=== PATIENT | male | born 1955 | race Caucasian/White ===

== ENCOUNTER 2019-05-23 05:33 | Outpatient (RCR) | payer OTHER, SELFPAY | END 2019-06-05 00:01 | LOC: ONCMED 05:33 | PROVIDERS: Family Provider Emergency Medicine Emergency Medical Services; Visit Provider Internal Medicine Hematology & Oncology | DX: Z51.12 Encounter for antineoplastic immunotherapy (principal); C34.11 Malignant neoplasm of upper lobe, right bronchus or lung; C79.51 Secondary malignant neoplasm of bone; R43.9 Unspecified disturbances of smell and taste; R21 Rash and other nonspecific skin eruption; Z79.899 Other long term (current) drug therapy; Z92.3 Personal history of irradiation ==

== ENCOUNTER 2019-06-06 13:46 | Outpatient (RCR) | payer OTHER, SELFPAY | END 2019-07-06 23:59 | disposition home or self-care (01) | LOC: SPT 13:46 | PROVIDERS: Family Provider Emergency Medicine Emergency Medical Services; Visit Provider Emergency Medicine Emergency Medical Services | DX: C34.90 Malignant neoplasm of unspecified part of unspecified bronchus or lung (principal) ==

== ENCOUNTER 2019-07-04 05:44 | Outpatient (RCR) | payer OTHER, SELFPAY ==
[2019-06-12 12:34] LABS: Basophils % 0.4 %; Eosinophils # 0.2 10^3/uL (0.0-0.8); Eosinophils % 3.6 %; Hematocrit 40.7 % (42.0-52.0); Hemoglobin 12.7 g/dL (11.7-16.6); Lymphocytes # 2.5 10^3/uL (0.8-4.8); Lymphocytes % 48.2 %; Mean Corpuscular HGB Conc 31.2 g/dL (30.0-36.0); Mean Corpuscular Hemoglobin 30.6 pg (28.0-34.0); Mean Corpuscular Volume 98.1 fL (80-94); Mean Platelet Volume 9.1 fL (7.4-10.4); Monocytes # 0.4 10^3/uL (0.2-0.9); Monocytes % 7.3 %; Neutrophils # 2.1 10^3/uL (1.8-7.7); Neutrophils % 40.3 %; Nucleated Red Blood Cells % 0 %; Platelet Count 217 10^3/cmm (130-400); Red Blood Count 4.15 10^6/uL (4.1-5.3); Red Cell Distribution Width 13.5 % (12.1-15.1); White Blood Count 5.2 10^3/uL (4.0-10.0)
[2019-06-12 12:58] LABS: Alanine Aminotransferase 15 U/L (0-41); Alkaline Phosphatase 75 IU/L (40-130); Anion Gap 14.6 (5-19); Aspartate Amino Transferase 15 U/L (0-40); Blood Urea Nitrogen 20 mg/dL (8-23); Calcium 9.6 mg/Dl (8.8-10.2); Carbon Dioxide 27 mmol/L (22-29); Chloride 103 mmol/L (98-107); Globulin 2.5 g/dL (1.3-4.6); Glomerular Filtration Rate 85.8 mL/min (90-130); Glucose 109 mg/dL (74-106); Potassium 3.6 mmol/L (3.5-5.1); Sodium 141 mmol/L (136-145); Total Bilirubin 0.3 mg/dL (0.15-1.2); Total Protein 6.5 g/dL (6.6-8.7)
--- NOTE | 2019-06-13 14:34 | ONC FU_ITS ---
[facility] Patient Note Patient: Alli Mcclellan Unit #: [id number]: 1955 Dictated By: Lorena SmithDate of Visit: Jun 13, 2019 Onc MED Follow-Up/Prog Note Chief Complaint: Lung cancer with brain metastases History of Present Illness: Mr. Mcclellan is a 63-year-old gentleman who was recently diagnosed with metastatic lung cancer to brain. Mr Mcclellan reports that in August 2017, he developed side effects in that he could not speak and had trouble typing with his left hand. He had an episode of ataxia and he felt significantly dizzy, so much so that he felt like he was going to pass out. He presented to the hospital where MRI scan of brain was done on 09/01/2017. The MRI showed left cerebral mass measuring 3.6 cm and mild asymmetric prominence and enhancement at right pituitary gland. Differential included macroadenoma, craniopharyngioma, or metastatic disease. A CT chest was done and reported spiculated area of the right upper lobe measuring 2.7 cm. He underwent posterior fossa craniotomy and resection of the cerebellar mass on 09/05/2017. The final pathology reported metastatic adenocarcinoma consistent with lung primary. Molecular assay was negative for EGFR, BRAF V600E IHC, ALK, RET, HER-2, BRAF, and ROS 1. PET/CT imaging was obtained on 10/29/2017. It did report 2 x 2.3 cm right apical pulmonary nodule with an SUV of 17.7. There were no additional pulmonary nodules or masses identified. Activity in the bilateral hilum and mediastinal lymph nodes was unremarkable. There was no other evidence for local or distant metastatic disease. Follow-up CT of the head from 11/10/2017 reported postoperative changes from prior occipital craniotomy and resection of the previous metastatic lesion from the superior aspect of the left cerebellar hemisphere. There was persistent subcutaneous occipital scalp fluid that may communicate with the CSF space through meningeal defect posterior to the cervical do medullary junction. There were mild central and peripheral atrophy. No acute findings of the head and no significant change from 10/17/2017. It was noted that he had left maxillary sinusitis. Mr. Mcclellan was referred to Dr Lyle in radiation oncology for treatment of the lung mass and consideration of radiation to the brain. Mr Mcclellan had SBRT to the right lung. He had a total dose of 3600 cGy (48 GY). His start date was 11/16/2017. His completion date was 11/23/2017. Mr. Mcclellan then underwent SRS to the brain. His total dose was 2400 cGy. He started on 01/11/2018 and ended on 01/16/2018. He was given Decadron 4 mg twice a day while on treatment with instructions to taper slowly after radiation was completed. Mr. Mcclellan was evaluated and was offered chemotherapy with cisplatin Alimta every 3 weeks for 4 cycles. He has been very hesitant to proceed with chemotherapy due to concerns about side effects. Interim history: Mr Mcclellan went to [place] for further oncology care And during evaluation his CT PET scan done on 05/17 showed left cerebellar consistent with known prior dissection; Right lung upper lobe consistent with persistent tumor with right bronchial lymph node involvement; Left maxillary sinus of concern for metastatic disease and A new osseous lesion in the right anterior iliac crest consistent with metastatic disease. Once again chemotherapy was recommended and he consentetd. He was given 1 cycle of carboplatin/Alimta/pembrolizumab on 06/28/2018 but he had significant side effects including nausea, vomiting- fatigue requiring hydration, subsequently chemotherapy was discontinued because of intolerance. He was switched to single agent Keytruda on 09/06/2018, tolerated immunotherapy well-except associated or diarrhea which was treated with prednisone 60 mg daily and responded well. He has had no further episodes of the significant diarrhea. He had follow-up CT PET scanOn 11/25/2018 which showed the right apical lung lesion currently measured 3.9 x 2.4 cm with SUV of 3.4 (this is a significant improvement since prior study and likely represent chronic inflammation); Status post right ventriculoperitoneal shunt placement done on 02/15/2019. CT scan of head was done on 04/03/2019 showed stable frontal ventricular shunt tube position with decreased ventriculomegaly since 02/15/2019. 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 On 04/13/2019 Mr Mcclellan presented to the local emergency room with with chief complaints of floaters in his vision off and on and this time in the right eye only. He was sent to [facility] in [place] emergency room where he was evaluated by ophthalmology and no retinal detachment was observed. Follow-up in 2 weeks was recommended but he did not go for follow-up as condition resolved on its own. He also had CT scan of head done on 04/13/2019 which showed no intracranial hemorrhage or mass effect; Unchanged ventricular configuration; Unchanged right frontal ventricular shunt catheter tip terminating in the left frontal horn; Unchanged left cerebellar hemisphere encephalomalacia and postsurgical changes; CT scan of the head done on 05/14/2019 showed right frontal shunt catheter with tip in the left frontal horn. No hydrocephalus; Postoperative changes occipital craniectomy. He remains on immunotherapy with pembrolizumab. Mr. Mcclellan is here today for follow-up. He is now completed 12 cycles of the pembrolizumab. He is tolerating it well. He denies any new pain, shortness of breath. He said no recurrent diarrhea or abdominal pain. He denies any new shortness of breath orthopnea. He states his energy is improving. He states he was actually able to go out and walk his dog which she has not done in over 2 years. He tolerated this well. He has had a chronic rash on his forehead and on the left restorationism that is really no better or no worse. He thinks it may be gradually getting a little worse after each Keytruda. He states is very tolerable and really is not itching is just cumbersome at times because it is flaky. His appetite is good. He denies any new pain. He said no fever chills or any signs of infection. He denies any pneumonitis symptoms such as shortness of breath, painful breathing, cough, hemoptysis. He denies any lower extremity edema. He continues to utilize his cane for mobility assistance. He reports no falls. His ECOG is 1. Past Medical History: Chronic back pain Hypertension Past Surgical History: Appendectomy Craniotomy Allergies: Cats, Dust mites, Grass Pollen, Mold and Trees and HydroCHLOROthiazide. Medications: Acetaminophen 2 (325 mg) Capsule Oral PRN B Complex 1 Tablet Oral daily buPROPion HCl 1 Tablet (of 75 mg) Oral daily Cabergoline (0.5 mg) Tablet Oral Take as Directed Calcium 1 Tablet (of 600 mg) Oral daily Colace 1 Capsule (of 250 mg) Oral b.i.d. PRN Dexamethasone 0.5 mg (of 0.5 mg) Tablet Oral daily DiazePAM 1 Tablet (of 5 mg) Oral q 6 hours PRN Dronabinol 1 Capsule (of 5 mg) Oral b.i.d. Essiac Tea Herbs Leaves Oral PRN Folic Acid 1 Tablet (of 400 mcg) Oral daily Hydrocodone-Acetaminophen 1 Tablet (of 10-325 mg) Oral 6x/d PRN Lactulose 2 tablespoonful(s) (of 10 g/15mL) Solution Oral b.i.d. PRN Lasix 1 Tablet (of 40 mg) Oral daily PRN LORazepam 2 Tablet (of 0.5 mg) Oral t.i.d. PRN Magnesium 1 Tablet (of 250 mg) Oral daily Multivitamin and Minerals 1 Tablet daily Pantoprazole Sodium 1 Tablet (of 40 mg) Tablet, enteric coated Oral every am Promethazine HCl 1 Suppository (of 25 mg) Rectal q 6 hours PRN Senna-S 1 (8.6-50 mg) Tablet Oral b.i.d. Stiolto Respimat 1 puff(s) (of 2.5-2.5 mcg/act) Aerosol, solution Inhalation daily traZODone HCl 1 Tablet (of 50 mg) Oral at bedtime PRN Vitamin A Capsule Oral daily Family History: Mr. Mcclellan's mother at age 52: congestive heart failure. Mr. Mcclellan's father at age 82: kidney failure. Mr. Mcclellan has 1 sister who is : type ii diabetes. Sister - cancer antiplastic thyroid Grandmother and great grandmother with hx of thyroid and colon cancer. Social History: Mr. Mcclellan is . Mr. Mcclellan no longer smokes but had smoked 1.0 pack/day for 46 years. He has no history of drinking. Stopped smoking 08/2017 Review Of Symptoms: Constitutional Denies fevers, chills, night sweats, excessive fatigue or weight loss. Allergic/Immunologic He has had increased sneezing, eyes watering, clear nasal drainage like seasonal allergies seems to be getting some worse with Keytruda. Eyes Denies significant visual changes. No diplopia. No amaurosis. ENMT Denies changes in hearing, sore throat, mouth sores, difficulty or changes in swallowing ability, and/or discolored sinus drainage. Hematologic/Lymphatic Denies easy bruising or bleeding. The patient denies any tender or palpable lymph nodes. Respiratory Denies dyspnea on exertion, chest pain, cough or hemoptysis. Denies orthopnea. Cardiovascular Denies anginal chest pain, palpitations or orthopnea. Gastrointestinal Denies nausea, vomiting, diarrhea, GI bleeding, or constipation. Denies change in bowel habits and/or stool color, no heartburn or early satiety. Genitourinary (M) Denies hematuria, dysuria, increased frequency, urgency, hesitancy or incontinence. Musculoskeletal Denies joint pain, swelling or redness. No decreased range of motion. Integumentary Denies chronic rashes, inflammation, ulcerations or skin changes. Neurologic Denies headache, blurred vision, and no areas of focal weakness or numbness. Normal gait. No sensory problems. Psychiatric Denies insomnia, depression, aries or mood swings. Vital Signs: Performed on Jun 13, 2019 13:04 Height - 73.00 in Weight - 278.8 lbs (HIGH) BSA - 2.48 sq.m BMI - 36.78 (HIGH) Temperature - 97.6 F (LOW) Pulse - 76 /min Respiration - 18 /min BP - 147/77 mm(hg) (HIGH) O2 Sat - 96 % Pain - 3,1 - No physically strenuous activity, but ambulatory and able to carry out light or sedentary work (e.g. office work, light house work). (ECOG) Physical Examination: Constitutional Alert, oriented, no acute distress. Skin pink, warm and dry. Head Normocephalic; atraumatic. Eyes Conjunctivae and sclerae are clear and without icterus. Pupils are reactive and equal. Neck Supple without masses or thyromegaly. No jugular venous distension. Hematologic/Lymphatic No petechiae. No tender or palpable lymph nodes in the cervical or supraclavicular areas. Respiratory Lungs are clear to auscultation without rhonchi or wheezing. Cardiovascular Regular rate and rhythm of heart without murmurs,clicks, gallops or rubs. Abdomen Non-tender, non-distended, no masses or ascites. No guarding or rebound tenderness. No pulsatile masses. Back/Spine Non-tender to palpation. Extremities No visible deformities, no cyanosis, clubbing or edema. Integumentary No rashes or lesions. Neurologic No abnormalities noted. He does utilize a cane for ambulation. His gait is slow. Psychiatric Alert and oriented times three. Coherent speech. Verbalizes understanding of our discussions today. Laboratory:Test performed on Jun 12, 2019 10:20 Glucose 109 mg/dL BUN 20 mg/dL Creatinine 0.9 mg/dL Cr Clearance (Est) 154.1800 mL/min Sodium 141 mmol/L Potassium 3.6 mmol/L Chloride 103 mmol/L CO2 27 mmol/L Calcium 9.6 mg/dL Protein, Total 6.5 g/dL Albumin 4.0 g/dL Globulin 2.5 g/dL Bilirubin, Total 0.3 mg/dL Alkaline Phosphatase 75 IU/L AST (SGOT) 15 IU/L ALT (SGPT) 15 IU/L WBC 5.2 10^9/L RBC 4.15 10^12/L HGB 12.7 g/dL HCT 40.7 % MCV 98.1 fl MCH 30.6 pg MCHC 31.2 g/dL RDW 13.5 % Platelet Count 217 10^9/L MPV 9.1 fL Neutrophils (Gran) 2.1 10^9/L Lymphocytes 2.5 10^9/L Monocytes 0.4 10^9/L Eosinophils 0.2 10^9/L Basophils 0.0 10^9/L Manual Lymphocytes 48.2 % Manual Monocytes 7.3 % Manual Eosinophils 3.6 % Manual Basophils 0.4 % NRBCs 0.0 /100 WBC Impression: 1. 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 2. status post metastasectomy done on 09/05/2017, postoperative MRI disclosed complete resection. Molecular studies on brain metastases biopsy showed negative for EGFR ALK, RET, HER-2/india, ROS 1,BRAF, 3. Right upper lobe lung mass 2.7 cm. 4. Indigestion/ heartburn nausea vomiting probably due to candidal esophagitis or questionable increase intracranial pressure , also with oral thrush EGD showed H. pylori status post antibiotics FOLLOWUP IMAGIN. CT scan of head done on 10/17/2017 showed stable postoperative changes from prior left occipital craniotomy and resection of previous metastatic mass from left cerebellum hemisphere. (Repeat CT of the head from 11/2017 in [facility] [place] [facility] reported findings consistent with the 10/17/2017 imaging with no acute findings). 6. PET/CT from 10/29/2017 showed 2 x 2.3 cm right apical pulmonary nodule with SUV of 17.7. No additional abnormality noted other than status post cranial metastasectomy site. CURRENT TREAMENT SUMMARY: 7. SBRT to right lung mass completed 11/23/2017 for a total dose of 3,600 cGY (48 GGY). 8. SRS to brain completed 01/16/2018 for a total dose of 2,400 cGY. 9. Carboplatin/Alimta/pembrolizumab 06/28/2018. He had 1 dose of the carboplatin Alimta had significant side effects and was transitioned to just single agent pembrolizumab in September 2018. He remains on pembrolizumab currently. Dr Parra discussed with Mr Mcclellan the role of systemic chemotherapy with cisplatin/Alimta versus observation alone. He has recommended chemotherapy consisting of Cisplatin 75 mg/m2 day 1 and Alimta 500 mg/m??? on day 1 repeat every 21 days ???4 cycles along with dexamethasone, folic acid and B12 as prophylactic treatment for Alimta. Mr Mcclellan transferred his care to [facility] where getting evaluation CT PET scan was done on 05/17/2018 which showed persistent right upper lobe lung mass with right bronchial lymph node involvement; Finding in the left maxillary sinus of concern for metastatic disease; A new osseous lesion seen in the right anterior iliac crest consistent with metastatic disease. Mr Mcclellan was started on carboplatin/Alimta/pembrolizumab-he was given 1 dose of chemotherapy on 06/28/2018. He experienced significant side effects so chemotherapy was discontinued and then switched to single agent Keytruda in September 2018. Patient tolerated well except some diarrhea, responded to prednisone 60 mg by mouth daily, now resolved and his follow-up CT PET scan done on 11/25/2018 showed excellent response to single agent Keytruda. The PET/CT did show a right apical lung lesion measures 3.9 x 2.4 cm with SUV of 3.4 which is significant improvement since prior study in May 2018 and likely represent inflammatory posttreatment changes. Mr Mcclellan has continued with single agent Keytruda and has now completed 12 cycles. He is tolerating it well and has improvement in his performance status. Plan: 1. Proceed with cycle 13 Keytruda. 2. May try adding Zyrtec for allergy symptoms. Will need to watch BP as he is not taking any antihypertensives currently. 3. Continue cortisone to mild rash on forehead and left restorationism area. I did ask him to see if he notices an increase in the rash after treatment today. 4. Labs from June 12, 2019 were reviewed in detail and discussed with Mr. Mcclellan and a copy was given to him. WBC 5.2, hemoglobin 12.7, platelets 217,000, ANC is 2100. Potassium 3.6 creatinine 0.9 random glucose was 109 LFTs are normal. TSH from 05/22/2019 was normal at 2.17. 5. Mr. Mcclellan has been instructed to watch his blood pressure closely as it seems to be creeping up a little . Was 143/77 today. He is off all his hypertensive as his blood pressure did get low requiring medication adjustments. 6. We will plan to see him back in 3 weeks with repeat CBC, CMP and TSH for immunotherapy monitoring. He will be due for cycle 14 Keytruda at that time. He is inquiring as to how long he will need to be on the Keytruda particularly if there is a time limit that he can remain on it. He states he has tolerated it well and feels so much better. 7. Mr. Mcclellan was instructed to contact us in the interim should questions or problems arise. Signed By: Lorena Smith-, [facility] Harsha Parra MD <<Signature on File>>
[2019-07-03 10:15] LABS: Basophils % 0.3 %; Eosinophils # 0.2 10^3/uL (0.0-0.8); Eosinophils % 2.8 %; Hematocrit 40.7 % (42.0-52.0); Hemoglobin 12.9 g/dL (11.7-16.6); Lymphocytes # 2.9 10^3/uL (0.8-4.8); Lymphocytes % 51.1 %; Mean Corpuscular HGB Conc 31.7 g/dL (30.0-36.0); Mean Corpuscular Hemoglobin 31.9 pg (28.0-34.0); Mean Corpuscular Volume 100.7 fL (80-94); Mean Platelet Volume 9.3 fL (7.4-10.4); Monocytes # 0.5 10^3/uL (0.2-0.9); Monocytes % 7.9 %; Neutrophils # 2.2 10^3/uL (1.8-7.7); Neutrophils % 37.7 %; Nucleated Red Blood Cells % 0 %; Platelet Count 203 10^3/cmm (130-400); Red Blood Count 4.04 10^6/uL (4.1-5.3); Red Cell Distribution Width 13.2 % (12.1-15.1); White Blood Count 5.7 10^3/uL (4.0-10.0)
[2019-07-03 10:54] LABS: Alanine Aminotransferase 10 U/L (0-41); Alkaline Phosphatase 85 IU/L (40-130); Anion Gap 13.9 (5-19); Aspartate Amino Transferase 13 U/L (0-40); Blood Urea Nitrogen 12 mg/dL (8-23); Carbon Dioxide 30 mmol/L (22-29); Chloride 103 mmol/L (98-107); Globulin 2.9 g/dL (1.3-4.6); Glucose 101 mg/dL (74-106); Potassium 3.9 mmol/L (3.5-5.1); Sodium 143 mmol/L (136-145); Thyroid Stimulating Hormone 1.62 uIU/mL (0.27-4.20); Total Bilirubin 0.2 mg/dL (0.15-1.2); Total Protein 6.9 g/dL (6.6-8.7)
--- NOTE | 2019-07-04 15:26 | ONC FU_ITS ---
Dr. Parra follow up note Patient: Alli Mcclellan Unit #: [id number]: 1955 Dicatated By: Harsha Parra M.D.Date of Visit:Jul 04, 2019 Onc Med Follow-up/Prog Note History of Present Illness: Mr. Mcclellan is a 63-year-old gentleman who was recently diagnosed with metastatic lung cancer to brain. Mr Mcclellan reports that in August 2017, he developed side effects in that he could not speak and had trouble typing with his left hand. He had an episode of ataxia and he felt significantly dizzy, so much so that he felt like he was going to pass out. He presented to the hospital where MRI scan of brain was done on 09/01/2017. The MRI showed left cerebral mass measuring 3.6 cm and mild asymmetric prominence and enhancement at right pituitary gland. Differential included macroadenoma, craniopharyngioma, or metastatic disease. A CT chest was done and reported spiculated area of the right upper lobe measuring 2.7 cm. He underwent posterior fossa craniotomy and resection of the cerebellar mass on 09/05/2017. The final pathology reported metastatic adenocarcinoma consistent with lung primary. Molecular assay was negative for EGFR, BRAF V600E IHC, ALK, RET, HER-2, BRAF, and ROS 1. PET/CT imaging was obtained on 10/29/2017. It did report 2 x 2.3 cm right apical pulmonary nodule with an SUV of 17.7. There were no additional pulmonary nodules or masses identified. Activity in the bilateral hilum and mediastinal lymph nodes was unremarkable. There was no other evidence for local or distant metastatic disease. Follow-up CT of the head from 11/10/2017 reported postoperative changes from prior occipital craniotomy and resection of the previous metastatic lesion from the superior aspect of the left cerebellar hemisphere. There was persistent subcutaneous occipital scalp fluid that may communicate with the CSF space through meningeal defect posterior to the cervical do medullary junction. There were mild central and peripheral atrophy. No acute findings of the head and no significant change from 10/17/2017. It was noted that he had left maxillary sinusitis. Mr. Mcclellan was referred to Dr Lyle in radiation oncology for treatment of the lung mass and consideration of radiation to the brain. Mr Mcclellan had SBRT to the right lung. He had a total dose of 3600 cGy (48 GY). His start date was 11/16/2017. His completion date was 11/23/2017. Mr. Mcclellan then underwent SRS to the brain. His total dose was 2400 cGy. He started on 01/11/2018 and ended on 01/16/2018. He was given Decadron 4 mg twice a day while on treatment with instructions to taper slowly after radiation was completed. Mr. Mcclellan was evaluated and was offered chemotherapy with cisplatin Alimta every 3 weeks for 4 cycles. He has been very hesitant to proceed with chemotherapy due to concerns about side effects. Interim history: Mr Mcclellan went to [place] for further oncology care And during evaluation his CT PET scan done on 05/17 showed left cerebellar consistent with known prior dissection; Right lung upper lobe consistent with persistent tumor with right bronchial lymph node involvement; Left maxillary sinus of concern for metastatic disease and A new osseous lesion in the right anterior iliac crest consistent with metastatic disease. Once again chemotherapy was recommended and he consentetd. He was given 1 cycle of carboplatin/Alimta/pembrolizumab on 06/28/2018 but he had significant side effects including nausea, vomiting- fatigue requiring hydration, subsequently chemotherapy was discontinued because of intolerance. He was switched to single agent Keytruda on 09/06/2018, tolerated immunotherapy well-except associated or diarrhea which was treated with prednisone 60 mg daily and responded well. He has had no further episodes of the significant diarrhea. He had follow-up CT PET scanOn 11/25/2018 which showed the right apical lung lesion currently measured 3.9 x 2.4 cm with SUV of 3.4 (this is a significant improvement since prior study and likely represent chronic inflammation); Status post right ventriculoperitoneal shunt placement done on 02/15/2019. CT scan of head was done on 04/03/2019 showed stable frontal ventricular shunt tube position with decreased ventriculomegaly since 02/15/2019. 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 On 04/13/2019 Mr Mcclellan presented to the local emergency room with with chief complaints of floaters in his vision off and on and this time in the right eye only. He was sent to [facility] in [place] emergency room where he was evaluated by ophthalmology and no retinal detachment was observed. Follow-up in 2 weeks was recommended but he did not go for follow-up as condition resolved on its own. He also had CT scan of head done on 04/13/2019 which showed no intracranial hemorrhage or mass effect; Unchanged ventricular configuration; Unchanged right frontal ventricular shunt catheter tip terminating in the left frontal horn; Unchanged left cerebellar hemisphere encephalomalacia and postsurgical changes; CT scan of the head done on 05/14/2019 showed right frontal shunt catheter with tip in the left frontal horn. No hydrocephalus; Postoperative changes occipital craniectomy. He remains on immunotherapy with pembrolizumab. Came for follow-up, denies any specific complaints except some discomfort in bilateral shoulder more on the left but no fever or chills no nausea or vomiting no jaundice no shortness of breath no diarrhea constipation. Forehead rash is improving. No headaches or blurred vision or double vision. Tolerating immunotherapy well otherwise Medications: Acetaminophen 2 (325 mg) Capsule Oral PRN, B Complex 1 Tablet Oral daily, buPROPion HCl 1 Tablet (of 75 mg) Oral daily, Cabergoline (0.5 mg) Tablet Oral Take as Directed, Calcium 1 Tablet (of 600 mg) Oral daily, Colace 1 Capsule (of 250 mg) Oral b.i.d. PRN, Dexamethasone 1 mg (of 0.25 mg) Tablet Oral daily, DiazePAM 1 Tablet (of 5 mg) Oral q 6 hours PRN, Dronabinol 1 Capsule (of 5 mg) Oral b.i.d., Essiac Tea Herbs Leaves Oral PRN, Folic Acid 1 Tablet (of 400 mcg) Oral daily, Hydrocodone-Acetaminophen 1 Tablet (of 10-325 mg) Oral 6x/d PRN, Lactulose 2 tablespoonful(s) (of 10 g/15mL) Solution Oral b.i.d. PRN, Lasix 1 Tablet (of 40 mg) Oral daily PRN, LORazepam 2 Tablet (of 0.5 mg) Oral t.i.d. PRN, Magnesium 1 Tablet (of 250 mg) Oral daily, Multivitamin and Minerals 1 Tablet daily, Pantoprazole Sodium 1 Tablet (of 40 mg) Tablet, enteric coated Oral every am, Promethazine HCl 1 Suppository (of 25 mg) Rectal q 6 hours PRN, Senna-S 1 (8.6-50 mg) Tablet Oral b.i.d., Stiolto Respimat 1 puff(s) (of 2.5-2.5 mcg/act) Aerosol, solution Inhalation daily, traZODone HCl 1 Tablet (of 50 mg) Oral at bedtime PRN, Vitamin A Capsule Oral daily Allergies: Cats, Dust mites, Grass Pollen, Mold and Trees and HydroCHLOROthiazide. Review of Systems: Constitutional - Appetite is poor/fair and weight is stable. No fever, chills, hot flashes, or night sweats. Energy level is fair, ENMT - No sinus congestion/drainage. No mouth sores. No sore throat or difficulty swallowing, Hematologic/Lymphatic - No abnormal bruising or bleeding, Respiratory - Shortness of breath with exertion. No cough. No pleuritic pain or hemoptysis, Cardiovascular - No angina pain. No palpitations, Gastrointestinal - Positive for occasional nausea, no vomiting. No heartburn or acid reflux. No diarrhea, some constipation. No blood in the stool or black stools, Genitourinary (M) - No dysuria or hematuria. No urinary frequency. No urgency or incontinence, Musculoskeletal - No joint or bone pain, Neurologic - Frequent headache and dizziness. Pt reports some numbness in his hands/fingers, Psychiatric - Patient has anxiety, depression, and insomnia. Vital Signs: Performed on Jul 04, 2019 10:40 Height - 73.00 in Weight - 280.8 lbs (HIGH) BSA - 2.49 sq.m BMI - 37.05 (HIGH) Temperature - 97.5 F (LOW) Pulse - 69 /min Respiration - 26 /min BP - 157/77 mm(hg) (HIGH) O2 Sat - 98 % Pain - 3 Performance Status: 1 - No physically strenuous activity, but ambulatory and able to carry out light or sedentary work (e.g. office work, light house work). (ECOG) Physical Examination: ENMT - No oral exudates, ulcers, masses, thrush or mucositis. Oropharynx clear. Tongue normal, Respiratory - Lungs are clear to auscultation without rhonchi or wheezing, Cardiovascular - Regular rate and rhythm of heart, Abdomen - Non-tender, non-distended, Good bowel sounds. No guarding or rebound tenderness. No pulsatile masses, Extremities - no edema. Lab/Imaging: Test performed on Jun 12, 2019 10:20 Glucose 109 mg/dL BUN 20 mg/dL Creatinine 0.9 mg/dL Cr Clearance (Est) 154.1800 mL/min Sodium 141 mmol/L Potassium 3.6 mmol/L Chloride 103 mmol/L CO2 27 mmol/L Calcium 9.6 mg/dL Protein, Total 6.5 g/dL Albumin 4.0 g/dL Globulin 2.5 g/dL Bilirubin, Total 0.3 mg/dL Alkaline Phosphatase 75 IU/L AST (SGOT) 15 IU/L ALT (SGPT) 15 IU/L WBC 5.2 10^9/L RBC 4.15 10^12/L HGB 12.7 g/dL HCT 40.7 % MCV 98.1 fl MCH 30.6 pg MCHC 31.2 g/dL RDW 13.5 % Platelet Count 217 10^9/L MPV 9.1 fL Neutrophils (Gran) 2.1 10^9/L Lymphocytes 2.5 10^9/L Monocytes 0.4 10^9/L Eosinophils 0.2 10^9/L Basophils 0.0 10^9/L Manual Lymphocytes 48.2 % Manual Monocytes 7.3 % Manual Eosinophils 3.6 % Manual Basophils 0.4 % NRBCs 0.0 /100 WBC Test performed on May 22, 2019 11:15 TSH 2.17 uIU/mL Anion Gap 14.7 eGFR 98.3 mL/min Neutrophil % 41.9 % Lymphocyte % 47.0 % Monocyte % 8.2 % Eosinophil % 2.4 % Basophils % 0.3 % Impression: 1. 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 2. status post metastasectomy done on 09/05/2017, postoperative MRI disclosed complete resection. Molecular studies on brain metastases biopsy showed negative for EGFR ALK, RET, HER-2/ind[place], ROS 1,BRAF, 3. Right upper lobe lung mass 2.7 cm. 4. Indigestion/ heartburn nausea vomiting probably due to candidal esophagitis or questionable increase intracranial pressure , also with oral thrush EGD showed H. pylori status post antibiotics FOLLOWUP IMAGIN. CT scan of head done on 10/17/2017 showed stable postoperative changes from prior left occipital craniotomy and resection of previous metastatic mass from left cerebellum hemisphere. (Repeat CT of the head from 11/2017 [place] [facility] [place] findings consistent with the 10/17/2017 imaging with no acute findings). 6. PET/CT from 10/29/2017 showed 2 x 2.3 cm right apical pulmonary nodule with SUV of 17.7. No additional abnormality noted other than status post cranial metastasectomy site. CURRENT TREAMENT SUMMARY: 7. SBRT to right lung mass completed 11/23/2017 for a total dose of 3,600 cGY (48 GGY). 8. SRS to brain completed 01/16/2018 for a total dose of 2,400 cGY. 9. Carboplatin/Alimta/pembrolizumab 06/28/2018. He had 1 dose of the carboplatin Alimta had significant side effects and was transitioned to just single agent pembrolizumab in September 2018. He remains on pembrolizumab currently. Dr Parra discussed with Mr Mcclellan the role of systemic chemotherapy with cisplatin/Alimta versus observation alone. He has recommended chemotherapy consisting of Cisplatin 75 mg/m2 day 1 and Alimta 500 mg/m??? on day 1 repeat every 21 days ???4 cycles along with dexamethasone, folic acid and B12 as prophylactic treatment for Alimta. Mr Mcclellan transferred his care to [facility] where getting evaluation CT PET scan was done on 05/17/2018 which showed persistent right upper lobe lung mass with right bronchial lymph node involvement; Finding in the left maxillary sinus of concern for metastatic disease; A new osseous lesion seen in the right anterior iliac crest consistent with metastatic disease. Mr Mcclellan was started on carboplatin/Alimta/pembrolizumab-he was given 1 dose of chemotherapy on 06/28/2018. He experienced significant side effects so chemotherapy was discontinued and then switched to single agent Keytruda in September 2018. Patient tolerated well except some diarrhea, responded to prednisone 60 mg by mouth daily, now resolved and his follow-up CT PET scan done on 11/25/2018 showed excellent response to single agent Keytruda. The PET/CT did show a right apical lung lesion measures 3.9 x 2.4 cm with SUV of 3.4 which is significant improvement since prior study in May 2018 and likely represent inflammatory posttreatment changes. Mr Mcclellan has continued with single agent Keytruda and has now completed 12 cycles. He is tolerating it well and has improvement in his performance status. Plan: Discussed with patient regarding his labs white blood count 5.7 hemoglobin 12.9 crit 40.7 platelets 203,000 CMP within normal limits Clinically, patient is doing well tolerating immunotherapy with Keytruda well but with expected side effects. We'll proceed with next dose today and then he'll return to clinic in 3 weeks with CBC CMP. Patient was advised to call us in case there is any worsening of skin rash or any new symptoms. Signed By: Harsha Parra M.D. <<Signature on File>>
== END 2019-07-06 23:59 | disposition home or self-care (01) ==
LOC: ONCMED 05:44
PROVIDERS: Nurse Practitioner; Family Provider Emergency Medicine Emergency Medical Services; Visit Provider Internal Medicine Hematology & Oncology
DX: Z51.12 Encounter for antineoplastic immunotherapy (principal); C34.11 Malignant neoplasm of upper lobe, right bronchus or lung; C79.31 Secondary malignant neoplasm of brain; Z92.3 Personal history of irradiation; C79.51 Secondary malignant neoplasm of bone; G93.89 Other specified disorders of brain; G97.82 Other postprocedural complications and disorders of nervous system; G96.19 Other disorders of meninges, not elsewhere classified; I10 Essential (primary) hypertension; G89.29 Other chronic pain; M54.9 Dorsalgia, unspecified; Z79.891 Long term (current) use of opiate analgesic; Z98.2 Presence of cerebrospinal fluid drainage device; Z92.21 Personal history of antineoplastic chemotherapy
CPT/HCPCS: 80053; 84443; 85025; 96413; 99214; A4222; J7050; J9271

== ENCOUNTER 2019-08-02 05:52 | Outpatient (RCR) | payer OTHER, SELFPAY ==
[2019-07-25 10:03] LABS: Basophils % 0.3 %; Eosinophils # 0.2 10^3/uL (0.0-0.8); Eosinophils % 3.2 %; Hemoglobin 13.6 g/dL (11.7-16.6); Lymphocytes # 2.9 10^3/uL (0.8-4.8); Lymphocytes % 48.8 %; Mean Corpuscular HGB Conc 31.6 g/dL (30.0-36.0); Mean Corpuscular Hemoglobin 31.5 pg (28.0-34.0); Mean Corpuscular Volume 99.5 fL (80-94); Mean Platelet Volume 9.3 fL (7.4-10.4); Monocytes # 0.6 10^3/uL (0.2-0.9); Monocytes % 9.3 %; Neutrophils # 2.3 10^3/uL (1.8-7.7); Neutrophils % 38.2 %; Nucleated Red Blood Cells % 0 %; Platelet Count 219 10^3/cmm (130-400); Red Blood Count 4.32 10^6/uL (4.1-5.3); Red Cell Distribution Width 13.2 % (12.1-15.1)
[2019-07-25 10:21] LABS: Alanine Aminotransferase 15 U/L (0-41); Albumin Level 4.1 g/dL (3.5-5.2); Alkaline Phosphatase 92 IU/L (40-130); Chloride 103 mmol/L (98-107); Potassium 4.1 mmol/L (3.5-5.1); Sodium 142 mmol/L (136-145)
[2019-07-25 11:15] LABS: Anion Gap 16.2 (5-19); Aspartate Amino Transferase 17 U/L (0-40); Blood Urea Nitrogen 11 mg/dL (8-23); Calcium 9.8 mg/dL (8.5-10.5); Carbon Dioxide 28 mmol/L (22-29); Globulin 3.7 g/dL (1.3-4.6); Glomerular Filtration Rate 85.5 mL/min (90-130); Glucose 89 mg/dL (65-115); Thyroid Stimulating Hormone 1.57 uIU/mL (0.27-4.20); Total Bilirubin 0.4 mg/dL (0.15-1.2); Total Protein 7.4 g/dL (6.6-8.7)
--- NOTE | 2019-07-26 14:33 | ONC FU_ITS ---
Dr. Parra follow up note Patient: Alli Mcclellan < Unit #: [id number]: 1955 Dicatated By: Harsha Parra M.D.Date of Visit:Jul 26, 2019 Onc Med Follow-up/Prog Note History of Present Illness: Mr. Mcclellan is a 64-year-old gentleman who was recently diagnosed with metastatic lung cancer to brain. Mr Mcclellan reports that in August 2017, he developed side effects in that he could not speak and had trouble typing with his left hand. He had an episode of ataxia and he felt significantly dizzy, so much so that he felt like he was going to pass out. He presented to the hospital where MRI scan of brain was done on 09/01/2017. The MRI showed left cerebral mass measuring 3.6 cm and mild asymmetric prominence and enhancement at right pituitary gland. Differential included macroadenoma, craniopharyngioma, or metastatic disease. A CT chest was done and reported spiculated area of the right upper lobe measuring 2.7 cm. He underwent posterior fossa craniotomy and resection of the cerebellar mass on 09/05/2017. The final pathology reported metastatic adenocarcinoma consistent with lung primary. Molecular assay was negative for EGFR, BRAF V600E IHC, ALK, RET, HER-2, BRAF, and ROS 1. PET/CT imaging was obtained on 10/29/2017. It did report 2 x 2.3 cm right apical pulmonary nodule with an SUV of 17.7. There were no additional pulmonary nodules or masses identified. Activity in the bilateral hilum and mediastinal lymph nodes was unremarkable. There was no other evidence for local or distant metastatic disease. Follow-up CT of the head from 11/10/2017 reported postoperative changes from prior occipital craniotomy and resection of the previous metastatic lesion from the superior aspect of the left cerebellar hemisphere. There was persistent subcutaneous occipital scalp fluid that may communicate with the CSF space through meningeal defect posterior to the cervical do medullary junction. There were mild central and peripheral atrophy. No acute findings of the head and no significant change from 10/17/2017. It was noted that he had left maxillary sinusitis. Mr. Mcclellan was referred to Dr Lyle in radiation oncology for treatment of the lung mass and consideration of radiation to the brain. Mr Mcclellan had SBRT to the right lung. He had a total dose of 3600 cGy (48 GY). His start date was 11/16/2017. His completion date was 11/23/2017. Mr. Mcclellan then underwent SRS to the brain. His total dose was 2400 cGy. He started on 01/11/2018 and ended on 01/16/2018. He was given Decadron 4 mg twice a day while on treatment with instructions to taper slowly after radiation was completed. Mr. Mcclellan was evaluated and was offered chemotherapy with cisplatin Alimta every 3 weeks for 4 cycles. He has been very hesitant to proceed with chemotherapy due to concerns about side effects. Interim history: Mr Mcclellan went to [place] for further oncology care And during evaluation his CT PET scan done on 05/17 showed left cerebellar consistent with known prior dissection; Right lung upper lobe consistent with persistent tumor with right bronchial lymph node involvement; Left maxillary sinus of concern for metastatic disease and A new osseous lesion in the right anterior iliac crest consistent with metastatic disease. Once again chemotherapy was recommended and he consentetd. He was given 1 cycle of carboplatin/Alimta/pembrolizumab on 06/28/2018 but he had significant side effects including nausea, vomiting- fatigue requiring hydration, subsequently chemotherapy was discontinued because of intolerance. He was switched to single agent Keytruda on 09/06/2018, tolerated immunotherapy well-except associated or diarrhea which was treated with prednisone 60 mg daily and responded well. He has had no further episodes of the significant diarrhea. He had follow-up CT PET scanOn 11/25/2018 which showed the right apical lung lesion currently measured 3.9 x 2.4 cm with SUV of 3.4 (this is a significant improvement since prior study and likely represent chronic inflammation); Status post right ventriculoperitoneal shunt placement done on 02/15/2019. CT scan of head was done on 04/03/2019 showed stable frontal ventricular shunt tube position with decreased ventriculomegaly since 02/15/2019. 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 On 04/13/2019 Mr Mcclellan presented to the local emergency room with with chief complaints of floaters in his vision off and on and this time in the right eye only. He was sent to [facility] in [place] emergency room where he was evaluated by ophthalmology and no retinal detachment was observed. Follow-up in 2 weeks was recommended but he did not go for follow-up as condition resolved on its own. He also had CT scan of head done on 04/13/2019 which showed no intracranial hemorrhage or mass effect; Unchanged ventricular configuration; Unchanged right frontal ventricular shunt catheter tip terminating in the left frontal horn; Unchanged left cerebellar hemisphere encephalomalacia and postsurgical changes; CT scan of the head done on 05/14/2019 showed right frontal shunt catheter with tip in the left frontal horn. No hydrocephalus; Postoperative changes occipital craniectomy. He remains on immunotherapy with pembrolizumab. Came for follow-up, denies any specific complaints, facial rash has improved. No nausea or vomiting no diarrhea constipation, no fever or chills. Occasionally ecchymosis on hands and forearm due to trauma. No shortness of breath no diarrhea. Occasionally abdominal cramps. No melena or hematochezia. Tolerating Keytruda well otherwise Medications: Acetaminophen 2 (325 mg) Capsule Oral PRN, B Complex 1 Tablet Oral daily, buPROPion HCl 1 Tablet (of 75 mg) Oral daily, Cabergoline (0.5 mg) Tablet Oral Take as Directed, Calcium 1 Tablet (of 600 mg) Oral daily, Colace 1 Capsule (of 250 mg) Oral b.i.d. PRN, Dexamethasone 1 mg (of 0.25 mg) Tablet Oral daily on Every Other Day, DiazePAM 1 Tablet (of 5 mg) Oral q 6 hours PRN, Dronabinol 1 Capsule (of 5 mg) Oral b.i.d., Essiac Tea Herbs Leaves Oral PRN, Folic Acid 1 Tablet (of 400 mcg) Oral daily, Hydrocodone-Acetaminophen 1 Tablet (of 10-325 mg) Oral 6x/d PRN, Lactulose 2 tablespoonful(s) (of 10 g/15mL) Solution Oral b.i.d. PRN, Lasix 1 Tablet (of 40 mg) Oral daily PRN, LORazepam 2 Tablet (of 0.5 mg) Oral t.i.d. PRN, Magnesium 1 Tablet (of 250 mg) Oral daily, Multivitamin and Minerals 1 Tablet daily, Ondansetron HCl 1 Tablet (of 4 mg) Oral t.i.d., Pantoprazole Sodium 1 Tablet (of 40 mg) Tablet, enteric coated Oral every am, Promethazine HCl 1 Suppository (of 25 mg) Rectal q 6 hours PRN, Senna-S 1 (8.6-50 mg) Tablet Oral b.i.d., Stiolto Respimat 1 puff(s) (of 2.5-2.5 mcg/act) Aerosol, solution Inhalation daily, traZODone HCl 1 Tablet (of 50 mg) Oral at bedtime PRN, Vitamin A Capsule Oral daily Allergies: Cats, Dust mites, Grass Pollen, Mold and Trees and HydroCHLOROthiazide. Review of Systems: Constitutional - Appetite is poor/fair and weight is stable. No fever, chills, hot flashes, or night sweats. Energy level is fair, ENMT - No sinus congestion/drainage. No mouth sores. No sore throat or difficulty swallowing, Hematologic/Lymphatic - No abnormal bruising or bleeding, Respiratory - Shortness of breath with exertion. No cough. No pleuritic pain or hemoptysis, Cardiovascular - No angina pain. No palpitations, Gastrointestinal - Positive for occasional nausea, no vomiting. No heartburn or acid reflux. No diarrhea, some constipation. No blood in the stool or black stools, Genitourinary (M) - No dysuria or hematuria. No urinary frequency. No urgency or incontinence, Musculoskeletal - No joint or bone pain, Neurologic - Frequent headache and dizziness, Psychiatric - Patient has anxiety, depression, and insomnia. Vital Signs: Performed on Jul 26, 2019 13:49 Height - 73.00 in Weight - 277.2 lbs (LOW) BSA - 2.47 sq.m BMI - 36.57 (HIGH) Temperature - 97.8 F (LOW) Pulse - 67 /min Respiration - 26 /min BP - 138/80 mm(hg) O2 Sat - 96 % Pain - 3 Performance Status: 1 - No physically strenuous activity, but ambulatory and able to carry out light or sedentary work (e.g. office work, light house work). (ECOG) Physical Examination: ENMT - No oral exudates, ulcers, masses, thrush or mucositis. Oropharynx clear. Tongue normal, Respiratory - Lungs are clear to auscultation without rhonchi or wheezing, Cardiovascular - Regular rate and rhythm of heart, Abdomen - Non-tender, non-distended,Good bowel sounds. No guarding or rebound tenderness. No pulsatile masses, Extremities - no edema but old healing ecchymosis involving forearms. Lab/Imaging: Test performed on Jun 12, 2019 10:20 Glucose 109 mg/dL BUN 20 mg/dL Creatinine 0.9 mg/dL Cr Clearance (Est) 154.1800 mL/min Sodium 141 mmol/L Potassium 3.6 mmol/L Chloride 103 mmol/L CO2 27 mmol/L Calcium 9.6 mg/dL Protein, Total 6.5 g/dL Albumin 4.0 g/dL Globulin 2.5 g/dL Bilirubin, Total 0.3 mg/dL Alkaline Phosphatase 75 IU/L AST (SGOT) 15 IU/L ALT (SGPT) 15 IU/L WBC 5.2 10^9/L RBC 4.15 10^12/L HGB 12.7 g/dL HCT 40.7 % MCV 98.1 fl MCH 30.6 pg MCHC 31.2 g/dL RDW 13.5 % Platelet Count 217 10^9/L MPV 9.1 fL Neutrophils (Gran) 2.1 10^9/L Lymphocytes 2.5 10^9/L Monocytes 0.4 10^9/L Eosinophils 0.2 10^9/L Basophils 0.0 10^9/L Manual Lymphocytes 48.2 % Manual Monocytes 7.3 % Manual Eosinophils 3.6 % Manual Basophils 0.4 % NRBCs 0.0 /100 WBC Test performed on May 22, 2019 11:15 TSH 2.17 uIU/mL Anion Gap 14.7 eGFR 98.3 mL/min Neutrophil % 41.9 % Lymphocyte % 47.0 % Monocyte % 8.2 % Eosinophil % 2.4 % Basophils % 0.3 % Impression: 1. 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 2. status post metastasectomy done on 09/05/2017, postoperative MRI disclosed complete resection. Molecular studies on brain metastases biopsy showed negative for EGFR ALK, RET, HER-2/india, ROS 1,BRAF, 3. Right upper lobe lung mass 2.7 cm. 4. Indigestion/ heartburn nausea vomiting probably due to candidal esophagitis or questionable increase intracranial pressure , also with oral thrush EGD showed H. pylori status post antibiotics FOLLOWUP IMAGIN. CT scan of head done on 10/17/2017 showed stable postoperative changes from prior left occipital craniotomy and resection of previous metastatic mass from left cerebellum hemisphere. (Repeat CT of the head from 11/2017 in [place] [facility] reported findings consistent with the 10/17/2017 imaging with no acute findings). 6. PET/CT from 10/29/2017 showed 2 x 2.3 cm right apical pulmonary nodule with SUV of 17.7. No additional abnormality noted other than status post cranial metastasectomy site. CURRENT TREAMENT SUMMARY: 7. SBRT to right lung mass completed 11/23/2017 for a total dose of 3,600 cGY (48 GGY). 8. SRS to brain completed 01/16/2018 for a total dose of 2,400 cGY. 9. Carboplatin/Alimta/pembrolizumab 06/28/2018. He had 1 dose of the carboplatin Alimta had significant side effects and was transitioned to just single agent pembrolizumab in September 2018. He remains on pembrolizumab currently. Dr Parra discussed with Mr Mcclellan the role of systemic chemotherapy with cisplatin/Alimta versus observation alone. He has recommended chemotherapy consisting of Cisplatin 75 mg/m2 day 1 and Alimta 500 mg/m??? on day 1 repeat every 21 days ???4 cycles along with dexamethasone, folic acid and B12 as prophylactic treatment for Alimta. Mr Mcclellan transferred his care to [facility] where getting evaluation CT PET scan was done on 05/17/2018 which showed persistent right upper lobe lung mass with right bronchial lymph node involvement; Finding in the left maxillary sinus of concern for metastatic disease; A new osseous lesion seen in the right anterior iliac crest consistent with metastatic disease. Mr Mcclellan was started on carboplatin/Alimta/pembrolizumab-he was given 1 dose of chemotherapy on 06/28/2018. He experienced significant side effects so chemotherapy was discontinued and then switched to single agent Keytruda in September 2018. Patient tolerated well except some diarrhea, responded to prednisone 60 mg by mouth daily, now resolved and his follow-up CT PET scan done on 11/25/2018 showed excellent response to single agent Keytruda. The PET/CT did show a right apical lung lesion measures 3.9 x 2.4 cm with SUV of 3.4 which is significant improvement since prior study in May 2018 and likely represent inflammatory posttreatment changes. Mr Mcclellan has continued with single agent Keytruda and has now completed 12 cycles. He is tolerating it well and has improvement in his performance status. Plan: Discussed with patient regarding his labs white blood count 6 hemoglobin 13.6 crit 43 platelets 219,000 CMP within normal limits Clinically, patient is doing well with no signs symptoms chest showed disease progression, tolerating maintenance therapy with Keytruda well. We'll proceed with next 3 weekly dose today and schedule him for follow-up CT PET scan to assess disease status, then return to clinic in 3 weeks with CBC CMP and follow-up CT PET scan As far as ecchymosis involving forearm is concern probably due to chronic sun exposure damage to the skin, we'll monitor Signed By: Harsha Parra M.D. <<Signature on File>>
--- NOTE | 2019-08-04 16:57 | ONCRAD EPV_ITS ---
Radiation Oncology Established Patient Visit Patient: Ace MR#: [id number] : 1955> Age: 64> Sex: Male> Dictated by: Dr. Aureliano Lyle Date of Service: 08/02/2019 Referring Physician(s) : Harsha Parra Diagnosis: C34.11 - Malignant neoplasm of upper lobe, right bronchus or lung, Diagnosed 10/19/2017 (Active) Stage IV, T1b, N0, M1 C79.31 - Secondary malignant neoplasm of brain, Diagnosed 10/12/2017 (Active) Radiotherapy to Date: Course: SRS Brain Treatment Site: SRS Brain Ref. ID: SRS PTV Energy: 6X Dose/Fx (cGy): 800 #Fx: 3 / 3 Dose Correction (cGy): 0 Total Dose (cGy): 2,400 Start Date: 01/11/2018 End Date: 01/16/2018 Elapsed Days: 5 Chief Complaint / History of Present Illness: This is a 62-year-old gentleman with a diagnosis of T1b, N0, M1 adenocarcinoma involving the right upper lobe of lung with solitary metastases to the cerebellum status post craniotomy with metastatectomy. He received SBRT to the right upper lobe lung mass to 48Gy in 4 fractions completed on 11/23/2017 and fractionated SRS to the surgical cavity to 24Gy in 3 fractions on 01/16/2018. The patient complains of persistent dizziness, gait disturbance, occasional headaches and nausea, and memory loss but denies vomiting or focal neurological deficits. MRI of brain on 12/22/2017 and 08/23/2018 showed no postsurgical changes with no new abnormality and no definite evidence of local recurrence or radiation necrosis. The patient also report some dental issues such as gum bleeding and small piece of tooth broke off and asked me if it is related to radiation. I reviewed his SRS treatment planning and isodose lines. The radiation dose spillage to the posterior oral cavity is very low and should not cause the dental problems that he complained of. I have explained this to him in details. Current Medications: Acetaminophen, b Complex, buPROPion HCl, cabergoline, calcium, colace, dronabinol, essiac Tea Herbs, folic Acid, hydrocodone-Acetaminophen, keytruda, lactulose, lasix, lORazepam, lORazepam, magnesium, multivitamin and Minerals, ondansetron HCl, pantoprazole Sodium, promethazine HCl, senna-S, stiolto Respimat, traZODone HCl, valium, vitamin A. Allergies: HydroCHLOROthiazide and Cats, Dust mites, Grass Pollen, Mold and Trees. Current Complaints / Review of Systems: Constitutional - Complains of a poor appetite. Complains of moderate fatigue. Denies fever and night sweats. Eyes - Denies blurred vision. ENMT - Complains of oral bleeding in the gums and altered taste. Denies dysphagia, ear pain, mouth dryness, stomatitis and tinnitus. Neck - Complains of neck pain which is chronic and decreased range of motion. Integumentary - Complains of rash on the face from recent [place]. Cardiovascular - Denies arrhythmias and chest pain. Respiratory - Complains of a mild cough. Complains of dyspnea associated with rest or normal activity and it comes and goes. Denies wheezing. Gastrointestinal - Complains of abdominal pain that is intermittent. Complains of occasional diarrhea. Complains of heartburn / dyspepsia. Denies constipation and melena / GI bleeding. Genitourinary (M) - Denies dysuria, frequency, nocturia and urgency. Musculoskeletal - Complains of arthritis. Complains of joint pain in the elbows. Complains of generalized muscle weakness but the left side of the body is worse. Denies bone pain. Neurologic - Complains of disorientation to place and person. Complains of frequent dizziness. Complains of abnormal gait. Complains of headaches and gets one 2 to 3 times per week. Complains of memory loss. Endocrine - Denies diabetes and thyroid disease. Hematologic/Lymphatic - Denies tender or enlarged lymph nodes. Vital Signs: Performed on 08/02/2019 3:08 PM BMI - 36.44 kg/m2 (high), Height - 73.00 in, Weight - 276.2 lbs, Temperature - 99.0 f, Pulse - 72, Respiration - 20, O2 Sat - 94 % (low), Pain - 3 and BP - 143/ 83 mm(hg)(high/). Physical Exam: General: Alert and oriented x 3. No acute distress. HEENT: Normocephalic, atraumatic. Extraocular Movements Intact: Pupils Equal, Round, Reactive to Light and Accommodation: Sclerae anicteric. Oral cavity is clear without lesions, masses or ulcers. NECK: Supple without supraclavicular or jugular lymphadenopathy. LUNGS: Clear to auscultation bilaterally without rales, rhonchi or wheeze. HEART: Regular rate and rhythm, normal S1 and S2 without murmur, gallop or rub. MUSCULOSKELETAL: No tenderness or percussion pain over the axial skeleton, scapulae or pelvis. ABDOMEN: Soft, nontender, nondistended without masses or organomegaly. Bowel sounds are present. EXTREMITIES: No peripheral edema is identified. Limited motor and sensory examination are grossly intact and symmetric bilaterally. NEUROLOGIC: Cranial nerves II ???XII are grossly intact. Normal sensation, strength 5/5 in all extremities, no ataxia. Performance Status: 2 - Ambulatory/capable of all self-care, unable to perform any work activities. Up and about more than 50% of waking hours. (ECOG) Lab: Test performed on 07/25/2019 6:30 AM MCV - 99.5 fl (high), Cr Clearance (Est) - 151.35 ml/min (high) and eGFR - 85.5 ml/min (low). Imaging: See HPI Impression/plan: The patient has some persistent neurological symptoms such as dizziness, nausea and headaches but there is no definite clinical evidence of recurrence in the brain or late radiation toxicities such as radiation necrosis. I recommended the patient to continue to follow up with his neurosurgeon for management of neurological symptoms and cancer surveillance. He will continue systemic therapy under the care of Dr. Parra. He can follow up with me on an as-needed basis. Signed by: 08/04/2019 4:56:08 PM <<Signature on File>> CPT Code: CPT Code: Signed By: Dr. Aureliano Lyle, 08/04/2019 4:56:09 PM <<Signature on File>>
== END 2019-08-04 23:59 | disposition home or self-care (01) ==
LOC: ONCMED 05:52
PROVIDERS: Internal Medicine Hematology & Oncology; Family Provider Emergency Medicine Emergency Medical Services; Visit Provider Radiology Radiation Oncology
DX: Z51.12 Encounter for antineoplastic immunotherapy (principal); C34.11 Malignant neoplasm of upper lobe, right bronchus or lung; C79.31 Secondary malignant neoplasm of brain; C79.51 Secondary malignant neoplasm of bone; G93.89 Other specified disorders of brain; Z79.899 Other long term (current) drug therapy; Z98.890 Other specified postprocedural states; Z92.3 Personal history of irradiation; Z92.21 Personal history of antineoplastic chemotherapy
CPT/HCPCS: 36415; 80053; 84443; 85025; 96413; 99213; 99214; J7050; J9271

== ENCOUNTER 2019-09-04 17:45 | Outpatient (RCR) | payer OTHER, SELFPAY ==
[2019-08-15 17:06] LABS: Basophils % 0.3 %; Eosinophils # 0.2 10^3/uL (0.0-0.8); Eosinophils % 3.4 %; Hematocrit 41.8 % (42.0-52.0); Hemoglobin 13.2 g/dL (11.7-16.6); Lymphocytes # 2.1 10^3/uL (0.8-4.8); Lymphocytes % 36.3 %; Mean Corpuscular HGB Conc 31.6 g/dL (30.0-36.0); Mean Corpuscular Hemoglobin 30.2 pg (28.0-34.0); Mean Corpuscular Volume 95.7 fL (80-94); Mean Platelet Volume 9.5 fL (7.4-10.4); Monocytes # 0.5 10^3/uL (0.2-0.9); Neutrophils # 3.1 10^3/uL (1.8-7.7); Neutrophils % 51.8 %; Nucleated Red Blood Cells % 0 %; Platelet Count 204 10^3/cmm (130-400); Red Blood Count 4.37 10^6/uL (4.1-5.3); Red Cell Distribution Width 13.2 % (12.1-15.1); White Blood Count 5.9 10^3/uL (4.0-10.0)
[2019-08-15 17:26] LABS: Alanine Aminotransferase 12 U/L (0-41); Albumin Level 3.7 g/dL (3.5-5.2); Alkaline Phosphatase 81 IU/L (40-130); Aspartate Amino Transferase 15 U/L (0-40); Blood Urea Nitrogen 15 mg/dL (8-23); Calcium 9.6 mg/dL (8.5-10.5); Carbon Dioxide 28 mmol/L (22-29); Chloride 105 mmol/L (98-107); Globulin 3.3 g/dL (1.3-4.6); Glomerular Filtration Rate 85.5 mL/min (90-130); Glucose 108 mg/dL (65-115); Osmolality Calculated 293 mOsm/kg (285-295); Sodium 143 mmol/L (136-145); Thyroid Stimulating Hormone 0.81 uIU/mL (0.27-4.20); Total Bilirubin 0.4 mg/dL (0.15-1.2)
--- NOTE | 2019-08-16 16:33 | ONC FU_ITS ---
Dr. Parra follow up note Patient: Alli Mcclellan Unit #: [id number]: 1955 Dicatated By: Harsha Parra M.D.Date of Visit:Aug 16, 2019 Onc Med Follow-up/Prog Note History of Present Illness: Mr. Mcclellan is a 64-year-old gentleman who was recently diagnosed with metastatic lung cancer to brain. Mr Mcclellan reports that in August 2017, he developed side effects in that he could not speak and had trouble typing with his left hand. He had an episode of ataxia and he felt significantly dizzy, so much so that he felt like he was going to pass out. He presented to the hospital where MRI scan of brain was done on 09/01/2017. The MRI showed left cerebral mass measuring 3.6 cm and mild asymmetric prominence and enhancement at right pituitary gland. Differential included macroadenoma, craniopharyngioma, or metastatic disease. A CT chest was done and reported spiculated area of the right upper lobe measuring 2.7 cm. He underwent posterior fossa craniotomy and resection of the cerebellar mass on 09/05/2017. The final pathology reported metastatic adenocarcinoma consistent with lung primary. Molecular assay was negative for EGFR, BRAF V600E IHC, ALK, RET, HER-2, BRAF, and ROS 1. PET/CT imaging was obtained on 10/29/2017. It did report 2 x 2.3 cm right apical pulmonary nodule with an SUV of 17.7. There were no additional pulmonary nodules or masses identified. Activity in the bilateral hilum and mediastinal lymph nodes was unremarkable. There was no other evidence for local or distant metastatic disease. Follow-up CT of the head from 11/10/2017 reported postoperative changes from prior occipital craniotomy and resection of the previous metastatic lesion from the superior aspect of the left cerebellar hemisphere. There was persistent subcutaneous occipital scalp fluid that may communicate with the CSF space through meningeal defect posterior to the cervical do medullary junction. There were mild central and peripheral atrophy. No acute findings of the head and no significant change from 10/17/2017. It was noted that he had left maxillary sinusitis. Mr. Mcclellan was referred to Dr Lyle in radiation oncology for treatment of the lung mass and consideration of radiation to the brain. Mr Mcclellan had SBRT to the right lung. He had a total dose of 3600 cGy (48 GY). His start date was 11/16/2017. His completion date was 11/23/2017. Mr. Mcclellan then underwent SRS to the brain. His total dose was 2400 cGy. He started on 01/11/2018 and ended on 01/16/2018. He was given Decadron 4 mg twice a day while on treatment with instructions to taper slowly after radiation was completed. Mr. Mcclellan was evaluated and was offered chemotherapy with cisplatin Alimta every 3 weeks for 4 cycles. He has been very hesitant to proceed with chemotherapy due to concerns about side effects. Interim history: Mr Mcclellan went to [place] for further oncology care And during evaluation his CT PET scan done on 05/17 showed left cerebellar consistent with known prior dissection; Right lung upper lobe consistent with persistent tumor with right bronchial lymph node involvement; Left maxillary sinus of concern for metastatic disease and A new osseous lesion in the right anterior iliac crest consistent with metastatic disease. Once again chemotherapy was recommended and he consentetd. He was given 1 cycle of carboplatin/Alimta/pembrolizumab on 06/28/2018 but he had significant side effects including nausea, vomiting- fatigue requiring hydration, subsequently chemotherapy was discontinued because of intolerance. He was switched to single agent Keytruda on 09/06/2018, tolerated immunotherapy well-except associated or diarrhea which was treated with prednisone 60 mg daily and responded well. He has had no further episodes of the significant diarrhea. He had follow-up CT PET scanOn 11/25/2018 which showed the right apical lung lesion currently measured 3.9 x 2.4 cm with SUV of 3.4 (this is a significant improvement since prior study and likely represent chronic inflammation); Status post right ventriculoperitoneal shunt placement done on 02/15/2019. CT scan of head was done on 04/03/2019 showed stable frontal ventricular shunt tube position with decreased ventriculomegaly since 02/15/2019. 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 On 04/13/2019 Mr Mcclellan presented to the local emergency room with with chief complaints of floaters in his vision off and on and this time in the right eye only. He was sent to [facility] in [place] emergency room where he was evaluated by ophthalmology and no retinal detachment was observed. Follow-up in 2 weeks was recommended but he did not go for follow-up as condition resolved on its own. He also had CT scan of head done on 04/13/2019 which showed no intracranial hemorrhage or mass effect; Unchanged ventricular configuration; Unchanged right frontal ventricular shunt catheter tip terminating in the left frontal horn; Unchanged left cerebellar hemisphere encephalomalacia and postsurgical changes; CT scan of the head done on 05/14/2019 showed right frontal shunt catheter with tip in the left frontal horn. No hydrocephalus; Postoperative changes occipital craniectomy. He remains on immunotherapy with pembrolizumab. Tolerating Keytruda well otherwise Follow-up CT PET scan done on 08/11/2019 showed there is ongoing decrease in FDG activity in the right upper lobe nodule now SUV is 2.6 down from 3.4 previously .no new lesion seen Came for follow-up, denies any specific complaints except mild facial rash which is kind of comes and go type, patient was on steroid before prescribed by palliative clinic now discontinued and as per patient low-dose hydrocortisone is under consideration. Other than that patient denies any shortness of breath denies any diarrhea , denies any fever denies any headaches or blurred vision or double vision but mild lower extremity edema usually respond to furosemide. Medications: Acetaminophen 2 (325 mg) Capsule Oral PRN, B Complex 1 Tablet Oral daily, buPROPion HCl 1 Tablet (of 75 mg) Oral daily, Cabergoline (0.5 mg) Tablet Oral Take as Directed, Calcium 1 Tablet (of 600 mg) Oral daily, Colace 1 Capsule (of 250 mg) Oral b.i.d. PRN, Dronabinol 1 Capsule (of 5 mg) Oral b.i.d., Essiac Tea Herbs Leaves Oral PRN, Folic Acid 1 Tablet (of 400 mcg) Oral daily, Hydrocodone-Acetaminophen 1 Tablet (of 10-325 mg) Tablet Oral 6x/d PRN, Lactulose 2 tablespoonful(s) (of 10 g/15mL) Solution Oral b.i.d. PRN, Lasix 1 Tablet (of 40 mg) Oral daily PRN, LORazepam 2 Tablet (of 0.5 mg) Oral t.i.d. PRN, Magnesium 1 Tablet (of 250 mg) Oral daily, Multivitamin and Minerals 1 Tablet daily, Ondansetron HCl 1 Tablet (of 4 mg) Oral t.i.d., Pantoprazole Sodium 1 Tablet (of 40 mg) Tablet, enteric coated Oral every am, Promethazine HCl 1 Suppository (of 25 mg) Rectal q 6 hours PRN, Senna-S 1 (8.6-50 mg) Tablet Oral b.i.d., Stiolto Respimat 1 puff(s) (of 2.5-2.5 mcg/act) Aerosol, solution Inhalation daily, traZODone HCl 1 Tablet (of 50 mg) Tablet Oral at bedtime PRN, Vitamin A Capsule Oral daily Allergies: Cats, Dust mites, Grass Pollen, Mold and Trees and HydroCHLOROthiazide. Review of Systems: Constitutional - Appetite is poor/fair and weight is stable. No fever, chills, hot flashes, or night sweats. Energy level is fair, ENMT - No sinus congestion/drainage. No mouth sores. No sore throat or difficulty swallowing, Hematologic/Lymphatic - No abnormal bruising or bleeding, Respiratory - Shortness of breath with exertion. No cough. No pleuritic pain or hemoptysis, Cardiovascular - No angina pain. No palpitations, Gastrointestinal - Positive for occasional nausea, no vomiting. No heartburn or acid reflux. No diarrhea, some constipation. No blood in the stool or black stools, Genitourinary (M) - No dysuria or hematuria. No urinary frequency. No urgency or incontinence, Musculoskeletal - No joint or bone pain, Integumentary - Pt reports edema in bilateral lower extremities, Neurologic - Frequent headache and dizziness, Psychiatric - Patient has anxiety, depression, and insomnia. Vital Signs: Performed on Aug 16, 2019 09:56 Height - 73.00 in Weight - 279.2 lbs (HIGH) BSA - 2.48 sq.m BMI - 36.84 (HIGH) Temperature - 98.5 F Pulse - 71 /min Respiration - 20 /min BP - 119/72 mm(hg) O2 Sat - 96 % Pain - 3 Performance Status: 1 - No physically strenuous activity, but ambulatory and able to carry out light or sedentary work (e.g. office work, light house work). (ECOG) Physical Examination: ENMT - No oral exudates, ulcers, masses, thrush or mucositis. Oropharynx clear. Tongue normal, Respiratory - Lungs are clear to auscultation without rhonchi or wheezing, Cardiovascular - Regular rate and rhythm of heart, Abdomen - Non-tender, non-distended, Good bowel sounds. No guarding or rebound tenderness. No pulsatile masses, Extremities - 1+ edema bilaterally. Lab/Imaging: Test performed on Jul 25, 2019 06:30 Sodium 142 mmol/L TSH 1.57 uIU/mL Potassium 4.1 mmol/L Chloride 103 mmol/L CO2 28 mmol/L Anion Gap 16.2 BUN 11 mg/dL Creatinine 0.9 mg/dL Cr Clearance (Est) 151.35 mL/min eGFR 85.5 mL/min Glucose 89 mg/dL Calcium 9.8 mg/dL Protein, Total 7.4 g/dL Albumin 4.1 g/dL Globulin 3.7 g/dL Bilirubin, Total 0.4 mg/dL ALT (SGPT) 15 U/L AST (SGOT) 17 U/L Alkaline Phosphatase 92 IU/L WBC 6.0 10 3/uL RBC 4.32 10 6/uL HGB 13.6 g/dL HCT 43.0 % MCV 99.5 fL MCH 31.5 pg MCHC 31.6 g/dL RDW 13.2 % Platelet Count 219 10 3/cmm MPV 9.3 fL Neutrophils 2.3 10 3/uL Lymphocytes 2.9 10 3/uL Monocytes 0.6 10 3/uL Eosinophils 0.2 10 3/uL Basophils 0.0 10 3/uL Neutrophil % 38.2 % Lymphocyte % 48.8 % Monocyte % 9.3 % Eosinophil % 3.2 % Basophils % 0.3 % Test performed on Jun 12, 2019 10:20 Manual Lymphocytes 48.2 % Manual Monocytes 7.3 % Manual Eosinophils 3.6 % Manual Basophils 0.4 % NRBCs 0.0 /100 WBC Impression: 1. 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 2. status post metastasectomy done on 09/05/2017, postoperative MRI disclosed complete resection. Molecular studies on brain metastases biopsy showed negative for EGFR ALK, RET, HER-2/india, ROS 1,BRAF, 3. Right upper lobe lung mass 2.7 cm. 4. Indigestion/ heartburn nausea vomiting probably due to candidal esophagitis or questionable increase intracranial pressure , also with oral thrush EGD showed H. pylori status post antibiotics FOLLOWUP IMAGIN. CT scan of head done on 10/17/2017 showed stable postoperative changes from prior left occipital craniotomy and resection of previous metastatic mass from left cerebellum hemisphere. (Repeat CT of the head from 11/2017 in [facility] [facility] reported findings consistent with the 10/17/2017 imaging with no acute findings). 6. PET/CT from 10/29/2017 showed 2 x 2.3 cm right apical pulmonary nodule with SUV of 17.7. No additional abnormality noted other than status post cranial metastasectomy site. CURRENT TREAMENT SUMMARY: 7. SBRT to right lung mass completed 11/23/2017 for a total dose of 3,600 cGY (48 GGY). 8. SRS to brain completed 01/16/2018 for a total dose of 2,400 cGY. 9. Carboplatin/Alimta/pembrolizumab 06/28/2018. He had 1 dose of the carboplatin Alimta had significant side effects and was transitioned to just single agent pembrolizumab in September 2018. He remains on pembrolizumab currently. Dr Parra discussed with Mr Mcclellan the role of systemic chemotherapy with cisplatin/Alimta versus observation alone. He has recommended chemotherapy consisting of Cisplatin 75 mg/m2 day 1 and Alimta 500 mg/m??? on day 1 repeat every 21 days ???4 cycles along with dexamethasone, folic acid and B12 as prophylactic treatment for Alimta. Mr Mcclellan transferred his care to [facility] where getting evaluation CT PET scan was done on 05/17/2018 which showed persistent right upper lobe lung mass with right bronchial lymph node involvement; Finding in the left maxillary sinus of concern for metastatic disease; A new osseous lesion seen in the right anterior iliac crest consistent with metastatic disease. Mr Mcclellan was started on carboplatin/Alimta/pembrolizumab-he was given 1 dose of chemotherapy on 06/28/2018. He experienced significant side effects so chemotherapy was discontinued and then switched to single agent Keytruda in September 2018. Patient tolerated well except some diarrhea, responded to prednisone 60 mg by mouth daily, now resolved and his follow-up CT PET scan done on 11/25/2018 showed excellent response to single agent Keytruda. The PET/CT did show a right apical lung lesion measures 3.9 x 2.4 cm with SUV of 3.4 which is significant improvement since prior study in May 2018 and likely represent inflammatory posttreatment changes. Mr Mcclellan has continued with single agent Keytruda and has now completed 12 cycles. He is tolerating it well and has improvement in his performance status. Plan: Discussed with patient regarding his labs white blood count 5.9 hemoglobin 13.2 crit 41.8 platelets 204,000 CMP within normal limits and CT PET scan shows excellent response continue improvement in right upper lung nodule and no new lesion seen Clinically, patient is doing well, tolerating maintenance immunotherapy with Keytruda well. His follow-up CT PET scan shows excellent response, will continue with his maintenance dose and he will proceed with next dose of Keytruda today and then return to clinic in 3 weeks with CBC CMP As far as mild fascial/upper neck rash is concern probably due to immunotherapy in the past he responded well to low potency hydrocortisone cream and then patient was also taken steroids prescribed by palliative clinic, as per patient recently steroid has been tapered off and now hydrocortisone is under consideration. Patient was advised to watch sun exposure or use sun screen and also use low potency hydrocortisone cream if no improvement then will reevaluate him. As far as lower extremity edema is concern patient was advised to avoid salt in his diet and take Lasix 20 mg ???1 now and then as needed. Signed By: Harsha Parra M.D. <<Signature on File>>
[2019-09-04 18:40] LABS: Basophils % 0.4 %; Eosinophils # 0.1 10^3/uL (0.0-0.8); Eosinophils % 1.3 %; Hemoglobin 14.3 g/dL (11.7-16.6); Lymphocytes % 27.2 %; Mean Corpuscular HGB Conc 31.8 g/dL (30.0-36.0); Mean Corpuscular Volume 97.6 fL (80-94); Mean Platelet Volume 9.3 fL (7.4-10.4); Monocytes # 0.5 10^3/uL (0.2-0.9); Monocytes % 6.9 %; Neutrophils # 4.8 10^3/uL (1.8-7.7); Neutrophils % 64.1 %; Nucleated Red Blood Cells % 0 %; Platelet Count 204 10^3/cmm (130-400); Red Blood Count 4.61 10^6/uL (4.1-5.3); Red Cell Distribution Width 13.2 % (12.1-15.1); White Blood Count 7.4 10^3/uL (4.0-10.0)
[2019-09-04 18:41] LABS: Alanine Aminotransferase 9 U/L (0-41); Albumin Level 4.3 g/dL (3.5-5.2); Alkaline Phosphatase 87 IU/L (40-130); Anion Gap 16.8 (5-19); Aspartate Amino Transferase 13 U/L (0-40); Blood Urea Nitrogen 10 mg/dL (8-23); Calcium 10.1 mg/dL (8.5-10.5); Carbon Dioxide 29 mmol/L (22-29); Chloride 101 mmol/L (98-107); Globulin 2.8 g/dL (1.3-4.6); Glomerular Filtration Rate 75.7 mL/min (90-130); Glucose 104 mg/dL (65-115); Osmolality Calculated 292 mOsm/kg (285-295); Potassium 3.8 mmol/L (3.5-5.1); Sodium 143 mmol/L (136-145); Thyroid Stimulating Hormone 0.88 uIU/mL (0.27-4.20); Total Bilirubin 0.5 mg/dL (0.15-1.2); Total Protein 7.1 g/dL (6.6-8.7)
== END 2019-09-04 23:59 | disposition home or self-care (01) ==
LOC: ONCMED 17:45
PROVIDERS: Radiology Radiation Oncology; Family Provider Emergency Medicine Emergency Medical Services; Visit Provider Internal Medicine Hematology & Oncology
DX: Z51.12 Encounter for antineoplastic immunotherapy (principal); C34.11 Malignant neoplasm of upper lobe, right bronchus or lung; C79.31 Secondary malignant neoplasm of brain; C79.51 Secondary malignant neoplasm of bone; G93.89 Other specified disorders of brain; R60.0 Localized edema; Z79.891 Long term (current) use of opiate analgesic; Z79.899 Other long term (current) drug therapy; Z92.21 Personal history of antineoplastic chemotherapy; Z98.2 Presence of cerebrospinal fluid drainage device; Z92.3 Personal history of irradiation; Z98.890 Other specified postprocedural states
CPT/HCPCS: 36415; 80053; 84443; 85025; 96413; 99214; J7050; J9271

== ENCOUNTER 2019-09-25 06:45 | Outpatient (RCR) | payer OTHER, SELFPAY ==
--- NOTE | 2019-09-05 14:26 | ONC FU_ITS ---
Dr. Parra follow up note Patient: Alli Mcclellan Unit #: [id number]: 1955 Dicatated By: Harsha Parra M.D.Date of Visit:Sep 05, 2019 Onc Med Follow-up/Prog Note History of Present Illness: Mr. Mcclellan is a 64-year-old gentleman who was recently diagnosed with metastatic lung cancer to brain. Mr Mcclellan reports that in August 2017, he developed side effects in that he could not speak and had trouble typing with his left hand. He had an episode of ataxia and he felt significantly dizzy, so much so that he felt like he was going to pass out. He presented to the hospital where MRI scan of brain was done on 09/01/2017. The MRI showed left cerebral mass measuring 3.6 cm and mild asymmetric prominence and enhancement at right pituitary gland. Differential included macroadenoma, craniopharyngioma, or metastatic disease. A CT chest was done and reported spiculated area of the right upper lobe measuring 2.7 cm. He underwent posterior fossa craniotomy and resection of the cerebellar mass on 09/05/2017. The final pathology reported metastatic adenocarcinoma consistent with lung primary. Molecular assay was negative for EGFR, BRAF V600E IHC, ALK, RET, HER-2, BRAF, and ROS 1. PET/CT imaging was obtained on 10/29/2017. It did report 2 x 2.3 cm right apical pulmonary nodule with an SUV of 17.7. There were no additional pulmonary nodules or masses identified. Activity in the bilateral hilum and mediastinal lymph nodes was unremarkable. There was no other evidence for local or distant metastatic disease. Follow-up CT of the head from 11/10/2017 reported postoperative changes from prior occipital craniotomy and resection of the previous metastatic lesion from the superior aspect of the left cerebellar hemisphere. There was persistent subcutaneous occipital scalp fluid that may communicate with the CSF space through meningeal defect posterior to the cervical do medullary junction. There were mild central and peripheral atrophy. No acute findings of the head and no significant change from 10/17/2017. It was noted that he had left maxillary sinusitis. Mr. Mcclellan was referred to Dr Lyle in radiation oncology for treatment of the lung mass and consideration of radiation to the brain. Mr Mcclellan had SBRT to the right lung. He had a total dose of 3600 cGy (48 GY). His start date was 11/16/2017. His completion date was 11/23/2017. Mr. Mcclellan then underwent SRS to the brain. His total dose was 2400 cGy. He started on 01/11/2018 and ended on 01/16/2018. He was given Decadron 4 mg twice a day while on treatment with instructions to taper slowly after radiation was completed. Mr. Mcclellan was evaluated and was offered chemotherapy with cisplatin Alimta every 3 weeks for 4 cycles. He has been very hesitant to proceed with chemotherapy due to concerns about side effects. Interim history: Mr Mcclellan went to [place] for further oncology care And during evaluation his CT PET scan done on 05/17 showed left cerebellar consistent with known prior dissection; Right lung upper lobe consistent with persistent tumor with right bronchial lymph node involvement; Left maxillary sinus of concern for metastatic disease and A new osseous lesion in the right anterior iliac crest consistent with metastatic disease. Once again chemotherapy was recommended and he consentetd. He was given 1 cycle of carboplatin/Alimta/pembrolizumab on 06/28/2018 but he had significant side effects including nausea, vomiting- fatigue requiring hydration, subsequently chemotherapy was discontinued because of intolerance. He was switched to single agent Keytruda on 09/06/2018, tolerated immunotherapy well-except associated or diarrhea which was treated with prednisone 60 mg daily and responded well. He has had no further episodes of the significant diarrhea. He had follow-up CT PET scanOn 11/25/2018 which showed the right apical lung lesion currently measured 3.9 x 2.4 cm with SUV of 3.4 (this is a significant improvement since prior study and likely represent chronic inflammation); Status post right ventriculoperitoneal shunt placement done on 02/15/2019. CT scan of head was done on 04/03/2019 showed stable frontal ventricular shunt tube position with decreased ventriculomegaly since 02/15/2019. 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 On 04/13/2019 Mr Mcclellan presented to the local emergency room with with chief complaints of floaters in his vision off and on and this time in the right eye only. He was sent to [facility] in [place] emergency room where he was evaluated by ophthalmology and no retinal detachment was observed. Follow-up in 2 weeks was recommended but he did not go for follow-up as condition resolved on its own. He also had CT scan of head done on 04/13/2019 which showed no intracranial hemorrhage or mass effect; Unchanged ventricular configuration; Unchanged right frontal ventricular shunt catheter tip terminating in the left frontal horn; Unchanged left cerebellar hemisphere encephalomalacia and postsurgical changes; CT scan of the head done on 05/14/2019 showed right frontal shunt catheter with tip in the left frontal horn. No hydrocephalus; Postoperative changes occipital craniectomy. He remains on immunotherapy with pembrolizumab. Tolerating Keytruda well otherwise Follow-up CT PET scan done on 08/11/2019 showed there is ongoing decrease in FDG activity in the right upper lobe nodule now SUV is 2.6 down from 3.4 previously .no new lesion seen Came for follow-up, denies any specific complaints except sore throat probably due to allergies, no fever or chills, no yellowish phlegm. No shortness of breath. No wheezing. No skin rash. No diarrhea. Tolerating maintenance immunotherapy with Keytruda well Medications: Acetaminophen 2 (325 mg) Capsule Oral PRN, B Complex 1 Tablet Oral daily, buPROPion HCl 1 Tablet (of 75 mg) Oral daily, Cabergoline (0.5 mg) Tablet Oral Take as Directed, Calcium 1 Tablet (of 600 mg) Oral daily, Colace 1 Capsule (of 250 mg) Oral b.i.d. PRN, Dronabinol 1 Capsule (of 5 mg) Oral b.i.d., Essiac Tea Herbs Leaves Oral PRN, Folic Acid 1 Tablet (of 400 mcg) Oral daily, Hydrocodone-Acetaminophen 1 Tablet (of 10-325 mg) Tablet Oral 6x/d PRN, Hydrocortisone 1 Tablet (of 20 mg) Oral daily, Lactulose 2 tablespoonful(s) (of 10 g/15mL) Solution Oral b.i.d. PRN, Lasix 1 Tablet (of 40 mg) Oral daily PRN, LORazepam 2 Tablet (of 0.5 mg) Oral t.i.d. PRN, Magnesium 1 Tablet (of 250 mg) Oral daily, Multivitamin and Minerals 1 Tablet daily, Ondansetron HCl 1 Tablet (of 4 mg) Oral t.i.d., Pantoprazole Sodium 1 Tablet (of 40 mg) Tablet, enteric coated Oral every am, Promethazine HCl 1 Suppository (of 25 mg) Rectal q 6 hours PRN, Senna-S 1 (8.6-50 mg) Tablet Oral b.i.d., Stiolto Respimat 1 puff(s) (of 2.5-2.5 mcg/act) Aerosol, solution Inhalation daily, traZODone HCl 1 Tablet (of 50 mg) Tablet Oral at bedtime PRN, Vitamin A Capsule Oral daily Allergies: Cats, Dust mites, Grass Pollen, Mold and Trees and HydroCHLOROthiazide. Review of Systems: Constitutional - Appetite is poor/fair and weight is stable. No fever, chills, hot flashes, or night sweats. Energy level is fair, ENMT - No sinus congestion/drainage. No mouth sores. No sore throat or difficulty swallowing, Hematologic/Lymphatic - No abnormal bruising or bleeding, Respiratory - Shortness of breath with exertion. No cough. No pleuritic pain or hemoptysis, Cardiovascular - No angina pain. No palpitations, Gastrointestinal - Positive for occasional nausea, no vomiting. No heartburn or acid reflux. No diarrhea, some constipation. No blood in the stool or black stools, Genitourinary (M) - No dysuria or hematuria. No urinary frequency. No urgency or incontinence, Musculoskeletal - No joint or bone pain, Integumentary - Pt reports edema in bilateral lower extremities, Neurologic - Frequent headache and dizziness, Psychiatric - Patient has anxiety, depression, and insomnia. Vital Signs: Performed on Sep 05, 2019 13:12 Height - 73.00 in Weight - 276.2 lbs (LOW) BSA - 2.47 sq.m BMI - 36.44 (HIGH) Temperature - 98.8 F Pulse - 75 /min Respiration - 24 /min BP - 145/76 mm(hg) (HIGH) O2 Sat - 97 % Pain - 8 Performance Status: 1 - No physically strenuous activity, but ambulatory and able to carry out light or sedentary work (e.g. office work, light house work). (ECOG) Physical Examination: ENMT - No oral exudates, ulcers, masses, thrush or mucositis. Oropharynx clear. Tongue normal, Respiratory - Lungs are clear to auscultation without rhonchi or wheezing, Extremities - 1+ edema bilaterally. Lab/Imaging: Test performed on Sep 04, 2019 17:45 Sodium 143 mmol/L TSH 0.88 uIU/mL Potassium 3.8 mmol/L Chloride 101 mmol/L CO2 29 mmol/L Anion Gap 16.8 BUN 10 mg/dL Creatinine 1.0 mg/dL Cr Clearance (Est) 137.2000 mL/min eGFR 75.7 mL/min Glucose 104 mg/dL Calcium 10.1 mg/dL Protein, Total 7.1 g/dL Albumin 4.3 g/dL Globulin 2.8 g/dL Bilirubin, Total 0.5 mg/dL ALT (SGPT) 9 U/L AST (SGOT) 13 U/L Alkaline Phosphatase 87 IU/L WBC 7.4 10 3/uL RBC 4.61 10 6/uL HGB 14.3 g/dL HCT 45.0 % MCV 97.6 fL MCH 31.0 pg MCHC 31.8 g/dL RDW 13.2 % Platelet Count 204 10 3/cmm MPV 9.3 fL Neutrophils 4.8 10 3/uL Lymphocytes 2.0 10 3/uL Monocytes 0.5 10 3/uL Eosinophils 0.1 10 3/uL Basophils 0.0 10 3/uL Neutrophil % 64.1 % Lymphocyte % 27.2 % Monocyte % 6.9 % Eosinophil % 1.3 % Basophils % 0.4 % Test performed on Jun 12, 2019 10:20 Manual Lymphocytes 48.2 % Manual Monocytes 7.3 % Manual Eosinophils 3.6 % Manual Basophils 0.4 % NRBCs 0.0 /100 WBC Impression: 1. 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 2. status post metastasectomy done on 09/05/2017, postoperative MRI disclosed complete resection. Molecular studies on brain metastases biopsy showed negative for EGFR ALK, RET, HER-2/india, ROS 1,BRAF, 3. Right upper lobe lung mass 2.7 cm. 4. Indigestion/ heartburn nausea vomiting probably due to candidal esophagitis or questionable increase intracranial pressure , also with oral thrush EGD showed H. pylori status post antibiotics FOLLOWUP IMAGIN. CT scan of head done on 10/17/2017 showed stable postoperative changes from prior left occipital craniotomy and resection of previous metastatic mass from left cerebellum hemisphere. (Repeat CT of the head from 11/2017 in [facility] reported findings consistent with the 10/17/2017 imaging with no acute findings). 6. PET/CT from 10/29/2017 showed 2 x 2.3 cm right apical pulmonary nodule with SUV of 17.7. No additional abnormality noted other than status post cranial metastasectomy site. CURRENT TREAMENT SUMMARY: 7. SBRT to right lung mass completed 11/23/2017 for a total dose of 3,600 cGY (48 GGY). 8. SRS to brain completed 01/16/2018 for a total dose of 2,400 cGY. 9. Carboplatin/Alimta/pembrolizumab 06/28/2018. He had 1 dose of the carboplatin Alimta had significant side effects and was transitioned to just single agent pembrolizumab in September 2018. He remains on pembrolizumab currently. Dr Parra discussed with Mr Mcclellan the role of systemic chemotherapy with cisplatin/Alimta versus observation alone. He has recommended chemotherapy consisting of Cisplatin 75 mg/m2 day 1 and Alimta 500 mg/m??? on day 1 repeat every 21 days ???4 cycles along with dexamethasone, folic acid and B12 as prophylactic treatment for Alimta. Mr Mcclellan transferred his care to [facility] where getting evaluation CT PET scan was done on 05/17/2018 which showed persistent right upper lobe lung mass with right bronchial lymph node involvement; Finding in the left maxillary sinus of concern for metastatic disease; A new osseous lesion seen in the right anterior iliac crest consistent with metastatic disease. Mr Mcclellan was started on carboplatin/Alimta/pembrolizumab-he was given 1 dose of chemotherapy on 06/28/2018. He experienced significant side effects so chemotherapy was discontinued and then switched to single agent Keytruda in September 2018. Patient tolerated well except some diarrhea, responded to prednisone 60 mg by mouth daily, now resolved and his follow-up CT PET scan done on 11/25/2018 showed excellent response to single agent Keytruda. The PET/CT did show a right apical lung lesion measures 3.9 x 2.4 cm with SUV of 3.4 which is significant improvement since prior study in May 2018 and likely represent inflammatory posttreatment changes. Mr Mcclellan has continued with single agent Keytruda and has now completed 12 cycles. He is tolerating it well and has improvement in his performance status. Plan: Discussed with patient regarding his labs white blood count 7.4 hemoglobin 14.3 crit 45 platelets 204,000 CMP within normal limits Clinically, patient doing well with no signs symptoms suggestive of disease progression, tolerating maintenance therapy with Keytruda well. We'll proceed with next 3 weekly dose today and then he will return to clinic in 3 weeks with CBC CMP. As far as mild cough is concern, could be from postnasal discharge due to allergies but patient was advised in case he has fever or shortness of breath a to call us or go to emergency for evaluation otherwise back in 3 weeks with CBC CMP. Signed By: Harsha Parra M.D. <<Signature on File>>
[2019-09-24 15:39] LABS: Basophils % 0.2 %; Eosinophils # 0.1 10^3/uL (0.0-0.8); Eosinophils % 1.5 %; Hematocrit 42.7 % (42.0-52.0); Hemoglobin 13.6 g/dL (11.7-16.6); Lymphocytes # 2.3 10^3/uL (0.8-4.8); Lymphocytes % 25.5 %; Mean Corpuscular HGB Conc 31.9 g/dL (30.0-36.0); Mean Corpuscular Hemoglobin 31.3 pg (28.0-34.0); Mean Corpuscular Volume 98.2 fL (80-94); Mean Platelet Volume 9.2 fL (7.4-10.4); Monocytes # 0.6 10^3/uL (0.2-0.9); Neutrophils % 65.7 %; Nucleated Red Blood Cells % 0 %; Platelet Count 223 10^3/cmm (130-400); Red Blood Count 4.35 10^6/uL (4.1-5.3); Red Cell Distribution Width 13.3 % (12.1-15.1); White Blood Count 9.2 10^3/uL (4.0-10.0)
[2019-09-24 16:51] LABS: Alanine Aminotransferase 15 U/L (0-41); Alkaline Phosphatase 81 IU/L (40-130); Anion Gap 16.7 (5-19); Aspartate Amino Transferase 16 U/L (0-40); Blood Urea Nitrogen 10 mg/dL (8-23); Calcium 9.7 mg/dL (8.5-10.5); Carbon Dioxide 28 mmol/L (22-29); Chloride 102 mmol/L (98-107); Globulin 3.4 g/dL (1.3-4.6); Glucose 110 mg/dL (65-115); Osmolality Calculated 293 mOsm/kg (285-295); Potassium 3.7 mmol/L (3.5-5.1); Sodium 143 mmol/L (136-145); Thyroid Stimulating Hormone 1.09 uIU/mL (0.27-4.20); Total Bilirubin 0.4 mg/dL (0.15-1.2); Total Protein 7.4 g/dL (6.6-8.7)
--- NOTE | 2019-09-25 12:11 | ONC FU_ITS ---
Dr. Parra follow up note Patient: Alli Mcclellan Unit #: [id number]: 1955 Dicatated By: Harsha Parra M.D.Date of Visit:Sep 25, 2019 Onc Med Follow-up/Prog Note History of Present Illness: Mr. Mcclellan is a 64-year-old gentleman who was recently diagnosed with metastatic lung cancer to brain. Mr Mcclellan reports that in August 2017, he developed side effects in that he could not speak and had trouble typing with his left hand. He had an episode of ataxia and he felt significantly dizzy, so much so that he felt like he was going to pass out. He presented to the hospital where MRI scan of brain was done on 09/01/2017. The MRI showed left cerebral mass measuring 3.6 cm and mild asymmetric prominence and enhancement at right pituitary gland. Differential included macroadenoma, craniopharyngioma, or metastatic disease. A CT chest was done and reported spiculated area of the right upper lobe measuring 2.7 cm. He underwent posterior fossa craniotomy and resection of the cerebellar mass on 09/05/2017. The final pathology reported metastatic adenocarcinoma consistent with lung primary. Molecular assay was negative for EGFR, BRAF V600E IHC, ALK, RET, HER-2, BRAF, and ROS 1. PET/CT imaging was obtained on 10/29/2017. It did report 2 x 2.3 cm right apical pulmonary nodule with an SUV of 17.7. There were no additional pulmonary nodules or masses identified. Activity in the bilateral hilum and mediastinal lymph nodes was unremarkable. There was no other evidence for local or distant metastatic disease. Follow-up CT of the head from 11/10/2017 reported postoperative changes from prior occipital craniotomy and resection of the previous metastatic lesion from the superior aspect of the left cerebellar hemisphere. There was persistent subcutaneous occipital scalp fluid that may communicate with the CSF space through meningeal defect posterior to the cervical do medullary junction. There were mild central and peripheral atrophy. No acute findings of the head and no significant change from 10/17/2017. It was noted that he had left maxillary sinusitis. Mr. Mcclellan was referred to Dr Lyle in radiation oncology for treatment of the lung mass and consideration of radiation to the brain. Mr Mcclellan had SBRT to the right lung. He had a total dose of 3600 cGy (48 GY). His start date was 11/16/2017. His completion date was 11/23/2017. Mr. Mcclellan then underwent SRS to the brain. His total dose was 2400 cGy. He started on 01/11/2018 and ended on 01/16/2018. He was given Decadron 4 mg twice a day while on treatment with instructions to taper slowly after radiation was completed. Mr. Mcclellan was evaluated and was offered chemotherapy with cisplatin Alimta every 3 weeks for 4 cycles. He has been very hesitant to proceed with chemotherapy due to concerns about side effects. Interim history: Mr Mcclellan went to [place] for further oncology care And during evaluation his CT PET scan done on 05/17 showed left cerebellar consistent with known prior dissection; Right lung upper lobe consistent with persistent tumor with right bronchial lymph node involvement; Left maxillary sinus of concern for metastatic disease and A new osseous lesion in the right anterior iliac crest consistent with metastatic disease. Once again chemotherapy was recommended and he consentetd. He was given 1 cycle of carboplatin/Alimta/pembrolizumab on 06/28/2018 but he had significant side effects including nausea, vomiting- fatigue requiring hydration, subsequently chemotherapy was discontinued because of intolerance. He was switched to single agent Keytruda on 09/06/2018, tolerated immunotherapy well-except associated or diarrhea which was treated with prednisone 60 mg daily and responded well. He has had no further episodes of the significant diarrhea. He had follow-up CT PET scanOn 11/25/2018 which showed the right apical lung lesion currently measured 3.9 x 2.4 cm with SUV of 3.4 (this is a significant improvement since prior study and likely represent chronic inflammation); Status post right ventriculoperitoneal shunt placement done on 02/15/2019. CT scan of head was done on 04/03/2019 showed stable frontal ventricular shunt tube position with decreased ventriculomegaly since 02/15/2019. 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 On 04/13/2019 Mr Mcclellan presented to the local emergency room with with chief complaints of floaters in his vision off and on and this time in the right eye only. He was sent to [facility] in [place] emergency room where he was evaluated by ophthalmology and no retinal detachment was observed. Follow-up in 2 weeks was recommended but he did not go for follow-up as condition resolved on its own. He also had CT scan of head done on 04/13/2019 which showed no intracranial hemorrhage or mass effect; Unchanged ventricular configuration; Unchanged right frontal ventricular shunt catheter tip terminating in the left frontal horn; Unchanged left cerebellar hemisphere encephalomalacia and postsurgical changes; CT scan of the head done on 05/14/2019 showed right frontal shunt catheter with tip in the left frontal horn. No hydrocephalus; Postoperative changes occipital craniectomy. He remains on immunotherapy with pembrolizumab. Tolerating Keytruda well otherwise Follow-up CT PET scan done on 08/11/2019 showed there is ongoing decrease in FDG activity in the right upper lobe nodule now SUV is 2.6 down from 3.4 previously .no new lesion seen Came for follow-up, complaining of progressive weakness/pain in left hand fingers especially in the middle/ring and little finger, now having trouble playing his guitar. Patient said he has history of cervical spinal stenosis in the past. Denies any trauma to left hand denies any trauma to the left shoulder or neck. Denies any problem in right hand. Also complaining of mild nausea/vomiting. But no headaches or blurred vision or double vision, no seizure-like activity., No mouth sores or thrush, no diarrhea constipation. Patient is being managed by palliative care clinic in [place]. As per patient his nausea is more since his dexamethasone switch to hydrocortisone in effort to taper off his steroids. Also has some dental issues, awaiting appointment with the dentist.Patient has seen Dr. Sam in the past and now has a follow-up appointment in November 2019. His last CT scan of head was done in May 2019. Medications: Acetaminophen 2 (325 mg) Capsule Oral PRN, Albuterol Sulfate Aerosol Powder, Breath Activated Inhalation, B Complex 1 Tablet Oral daily, buPROPion HCl 1 Tablet (of 75 mg) Oral daily, Cabergoline (0.5 mg) Tablet Oral Take as Directed, Calcium 1 Tablet (of 600 mg) Oral daily, Colace 1 Capsule (of 250 mg) Oral b.i.d. PRN, Dronabinol 1 Capsule (of 5 mg) Oral b.i.d., Essiac Tea Herbs Leaves Oral PRN, Folic Acid 1 Tablet (of 400 mcg) Oral daily, Hydrocodone-Acetaminophen 1 Tablet (of 10-325 mg) Tablet Oral 6x/d PRN, Hydrocortisone 1 Tablet (of 20 mg) Oral daily, Lactulose 2 tablespoonful(s) (of 10 g/15mL) Solution Oral b.i.d. PRN, Lasix 1 Tablet (of 40 mg) Oral daily PRN, Magnesium 1 Tablet (of 250 mg) Oral daily, Multivitamin and Minerals 1 Tablet daily, Ondansetron HCl 1 Tablet (of 4 mg) Oral t.i.d. PRN, Pantoprazole Sodium 1 Tablet (of 40 mg) Tablet, enteric coated Oral every am, Promethazine HCl 1 Suppository (of 25 mg) Rectal q 6 hours PRN, Senna-S 1 (8.6-50 mg) Tablet Oral b.i.d., Stiolto Respimat 1 puff(s) (of 2.5-2.5 mcg/act) Aerosol, solution Inhalation daily, traZODone HCl 1 Tablet (of 50 mg) Tablet Oral at bedtime PRN, Vitamin A Capsule Oral daily Allergies: Cats, Dust mites, Grass Pollen, Mold and Trees and HydroCHLOROthiazide. Review of Systems: Constitutional - Appetite is poor/fair and weight is stable. No fever, chills, hot flashes, or night sweats. Energy level is fair, ENMT - No sinus congestion/drainage. No mouth sores. No sore throat or difficulty swallowing, Hematologic/Lymphatic - No abnormal bruising or bleeding, Respiratory - Shortness of breath with exertion. No cough. No pleuritic pain or hemoptysis, Cardiovascular - No angina pain. No palpitations, Gastrointestinal - Positive for occasional nausea, no vomiting. No heartburn or acid reflux. No diarrhea, some constipation. No blood in the stool or black stools, Genitourinary (M) - No dysuria or hematuria. No urinary frequency. No urgency or incontinence, Musculoskeletal - No joint or bone pain. Pt reports tooth loss, Integumentary - Pt reports edema in bilateral lower extremities, Neurologic - Frequent headache and dizziness, Psychiatric - Patient has anxiety, depression, and insomnia. Vital Signs: Performed on Sep 25, 2019 11:16 Height - 73.00 in Weight - 278.4 lbs (HIGH) BSA - 2.48 sq.m BMI - 36.73 (HIGH) Temperature - 98.2 F (LOW) Pulse - 84 /min Respiration - 19 /min BP - 162/73 mm(hg) (HIGH) O2 Sat - 96 % Pain - 0 Performance Status: 2 - Ambulatory/capable of all self-care, unable to perform any work activities. Up and about more than 50% of waking hours. (ECOG) Physical Examination: ENMT - no thrush or mouth sores, Respiratory - Lungs are clear, Cardiovascular - Regular rate and rhythm of heart, Abdomen - denies any abdominal pain or distention, Extremities - denies any edema. 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 Lab/Imaging: Test performed on Sep 04, 2019 17:45 Sodium 143 mmol/L TSH 0.88 uIU/mL Potassium 3.8 mmol/L Chloride 101 mmol/L CO2 29 mmol/L Anion Gap 16.8 BUN 10 mg/dL Creatinine 1.0 mg/dL Cr Clearance (Est) 137.2000 mL/min eGFR 75.7 mL/min Glucose 104 mg/dL Calcium 10.1 mg/dL Protein, Total 7.1 g/dL Albumin 4.3 g/dL Globulin 2.8 g/dL Bilirubin, Total 0.5 mg/dL ALT (SGPT) 9 U/L AST (SGOT) 13 U/L Alkaline Phosphatase 87 IU/L WBC 7.4 10 3/uL RBC 4.61 10 6/uL HGB 14.3 g/dL HCT 45.0 % MCV 97.6 fL MCH 31.0 pg MCHC 31.8 g/dL RDW 13.2 % Platelet Count 204 10 3/cmm MPV 9.3 fL Neutrophils 4.8 10 3/uL Lymphocytes 2.0 10 3/uL Monocytes 0.5 10 3/uL Eosinophils 0.1 10 3/uL Basophils 0.0 10 3/uL Neutrophil % 64.1 % Lymphocyte % 27.2 % Monocyte % 6.9 % Eosinophil % 1.3 % Basophils % 0.4 % Test performed on Jun 12, 2019 10:20 Manual Lymphocytes 48.2 % Manual Monocytes 7.3 % Manual Eosinophils 3.6 % Manual Basophils 0.4 % NRBCs 0.0 /100 WBC Impression: 1. 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 2. status post metastasectomy done on 09/05/2017, postoperative MRI disclosed complete resection. Molecular studies on brain metastases biopsy showed negative for EGFR ALK, RET, HER-2/india, ROS 1,BRAF, 3. Right upper lobe lung mass 2.7 cm. 4. Indigestion/ heartburn nausea vomiting probably due to candidal esophagitis or questionable increase intracranial pressure , also with oral thrush EGD showed H. pylori status post antibiotics FOLLOWUP IMAGIN. CT scan of head done on 10/17/2017 showed stable postoperative changes from prior left occipital craniotomy and resection of previous metastatic mass from left cerebellum hemisphere. (Repeat CT of the head from 11/2017 in [facility] ER reported findings consistent with the 10/17/2017 imaging with no acute findings). 6. PET/CT from 10/29/2017 showed 2 x 2.3 cm right apical pulmonary nodule with SUV of 17.7. No additional abnormality noted other than status post cranial metastasectomy site. CURRENT TREAMENT SUMMARY: 7. SBRT to right lung mass completed 11/23/2017 for a total dose of 3,600 cGY (48 GGY). 8. SRS to brain completed 01/16/2018 for a total dose of 2,400 cGY. 9. Carboplatin/Alimta/pembrolizumab 06/28/2018. He had 1 dose of the carboplatin Alimta had significant side effects and was transitioned to just single agent pembrolizumab in September 2018. He remains on pembrolizumab currently. Dr Parra discussed with Mr Mcclellan the role of systemic chemotherapy with cisplatin/Alimta versus observation alone. He has recommended chemotherapy consisting of Cisplatin 75 mg/m2 day 1 and Alimta 500 mg/m??? on day 1 repeat every 21 days ???4 cycles along with dexamethasone, folic acid and B12 as prophylactic treatment for Alimta. Mr Mcclellan transferred his care to [facility] where getting evaluation CT PET scan was done on 05/17/2018 which showed persistent right upper lobe lung mass with right bronchial lymph node involvement; Finding in the left maxillary sinus of concern for metastatic disease; A new osseous lesion seen in the right anterior iliac crest consistent with metastatic disease. Mr Mcclellan was started on carboplatin/Alimta/pembrolizumab-he was given 1 dose of chemotherapy on 06/28/2018. He experienced significant side effects so chemotherapy was discontinued and then switched to single agent Keytruda in September 2018. Patient tolerated well except some diarrhea, responded to prednisone 60 mg by mouth daily, now resolved and his follow-up CT PET scan done on 11/25/2018 showed excellent response to single agent Keytruda. The PET/CT did show a right apical lung lesion measures 3.9 x 2.4 cm with SUV of 3.4 which is significant improvement since prior study in May 2018 and likely represent inflammatory posttreatment changes. Mr Mcclellan has continued with single agent Keytruda and has now completed 12 cycles. He is tolerating it well and has improvement in his performance status. Plan: Discussed with patient regarding his labs white blood count 9.2 hemoglobin 13.6 crit 42.7 platelets 223,000 CMP within normal limits Clinically, patient is doing reasonably well, tolerating maintenance therapy with Keytruda well but with expected side effects. We'll proceed with next 3 weekly dose of Keytruda today and then he'll return to clinic in 3 weeks with CBC CMP. As far as nausea/vomiting is concern, etiology could be multifactorial including increased intracranial edema as his symptoms recur since switched to hydrocortisone from dexamethasone by palliative clinic. Patient was offered MRI scan of the head but patient declined at this moment, said he will discuss with Dr. Sam, as Dr. Sam is also planning to order some scans. Other possibility could be gastritis/esophagitis or reflux but patient denies any indigestion or heartburn . Could be due to motion sickness, as patient said certain movements can trigger nausea. Or other possibility could be psychogenic. Patient was advised in addition to Zofran or Phenergan on as-needed basis, he can try lorazepam 0.5 mg by mouth every 6 hours as needed for nausea, it might help him. If there is a no improvement then we will discuss about ordering MRI scan of the brain if Dr. Sam is not considering. Or may consider referred to GI for EGD to rule out gastric/esophageal pathology causing nausea/vomiting. Next As far as left hand/finger weakness is concern, probably due to nerve impingement, could be due to carpal tunnel or cervical radiculopathy., We will request Dr. Sam to see him early for evaluation as he may benefit from nerve conduction study. Return to clinic in 3 weeks with CBC CMP and for Keytruda Signed By: Harsha Parra M.D. <<Signature on File>>
[2019-09-25] MEDS: sodium chloride 0.9% 100 ML 75 ML (12:20)
== END 2019-10-04 23:59 | disposition home or self-care (01) ==
LOC: ONCMED 06:45
PROVIDERS: Family Provider Emergency Medicine Emergency Medical Services; Visit Provider Internal Medicine Hematology & Oncology
DX: Z51.12 Encounter for antineoplastic immunotherapy (principal); C34.11 Malignant neoplasm of upper lobe, right bronchus or lung; C79.31 Secondary malignant neoplasm of brain; C77.1 Secondary and unspecified malignant neoplasm of intrathoracic lymph nodes; C79.51 Secondary malignant neoplasm of bone; R11.2 Nausea with vomiting, unspecified; R53.1 Weakness; M79.642 Pain in left hand; Z92.3 Personal history of irradiation; Z79.899 Other long term (current) drug therapy
CPT/HCPCS: 36415; 80053; 84443; 85025; 96413; 99214; J7050; J9271

== ENCOUNTER → 2019-10-10 11:10 | Outpatient (BNVA) | payer OTHER, SELFPAY | PROVIDERS: Family Provider Emergency Medicine Emergency Medical Services; Visit Provider Specialist | DX: M79.602 Pain in left arm (principal); C78.00 Secondary malignant neoplasm of unspecified lung; G24.9 Dystonia, unspecified; Z98.2 Presence of cerebrospinal fluid drainage device; Z98.890 Other specified postprocedural states | CPT/HCPCS: 95908; 99203 ==

== ENCOUNTER 2019-10-12 07:47 | Outpatient (CLI) | payer OTHER, SELFPAY ==
--- NOTE | 2019-10-12 08:00 | CT_ITS ---
WS: [id number] CT HEAD TECHNIQUE: Noncontrast CT of the head obtained from the skullbase to the vertex. CLINICAL INFORMATION: Dizziness COMPARISON: May 14, 2019 DLP: 992.[address] scans at [facility] use at least one of these dose optimization techniques: automat ed exposure control; mA and/or kV adjustment per patient size (includes targeted exams where dose is matched to clinical indication); or iterative reconstruction. FINDINGS: No evidence of intracranial hemorrhage or mass effect. Right frontal shunt catheter with tip in the l eft frontal horn. No hydrocephalus. Ventricular size is unchanged. Prior postoperative changes occipi ashely craniectomy. Chondromalacia left cerebellum with pseudomeningocele is unchanged since May. Mild small vessel changes. Mild parenchymal volume loss more prominent in the frontal lobes. Cerebell ar tonsillar ectopia. Fourth ventricle is patent. Left sphenoid sinusitis with inspissated secretions . Mastoid air cells well aerated. CT/CT head wo con* [id number] IMPRESSION: 1. Right frontal shunt catheter with tip in the left frontal horn. No hydroceph alus. Ventricular size is unchanged from previous. 2. Prior postoperative changes occipital craniectomy. Stable encephalomalacia l eft cerebellum with unchanged pseudomeningocele 3. Stable cerebellar tonsillar ectopia with normal fourth ventricle. 4. Left sphenoid sinusitis
== END 2019-10-12 07:48 | disposition home or self-care (01) ==
LOC: RADWPI 07:50
PROVIDERS: Family Provider Emergency Medicine Emergency Medical Services; PCP Emergency Medicine Emergency Medical Services; Visit Provider Licensed Practical Nurse
DX: R42 Dizziness and giddiness (principal); Z98.2 Presence of cerebrospinal fluid drainage device; G93.89 Other specified disorders of brain; J32.3 Chronic sphenoidal sinusitis
CPT/HCPCS: 70450

== ENCOUNTER 2019-10-18 07:17 | Outpatient (RCR) | payer OTHER, SELFPAY ==
[2019-10-18 11:18] LABS: Basophils % 0.3 %; Eosinophils # 0.3 10^3/uL (0.0-0.8); Eosinophils % 4.5 %; Hematocrit 43.7 % (42.0-52.0); Hemoglobin 13.7 g/dL (11.7-16.6); Lymphocytes # 2.6 10^3/uL (0.8-4.8); Lymphocytes % 42.8 %; Mean Corpuscular HGB Conc 31.4 g/dL (30.0-36.0); Mean Corpuscular Hemoglobin 30.6 pg (28.0-34.0); Mean Corpuscular Volume 97.5 fL (80-94); Mean Platelet Volume 9.2 fL (7.4-10.4); Monocytes # 0.5 10^3/uL (0.2-0.9); Monocytes % 7.9 %; Neutrophils # 2.6 10^3/uL (1.8-7.7); Neutrophils % 44.2 %; Nucleated Red Blood Cells % 0 %; Platelet Count 204 10^3/cmm (130-400); Red Blood Count 4.48 10^6/uL (4.1-5.3); Red Cell Distribution Width 13.3 % (12.1-15.1)
[2019-10-18 11:43] LABS: Alanine Aminotransferase 17 U/L (0-41); Alkaline Phosphatase 79 IU/L (40-130); Anion Gap 15.8 (5-19); Aspartate Amino Transferase 15 U/L (0-40); Blood Urea Nitrogen 14 mg/dL (8-23); Calcium 9.9 mg/dL (8.5-10.5); Carbon Dioxide 28 mmol/L (22-29); Chloride 102 mmol/L (98-107); Globulin 3.3 g/dL (1.3-4.6); Glucose 119 mg/dL (65-115); Osmolality Calculated 291 mOsm/kg (285-295); Potassium 3.8 mmol/L (3.5-5.1); Sodium 142 mmol/L (136-145); Thyroid Stimulating Hormone 2.12 uIU/mL (0.27-4.20); Total Bilirubin 0.3 mg/dL (0.15-1.2); Total Protein 7.3 g/dL (6.6-8.7)
--- NOTE | 2019-10-18 17:29 | ONC FU_ITS ---
Dr. Parra follow up note Patient: Alli Mcclellan Unit #: [id number]: 1955 Dicatated By: Harsha Parra M.D.Date of Visit:October 18, 2019 Onc Med Follow-up/Prog Note History of Present Illness: Mr. Mcclellan is a 64-year-old gentleman who was recently diagnosed with metastatic lung cancer to brain. Mr Mcclellan reports that in August 2017, he developed side effects in that he could not speak and had trouble typing with his left hand. He had an episode of ataxia and he felt significantly dizzy, so much so that he felt like he was going to pass out. He presented to the hospital where MRI scan of brain was done on 09/01/2017. The MRI showed left cerebral mass measuring 3.6 cm and mild asymmetric prominence and enhancement at right pituitary gland. Differential included macroadenoma, craniopharyngioma, or metastatic disease. A CT chest was done and reported spiculated area of the right upper lobe measuring 2.7 cm. He underwent posterior fossa craniotomy and resection of the cerebellar mass on 09/05/2017. The final pathology reported metastatic adenocarcinoma consistent with lung primary. Molecular assay was negative for EGFR, BRAF V600E IHC, ALK, RET, HER-2, BRAF, and ROS 1. PET/CT imaging was obtained on 10/29/2017. It did report 2 x 2.3 cm right apical pulmonary nodule with an SUV of 17.7. There were no additional pulmonary nodules or masses identified. Activity in the bilateral hilum and mediastinal lymph nodes was unremarkable. There was no other evidence for local or distant metastatic disease. Follow-up CT of the head from 11/10/2017 reported postoperative changes from prior occipital craniotomy and resection of the previous metastatic lesion from the superior aspect of the left cerebellar hemisphere. There was persistent subcutaneous occipital scalp fluid that may communicate with the CSF space through meningeal defect posterior to the cervical do medullary junction. There were mild central and peripheral atrophy. No acute findings of the head and no significant change from 10/17/2017. It was noted that he had left maxillary sinusitis. Mr. Mcclellan was referred to Dr Lyle in radiation oncology for treatment of the lung mass and consideration of radiation to the brain. Mr Mcclellan had SBRT to the right lung. He had a total dose of 3600 cGy (48 GY). His start date was 11/16/2017. His completion date was 11/23/2017. Mr. Mcclellan then underwent SRS to the brain. His total dose was 2400 cGy. He started on 01/11/2018 and ended on 01/16/2018. He was given Decadron 4 mg twice a day while on treatment with instructions to taper slowly after radiation was completed. Mr. Mcclellan was evaluated and was offered chemotherapy with cisplatin Alimta every 3 weeks for 4 cycles. He has been very hesitant to proceed with chemotherapy due to concerns about side effects. Interim history: Mr Mcclellan went to [place] for further oncology care And during evaluation his CT PET scan done on 05/17 showed left cerebellar consistent with known prior dissection; Right lung upper lobe consistent with persistent tumor with right bronchial lymph node involvement; Left maxillary sinus of concern for metastatic disease and A new osseous lesion in the right anterior iliac crest consistent with metastatic disease. Once again chemotherapy was recommended and he consentetd. He was given 1 cycle of carboplatin/Alimta/pembrolizumab on 06/28/2018 but he had significant side effects including nausea, vomiting- fatigue requiring hydration, subsequently chemotherapy was discontinued because of intolerance. He was switched to single agent Keytruda on 09/06/2018, tolerated immunotherapy well-except associated or diarrhea which was treated with prednisone 60 mg daily and responded well. He has had no further episodes of the significant diarrhea. He had follow-up CT PET scanOn 11/25/2018 which showed the right apical lung lesion currently measured 3.9 x 2.4 cm with SUV of 3.4 (this is a significant improvement since prior study and likely represent chronic inflammation); Status post right ventriculoperitoneal shunt placement done on 02/15/2019. CT scan of head was done on 04/03/2019 showed stable frontal ventricular shunt tube position with decreased ventriculomegaly since 02/15/2019. 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 On 04/13/2019 Mr Mcclellan presented to the local emergency room with with chief complaints of floaters in his vision off and on and this time in the right eye only. He was sent to [facility] in [place] emergency room where he was evaluated by ophthalmology and no retinal detachment was observed. Follow-up in 2 weeks was recommended but he did not go for follow-up as condition resolved on its own. He also had CT scan of head done on 04/13/2019 which showed no intracranial hemorrhage or mass effect; Unchanged ventricular configuration; Unchanged right frontal ventricular shunt catheter tip terminating in the left frontal horn; Unchanged left cerebellar hemisphere encephalomalacia and postsurgical changes; CT scan of the head done on 05/14/2019 showed right frontal shunt catheter with tip in the left frontal horn. No hydrocephalus; Postoperative changes occipital craniectomy. He remains on immunotherapy with pembrolizumab. Tolerating Keytruda well otherwise Follow-up CT PET scan done on 08/11/2019 showed there is ongoing decrease in FDG activity in the right upper lobe nodule now SUV is 2.6 down from 3.4 previously .no new lesion seen CT scan of the head done on 10/12/2019 shows right frontal shunt cath with the tip in the left frontal horn. No hydrocephalus. Prior postoperative changes occipital status post occipital craniotomy. 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 Recently underwent left arm nerve conduction study, as per patient he was told his left hand weakness and numbness is due to ulnar neuropathy, now being treated with physical therapy. Came for follow-up, complaining of generalized weakness and fatigue, not getting enough sleep at night. Patient use CPAP machine . But no fever or chills no nausea or vomiting, no seizure-like activity no focal weakness. No nausea or vomiting. No skin rash, no wheezing or shortness of breath, no melena or hematochezia, Tolerating immunotherapy with Keytruda well Medications: Acetaminophen 2 (325 mg) Capsule Oral PRN, Albuterol Sulfate Aerosol Powder, Breath Activated Inhalation, B Complex 1 Tablet Oral daily, buPROPion HCl 1 Tablet (of 75 mg) Oral daily, Cabergoline (0.5 mg) Tablet Oral Take as Directed, Calcium 1 Tablet (of 600 mg) Oral daily, Colace 1 Capsule (of 250 mg) Oral b.i.d. PRN, Dronabinol 1 Capsule (of 5 mg) Oral b.i.d., Essiac Tea Herbs Leaves Oral PRN, Folic Acid 1 Tablet (of 400 mcg) Oral daily, Hydrocodone-Acetaminophen 1 Tablet (of 10-325 mg) Tablet Oral 6x/d PRN, Hydrocortisone 1 Tablet (of 15 mg) Oral daily, Lactulose 2 tablespoonful(s) (of 10 g/15mL) Solution Oral b.i.d. PRN, Lasix 1 Tablet (of 40 mg) Oral daily PRN, Magnesium 1 Tablet (of 250 mg) Oral daily, Multivitamin and Minerals 1 Tablet daily, Ondansetron HCl 1 Tablet (of 4 mg) Oral t.i.d. PRN, Pantoprazole Sodium 1 Tablet (of 40 mg) Tablet, enteric coated Oral every am, Promethazine HCl 1 Suppository (of 25 mg) Rectal q 6 hours PRN, Senna-S 1 (8.6-50 mg) Tablet Oral b.i.d., Stiolto Respimat 1 puff(s) (of 2.5-2.5 mcg/act) Aerosol, solution Inhalation daily, Vitamin A Capsule Oral daily Allergies: Cats, Dust mites, Grass Pollen, Mold and Trees and HydroCHLOROthiazide. Review of Systems: Constitutional - Appetite is poor/fair and weight is stable. No fever, chills, hot flashes, or night sweats. Energy level is fair, ENMT - No sinus congestion/drainage. No mouth sores. No sore throat or difficulty swallowing, Hematologic/Lymphatic - No abnormal bruising or bleeding, Respiratory - Shortness of breath with exertion. No cough. No pleuritic pain or hemoptysis, Cardiovascular - No angina pain. No palpitations, Gastrointestinal - Positive for occasional nausea, no vomiting. No heartburn or acid reflux. No diarrhea, some constipation. No blood in the stool or black stools, Genitourinary (M) - No dysuria or hematuria. No urinary frequency. No urgency or incontinence, Musculoskeletal - No joint or bone pain. Pt reports tooth loss, Integumentary - Pt reports edema in bilateral lower extremities, Neurologic - Frequent headache and dizziness, Psychiatric - Patient has anxiety, depression, and insomnia. Vital Signs: Performed on October 18, 2019 12:57 Height - 73.00 in Weight - 283 lbs (HIGH) BSA - 2.49 sq.m BMI - 37.34 (HIGH) Temperature - 98.0 F (LOW) Pulse - 66 /min Respiration - 17 /min BP - 144/82 mm(hg) (HIGH) O2 Sat - 97 % Pain - 5 Performance Status: 1 - No physically strenuous activity, but ambulatory and able to carry out light or sedentary work (e.g. office work, light house work). (ECOG) Physical Examination: ENMT - no mouth sores no thrush, Respiratory - Lungs are clear, Cardiovascular - Regular rate and rhythm of heart, Abdomen - bowel sounds present, soft, Extremities - trace edema bilaterally. Lab/Imaging: Test performed on October 18, 2019 11:05 Sodium 142 mmol/L TSH 2.12 uIU/mL Potassium 3.8 mmol/L Chloride 102 mmol/L CO2 28 mmol/L Anion Gap 15.8 BUN 14 mg/dL Creatinine 0.8 mg/dL Cr Clearance (Est) 173.8300 mL/min eGFR 98.0 mL/min Glucose 119 mg/dL Calcium 9.9 mg/dL Protein, Total 7.3 g/dL Albumin 4.0 g/dL Globulin 3.3 g/dL Bilirubin, Total 0.3 mg/dL ALT (SGPT) 17 U/L AST (SGOT) 15 U/L Alkaline Phosphatase 79 IU/L WBC 6.0 10 3/uL RBC 4.48 10 6/uL HGB 13.7 g/dL HCT 43.7 % MCV 97.5 fL MCH 30.6 pg MCHC 31.4 g/dL RDW 13.3 % Platelet Count 204 10 3/cmm MPV 9.2 fL Neutrophils 2.6 10 3/uL Lymphocytes 2.6 10 3/uL Monocytes 0.5 10 3/uL Eosinophils 0.3 10 3/uL Basophils 0.0 10 3/uL Neutrophil % 44.2 % Lymphocyte % 42.8 % Monocyte % 7.9 % Eosinophil % 4.5 % Basophils % 0.3 % Test performed on Jun 12, 2019 10:20 Manual Lymphocytes 48.2 % Manual Monocytes 7.3 % Manual Eosinophils 3.6 % Manual Basophils 0.4 % NRBCs 0.0 /100 WBC Impression: 1. 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 2. status post metastasectomy done on 09/05/2017, postoperative MRI disclosed complete resection. Molecular studies on brain metastases biopsy showed negative for EGFR ALK, RET, HER-2/ind[place], ROS 1,BRAF, 3. Right upper lobe lung mass 2.7 cm. 4. Indigestion/ heartburn nausea vomiting probably due to candidal esophagitis or questionable increase intracranial pressure , also with oral thrush EGD showed H. pylori status post antibiotics FOLLOWUP IMAGIN. CT scan of head done on 10/17/2017 showed stable postoperative changes from prior left occipital craniotomy and resection of previous metastatic mass from left cerebellum hemisphere. (Repeat CT of the head from 11/[address] [facility] reported findings consistent with the 10/17/2017 imaging with no acute findings). 6. PET/CT from 10/29/2017 showed 2 x 2.3 cm right apical pulmonary nodule with SUV of 17.7. No additional abnormality noted other than status post cranial metastasectomy site. CURRENT TREAMENT SUMMARY: 7. SBRT to right lung mass completed 11/23/2017 for a total dose of 3,600 cGY (48 GGY). 8. SRS to brain completed 01/16/2018 for a total dose of 2,400 cGY. 9. Carboplatin/Alimta/pembrolizumab 06/28/2018. He had 1 dose of the carboplatin Alimta had significant side effects and was transitioned to just single agent pembrolizumab in September 2018. He remains on pembrolizumab currently. Dr Parra discussed with Mr Mcclellan the role of systemic chemotherapy with cisplatin/Alimta versus observation alone. He has recommended chemotherapy consisting of Cisplatin 75 mg/m2 day 1 and Alimta 500 mg/m??? on day 1 repeat every 21 days ???4 cycles along with dexamethasone, folic acid and B12 as prophylactic treatment for Alimta. Mr Mcclellan transferred his care to [facility] where getting evaluation CT PET scan was done on 05/17/2018 which showed persistent right upper lobe lung mass with right bronchial lymph node involvement; Finding in the left maxillary sinus of concern for metastatic disease; A new osseous lesion seen in the right anterior iliac crest consistent with metastatic disease. Mr Mcclellan was started on carboplatin/Alimta/pembrolizumab-he was given 1 dose of chemotherapy on 06/28/2018. He experienced significant side effects so chemotherapy was discontinued and then switched to single agent Keytruda in September 2018. Patient tolerated well except some diarrhea, responded to prednisone 60 mg by mouth daily, now resolved and his follow-up CT PET scan done on 11/25/2018 showed excellent response to single agent Keytruda. The PET/CT did show a right apical lung lesion measures 3.9 x 2.4 cm with SUV of 3.4 which is significant improvement since prior study in May 2018 and likely represent inflammatory posttreatment changes. Mr Mcclellan has continued with single agent Keytruda and has now completed 12 cycles. He is tolerating it well and has improvement in his performance status. Plan: Discussed with patient regarding his labs white blood count 6 hemoglobin 13.7 crit 43.7 platelets 204,000 CMP within normal limits TSH 2.[address] scan of the head showed no new changes Clinically, patient is doing well with no signs symptoms testing of disease progression. Tolerating maintenance therapy with Keytruda well. We'll proceed with next 3 weekly dose of Keytruda today and then he'll return to clinic in 3 weeks with CBC CMP Left hand weakness and numbness, recently underwent nerve conduction study which has confirmed ulnar neuropathy, now being treated with physical therapy. As per patient surgical option is also under consideration. As far as generalized weakness and fatigue is concern, could be multifactorial including suboptimal use of CPAP machine, patient was advised to get CPAP machine setting rechecked again as last time they were checked many years ago, since then he has gained significant weight. Signed By: Harsha Parra M.D. <<Signature on File>>
== END 2019-11-04 23:59 | disposition home or self-care (01) ==
LOC: ONCMED 07:17
PROVIDERS: PCP Emergency Medicine Emergency Medical Services; Visit Provider Internal Medicine Hematology & Oncology
DX: Z51.12 Encounter for antineoplastic immunotherapy (principal); C34.11 Malignant neoplasm of upper lobe, right bronchus or lung; C79.51 Secondary malignant neoplasm of bone; C79.31 Secondary malignant neoplasm of brain; K21.9 Gastro-esophageal reflux disease without esophagitis; G47.33 Obstructive sleep apnea (adult) (pediatric); E03.9 Hypothyroidism, unspecified; Z92.21 Personal history of antineoplastic chemotherapy
CPT/HCPCS: 80053; 84443; 85025; 96413; 99214; J7050; J9271

== ENCOUNTER 2019-10-24 06:00 | Outpatient (RCR) | payer OTHER, SELFPAY | END 2019-11-04 23:59 | disposition home or self-care (01) | LOC: SPO 06:00 | PROVIDERS: PCP Emergency Medicine Emergency Medical Services; Referring Provider Emergency Medicine Emergency Medical Services; Visit Provider Emergency Medicine Emergency Medical Services | DX: C34.11 Malignant neoplasm of upper lobe, right bronchus or lung (principal); R53.1 Weakness; R26.81 Unsteadiness on feet | CPT/HCPCS: 97110; 97112; 97140; 97162; 97167 ==

== ENCOUNTER 2019-11-05 06:00 | Outpatient (RCR) | payer OTHER, SELFPAY | END 2019-12-04 23:59 | disposition home or self-care (01) | LOC: SPO 06:00 | PROVIDERS: PCP Emergency Medicine Emergency Medical Services; Visit Provider Emergency Medicine Emergency Medical Services | DX: C34.11 Malignant neoplasm of upper lobe, right bronchus or lung (principal); R53.1 Weakness; R26.89 Other abnormalities of gait and mobility | CPT/HCPCS: 97110; 97112; 97530 ==

== ENCOUNTER 2019-11-28 06:49 | Outpatient (RCR) | payer OTHER, SELFPAY ==
[2019-11-06 15:25] LABS: Basophils % 0.4 %; Eosinophils # 0.2 10^3/uL (0.0-0.8); Eosinophils % 2.8 %; Hematocrit 41.8 % (42.0-52.0); Hemoglobin 13.4 g/dL (11.7-16.6); Lymphocytes # 2.1 10^3/uL (0.8-4.8); Lymphocytes % 28.2 %; Mean Corpuscular HGB Conc 32.1 g/dL (30.0-36.0); Mean Corpuscular Hemoglobin 31.9 pg (28.0-34.0); Mean Corpuscular Volume 99.5 fL (80-94); Monocytes # 0.4 10^3/uL (0.2-0.9); Monocytes % 6.1 %; Neutrophils # 4.5 10^3/uL (1.8-7.7); Neutrophils % 62.2 %; Nucleated Red Blood Cells % 0 %; Platelet Count 198 10^3/cmm (130-400); Red Cell Distribution Width 13.3 % (12.1-15.1); White Blood Count 7.3 10^3/uL (4.0-10.0)
[2019-11-06 15:51] LABS: Alanine Aminotransferase 13 U/L (0-41); Alkaline Phosphatase 75 IU/L (40-130); Anion Gap 13.2 (5-19); Aspartate Amino Transferase 14 U/L (0-40); Blood Urea Nitrogen 14 mg/dL (8-23); Calcium 10.1 mg/dL (8.5-10.5); Carbon Dioxide 27 mmol/L (22-29); Chloride 105 mmol/L (98-107); Globulin 3.1 g/dL (1.3-4.6); Glucose 104 mg/dL (65-115); Osmolality Calculated 289 mOsm/kg (285-295); Potassium 4.2 mmol/L (3.5-5.1); Sodium 141 mmol/L (136-145); Thyroid Stimulating Hormone 0.78 uIU/mL (0.27-4.20); Total Bilirubin 0.3 mg/dL (0.15-1.2); Total Protein 7.1 g/dL (6.6-8.7)
--- NOTE | 2019-11-11 14:44 | ONC FU_ITS ---
[facility] Patient Note Patient: Alli Mcclellan Unit #: [id number]: 1955 Dictated By: Lorena SmithDate of Visit: Nov 07, 2019 Onc MED Follow-Up/Prog Note Chief Complaint: Lung cancer with brain metastases History of Present Illness: Mr. Mcclellan is a 64-year-old gentleman who was recently diagnosed with metastatic lung cancer to brain. Mr Mcclellan reports that in August 2017, he developed side effects in that he could not speak and had trouble typing with his left hand. He had an episode of ataxia and he felt significantly dizzy, so much so that he felt like he was going to pass out. He presented to the hospital where MRI scan of brain was done on 09/01/2017. The MRI showed left cerebral mass measuring 3.6 cm and mild asymmetric prominence and enhancement at right pituitary gland. Differential included macroadenoma, craniopharyngioma, or metastatic disease. A CT chest was done and reported spiculated area of the right upper lobe measuring 2.7 cm. He underwent posterior fossa craniotomy and resection of the cerebellar mass on 09/05/2017. The final pathology reported metastatic adenocarcinoma consistent with lung primary. Molecular assay was negative for EGFR, BRAF V600E IHC, ALK, RET, HER-2, BRAF, and ROS 1. PET/CT imaging was obtained on 10/29/2017. It did report 2 x 2.3 cm right apical pulmonary nodule with an SUV of 17.7. There were no additional pulmonary nodules or masses identified. Activity in the bilateral hilum and mediastinal lymph nodes was unremarkable. There was no other evidence for local or distant metastatic disease. Follow-up CT of the head from 11/10/2017 reported postoperative changes from prior occipital craniotomy and resection of the previous metastatic lesion from the superior aspect of the left cerebellar hemisphere. There was persistent subcutaneous occipital scalp fluid that may communicate with the CSF space through meningeal defect posterior to the cervical do medullary junction. There were mild central and peripheral atrophy. No acute findings of the head and no significant change from 10/17/2017. It was noted that he had left maxillary sinusitis. Mr. Mcclellan was referred to Dr Lyle in radiation oncology for treatment of the lung mass and consideration of radiation to the brain. Mr Mcclellan had SBRT to the right lung. He had a total dose of 3600 cGy (48 GY). His start date was 11/16/2017. His completion date was 11/23/2017. Mr. Mcclellan then underwent SRS to the brain. His total dose was 2400 cGy. He started on 01/11/2018 and ended on 01/16/2018. He was given Decadron 4 mg twice a day while on treatment with instructions to taper slowly after radiation was completed. Mr. Mcclellan was evaluated and was offered chemotherapy with cisplatin Alimta every 3 weeks for 4 cycles. He has been very hesitant to proceed with chemotherapy due to concerns about side effects. Interim history: Mr Mcclellan went to [place] for further oncology care And during evaluation his CT PET scan done on 05/17 showed left cerebellar consistent with known prior dissection; Right lung upper lobe consistent with persistent tumor with right bronchial lymph node involvement; Left maxillary sinus of concern for metastatic disease and A new osseous lesion in the right anterior iliac crest consistent with metastatic disease. Once again chemotherapy was recommended and he consentetd. He was given 1 cycle of carboplatin/Alimta/pembrolizumab on 06/28/2018 but he had significant side effects including nausea, vomiting- fatigue requiring hydration, subsequently chemotherapy was discontinued because of intolerance. He was switched to single agent Keytruda on 09/06/2018, tolerated immunotherapy well-except associated or diarrhea which was treated with prednisone 60 mg daily and responded well. He has had no further episodes of the significant diarrhea. He had follow-up CT PET scanOn 11/25/2018 which showed the right apical lung lesion currently measured 3.9 x 2.4 cm with SUV of 3.4 (this is a significant improvement since prior study and likely represent chronic inflammation); Status post right ventriculoperitoneal shunt placement done on 02/15/2019. CT scan of head was done on 04/03/2019 showed stable frontal ventricular shunt tube position with decreased ventriculomegaly since 02/15/2019. 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 On 04/13/2019 Mr Mcclellan presented to the local emergency room with with chief complaints of floaters in his vision off and on and this time in the right eye only. He was sent to [facility] in [place] emergency room where he was evaluated by ophthalmology and no retinal detachment was observed. Follow-up in 2 weeks was recommended but he did not go for follow-up as condition resolved on its own. He also had CT scan of head done on 04/13/2019 which showed no intracranial hemorrhage or mass effect; Unchanged ventricular configuration; Unchanged right frontal ventricular shunt catheter tip terminating in the left frontal horn; Unchanged left cerebellar hemisphere encephalomalacia and postsurgical changes; CT scan of the head done on 05/14/2019 showed right frontal shunt catheter with tip in the left frontal horn. No hydrocephalus; Postoperative changes occipital craniectomy. He remains on immunotherapy with pembrolizumab. Tolerating Keytruda well otherwise Follow-up CT PET scan done on 08/11/2019 showed there is ongoing decrease in FDG activity in the right upper lobe nodule now SUV is 2.6 down from 3.4 previously .no new lesion seen CT scan of the head done on 10/12/2019 shows right frontal shunt cath with the tip in the left frontal horn. No hydrocephalus. Prior postoperative changes occipital status post occipital craniotomy. 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 Recently underwent left arm nerve conduction study, as per patient he was told his left hand weakness and numbness is due to ulnar neuropathy, now being treated with physical therapy. Mr. Mcclellan is here today for follow-up. He states overall he is doing okay. He states that if it was not for feeling blah and having his hand limitations I would not have anything wrong with me . He is still going to physical therapy occupational therapy at least 3 days a week. He has seen improvement. He states that his appetite is down although he is eating because he knows he has to. He has had some increased lower extremity edema off and on. He has had a 10 pound weight gain since his last visit. He is currently on diuretic therapy but states he has not been urinating like he has in the past. He denies any urinary frequency or hesitancy. He denies any new pain. He has had no diarrhea or constipation. He denies mouth sores, sore throat or difficulty swallowing. He denies any diarrhea or abdominal cramping. His ECOG is 1. Past Medical History: Chronic back pain Hypertension Past Surgical History: Appendectomy Craniotomy Allergies: Cats, Dust mites, Grass Pollen, Mold and Trees and HydroCHLOROthiazide. Medications: Acetaminophen 2 (325 mg) Capsule Oral PRN Albuterol Sulfate Aerosol Powder, Breath Activated Inhalation B Complex 1 Tablet Oral daily buPROPion HCl 1 Tablet (of 75 mg) Oral q on Every Other Day Cabergoline (0.5 mg) Tablet Oral Take as Directed Calcium 1 Tablet (of 600 mg) Oral daily Colace 1 Capsule (of 250 mg) Oral b.i.d. PRN Dronabinol 1 Capsule (of 5 mg) Oral b.i.d. [facility] Tea Herbs Leaves Oral PRN Folic Acid 1 Tablet (of 400 mcg) Oral daily Hydrocodone-Acetaminophen 1 Tablet (of 10-325 mg) Tablet Oral 6x/d PRN Hydrocortisone 1 Tablet (of 15 mg) Oral daily Lactulose 2 tablespoonful(s) (of 10 g/15mL) Solution Oral b.i.d. PRN Lasix 1 Tablet (of 40 mg) Oral daily PRN Magnesium 1 Tablet (of 250 mg) Oral daily Multivitamin and Minerals 1 Tablet daily Ondansetron HCl 1 Tablet (of 4 mg) Oral t.i.d. PRN Pantoprazole Sodium 1 Tablet (of 40 mg) Tablet, enteric coated Oral every am Promethazine HCl 1 Suppository (of 25 mg) Rectal q 6 hours PRN Senna-S 1 (8.6-50 mg) Tablet Oral b.i.d. Stiolto Respimat 1 puff(s) (of 2.5-2.5 mcg/act) Aerosol, solution Inhalation daily Vitamin A Capsule Oral daily Family History: Mr. Mcclellan's mother at age 52: congestive heart failure. Mr. Mcclellan's father at age 82: kidney failure. Mr. Mcclellan has 1 sister who is : type ii diabetes. Sister - cancer antiplastic thyroid Grandmother and great grandmother with hx of thyroid and colon cancer. Social History: Mr. Mcclellan is . Mr. Mcclellan no longer smokes but had smoked 1.0 pack/day for 46 years. He has no history of drinking. Stopped smoking 08/2017 Review Of Symptoms: Constitutional Denies fevers, chills, night sweats, excessive fatigue or weight loss. Has had a couple of days of feeling blah and not much appetite. Better now Allergic/Immunologic He has had increased sneezing, eyes watering, clear nasal drainage like seasonal allergies . Wondering about taking antihistamine OTC. Eyes Denies significant visual changes. No diplopia. No amaurosis. ENMT Denies changes in hearing, sore throat, mouth sores, difficulty or changes in swallowing ability, and/or discolored sinus drainage. Endocrine No diabetes, thyroid disease or hormone replacement. Denies hot flashes or night sweats. Hematologic/Lymphatic Denies easy bruising or bleeding. The patient denies any tender or palpable lymph nodes. Respiratory Denies dyspnea on exertion, chest pain, cough or hemoptysis. Denies orthopnea. Cardiovascular Denies anginal chest pain, palpitations or orthopnea. Gastrointestinal Denies nausea, vomiting, diarrhea, GI bleeding, or constipation. Denies change in bowel habits and/or stool color, no heartburn or early satiety. Genitourinary (M) Denies hematuria, dysuria, increased frequency, urgency, hesitancy or incontinence. Musculoskeletal Denies joint pain, swelling or redness. No decreased range of motion. Integumentary Denies chronic rashes, inflammation, ulcerations or skin changes. Neurologic Denies headache, blurred vision, and no areas of focal weakness or numbness. Normal gait. No sensory problems. Psychiatric Denies insomnia, depression, aries or mood swings. Vital Signs: Performed on Nov 07, 2019 09:53 Height - 73.00 in Weight - 289.2 lbs (HIGH) BSA - 2.52 sq.m BMI - 38.16 (HIGH) Temperature - 98.4 F Pulse - 62 /min Respiration - 17 /min BP - 141/84 mm(hg) (HIGH) O2 Sat - 96 % Pain - 3,2 - Ambulatory/capable of all self-care, unable to perform any work activities. Up and about more than 50% of waking hours. (ECOG) Physical Examination: Constitutional Alert, oriented, no acute distress. Skin pink, warm and dry. Head Normocephalic; atraumatic. Eyes Conjunctivae and sclerae are clear and without icterus. Pupils are reactive and equal. He does wear glasses. Neck Supple without masses or thyromegaly. No jugular venous distension. Hematologic/Lymphatic No petechiae. No tender or palpable lymph nodes in the cervical or supraclavicular areas. Respiratory Lungs are clear to auscultation without rhonchi or wheezing. Cardiovascular Regular rate and rhythm of heart without murmurs,clicks, gallops or rubs. Abdomen Non-tender, non-distended, no masses or ascites. No guarding or rebound tenderness. No pulsatile masses. Back/Spine Non-tender to palpation. Extremities No visible deformities, no cyanosis, clubbing or edema. Integumentary No rashes or lesions. Neurologic No abnormalities noted. He does utilize a cane for ambulation. His gait is slow-but normal for him. Psychiatric Alert and oriented times three. Coherent speech. Verbalizes understanding of our discussions today. Laboratory:Test performed on Nov 06, 2019 15:02 Sodium 141 mmol/L TSH 0.78 uIU/mL Potassium 4.2 mmol/L Chloride 105 mmol/L CO2 27 mmol/L Anion Gap 13.2 BUN 14 mg/dL Creatinine 0.8 mg/dL Cr Clearance (Est) 173.8300 mL/min eGFR 98.0 mL/min Glucose 104 mg/dL Calcium 10.1 mg/dL Protein, Total 7.1 g/dL Albumin 4.0 g/dL Globulin 3.1 g/dL Bilirubin, Total 0.3 mg/dL ALT (SGPT) 13 U/L AST (SGOT) 14 U/L Alkaline Phosphatase 75 IU/L WBC 7.3 10 3/uL RBC 4.20 10 6/uL HGB 13.4 g/dL HCT 41.8 % MCV 99.5 fL MCH 31.9 pg MCHC 32.1 g/dL RDW 13.3 % Platelet Count 198 10 3/cmm MPV 9.0 fL Neutrophils 4.5 10 3/uL Lymphocytes 2.1 10 3/uL Monocytes 0.4 10 3/uL Eosinophils 0.2 10 3/uL Basophils 0.0 10 3/uL Neutrophil % 62.2 % Lymphocyte % 28.2 % Monocyte % 6.1 % Eosinophil % 2.8 % Basophils % 0.4 % Impression: 1. 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 2. status post metastasectomy done on 09/05/2017, postoperative MRI disclosed complete resection. Molecular studies on brain metastases biopsy showed negative for EGFR ALK, RET, HER-2/india, ROS 1,BRAF, 3. Right upper lobe lung mass 2.7 cm. 4. Indigestion/ heartburn nausea vomiting probably due to candidal esophagitis or questionable increase intracranial pressure , also with oral thrush EGD showed H. pylori status post antibiotics FOLLOWUP IMAGIN. CT scan of head done on 10/17/2017 showed stable postoperative changes from prior left occipital craniotomy and resection of previous metastatic mass from left cerebellum hemisphere. (Repeat CT of the head from 11/2017 in [facility] reported findings consistent with the 10/17/2017 imaging with no acute findings). 6. PET/CT from 10/29/2017 showed 2 x 2.3 cm right apical pulmonary nodule with SUV of 17.7. No additional abnormality noted other than status post cranial metastasectomy site. CURRENT TREAMENT SUMMARY: 7. SBRT to right lung mass completed 11/23/2017 for a total dose of 3,600 cGY (48 GGY). 8. SRS to brain completed 01/16/2018 for a total dose of 2,400 cGY. 9. Carboplatin/Alimta/pembrolizumab 06/28/2018. He had 1 dose of the carboplatin Alimta had significant side effects and was transitioned to just single agent pembrolizumab in September 2018. He remains on pembrolizumab currently. Dr Parra discussed with Mr Mcclellan the role of systemic chemotherapy with cisplatin/Alimta versus observation alone. He has recommended chemotherapy consisting of Cisplatin 75 mg/m2 day 1 and Alimta 500 mg/m??? on day 1 repeat every 21 days ???4 cycles along with dexamethasone, folic acid and B12 as prophylactic treatment for Alimta. Mr Mcclellan transferred his care to [facility] where getting evaluation CT PET scan was done on 05/17/2018 which showed persistent right upper lobe lung mass with right bronchial lymph node involvement; Finding in the left maxillary sinus of concern for metastatic disease; A new osseous lesion seen in the right anterior iliac crest consistent with metastatic disease. Mr Mcclellan was started on carboplatin/Alimta/pembrolizumab-he was given 1 dose of chemotherapy on 06/28/2018. He experienced significant side effects so chemotherapy was discontinued and then switched to single agent Keytruda in September 2018. Patient tolerated well except some diarrhea, responded to prednisone 60 mg by mouth daily, now resolved and his follow-up CT PET scan done on 11/25/2018 showed excellent response to single agent Keytruda. The PET/CT did show a right apical lung lesion measures 3.9 x 2.4 cm with SUV of 3.4 which is significant improvement since prior study in May 2018 and likely represent inflammatory posttreatment changes. Mr Mcclellan has continued with single agent Keytruda and has now completed 19 cycles. He is tolerating it well and has improvement in his performance status. Plan: 1. Proceed with cycle 20 Keytruda. 2. May try adding OTC Claritin or Zyrtec for allergy symptoms. Will need to watch BP as he is not taking any antihypertensives currently. 3. Continue with PT/OT as he does seem to be getting benefit from it. 4. Labs from 11/06/2019 were reviewed in detail and discussed with Mr. Mcclellan and a copy was given to him. WBC 7.3, hemoglobin 13.4, platelets 198,000, ANC is 4500. Potassium 4.2 creatinine 0.8 random glucose was 104 LFTs are normal. TSH 0.78. 5. Mr. Mcclellan has been instructed to watch his blood pressure closely as it seems to be creeping up a little . Was 141/84 today. He is off all his hypertensive as his blood pressure did get low requiring medication adjustments. 6. I did tell him he could try to increase his Lasix to 80 mg daily-40 mg BID to see if this will help get rid of the lower extremity edema and additional weight gain. He was advised not to do any more than 3 days in a row and if he needs to do it more frequently he is to call and we will need to check his labs to make sure his potassium is holding with that. He states he understands. 7. We will plan to see him back in 3 weeks with repeat CBC, CMP and TSH for immunotherapy monitoring. He will be due for cycle 21 Keytruda at that time. 8. Mr. Mcclellan was instructed to contact us in the interim should questions or problems arise. Signed By: Lorena Smith-, BEAUMONT HOSPITALPadmini Parra MD <<Signature on File>>
[2019-11-27 14:12] LABS: Basophils % 0.3 %; Eosinophils # 0.4 10^3/uL (0.0-0.8); Eosinophils % 6.9 %; Hematocrit 42.3 % (42.0-52.0); Hemoglobin 13.6 g/dL (11.7-16.6); Lymphocytes # 2.6 10^3/uL (0.8-4.8); Lymphocytes % 42.8 %; Mean Corpuscular HGB Conc 32.2 g/dL (30.0-36.0); Mean Corpuscular Hemoglobin 31.7 pg (28.0-34.0); Mean Corpuscular Volume 98.6 fL (80-94); Mean Platelet Volume 9.2 fL (7.4-10.4); Monocytes # 0.5 10^3/uL (0.2-0.9); Monocytes % 7.9 %; Neutrophils # 2.6 10^3/uL (1.8-7.7); Neutrophils % 41.9 %; Nucleated Red Blood Cells % 0 %; Platelet Count 199 10^3/cmm (130-400); Red Blood Count 4.29 10^6/uL (4.1-5.3); White Blood Count 6.1 10^3/uL (4.0-10.0)
[2019-11-27 14:38] LABS: Alanine Aminotransferase 15 U/L (0-41); Albumin Level 4.1 g/dL (3.5-5.2); Alkaline Phosphatase 75 IU/L (40-130); Anion Gap 14.7 (5-19); Aspartate Amino Transferase 16 U/L (0-40); Blood Urea Nitrogen 11 mg/dL (8-23); Calcium 9.6 mg/dL (8.5-10.5); Carbon Dioxide 28 mmol/L (22-29); Chloride 104 mmol/L (98-107); Globulin 2.4 g/dL (1.3-4.6); Glomerular Filtration Rate 75.7 mL/min (90-130); Glucose 121 mg/dL (65-115); Osmolality Calculated 293 mOsm/kg (285-295); Potassium 3.7 mmol/L (3.5-5.1); Sodium 143 mmol/L (136-145); Thyroid Stimulating Hormone 0.95 uIU/mL (0.27-4.20); Total Bilirubin 0.4 mg/dL (0.15-1.2); Total Protein 6.5 g/dL (6.6-8.7)
--- NOTE | 2019-11-28 13:59 | ONC FU_ITS ---
Dr. Parra follow up note Patient: Alli Mcclellan Unit #: [id number]: 1955 Dicatated By: Harsha Parra M.D.Date of Visit:Nov 28, 2019 Onc Med Follow-up/Prog Note History of Present Illness: Mr. Mcclellan is a 64-year-old gentleman who was recently diagnosed with metastatic lung cancer to brain. Mr Mcclellan reports that in August 2017, he developed side effects in that he could not speak and had trouble typing with his left hand. He had an episode of ataxia and he felt significantly dizzy, so much so that he felt like he was going to pass out. He presented to the hospital where MRI scan of brain was done on 09/01/2017. The MRI showed left cerebral mass measuring 3.6 cm and mild asymmetric prominence and enhancement at right pituitary gland. Differential included macroadenoma, craniopharyngioma, or metastatic disease. A CT chest was done and reported spiculated area of the right upper lobe measuring 2.7 cm. He underwent posterior fossa craniotomy and resection of the cerebellar mass on 09/05/2017. The final pathology reported metastatic adenocarcinoma consistent with lung primary. Molecular assay was negative for EGFR, BRAF V600E IHC, ALK, RET, HER-2, BRAF, and ROS 1. PET/CT imaging was obtained on 10/29/2017. It did report 2 x 2.3 cm right apical pulmonary nodule with an SUV of 17.7. There were no additional pulmonary nodules or masses identified. Activity in the bilateral hilum and mediastinal lymph nodes was unremarkable. There was no other evidence for local or distant metastatic disease. Follow-up CT of the head from 11/10/2017 reported postoperative changes from prior occipital craniotomy and resection of the previous metastatic lesion from the superior aspect of the left cerebellar hemisphere. There was persistent subcutaneous occipital scalp fluid that may communicate with the CSF space through meningeal defect posterior to the cervical do medullary junction. There were mild central and peripheral atrophy. No acute findings of the head and no significant change from 10/17/2017. It was noted that he had left maxillary sinusitis. Mr. Mcclellan was referred to Dr Lyle in radiation oncology for treatment of the lung mass and consideration of radiation to the brain. Mr Mcclellan had SBRT to the right lung. He had a total dose of 3600 cGy (48 GY). His start date was 11/16/2017. His completion date was 11/23/2017. Mr. Mcclellan then underwent SRS to the brain. His total dose was 2400 cGy. He started on 01/11/2018 and ended on 01/16/2018. He was given Decadron 4 mg twice a day while on treatment with instructions to taper slowly after radiation was completed. Mr. Mcclellan was evaluated and was offered chemotherapy with cisplatin Alimta every 3 weeks for 4 cycles. He has been very hesitant to proceed with chemotherapy due to concerns about side effects. Interim history: Mr Mcclellan went to [place] for further oncology care And during evaluation his CT PET scan done on 05/17 showed left cerebellar consistent with known prior dissection; Right lung upper lobe consistent with persistent tumor with right bronchial lymph node involvement; Left maxillary sinus of concern for metastatic disease and A new osseous lesion in the right anterior iliac crest consistent with metastatic disease. Once again chemotherapy was recommended and he consentetd. He was given 1 cycle of carboplatin/Alimta/pembrolizumab on 06/28/2018 but he had significant side effects including nausea, vomiting- fatigue requiring hydration, subsequently chemotherapy was discontinued because of intolerance. He was switched to single agent Keytruda on 09/06/2018, tolerated immunotherapy well-except associated or diarrhea which was treated with prednisone 60 mg daily and responded well. He has had no further episodes of the significant diarrhea. He had follow-up CT PET scanOn 11/25/2018 which showed the right apical lung lesion currently measured 3.9 x 2.4 cm with SUV of 3.4 (this is a significant improvement since prior study and likely represent chronic inflammation); Status post right ventriculoperitoneal shunt placement done on 02/15/2019. CT scan of head was done on 04/03/2019 showed stable frontal ventricular shunt tube position with decreased ventriculomegaly since 02/15/2019. 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 On 04/13/2019 Mr Mcclellan presented to the local emergency room with with chief complaints of floaters in his vision off and on and this time in the right eye only. He was sent to [facility] in [place] emergency room where he was evaluated by ophthalmology and no retinal detachment was observed. Follow-up in 2 weeks was recommended but he did not go for follow-up as condition resolved on its own. He also had CT scan of head done on 04/13/2019 which showed no intracranial hemorrhage or mass effect; Unchanged ventricular configuration; Unchanged right frontal ventricular shunt catheter tip terminating in the left frontal horn; Unchanged left cerebellar hemisphere encephalomalacia and postsurgical changes; CT scan of the head done on 05/14/2019 showed right frontal shunt catheter with tip in the left frontal horn. No hydrocephalus; Postoperative changes occipital craniectomy. He remains on immunotherapy with pembrolizumab. Tolerating Keytruda well otherwise Follow-up CT PET scan done on 08/11/2019 showed there is ongoing decrease in FDG activity in the right upper lobe nodule now SUV is 2.6 down from 3.4 previously .no new lesion seen CT scan of the head done on 10/12/2019 shows right frontal shunt cath with the tip in the left frontal horn. No hydrocephalus. Prior postoperative changes occipital status post occipital craniotomy. 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 Recently underwent left arm nerve conduction study, as per patient he was told his left hand weakness and numbness is due to ulnar neuropathy, now being treated with physical therapy. Came for follow-up, denies any specific complaints, is left arm and hand strength is improving with physical therapy, as per patient recently underwent another nerve conduction study, it was inconclusive. Otherwise no fever or chills, no nausea or vomiting, skin rash is improving, as per patient he had mild skin rash on forearms and hand and it improved with [id number] hydrocortisone cream. Patient said he has recently changed his soap also, could be allergic to that. Denies any diarrhea denies any wheezing or shortness of breath, denies any headaches blurred vision or double vision denies any hemoptysis or hematemesis. Tolerating Keytruda well otherwise Medications: Acetaminophen 2 (325 mg) Capsule Oral PRN, Albuterol Sulfate Aerosol Powder, Breath Activated Inhalation, B Complex 1 Tablet Oral daily, buPROPion HCl 1 Tablet (of 75 mg) Oral q on Every Other Day, Cabergoline (0.5 mg) Tablet Oral Take as Directed, Calcium 1 Tablet (of 600 mg) Oral daily, Colace 1 Capsule (of 250 mg) Oral b.i.d. PRN, Dronabinol 1 Capsule (of 5 mg) Oral b.i.d., Essiac Tea Herbs Leaves Oral PRN, Folic Acid 1 Tablet (of 400 mcg) Oral daily, Hydrocodone-Acetaminophen 1 Tablet (of 10-325 mg) Tablet Oral 6x/d PRN, Hydrocortisone 1 Tablet (of 15 mg) Oral daily, Lactulose 2 tablespoonful(s) (of 10 g/15mL) Solution Oral b.i.d. PRN, Lasix 1 Tablet (of 40 mg) Oral daily PRN, Magnesium 1 Tablet (of 250 mg) Oral daily, Multivitamin and Minerals 1 Tablet daily, Ondansetron HCl 1 Tablet (of 4 mg) Oral t.i.d. PRN, Pantoprazole Sodium 1 Tablet (of 40 mg) Tablet, enteric coated Oral every am, Promethazine HCl 1 Suppository (of 25 mg) Rectal q 6 hours PRN, Senna-S 1 (8.6-50 mg) Tablet Oral b.i.d., Stiolto Respimat 1 puff(s) (of 2.5-2.5 mcg/act) Aerosol, solution Inhalation daily, Vitamin A Capsule Oral daily Allergies: Cats, Dust mites, Grass Pollen, Mold and Trees and HydroCHLOROthiazide. Review of Systems: Constitutional - Appetite is poor/fair and weight is stable. No fever, chills, hot flashes, or night sweats. Energy level is fair, ENMT - No sinus congestion/drainage. No mouth sores. No sore throat or difficulty swallowing, Hematologic/Lymphatic - No abnormal bruising or bleeding, Respiratory - Shortness of breath with exertion. No cough. No pleuritic pain or hemoptysis, Cardiovascular - No angina pain. No palpitations, Gastrointestinal - Positive for occasional nausea, no vomiting. No heartburn or acid reflux. No diarrhea, some constipation. No blood in the stool or black stools, Genitourinary (M) - No dysuria or hematuria. No urinary frequency. No urgency or incontinence, Musculoskeletal - No joint or bone pain, Integumentary - Pt has slight rash on his face and hands, Neurologic - Frequent headache and dizziness, Psychiatric - Patient has anxiety, depression, and insomnia. Vital Signs: Performed on Nov 28, 2019 12:29 Height - 73.00 in Weight - 289.2 lbs BSA - 2.52 sq.m BMI - 38.16 (HIGH) Temperature - 98.6 F Pulse - 72 /min Respiration - 24 /min BP - 141/89 mm(hg) (HIGH) O2 Sat - 97 % Pain - 2 Performance Status: 1 - No physically strenuous activity, but ambulatory and able to carry out light or sedentary work (e.g. office work, light house work). (ECOG) Physical Examination: ENMT - No mouth sores, no thrush no jaundice, Respiratory - Lungs are clear, Cardiovascular - Regular rate and rhythm of heart, Abdomen - Soft, bowel sounds present, Extremities - No visible edema or rash. Lab/Imaging: Test performed on Nov 06, 2019 15:02 Sodium 141 mmol/L TSH 0.78 uIU/mL Potassium 4.2 mmol/L Chloride 105 mmol/L CO2 27 mmol/L Anion Gap 13.2 BUN 14 mg/dL Creatinine 0.8 mg/dL Cr Clearance (Est) 173.8300 mL/min eGFR 98.0 mL/min Glucose 104 mg/dL Calcium 10.1 mg/dL Protein, Total 7.1 g/dL Albumin 4.0 g/dL Globulin 3.1 g/dL Bilirubin, Total 0.3 mg/dL ALT (SGPT) 13 U/L AST (SGOT) 14 U/L Alkaline Phosphatase 75 IU/L WBC 7.3 10 3/uL RBC 4.20 10 6/uL HGB 13.4 g/dL HCT 41.8 % MCV 99.5 fL MCH 31.9 pg MCHC 32.1 g/dL RDW 13.3 % Platelet Count 198 10 3/cmm MPV 9.0 fL Neutrophils 4.5 10 3/uL Lymphocytes 2.1 10 3/uL Monocytes 0.4 10 3/uL Eosinophils 0.2 10 3/uL Basophils 0.0 10 3/uL Neutrophil % 62.2 % Lymphocyte % 28.2 % Monocyte % 6.1 % Eosinophil % 2.8 % Basophils % 0.4 % Test performed on Jun 12, 2019 10:20 Manual Lymphocytes 48.2 % Manual Monocytes 7.3 % Manual Eosinophils 3.6 % Manual Basophils 0.4 % NRBCs 0.0 /100 WBC Impression: 1. 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 2. status post metastasectomy done on 09/05/2017, postoperative MRI disclosed complete resection. Molecular studies on brain metastases biopsy showed negative for EGFR ALK, RET, HER-2/india, ROS 1,BRAF, 3. Right upper lobe lung mass 2.7 cm. 4. Indigestion/ heartburn nausea vomiting probably due to candidal esophagitis or questionable increase intracranial pressure , also with oral thrush EGD showed H. pylori status post antibiotics FOLLOWUP IMAGIN. CT scan of head done on 10/17/2017 showed stable postoperative changes from prior left occipital craniotomy and resection of previous metastatic mass from left cerebellum hemisphere. (Repeat CT of the head from 11/2017 in [facility] reported findings consistent with the 10/17/2017 imaging with no acute findings). 6. PET/CT from 10/29/2017 showed 2 x 2.3 cm right apical pulmonary nodule with SUV of 17.7. No additional abnormality noted other than status post cranial metastasectomy site. CURRENT TREAMENT SUMMARY: 7. SBRT to right lung mass completed 11/23/2017 for a total dose of 3,600 cGY (48 GGY). 8. SRS to brain completed 01/16/2018 for a total dose of 2,400 cGY. 9. Carboplatin/Alimta/pembrolizumab 06/28/2018. He had 1 dose of the carboplatin Alimta had significant side effects and was transitioned to just single agent pembrolizumab in September 2018. He remains on pembrolizumab currently. Dr Parra discussed with Mr Mcclellan the role of systemic chemotherapy with cisplatin/Alimta versus observation alone. He has recommended chemotherapy consisting of Cisplatin 75 mg/m2 day 1 and Alimta 500 mg/m??? on day 1 repeat every 21 days ???4 cycles along with dexamethasone, folic acid and B12 as prophylactic treatment for Alimta. Mr Mcclellan transferred his care to [facility] where getting evaluation CT PET scan was done on 05/17/2018 which showed persistent right upper lobe lung mass with right bronchial lymph node involvement; Finding in the left maxillary sinus of concern for metastatic disease; A new osseous lesion seen in the right anterior iliac crest consistent with metastatic disease. Mr Mcclellan was started on carboplatin/Alimta/pembrolizumab-he was given 1 dose of chemotherapy on 06/28/2018. He experienced significant side effects so chemotherapy was discontinued and then switched to single agent Keytruda in September 2018. Patient tolerated well except some diarrhea, responded to prednisone 60 mg by mouth daily, now resolved and his follow-up CT PET scan done on 11/25/2018 showed excellent response to single agent Keytruda. The PET/CT did show a right apical lung lesion measures 3.9 x 2.4 cm with SUV of 3.4 which is significant improvement since prior study in May 2018 and likely represent inflammatory posttreatment changes. Mr Mcclellan has continued with single agent Keytruda and has now completed 19 cycles. He is tolerating it well and has improvement in his performance status. Plan: Discussed with patient regarding his labs white blood count 6.1 hemoglobin 13.6 crit 42.3 platelets 199,000 CMP within normal limits Clinically, patient is doing well, no signs symptom suggestive of disease progression, tolerating 3 weekly Keytruda well. We will proceed with next dose today and then he will return to clinic in 3 weeks with CBC CMP Patient was advised to continue with his physical therapy for left hand and arm weakness Signed By: Harsha Parra M.D. <<Signature on File>>
== END 2019-12-04 23:59 | disposition home or self-care (01) ==
LOC: ONCMED 06:49
PROVIDERS: Nurse Practitioner; PCP Emergency Medicine Emergency Medical Services; Visit Provider Internal Medicine Hematology & Oncology
DX: Z51.12 Encounter for antineoplastic immunotherapy (principal); C34.11 Malignant neoplasm of upper lobe, right bronchus or lung; C79.31 Secondary malignant neoplasm of brain; C79.51 Secondary malignant neoplasm of bone; G89.29 Other chronic pain; M54.5 Low back pain; I10 Essential (primary) hypertension; Z79.899 Other long term (current) drug therapy
CPT/HCPCS: 80053; 84443; 85025; 96413; 99214; J7050; J9271

== ENCOUNTER 2019-12-05 06:00 | Outpatient (RCR) | payer OTHER, SELFPAY | END 2020-01-04 23:59 | disposition home or self-care (01) | LOC: SPO 06:00 | PROVIDERS: PCP Emergency Medicine Emergency Medical Services; Visit Provider Emergency Medicine Emergency Medical Services | DX: C34.11 Malignant neoplasm of upper lobe, right bronchus or lung (principal); R53.1 Weakness; R26.81 Unsteadiness on feet | CPT/HCPCS: 97110 ==

== ENCOUNTER 2020-01-03 09:00 | Outpatient (RCR) | payer OTHER, SELFPAY ==
[2019-12-18 15:55] LABS: Basophils % 0.2 %; Eosinophils # 0.3 10^3/uL (0.0-0.8); Eosinophils % 3.1 %; Hematocrit 43.6 % (42.0-52.0); Hemoglobin 13.9 g/dL (11.7-16.6); Lymphocytes # 2.6 10^3/uL (0.8-4.8); Lymphocytes % 28.8 %; Mean Corpuscular HGB Conc 31.9 g/dL (30.0-36.0); Mean Corpuscular Hemoglobin 31.2 pg (28.0-34.0); Mean Platelet Volume 9.1 fL (7.4-10.4); Monocytes # 0.5 10^3/uL (0.2-0.9); Neutrophils # 5.58 10^3/uL (1.8-7.7); Neutrophils % 61.7 %; Nucleated Red Blood Cells % 0 %; Platelet Count 216 10^3/cmm (130-400); Red Blood Count 4.45 10^6/uL (4.1-5.3); Red Cell Distribution Width 13.1 % (12.1-15.1)
[2019-12-18 16:12] LABS: Alanine Aminotransferase 16 U/L (0-41); Alkaline Phosphatase 72 IU/L (40-130); Anion Gap 11.7 (5-19); Aspartate Amino Transferase 15 U/L (0-40); Blood Urea Nitrogen 9 mg/dL (8-23); Calcium 9.4 mg/dL (8.5-10.5); Carbon Dioxide 26 mmol/L (22-29); Chloride 105 mmol/L (98-107); Globulin 3.3 g/dL (1.3-4.6); Glomerular Filtration Rate 85.5 mL/min (90-130); Glucose 117 mg/dL (65-115); Osmolality Calculated 285 mOsm/kg (285-295); Potassium 3.7 mmol/L (3.5-5.1); Sodium 139 mmol/L (136-145); Thyroid Stimulating Hormone 1.44 uIU/mL (0.27-4.20); Total Bilirubin 0.5 mg/dL (0.15-1.2); Total Protein 7.3 g/dL (6.6-8.7)
--- NOTE | 2019-12-23 11:27 | ONC FU_ITS ---
[facility] Patient Note Patient: Alli Mcclellan Unit #: [id number]: 1955 Dictated By: Lorena SmithDate of Visit: Dec 19, 2019 Onc MED Follow-Up/Prog Note Chief Complaint: Lung cancer with brain metastases History of Present Illness: Mr. Mcclellan is a 64-year-old gentleman who was recently diagnosed with metastatic lung cancer to brain. Mr Mcclellan reports that in August 2017, he developed side effects in that he could not speak and had trouble typing with his left hand. He had an episode of ataxia and he felt significantly dizzy, so much so that he felt like he was going to pass out. He presented to the hospital where MRI scan of brain was done on 09/01/2017. The MRI showed left cerebral mass measuring 3.6 cm and mild asymmetric prominence and enhancement at right pituitary gland. Differential included macroadenoma, craniopharyngioma, or metastatic disease. A CT chest was done and reported spiculated area of the right upper lobe measuring 2.7 cm. He underwent posterior fossa craniotomy and resection of the cerebellar mass on 09/05/2017. The final pathology reported metastatic adenocarcinoma consistent with lung primary. Molecular assay was negative for EGFR, BRAF V600E IHC, ALK, RET, HER-2, BRAF, and ROS 1. PET/CT imaging was obtained on 10/29/2017. It did report 2 x 2.3 cm right apical pulmonary nodule with an SUV of 17.7. There were no additional pulmonary nodules or masses identified. Activity in the bilateral hilum and mediastinal lymph nodes was unremarkable. There was no other evidence for local or distant metastatic disease. Follow-up CT of the head from 11/10/2017 reported postoperative changes from prior occipital craniotomy and resection of the previous metastatic lesion from the superior aspect of the left cerebellar hemisphere. There was persistent subcutaneous occipital scalp fluid that may communicate with the CSF space through meningeal defect posterior to the cervical do medullary junction. There were mild central and peripheral atrophy. No acute findings of the head and no significant change from 10/17/2017. It was noted that he had left maxillary sinusitis. Mr. Mcclellan was referred to Dr Lyle in radiation oncology for treatment of the lung mass and consideration of radiation to the brain. Mr Mcclellan had SBRT to the right lung. He had a total dose of 3600 cGy (48 GY). His start date was 11/16/2017. His completion date was 11/23/2017. Mr. Mcclellan then underwent SRS to the brain. His total dose was 2400 cGy. He started on 01/11/2018 and ended on 01/16/2018. He was given Decadron 4 mg twice a day while on treatment with instructions to taper slowly after radiation was completed. Mr. Mcclellan was evaluated and was offered chemotherapy with cisplatin Alimta every 3 weeks for 4 cycles. He has been very hesitant to proceed with chemotherapy due to concerns about side effects. Interim history: Mr Mcclellan went to [place] for further oncology care. His CT PET scan done on 05/17 showed left cerebellar consistent with known prior dissection; Right lung upper lobe consistent with persistent tumor with right bronchial lymph node involvement; Left maxillary sinus of concern for metastatic disease and A new osseous lesion in the right anterior iliac crest consistent with metastatic disease. Once again chemotherapy was recommended and he consentetd. He was given 1 cycle of carboplatin/Alimta/pembrolizumab on 06/28/2018 but he had significant side effects including nausea, vomiting- fatigue requiring hydration, subsequently chemotherapy was discontinued because of intolerance. He was switched to single agent Keytruda on 09/06/2018, tolerated immunotherapy well-except associated or diarrhea which was treated with prednisone 60 mg daily and responded well. He has had no further episodes of the significant diarrhea. He had follow-up CT PET scanOn 11/25/2018 which showed the right apical lung lesion currently measured 3.9 x 2.4 cm with SUV of 3.4 (this is a significant improvement since prior study and likely represent chronic inflammation); Status post right ventriculoperitoneal shunt placement done on 02/15/2019. CT scan of head was done on 04/03/2019 showed stable frontal ventricular shunt tube position with decreased ventriculomegaly since 02/15/2019. 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 On 04/13/2019 Mr Mcclellan presented to the local emergency room with with chief complaints of floaters in his vision off and on and this time in the right eye only. He was sent to [facility] in [place] emergency room where he was evaluated by ophthalmology and no retinal detachment was observed. Follow-up in 2 weeks was recommended but he did not go for follow-up as condition resolved on its own. He also had CT scan of head done on 04/13/2019 which showed no intracranial hemorrhage or mass effect; Unchanged ventricular configuration; Unchanged right frontal ventricular shunt catheter tip terminating in the left frontal horn; Unchanged left cerebellar hemisphere encephalomalacia and postsurgical changes; CT scan of the head done on 05/14/2019 showed right frontal shunt catheter with tip in the left frontal horn. No hydrocephalus; Postoperative changes occipital craniectomy. He remains on immunotherapy with pembrolizumab. Tolerating Keytruda well otherwise Follow-up CT PET scan done on 08/11/2019 showed there is ongoing decrease in FDG activity in the right upper lobe nodule now SUV is 2.6 down from 3.4 previously .no new lesion seen CT scan of the head done on 10/12/2019 shows right frontal shunt cath with the tip in the left frontal horn. No hydrocephalus. Prior postoperative changes occipital status post occipital craniotomy. 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 Recently underwent left arm nerve conduction study, as per patient he was told his left hand weakness and numbness is due to ulnar neuropathy, now being treated with physical therapy. Mr. Mcclellan is receiving treatment with Keytruda. His last treatment was on November 28, 2019. He is continuing to tolerate it well. He states overall he feels he is doing good. He states that there are days when he has bad days and he sleeps a lot. He states his normal sleeping pattern about every 3-4 the knees up for 3 to 4 hours. He has been having vertigo and states that he is scheduled to see ENT next week. He states he is having problems with his hand. He states that he did have nerve conduction which reportedly was normal but the technologist that was doing the study indicated that he might need an MRI of his brain. Mr. Mcclellan would like to pursue this if at all possible. He does see Dr. Sam on December [address] Sam is leaving in January so is not sure he can get the MRI scheduled at that point. He states that he does have an MRI of the brain he will need his shunt regulated. He states in regard to Dr. Sam leaving, he has used Dr Dinh in [place], [place]. Past Medical History: Chronic back pain Hypertension Past Surgical History: Appendectomy Craniotomy Allergies: Cats, Dust mites, Grass Pollen, Mold and Trees and HydroCHLOROthiazide. Medications: Acetaminophen 2 (325 mg) Capsule Oral PRN Albuterol Sulfate Aerosol Powder, Breath Activated Inhalation B Complex 1 Tablet Oral daily buPROPion HCl 1 Tablet (of 75 mg) Oral q on Every Other Day Cabergoline (0.5 mg) Tablet Oral Take as Directed Calcium 1 Tablet (of 600 mg) Oral daily Colace 1 Capsule (of 250 mg) Oral b.i.d. PRN Dronabinol 1 Capsule (of 5 mg) Oral b.i.d. Essiac Tea Herbs Leaves Oral PRN Folic Acid 1 Tablet (of 400 mcg) Oral daily Hydrocodone-Acetaminophen 1 Tablet (of 10-325 mg) Tablet Oral 6x/d PRN Hydrocortisone 1 Tablet (of 15 mg) Oral daily Lactulose 2 tablespoonful(s) (of 10 g/15mL) Solution Oral b.i.d. PRN Lasix 1 Tablet (of 40 mg) Oral daily PRN Magnesium 1 Tablet (of 250 mg) Oral daily Multivitamin and Minerals 1 Tablet daily Ondansetron HCl 1 Tablet (of 4 mg) Oral t.i.d. PRN Pantoprazole Sodium 1 Tablet (of 40 mg) Tablet, enteric coated Oral every am Promethazine HCl 1 Suppository (of 25 mg) Rectal q 6 hours PRN Senna-S 1 (8.6-50 mg) Tablet Oral b.i.d. Stiolto Respimat 1 puff(s) (of 2.5-2.5 mcg/act) Aerosol, solution Inhalation daily Vitamin A Capsule Oral daily Family History: Mr. Mcclellan's mother at age 52: congestive heart failure. Mr. Mcclellan's father at age 82: kidney failure. Mr. Mcclellan has 1 sister who is : type ii diabetes. Sister - cancer antiplastic thyroid Grandmother and great grandmother with hx of thyroid and colon cancer. Social History: Mr. Mcclellan is . Mr. Mcclellan no longer smokes but had smoked 1.0 pack/day for 46 years. He has no history of drinking. Stopped smoking 08/2017 Review Of Symptoms: Constitutional Denies fevers, chills, night sweats, excessive fatigue or weight loss. Has had a couple of days of feeling blah and not much appetite. Better now Allergic/Immunologic No reactions. Eyes Denies significant visual changes. No diplopia. No amaurosis. ENMT Denies changes in hearing, sore throat, mouth sores, difficulty or changes in swallowing ability, and/or discolored sinus drainage. Endocrine No diabetes, thyroid disease or hormone replacement. Denies hot flashes or night sweats. Hematologic/Lymphatic Denies easy bruising or bleeding. The patient denies any tender or palpable lymph nodes. Respiratory Denies dyspnea on exertion, chest pain, cough or hemoptysis. Denies orthopnea. Cardiovascular Denies anginal chest pain, palpitations or orthopnea. Gastrointestinal Denies nausea, vomiting, diarrhea, GI bleeding, or constipation. Denies change in bowel habits and/or stool color, no heartburn or early satiety. Genitourinary (M) Denies hematuria, dysuria, increased frequency, urgency, hesitancy or incontinence. Musculoskeletal Denies joint pain, swelling or redness. No decreased range of motion. Left hand and arm sharp/nerve pain-seeing Dr Henderson. Integumentary Denies chronic rashes, inflammation, ulcerations or skin changes. Neurologic Slow, shuffled, assisted gait. Left arm/hand numbness-following with Dr Henderson Psychiatric Denies insomnia, depression, aries or mood swings. Vital Signs: Performed on Dec 19, 2019 13:08 Height - 73.00 in Weight - 286.8 lbs (LOW) BSA - 2.51 sq.m BMI - 37.84 (HIGH) Temperature - 98.0 F (LOW) Pulse - 68 /min Respiration - 18 /min BP - 161/85 mm(hg) (HIGH) O2 Sat - 94 % (LOW) Pain - 4,2 - Ambulatory/capable of all self-care, unable to perform any work activities. Up and about more than 50% of waking hours. (ECOG) Physical Examination: Constitutional Alert, oriented, no acute distress. Skin pink, warm and dry. Head Normocephalic; atraumatic. Eyes Conjunctivae and sclerae are clear and without icterus. Pupils are reactive and equal. He does wear glasses. Neck Supple without masses or thyromegaly. No jugular venous distension. Hematologic/Lymphatic No petechiae. No tender or palpable lymph nodes in the cervical or supraclavicular areas. Respiratory Lungs are clear to auscultation without rhonchi or wheezing. Cardiovascular Regular rate and rhythm of heart without murmurs,clicks, gallops or rubs. Abdomen Non-tender, non-distended, no masses or ascites. No guarding or rebound tenderness. No pulsatile masses. Back/Spine Non-tender to palpation. Extremities No visible deformities, no cyanosis, clubbing or edema. Integumentary No rashes or lesions. Neurologic No abnormalities noted. He does utilize a cane for ambulation. His gait is slow-but normal for him. Psychiatric Alert and oriented times three. Coherent speech. Verbalizes understanding of our discussions today. Laboratory:Test performed on Nov 06, 2019 15:02 Sodium 141 mmol/L TSH 0.78 uIU/mL Potassium 4.2 mmol/L Chloride 105 mmol/L CO2 27 mmol/L Anion Gap 13.2 BUN 14 mg/dL Creatinine 0.8 mg/dL Cr Clearance (Est) 173.8300 mL/min eGFR 98.0 mL/min Glucose 104 mg/dL Calcium 10.1 mg/dL Protein, Total 7.1 g/dL Albumin 4.0 g/dL Globulin 3.1 g/dL Bilirubin, Total 0.3 mg/dL ALT (SGPT) 13 U/L AST (SGOT) 14 U/L Alkaline Phosphatase 75 IU/L WBC 7.3 10 3/uL RBC 4.20 10 6/uL HGB 13.4 g/dL HCT 41.8 % MCV 99.5 fL MCH 31.9 pg MCHC 32.1 g/dL RDW 13.3 % Platelet Count 198 10 3/cmm MPV 9.0 fL Neutrophils 4.5 10 3/uL Lymphocytes 2.1 10 3/uL Monocytes 0.4 10 3/uL Eosinophils 0.2 10 3/uL Basophils 0.0 10 3/uL Neutrophil % 62.2 % Lymphocyte % 28.2 % Monocyte % 6.1 % Eosinophil % 2.8 % Basophils % 0.4 % Impression: 1. 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 2. status post metastasectomy done on 09/05/2017, postoperative MRI disclosed complete resection. Molecular studies on brain metastases biopsy showed negative for EGFR ALK, RET, HER-2/india, ROS 1,BRAF, 3. Right upper lobe lung mass 2.7 cm. 4. Indigestion/ heartburn nausea vomiting probably due to candidal esophagitis or questionable increase intracranial pressure , also with oral thrush EGD showed H. pylori status post antibiotics FOLLOWUP IMAGIN. CT scan of head done on 10/17/2017 showed stable postoperative changes from prior left occipital craniotomy and resection of previous metastatic mass from left cerebellum hemisphere. (Repeat CT of the head from 11/2017 [place] [facility] reported findings consistent with the 10/17/2017 imaging with no acute findings). 6. PET/CT from 10/29/2017 showed 2 x 2.3 cm right apical pulmonary nodule with SUV of 17.7. No additional abnormality noted other than status post cranial metastasectomy site. 7. MRI of the brain with and without contrast on August 23, 2018 from [facility]. 8. CT of the head noncontrast on October 12, 2019: Right frontal shunt catheter with tip in the left frontal horn. No hydrocephalus. Ventricular size is unchanged from previous scans. Prior postoperative changes occipital craniectomy. 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 Stable cerebral tonsillar ectopia with normal fourth ventricle. 9. His last PET/CT imaging was August 11, 2019. Is reported that there was ongoing decrease in FDG activity in the right upper lobe lung nodule with an SUV of 2.6 down from 3.4 on previous exam. There were no new malignant lesions present there is no indication to suspect osseous metastatic disease. CURRENT TREATMENT SUMMARY: 7. SBRT to right lung mass completed 11/23/2017 for a total dose of 3,600 cGY (48 GGY). 8. SRS to brain completed 01/16/2018 for a total dose of 2,400 cGY. 9. Carboplatin/Alimta/pembrolizumab 06/28/2018. He had 1 dose of the carboplatin Alimta had significant side effects and was transitioned to just single agent pembrolizumab in September 2018. He remains on pembrolizumab currently. Dr Parra discussed with Mr Mcclellan the role of systemic chemotherapy with cisplatin/Alimta versus observation alone. He has recommended chemotherapy consisting of Cisplatin 75 mg/m2 day 1 and Alimta 500 mg/m??? on day 1 repeat every 21 days ???4 cycles along with dexamethasone, folic acid and B12 as prophylactic treatment for Alimta. Mr Mcclellan transferred his care to [facility] where getting evaluation CT PET scan was done on 05/17/2018 which showed persistent right upper lobe lung mass with right bronchial lymph node involvement; Finding in the left maxillary sinus of concern for metastatic disease; A new osseous lesion seen in the right anterior iliac crest consistent with metastatic disease. Mr Mcclellan was started on carboplatin/Alimta/pembrolizumab-he was given 1 dose of chemotherapy on 06/28/2018. He experienced significant side effects so chemotherapy was discontinued and then switched to single agent Keytruda in September 2018. Patient tolerated well except some diarrhea, responded to prednisone 60 mg by mouth daily, now resolved and his follow-up CT PET scan done on 11/25/2018 showed excellent response to single agent Keytruda. The PET/CT did show a right apical lung lesion measures 3.9 x 2.4 cm with SUV of 3.4 which is significant improvement since prior study in May 2018 and likely represent inflammatory posttreatment changes. Mr Mcclellan has continued with single agent Keytruda and has now completed 19 cycles. He is tolerating it well and has improvement in his performance status. Plan: 1. Proceed with cycle 22 Keytruda. 2. Labs from December 18, 2019 were reviewed in detail and discussed with Mr. Mcclellan and a copy was given to him. WBC is 9.0, hemoglobin 13.9 platelets 216,000 ANC is 5600. Potassium 3.7 creatinine 0.9 random glucose 117 LFTs are normal TSH is 1.44. 3. Mr. Mcclellan states that time for his follow-up CT of the head that he needs to have someone evaluate and possibly adjust my shunt . I am uncertain as to what he is referring therefore will contact Dr. Sam's office to see what instructions we need to set up his CT of the head-however, his last one was on October 12, 2019. Alli does have an appointment with them he states on the 31 of December. He would like to get the imaging down prior to that appointment if possible. 4. We will plan to see him back in 3 weeks with CBC CMP and TSH. If all is stable or improved with his follow-up imaging of the brain, we may consider switching him to the every 6-week dosing of the Keytruda. 5. Mr. Mcclellan instructed to contact us in the interim should questions or problems arise. Signed By: Lorena Smith-, AOCNP Harsha Parra MD <<Signature on File>>
--- NOTE | 2020-01-03 08:49 | CT_ITS ---
WS: [id number] CT HEAD WITH AND WITHOUT CONTRAST HISTORY: DIZZINESS, LOSS OF BALANCE TECHNIQUE: Noncontrast 2.5 mm axial images obtained from the vertex to the skull base. Additional eduardo ging performed at 2.5 mm axial images status post IV contrast. Bone and soft tissue windows are revie wed. All CT scans at [facility] use at least one of these dose optimization techniques: a utomated exposure control; mA and/or kV adjustment per patient size (includes targeted exams where do se is matched to clinical indication); or iterative reconstruction. CONTRAST: Omnipaque 300; 95 mL IV. DLP: 2116.36 mGycm COMPARISON: 10/12/2019 No acute intracranial hemorrhage, edema or midline shift. RIGHT frontal shunt catheter with tip termi nating in the LEFT frontal horn. No hydrocephalus. Significant volume loss in the LEFT cerebellum wit h mild ex vacuole dilatation of the adjacent fourth ventricle. No enhancing mass or vascular malformations identified. Dural venous sinuses are normally enhancing. Visualized tazlina of Lopez is unremarkable. Paranasal sinuses as visualized: Dense opacification LEFT maxillary sinus similar to the prior study. Mastoid air cells: Clear. Calvarium and scalp: There is a large craniectomy defect in the occipital region. Stable pseudomening ocele as previously described. No significant ectopia the cerebellar tonsils. CT/CT head wo/w con [id number] IMPRESSION: 1. Unchanged head CT since 10/12/2019. No enhancing masses or acute intracranial hemorrhage. 2. Postoperative changes of occipital craniectomy with encephalomalacia LEFT c erebellum and unchanged pseudomeningocele. 3. [employer] shunt catheter with tip terminating anterior horn of the LEFT lateral ve ntricle. No hydrocephalus. 4. LEFT maxillary sinusitis.
[2020-01-03] MEDS: iohexol 300 mg/mL 100 mL Btl IV (09:12)
== END 2020-01-04 23:59 | disposition home or self-care (01) ==
LOC: ONCMED 09:00
PROVIDERS: Internal Medicine Hematology & Oncology; PCP Emergency Medicine Emergency Medical Services; Visit Provider Nurse Practitioner
DX: Z51.12 Encounter for antineoplastic immunotherapy (principal); C34.11 Malignant neoplasm of upper lobe, right bronchus or lung; C79.31 Secondary malignant neoplasm of brain; C79.51 Secondary malignant neoplasm of bone; G56.22 Lesion of ulnar nerve, left upper limb; G89.29 Other chronic pain; I10 Essential (primary) hypertension; Z79.891 Long term (current) use of opiate analgesic; Z92.3 Personal history of irradiation; Z92.21 Personal history of antineoplastic chemotherapy; Z87.891 Personal history of nicotine dependence
CPT/HCPCS: 70470; 80053; 84443; 85025; 96413; 99214; J7050; J9271; Q9967

== ENCOUNTER 2020-01-05 06:00 | Outpatient (RCR) | payer OTHER, SELFPAY | END 2020-02-04 23:59 | disposition home or self-care (01) | LOC: SPO 06:00 | PROVIDERS: PCP Emergency Medicine Emergency Medical Services; Visit Provider Emergency Medicine Emergency Medical Services | DX: C34.11 Malignant neoplasm of upper lobe, right bronchus or lung (principal); R53.1 Weakness; R26.81 Unsteadiness on feet | CPT/HCPCS: 97110 ==

== ENCOUNTER 2020-01-30 05:41 | Outpatient (RCR) | payer OTHER, SELFPAY ==
[2020-01-08 15:57] LABS: Basophils % 0.5 %; Eosinophils # 0.3 10^3/uL (0.0-0.8); Eosinophils % 4.7 %; Hematocrit 43.5 % (42.0-52.0); Hemoglobin 14.1 g/dL (11.7-16.6); Lymphocytes # 2.5 10^3/uL (0.8-4.8); Lymphocytes % 40.1 %; Mean Corpuscular HGB Conc 32.4 g/dL (30.0-36.0); Mean Corpuscular Hemoglobin 31.3 pg (28.0-34.0); Mean Corpuscular Volume 96.5 fL (80-94); Mean Platelet Volume 9.2 fL (7.4-10.4); Monocytes # 0.5 10^3/uL (0.2-0.9); Monocytes % 8.4 %; Neutrophils # 2.94 10^3/uL (1.8-7.7); Neutrophils % 46.3 %; Nucleated Red Blood Cells % 0 %; Platelet Count 216 10^3/cmm (130-400); Red Blood Count 4.51 10^6/uL (4.1-5.3); Red Cell Distribution Width 12.7 % (12.1-15.1); White Blood Count 6.3 10^3/uL (4.0-10.0)
[2020-01-08 16:36] LABS: Alanine Aminotransferase 12 U/L (0-41); Albumin Level 3.9 g/dL (3.5-5.2); Alkaline Phosphatase 78 IU/L (40-130); Anion Gap 10.9 (5-19); Aspartate Amino Transferase 11 U/L (0-40); Blood Urea Nitrogen 13 mg/dL (8-23); Calcium 8.6 mg/dL (8.5-10.5); Carbon Dioxide 27 mmol/L (22-29); Chloride 106 mmol/L (98-107); Globulin 3.1 g/dL (1.3-4.6); Glucose 101 mg/dL (65-115); Osmolality Calculated 286 mOsm/kg (285-295); Potassium 3.9 mmol/L (3.5-5.1); Sodium 140 mmol/L (136-145); Thyroid Stimulating Hormone 1.17 uIU/mL (0.27-4.20); Total Bilirubin 0.2 mg/dL (0.15-1.2)
--- NOTE | 2020-01-09 15:32 | ONC FU_ITS ---
Dr. Parra follow up note Patient: Alli Mcclellan Unit #: [id number]: 1955 Dicatated By: Harsha Parra M.D.Date of Visit:Jan 09, 2020 Onc Med Follow-up/Prog Note History of Present Illness: Mr. Mcclellan is a 64-year-old gentleman who was recently diagnosed with metastatic lung cancer to brain. Mr Mcclellan reports that in August 2017, he developed side effects in that he could not speak and had trouble typing with his left hand. He had an episode of ataxia and he felt significantly dizzy, so much so that he felt like he was going to pass out. He presented to the hospital where MRI scan of brain was done on 09/01/2017. The MRI showed left cerebral mass measuring 3.6 cm and mild asymmetric prominence and enhancement at right pituitary gland. Differential included macroadenoma, craniopharyngioma, or metastatic disease. A CT chest was done and reported spiculated area of the right upper lobe measuring 2.7 cm. He underwent posterior fossa craniotomy and resection of the cerebellar mass on 09/05/2017. The final pathology reported metastatic adenocarcinoma consistent with lung primary. Molecular assay was negative for EGFR, BRAF V600E IHC, ALK, RET, HER-2, BRAF, and ROS 1. PET/CT imaging was obtained on 10/29/2017. It did report 2 x 2.3 cm right apical pulmonary nodule with an SUV of 17.7. There were no additional pulmonary nodules or masses identified. Activity in the bilateral hilum and mediastinal lymph nodes was unremarkable. There was no other evidence for local or distant metastatic disease. Follow-up CT of the head from 11/10/2017 reported postoperative changes from prior occipital craniotomy and resection of the previous metastatic lesion from the superior aspect of the left cerebellar hemisphere. There was persistent subcutaneous occipital scalp fluid that may communicate with the CSF space through meningeal defect posterior to the cervical do medullary junction. There were mild central and peripheral atrophy. No acute findings of the head and no significant change from 10/17/2017. It was noted that he had left maxillary sinusitis. Mr. Mcclellan was referred to Dr Lyle in radiation oncology for treatment of the lung mass and consideration of radiation to the brain. Mr Mcclellan had SBRT to the right lung. He had a total dose of 3600 cGy (48 GY). His start date was 11/16/2017. His completion date was 11/23/2017. Mr. Mcclellan then underwent SRS to the brain. His total dose was 2400 cGy. He started on 01/11/2018 and ended on 01/16/2018. He was given Decadron 4 mg twice a day while on treatment with instructions to taper slowly after radiation was completed. Mr. Mcclellan was evaluated and was offered chemotherapy with cisplatin Alimta every 3 weeks for 4 cycles. He has been very hesitant to proceed with chemotherapy due to concerns about side effects. Interim history: Mr Mcclellan went to [place] for further oncology care. His CT PET scan done on 05/17 showed left cerebellar consistent with known prior dissection; Right lung upper lobe consistent with persistent tumor with right bronchial lymph node involvement; Left maxillary sinus of concern for metastatic disease and A new osseous lesion in the right anterior iliac crest consistent with metastatic disease. Once again chemotherapy was recommended and he consentetd. He was given 1 cycle of carboplatin/Alimta/pembrolizumab on 06/28/2018 but he had significant side effects including nausea, vomiting- fatigue requiring hydration, subsequently chemotherapy was discontinued because of intolerance. He was switched to single agent Keytruda on 09/06/2018, tolerated immunotherapy well-except associated or diarrhea which was treated with prednisone 60 mg daily and responded well. He has had no further episodes of the significant diarrhea. He had follow-up CT PET scanOn 11/25/2018 which showed the right apical lung lesion currently measured 3.9 x 2.4 cm with SUV of 3.4 (this is a significant improvement since prior study and likely represent chronic inflammation); Status post right ventriculoperitoneal shunt placement done on 02/15/2019. CT scan of head was done on 04/03/2019 showed stable frontal ventricular shunt tube position with decreased ventriculomegaly since 02/15/2019. 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 On 04/13/2019 Mr Mcclellan presented to the local emergency room with with chief complaints of floaters in his vision off and on and this time in the right eye only. He was sent to [facility] in [place] emergency room where he was evaluated by ophthalmology and no retinal detachment was observed. Follow-up in 2 weeks was recommended but he did not go for follow-up as condition resolved on its own. He also had CT scan of head done on 04/13/2019 which showed no intracranial hemorrhage or mass effect; Unchanged ventricular configuration; Unchanged right frontal ventricular shunt catheter tip terminating in the left frontal horn; Unchanged left cerebellar hemisphere encephalomalacia and postsurgical changes; CT scan of the head done on 05/14/2019 showed right frontal shunt catheter with tip in the left frontal horn. No hydrocephalus; Postoperative changes occipital craniectomy. He remains on immunotherapy with pembrolizumab. Tolerating Keytruda well otherwise Follow-up CT PET scan done on 08/11/2019 showed there is ongoing decrease in FDG activity in the right upper lobe nodule now SUV is 2.6 down from 3.4 previously .no new lesion seen CT scan of the head done on 10/12/2019 shows right frontal shunt cath with the tip in the left frontal horn. No hydrocephalus. Prior postoperative changes occipital status post occipital craniotomy. 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 Recently underwent left arm nerve conduction study, as per patient he was told his left hand weakness and numbness is due to ulnar neuropathy, now being treated with physical therapy. He has been having vertigo Patient was seen by ENT as per patient nothing significant was observed. He states he is having problems with his hand. He states that he did have nerve conduction which reportedly was normal but the technologist that was doing the study indicated that he might need an MRI of his brain. Mr. Mcclellan would like to pursue this if at all possible. He does see Dr. Sam on December [address] Sam is leaving in January so is not sure he can get the MRI scheduled at that point. He states that he does have an MRI of the brain he will need his shunt regulated. He states in regard to Dr. Sam leaving, he has used Dr Dinh in [place], [place]. Follow-up CT scan of head was done on January 03, 2020 which is unchanged since October 12, 2019, no enhancing masses or acute intracranial hemorrhage. Postoperative changes of occipital craniectomy with encephalomalacia left cerebellum and unchanged pseudomeningocele. REQUIREMENTS MANAGER shunt catheter tip terminating anterior horn of left lateral ventricle. No hydrocephalus. Left maxillary sinusitis, Oral antibiotics were prescribed Came for follow-up, denies any specific complaint except weakness/paresthesia in the left hand and arm but no significant change. Still feel lightheaded off and on and headaches, patient is anxious as Dr. Sam is leaving and went to see Dr. Henderson, neurologist as per patient he waited there for hour and a half and then left her office without seeing her. Denies any fever chills denies any blurred vision or double vision denies any seizure-like activity denies any nausea vomiting denies any shortness of breath denies any skin rash denies any diarrhea or constipation denies any melena or hematochezia denies any jaundice. Tolerating Keytruda well otherwise. Medications: Acetaminophen 2 (325 mg) Capsule Oral PRN, Albuterol Sulfate Aerosol Powder, Breath Activated Inhalation, B Complex 1 Tablet Oral daily, buPROPion HCl 1 Tablet (of 75 mg) Oral q on Every Other Day, Cabergoline (0.5 mg) Tablet Oral Take as Directed, Calcium 1 Tablet (of 600 mg) Oral daily, Colace 1 Capsule (of 250 mg) Oral b.i.d. PRN, Dronabinol 1 Capsule (of 5 mg) Oral b.i.d., Essiac Tea Herbs Leaves Oral PRN, Folic Acid 1 Tablet (of 400 mcg) Oral daily, Hydrocodone-Acetaminophen 1 Tablet (of 10-325 mg) Tablet Oral 6x/d PRN, Hydrocortisone 1 Tablet (of 15 mg) Oral daily, Lactulose 2 tablespoonful(s) (of 10 g/15mL) Solution Oral b.i.d. PRN, Lasix 1 Tablet (of 40 mg) Oral daily PRN, Magnesium 1 Tablet (of 250 mg) Oral daily, Multivitamin and Minerals 1 Tablet daily, Ondansetron HCl 1 Tablet (of 4 mg) Oral t.i.d. PRN, Pantoprazole Sodium 1 Tablet (of 40 mg) Tablet, enteric coated Oral every am, Promethazine HCl 1 Suppository (of 25 mg) Rectal q 6 hours PRN, Senna-S 1 (8.6-50 mg) Tablet Oral b.i.d., Stiolto Respimat 1 puff(s) (of 2.5-2.5 mcg/act) Aerosol, solution Inhalation daily, Vitamin A Capsule Oral daily Allergies: Cats, Dust mites, Grass Pollen, Mold and Trees and HydroCHLOROthiazide. Review of Systems: Constitutional - Appetite is poor/fair and weight is stable. No fever, chills, hot flashes, or night sweats. Energy level is fair, ENMT - No sinus congestion/drainage. No mouth sores. No sore throat or difficulty swallowing, Hematologic/Lymphatic - No abnormal bruising or bleeding, Respiratory - Shortness of breath with exertion. No cough. No pleuritic pain or hemoptysis, Cardiovascular - No angina pain. No palpitations, Gastrointestinal - Positive for occasional nausea, no vomiting. No heartburn or acid reflux. No diarrhea, some constipation. No blood in the stool or black stools, Genitourinary (M) - No dysuria or hematuria. No urinary frequency. No urgency or incontinence, Musculoskeletal - No joint or bone pain, Neurologic - Frequent headache and dizziness, Psychiatric - Patient has anxiety, depression, and insomnia. Vital Signs: Performed on Jan 09, 2020 13:10 Height - 73.00 in Weight - 293.0 lbs (HIGH) BSA - 2.53 sq.m BMI - 38.66 (HIGH) Temperature - 98.1 F (LOW) Pulse - 66 /min Respiration - 24 /min BP - 160/88 mm(hg) (HIGH) O2 Sat - 96 % Pain - 4 Performance Status: 2 - Ambulatory/capable of all self-care, unable to perform any work activities. Up and about more than 50% of waking hours. (ECOG) Physical Examination: ENMT - No mouth sores, no thrush, no jaundice, Respiratory - Lungs are clear, Cardiovascular - Regular rate and rhythm of heart, Abdomen - Soft, bowel sounds present, Extremities - Trace edema bilaterally. Lab/Imaging: Test performed on Dec 18, 2019 15:38 Sodium 139 mmol/L TSH 1.44 uIU/mL Potassium 3.7 mmol/L Chloride 105 mmol/L CO2 26 mmol/L Anion Gap 11.7 BUN 9 mg/dL Creatinine 0.9 mg/dL Cr Clearance (Est) 156.59 mL/min eGFR 85.5 mL/min Glucose 117 mg/dL Calcium 9.4 mg/dL Protein, Total 7.3 g/dL Albumin 4.0 g/dL Globulin 3.3 g/dL Bilirubin, Total 0.5 mg/dL ALT (SGPT) 16 U/L AST (SGOT) 15 U/L Alkaline Phosphatase 72 IU/L WBC 9.0 10 3/uL RBC 4.45 10 6/uL HGB 13.9 g/dL HCT 43.6 % MCV 98.0 fL MCH 31.2 pg MCHC 31.9 g/dL RDW 13.1 % Platelet Count 216 10 3/cmm MPV 9.1 fL Neutrophils 5.58 10 3/uL Lymphocytes 2.6 10 3/uL Monocytes 0.5 10 3/uL Eosinophils 0.3 10 3/uL Basophils 0.0 10 3/uL Neutrophil % 61.7 % Lymphocyte % 28.8 % Monocyte % 6.0 % Eosinophil % 3.1 % Basophils % 0.2 % NRBC % 0 % Impression: 1. 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 2. status post metastasectomy done on 09/05/2017, postoperative MRI disclosed complete resection. Molecular studies on brain metastases biopsy showed negative for EGFR ALK, RET, HER-2/india, ROS 1,BRAF, 3. Right upper lobe lung mass 2.7 cm. 4. Indigestion/ heartburn nausea vomiting probably due to candidal esophagitis or questionable increase intracranial pressure , also with oral thrush EGD showed H. pylori status post antibiotics FOLLOWUP IMAGIN. CT scan of head done on 10/17/2017 showed stable postoperative changes from prior left occipital craniotomy and resection of previous metastatic mass from left cerebellum hemisphere. (Repeat CT of the head from 11/2017 in [facility] reported findings consistent with the 10/17/2017 imaging with no acute findings). 6. PET/CT from 10/29/2017 showed 2 x 2.3 cm right apical pulmonary nodule with SUV of 17.7. No additional abnormality noted other than status post cranial metastasectomy site. 7. MRI of the brain with and without contrast on August 23, 2018 from [facility] in [place]. 8. CT of the head noncontrast on October 12, 2019: Right frontal shunt catheter with tip in the left frontal horn. No hydrocephalus. Ventricular size is unchanged from previous scans. Prior postoperative changes occipital craniectomy. 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 Stable cerebral tonsillar ectopia with normal fourth ventricle. 9. His last PET/CT imaging was August 11, 2019. Is reported that there was ongoing decrease in FDG activity in the right upper lobe lung nodule with an SUV of 2.6 down from 3.4 on previous exam. There were no new malignant lesions present there is no indication to suspect osseous metastatic disease. CURRENT TREATMENT SUMMARY: 7. SBRT to right lung mass completed 11/23/2017 for a total dose of 3,600 cGY (48 GGY). 8. SRS to brain completed 01/16/2018 for a total dose of 2,400 cGY. 9. Carboplatin/Alimta/pembrolizumab 06/28/2018. He had 1 dose of the carboplatin Alimta had significant side effects and was transitioned to just single agent pembrolizumab in September 2018. He remains on pembrolizumab currently. discussed with Mr Mcclellan the role of systemic chemotherapy with cisplatin/Alimta versus observation alone. He has recommended chemotherapy consisting of Cisplatin 75 mg/m2 day 1 and Alimta 500 mg/m??? on day 1 repeat every 21 days ???4 cycles along with dexamethasone, folic acid and B12 as prophylactic treatment for Alimta. Mr Mcclellan transferred his care to [facility] where getting evaluation CT PET scan was done on 05/17/2018 which showed persistent right upper lobe lung mass with right bronchial lymph node involvement; Finding in the left maxillary sinus of concern for metastatic disease; A new osseous lesion seen in the right anterior iliac crest consistent with metastatic disease. Mr Mcclellan was started on carboplatin/Alimta/pembrolizumab-he was given 1 dose of chemotherapy on 06/28/2018. He experienced significant side effects so chemotherapy was discontinued and then switched to single agent Keytruda in September 2018. Patient tolerated well except some diarrhea, responded to prednisone 60 mg by mouth daily, now resolved and his follow-up CT PET scan done on 11/25/2018 showed excellent response to single agent Keytruda. The PET/CT did show a right apical lung lesion measures 3.9 x 2.4 cm with SUV of 3.4 which is significant improvement since prior study in May 2018 and likely represent inflammatory posttreatment changes. Mr Mcclellan has continued with single agent Keytruda. He is tolerating it well and has improvement in his performance status. Plan: Discussed with patient regarding his labs white blood count 6.3 hemoglobin 14.1 crit 43.5 platelets 216,000 CMP within normal limits and CT scan of head done on January 03, 2020 findings Clinically, patient doing well with no signs symptom suggestive of disease progression, tolerating maintenance therapy with Keytruda well, otherwise. We will proceed with next 3 weekly dose today and then return to clinic in 3 weeks with CBC CMP As far as left arm weakness/paresthesia, headaches/dizziness is concerned could be due to REQUIREMENTS MANAGER shunt malfunctioning or postoperative intracranial changes or cervical spine pathology. Patient was supposed to get MRI scan of the head and C-spine but Dr. Sam is moving to [place] and patient was referred to Dr. Henderson, neurology for evaluation, as per patient he went to see her and waited there for hour and a half and then left our office without seeing her. Patient is considering going back to [place] neurosurgery/neurology services, as he was very pleased with service he received there, we will refer him to his neurology team there for evaluation. In the meantime we will continue supportive care and patient will return to clinic in 3 weeks with CBC CMP Signed By: Harsha Parra M.D. <<Signature on File>>
[2020-01-29 16:15] LABS: Basophils % 0.5 %; Eosinophils # 0.3 10^3/uL (0.0-0.8); Eosinophils % 3.7 %; Hematocrit 44.3 % (42.0-52.0); Hemoglobin 14.3 g/dL (11.7-16.6); Lymphocytes # 3.3 10^3/uL (0.8-4.8); Lymphocytes % 43.4 %; Mean Corpuscular HGB Conc 32.3 g/dL (30.0-36.0); Mean Corpuscular Volume 96.1 fL (80-94); Mean Platelet Volume 9.1 fL (7.4-10.4); Monocytes # 0.7 10^3/uL (0.2-0.9); Monocytes % 8.8 %; Neutrophils # 3.26 10^3/uL (1.8-7.7); Neutrophils % 43.3 %; Nucleated Red Blood Cells % 0 %; Platelet Count 195 10^3/cmm (130-400); Red Blood Count 4.61 10^6/uL (4.1-5.3); Red Cell Distribution Width 12.5 % (12.1-15.1); White Blood Count 7.5 10^3/uL (4.0-10.0)
[2020-01-29 16:49] LABS: Alanine Aminotransferase 15 U/L (0-41); Albumin Level 3.9 g/dL (3.5-5.2); Alkaline Phosphatase 76 IU/L (40-130); Anion Gap 11.8 (5-19); Aspartate Amino Transferase 14 U/L (0-40); Blood Urea Nitrogen 12 mg/dL (8-23); Calcium 8.9 mg/dL (8.5-10.5); Carbon Dioxide 29 mmol/L (22-29); Chloride 104 mmol/L (98-107); Globulin 2.8 g/dL (1.3-4.6); Glomerular Filtration Rate 75.7 mL/min (90-130); Glucose 82 mg/dL (65-115); Osmolality Calculated 287 mOsm/kg (285-295); Potassium 3.8 mmol/L (3.5-5.1); Sodium 141 mmol/L (136-145); Thyroid Stimulating Hormone 1.05 uIU/mL (0.27-4.20); Total Bilirubin 0.3 mg/dL (0.15-1.2); Total Protein 6.7 g/dL (6.6-8.7)
--- NOTE | 2020-01-30 18:08 | ONC FU_ITS ---
Dr. Parra follow up note Patient: Alli Mcclellan Unit #: [id number]: 1955 Dicatated By: Harsha Parra M.D.Date of Visit:Jan 30, 2020 Onc Med Follow-up/Prog Note History of Present Illness: Mr. Mcclellan is a 64-year-old gentleman who was recently diagnosed with metastatic lung cancer to brain. Mr Mcclellan reports that in August 2017, he developed side effects in that he could not speak and had trouble typing with his left hand. He had an episode of ataxia and he felt significantly dizzy, so much so that he felt like he was going to pass out. He presented to the hospital where MRI scan of brain was done on 09/01/2017. The MRI showed left cerebral mass measuring 3.6 cm and mild asymmetric prominence and enhancement at right pituitary gland. Differential included macroadenoma, craniopharyngioma, or metastatic disease. A CT chest was done and reported spiculated area of the right upper lobe measuring 2.7 cm. He underwent posterior fossa craniotomy and resection of the cerebellar mass on 09/05/2017. The final pathology reported metastatic adenocarcinoma consistent with lung primary. Molecular assay was negative for EGFR, BRAF V600E IHC, ALK, RET, HER-2, BRAF, and ROS 1. PET/CT imaging was obtained on 10/29/2017. It did report 2 x 2.3 cm right apical pulmonary nodule with an SUV of 17.7. There were no additional pulmonary nodules or masses identified. Activity in the bilateral hilum and mediastinal lymph nodes was unremarkable. There was no other evidence for local or distant metastatic disease. Follow-up CT of the head from 11/10/2017 reported postoperative changes from prior occipital craniotomy and resection of the previous metastatic lesion from the superior aspect of the left cerebellar hemisphere. There was persistent subcutaneous occipital scalp fluid that may communicate with the CSF space through meningeal defect posterior to the cervical do medullary junction. There were mild central and peripheral atrophy. No acute findings of the head and no significant change from 10/17/2017. It was noted that he had left maxillary sinusitis. Mr. Mcclellan was referred to Dr Lyle in radiation oncology for treatment of the lung mass and consideration of radiation to the brain. Mr Mcclellan had SBRT to the right lung. He had a total dose of 3600 cGy (48 GY). His start date was 11/16/2017. His completion date was 11/23/2017. Mr. Mcclellan then underwent SRS to the brain. His total dose was 2400 cGy. He started on 01/11/2018 and ended on 01/16/2018. He was given Decadron 4 mg twice a day while on treatment with instructions to taper slowly after radiation was completed. Mr. Mcclellan was evaluated and was offered chemotherapy with cisplatin Alimta every 3 weeks for 4 cycles. He has been very hesitant to proceed with chemotherapy due to concerns about side effects. Interim history: Mr Mcclellan went to [place] for further oncology care. His CT PET scan done on 05/17 showed left cerebellar consistent with known prior dissection; Right lung upper lobe consistent with persistent tumor with right bronchial lymph node involvement; Left maxillary sinus of concern for metastatic disease and A new osseous lesion in the right anterior iliac crest consistent with metastatic disease. Once again chemotherapy was recommended and he consentetd. He was given 1 cycle of carboplatin/Alimta/pembrolizumab on 06/28/2018 but he had significant side effects including nausea, vomiting- fatigue requiring hydration, subsequently chemotherapy was discontinued because of intolerance. He was switched to single agent Keytruda on 09/06/2018, tolerated immunotherapy well-except associated or diarrhea which was treated with prednisone 60 mg daily and responded well. He has had no further episodes of the significant diarrhea. He had follow-up CT PET scanOn 11/25/2018 which showed the right apical lung lesion currently measured 3.9 x 2.4 cm with SUV of 3.4 (this is a significant improvement since prior study and likely represent chronic inflammation); Status post right ventriculoperitoneal shunt placement done on 02/15/2019. CT scan of head was done on 04/03/2019 showed stable frontal ventricular shunt tube position with decreased ventriculomegaly since 02/15/2019. 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 On 04/13/2019 Mr Mcclellan presented to the local emergency room with with chief complaints of floaters in his vision off and on and this time in the right eye only. He was sent to [facility] in [place] emergency room where he was evaluated by ophthalmology and no retinal detachment was observed. Follow-up in 2 weeks was recommended but he did not go for follow-up as condition resolved on its own. He also had CT scan of head done on 04/13/2019 which showed no intracranial hemorrhage or mass effect; Unchanged ventricular configuration; Unchanged right frontal ventricular shunt catheter tip terminating in the left frontal horn; Unchanged left cerebellar hemisphere encephalomalacia and postsurgical changes; CT scan of the head done on 05/14/2019 showed right frontal shunt catheter with tip in the left frontal horn. No hydrocephalus; Postoperative changes occipital craniectomy. He remains on immunotherapy with pembrolizumab. Tolerating Keytruda well otherwise Follow-up CT PET scan done on 08/11/2019 showed there is ongoing decrease in FDG activity in the right upper lobe nodule now SUV is 2.6 down from 3.4 previously .no new lesion seen CT scan of the head done on 10/12/2019 shows right frontal shunt cath with the tip in the left frontal horn. No hydrocephalus. Prior postoperative changes occipital status post occipital craniotomy. 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 Recently underwent left arm nerve conduction study, as per patient he was told his left hand weakness and numbness is due to ulnar neuropathy, now being treated with physical therapy. He has been having vertigo Patient was seen by ENT as per patient nothing significant was observed. He states he is having problems with his hand. He states that he did have nerve conduction which reportedly was normal but the technologist that was doing the study indicated that he might need an MRI of his brain. Mr. Mcclellan would like to pursue this if at all possible. He does see Dr. Sam on December [address] Sam is leaving in January so is not sure he can get the MRI scheduled at that point. He states that he does have an MRI of the brain he will need his shunt regulated. He states in regard to Dr. Flaco clinton, he has used Dr Dinh in [place], [place]. Follow-up CT scan of head was done on January 03, 2020 which is unchanged since October 12, 2019, no enhancing masses or acute intracranial hemorrhage. Postoperative changes of occipital craniectomy with encephalomalacia left cerebellum and unchanged pseudomeningocele. [employer] shunt catheter tip terminating anterior horn of left lateral ventricle. No hydrocephalus. Left maxillary sinusitis, Oral antibiotics were prescribed Came for follow-up, complaining of headaches, dizziness and left arm pain/discomfort, nausea vomiting, no fever chills, no diarrhea or constipation, no hemoptysis or hematemesis no double vision but off and on blurred vision.No new focal weakness Medications: Acetaminophen 2 (325 mg) Capsule Oral PRN, Albuterol Sulfate Aerosol Powder, Breath Activated Inhalation, Ampicillin 1 Capsule (of 500 mg) Oral t.i.d., B Complex 1 Tablet Oral daily, buPROPion HCl 1 Tablet (of 75 mg) Oral q on Every Other Day, Cabergoline (0.5 mg) Tablet Oral Take as Directed, Calcium 1 Tablet (of 600 mg) Oral daily, Colace 1 Capsule (of 250 mg) Oral b.i.d. PRN, Dronabinol 1 Capsule (of 5 mg) Oral b.i.d., Essiac Tea Herbs Leaves Oral PRN, Folic Acid 1 Tablet (of 400 mcg) Oral daily, Hydrocodone-Acetaminophen 1 Tablet (of 10-325 mg) Tablet Oral 6x/d PRN, Hydrocortisone 1 Tablet (of 15 mg) Oral daily, Lactulose 2 tablespoonful(s) (of 10 g/15mL) Solution Oral b.i.d. PRN, Lasix 1 Tablet (of 40 mg) Oral daily PRN, Magnesium 1 Tablet (of 250 mg) Oral daily, Multivitamin and Minerals 1 Tablet daily, Ondansetron HCl 1 Tablet (of 4 mg) Oral t.i.d. PRN, Pantoprazole Sodium 1 Tablet (of 40 mg) Tablet, enteric coated Oral every am, Promethazine HCl 1 Suppository (of 25 mg) Rectal q 6 hours PRN, Senna-S 1 (8.6-50 mg) Tablet Oral b.i.d., Stiolto Respimat 1 puff(s) (of 2.5-2.5 mcg/act) Aerosol, solution Inhalation daily, Sudafed 1 Tablet (of 30 mg) Oral daily, Vitamin A Capsule Oral daily Allergies: Cats, Dust mites, Grass Pollen, Mold and Trees and HydroCHLOROthiazide. Review of Systems: Constitutional - Appetite is poor/fair and weight is stable. No fever, chills, hot flashes, or night sweats. Energy level is poor, ENMT - No sinus congestion/drainage. No mouth sores. No sore throat or difficulty swallowing, Hematologic/Lymphatic - No abnormal bruising or bleeding, Respiratory - Shortness of breath with exertion. No cough. No pleuritic pain or hemoptysis, Cardiovascular - No angina pain. No palpitations, Gastrointestinal - Positive for occasional nausea, no vomiting. No heartburn or acid reflux. No diarrhea, some constipation. No blood in the stool or black stools, Genitourinary (M) - No dysuria or hematuria. No urinary frequency. No urgency or incontinence, Musculoskeletal - No joint or bone pain, Integumentary - Pt has slight rash on his face and hands, Neurologic - Frequent headache and dizziness, Psychiatric - Patient has anxiety, depression, and insomnia. Vital Signs: Performed on Jan 30, 2020 12:39 Height - 73.00 in Weight - 285.4 lbs (LOW) BSA - 2.50 sq.m BMI - 37.65 (HIGH) Temperature - 97.8 F (LOW) Pulse - 77 /min Respiration - 24 /min BP - 171/99 mm(hg) (HIGH) O2 Sat - 96 % Pain - 5 Performance Status: 2 - Ambulatory/capable of all self-care, unable to perform any work activities. Up and about more than 50% of waking hours. (ECOG) Physical Examination: ENMT - No mouth sores, no thrush, no jaundice, Respiratory - Lungs are clear, Cardiovascular - Regular rate and rhythm of heart, Abdomen - Soft, bowel sounds present, Extremities - Mild edema, no new focal weakness. Lab/Imaging: Test performed on Dec 18, 2019 15:38 Sodium 139 mmol/L TSH 1.44 uIU/mL Potassium 3.7 mmol/L Chloride 105 mmol/L CO2 26 mmol/L Anion Gap 11.7 BUN 9 mg/dL Creatinine 0.9 mg/dL Cr Clearance (Est) 156.59 mL/min eGFR 85.5 mL/min Glucose 117 mg/dL Calcium 9.4 mg/dL Protein, Total 7.3 g/dL Albumin 4.0 g/dL Globulin 3.3 g/dL Bilirubin, Total 0.5 mg/dL ALT (SGPT) 16 U/L AST (SGOT) 15 U/L Alkaline Phosphatase 72 IU/L WBC 9.0 10 3/uL RBC 4.45 10 6/uL HGB 13.9 g/dL HCT 43.6 % MCV 98.0 fL MCH 31.2 pg MCHC 31.9 g/dL RDW 13.1 % Platelet Count 216 10 3/cmm MPV 9.1 fL Neutrophils 5.58 10 3/uL Lymphocytes 2.6 10 3/uL Monocytes 0.5 10 3/uL Eosinophils 0.3 10 3/uL Basophils 0.0 10 3/uL Neutrophil % 61.7 % Lymphocyte % 28.8 % Monocyte % 6.0 % Eosinophil % 3.1 % Basophils % 0.2 % NRBC % 0 % Impression: 1. 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 2. status post metastasectomy done on 09/05/2017, postoperative MRI disclosed complete resection. Molecular studies on brain metastases biopsy showed negative for EGFR ALK, RET, HER-2/india, ROS 1,BRAF, 3. Right upper lobe lung mass 2.7 cm. 4. Indigestion/ heartburn nausea vomiting probably due to candidal esophagitis or questionable increase intracranial pressure , also with oral thrush EGD showed H. pylori status post antibiotics FOLLOWUP IMAGIN. CT scan of head done on 10/17/2017 showed stable postoperative changes from prior left occipital craniotomy and resection of previous metastatic mass from left cerebellum hemisphere. (Repeat CT of the head from 11/2017 in [facility] reported findings consistent with the 10/17/2017 imaging with no acute findings). 6. PET/CT from 10/29/2017 showed 2 x 2.3 cm right apical pulmonary nodule with SUV of 17.7. No additional abnormality noted other than status post cranial metastasectomy site. 7. MRI of the brain with and without contrast on August 23, 2018 from [facility] in [place]. 8. CT of the head noncontrast on October 12, 2019: Right frontal shunt catheter with tip in the left frontal horn. No hydrocephalus. Ventricular size is unchanged from previous scans. Prior postoperative changes occipital craniectomy. 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 Stable cerebral tonsillar ectopia with normal fourth ventricle. 9. His last PET/CT imaging was August 11, 2019. Is reported that there was ongoing decrease in FDG activity in the right upper lobe lung nodule with an SUV of 2.6 down from 3.4 on previous exam. There were no new malignant lesions present there is no indication to suspect osseous metastatic disease. CURRENT TREATMENT SUMMARY: 7. SBRT to right lung mass completed 11/23/2017 for a total dose of 3,600 cGY (48 GGY). 8. SRS to brain completed 01/16/2018 for a total dose of 2,400 cGY. 9. Carboplatin/Alimta/pembrolizumab 06/28/2018. He had 1 dose of the carboplatin Alimta had significant side effects and was transitioned to just single agent pembrolizumab in September 2018. He remains on pembrolizumab currently. discussed with Mr Mcclellan the role of systemic chemotherapy with cisplatin/Alimta versus observation alone. He has recommended chemotherapy consisting of Cisplatin 75 mg/m2 day 1 and Alimta 500 mg/m??? on day 1 repeat every 21 days ???4 cycles along with dexamethasone, folic acid and B12 as prophylactic treatment for Alimta. Mr Mcclellan transferred his care to [facility] where getting evaluation CT PET scan was done on 05/17/2018 which showed persistent right upper lobe lung mass with right bronchial lymph node involvement; Finding in the left maxillary sinus of concern for metastatic disease; A new osseous lesion seen in the right anterior iliac crest consistent with metastatic disease. Mr Mcclellan was started on carboplatin/Alimta/pembrolizumab-he was given 1 dose of chemotherapy on 06/28/2018. He experienced significant side effects so chemotherapy was discontinued and then switched to single agent Keytruda in September 2018. Patient tolerated well except some diarrhea, responded to prednisone 60 mg by mouth daily, now resolved and his follow-up CT PET scan done on 11/25/2018 showed excellent response to single agent Keytruda. The PET/CT did show a right apical lung lesion measures 3.9 x 2.4 cm with SUV of 3.4 which is significant improvement since prior study in May 2018 and likely represent inflammatory posttreatment changes. Mr Mcclellan has continued with single agent Keytruda. He is tolerating it well and has improvement in his performance status. Plan: Discussed with patient regarding his labs white blood count 7.5 hemoglobin 14.3 hematocrit 44.3 platelets 195,000 CMP within normal limits TSH 1.05 Clinically, patient is in mild to moderate distress due to nausea and vomiting, headaches and dizziness and recently underwent CT scan of head which shows no evidence of disease progression but concern was malfunctioning of shunt, patient was referred to his neurosurgeon in [place], he is awaiting for appointment. But due to worsening of symptom, we will send him to ER for evaluation. We will hold his maintenance immunotherapy today Signed By: Harsha Parra M.D. <<Signature on File>>
== END 2020-02-04 23:59 | disposition home or self-care (01) ==
LOC: ONCMED 05:41
PROVIDERS: Nurse Practitioner; PCP Emergency Medicine Emergency Medical Services; Visit Provider Internal Medicine Hematology & Oncology
DX: Z51.12 Encounter for antineoplastic immunotherapy (principal); C34.11 Malignant neoplasm of upper lobe, right bronchus or lung; C79.31 Secondary malignant neoplasm of brain; C79.51 Secondary malignant neoplasm of bone; G89.29 Other chronic pain; M54.5 Low back pain; I10 Essential (primary) hypertension
CPT/HCPCS: 36415; 80053; 84443; 85025; 96413; 99214; J7050; J9271

== ENCOUNTER 2020-01-30 16:20 | Emergency (ER) | payer OTHER, SELFPAY ==
[2020-01-30 16:54] VITALS: BP 149/83; PULSE 79; RESP 14; TEMP 37; O2SAT 96; BMI 38.6
--- NOTE | 2020-01-30 17:11 | CTR_ITS ---
PROCEDURE INFORMATION: Exam: CT Head Without Contrast Exam date and time: 01/30/2020 5:15 PM Age: 64 years old Clinical indication: Pain; Dizziness; Headache; Prior surgery; Surgery type: Brain tumor removed from cerebellum, shunt; Additional info: Dizzy TECHNIQUE: Imaging protocol: Computed tomography of the head without contrast. Sagittal and coronal reformatted images were created and reviewed. Radiation optimization: All CT scans at this facility use at least one of these dose optimization techniques: automated exposure control; mA and/or kV adjustment per patient size (includes targeted exams where dose is matched to clinical indication); or iterative reconstruction. COMPARISON: CT head wo/w con [id number] 01/03/2020 8:59 AM RADIATION DOSE METRICS: Total DLP (mGy-cm): 1028.58 FINDINGS: Brain: No acute intracranial hemorrhage. No acute intracranial hemorrhage. No acute infarct. No intra-axial or extra-axial masses. Wilburn-white matter differentiation is preserved. No cerebral edema. No extra-axial fluid collections. No midline shift. Stable large area of encephalomalacia in the left cerebellar hemisphere, suggesting postsurgical change. Ventricles: There is a right transfrontal ventriculoperitoneal shunt with the tip in the anterior horn of the left lateral ventricle. Findings are stable. Bones/joints: Stable changes consistent with an occipital craniotomy. Moderate left nasal septal deviation. Multilevel degenerative changes of varying severity in the visualized spine. Sinuses: Mild mucoperiosteal thickening in the the left frontal, left ethmoid, and bilateral maxillary sinuses. Mastoid air cells: Mastoid air cells are clear bilaterally. Orbits: Globes and lenses, extraocular muscles, and optic nerves are intact bilaterally. No acute intraorbital abnormality. Vasculature: Atherosclerotic changes in the visualized arteries. Soft tissues: Stable fluid fluid collection at the occipital craniotomy site measuring 3.0 x 5.5 cm, findings suggest a postoperative seroma (series 2, image 8). CT/CT head wo con* [id number] IMPRESSION: 1. No acute abnormality of the brain. 2. Stable large area of encephalomalacia in the left cerebellar hemisphere, suggesting postsurgical change. 3. There is a right transfrontal ventriculoperitoneal shunt with the tip in the anterior horn of the left lateral ventricle. Findings are stable. 4. Mild mucoperiosteal thickening in the the left frontal, left ethmoid, and bilateral maxillary sinuses. 5. Stable fluid fluid collection at the occipital craniotomy site suggesting a postoperative seroma. 6. Incidental/nonacute findings are listed in the report. Radiation Dose CTDIVOL = (mGy): DLP = 1028.58 (mGy-cm)
[2020-01-30 18:24] VITALS: BP 138/80; PULSE 69; RESP 18; O2SAT 93
--- NOTE | 2020-01-30 18:27 | ED_ITS ---
HPI - Neuro Symptoms/Deficit General: Chief Complaint: Neuro Symptoms/Deficit Stated Complaint: poss shunt malfunction Time Seen by Provider: 01/30/20 17:47 History of Present Illness: HPI Narrative: This patient is a 64-year-old gentleman with a history of lung cancer. He has had metastasis to the brain and had a craniotomy in 2018. He also has a shunt placed. He was sent over from Dr. Parra's office today because of dizziness which has been present for some time but worse in the past few days, vomiting just started yesterday afternoon and difficulty controlling his left hand which is also been chronic but slightly worse. Apparently Dr. Parra spoke with Dr. Nash at [facility] in [place] who is a neurosurgeon. The patient and Dr. Parra tell me that Dr. Nash would like the patient transferred up there tonight. Onset (ago): day(s) (1.5 of vomiting and worsening symptoms) Location: left arm History of same: Yes Severity: moderate Associated symptoms: Reports nausea and vomiting; Deny chest pain, headache(s) or malaise Review of Systems General: Reports: 10 or more systems reviewed and unremarkable except in HPI and below Const: Denies: fever(s), chills, fatigue or malaise Eyes: Denies: change in vision ENMT: Denies: odynophagia Card: Denies: chest pain or swelling of feet/ankles Resp: Denies: dyspnea, productive cough or non-productive cough GI: Reports: nausea and vomiting; Denies: abdominal pain : Denies: flank pain Musc: Denies: neck pain or back pain Skin/Breast: Denies: rash Neuro: Reports: weakness in extremities; Denies: headache(s) or numbness in extremities Danny/Lymph: Denies: easy bruising or easy bleeding PFSH ED PFSH: Medical History Hydrocephalus Intervertebral disc disorder of cervical region with myelopathy Left arm pain Metastatic lung carcinoma Primary lung adenocarcinoma Ulnar neuropathy at elbow of left upper extremity Surgical History History of craniotomy 09/05/2017 Posterior fossa craniotomy and resection of the cerebellar mass Status post ventriculoperitoneal shunt Family History Family/Other CAD (coronary artery disease) Social History Smoking and tobacco status: never smoked Alcohol intake: never Household members: none Marital status: Current occupational status: disabled History of recent travel: No Physical Exam Const: COMMON NORMALS: no acute distress, patient oriented x3, no limitations and alert GENERAL APPEARANCE: cooperative and comfortable HENMT: HEAD & SCALP: normal to inspection FACE & SINUS: normal facial exam Eye: GENERAL EYE: appearance normal, both eyes and all related structures Neck/C-Spine: COMMON NORMALS: supple, no meningeal signs and no JVD Chest: COMMONS NORMALS: normal inspection of the chest Resp: COMMON NORMALS: normal respiratory effort, No use of accessory muscles and clear to auscultation bilaterally AUSCULTATION: clear to auscultation bilaterally Cardio: COMMON NORMALS: no JVD, regular rate, regular rhythm and No murmurs present (Cardio) RATE: regular rate RHYTHM: regular rhythm GI: COMMON NORMALS: Normal to inspection, nondistended, normoactive bowel sounds present, Soft to palpation and non-tender INSPECTION: Yes normal to inspection AUSCULTATION: Yes normoactive bowel sounds PALPATION: Yes Soft to palpation Back/Pelvis: COMMON NORMALS: thoracic and lumbar spine normal to inspection Extremity: COMMON NORMALS: normal to inspection Neuro: COMMON NORMALS: patient oriented x3, moves all extremities, no focal motor deficits (minimal weakness of the left hand) and no sensory deficits noted SENSORIUM/ORIENTATION: Yes alert MENINGEAL SIGNS: Yes no meningeal signs Psych: COMMON NORMALS: mental status grossly normal, cooperative and normal affect Skin: COMMON NORMALS: no rashes or lesions noted and turgor normal GENERAL SKIN EXAM: no rashes or lesions noted and turgor normal Course ED course: The patient was accepted to [facility] by Dr. Guerrier. He is stable and nonfocal at the time of transfer. I also sent his CT from today as well as his most recent prior and some records from the oncology office with him. Vital Signs: Vital signs: Vital Signs Temperature 98.6 F 01/30/20 16:54 Pulse Rate 69 01/30/20 18:24 Respiratory Rate 18 01/30/20 18:24 Blood Pressure 138/80 01/30/20 18:24 Pulse Oximetry 93 01/30/20 18:24 Discharge Plan Discharge Patient Disposition: Transfer to ED Clinical Impression: Status post ventriculoperitoneal shunt Metastatic lung carcinoma Qualifiers: Laterality: unspecified laterality Qualified Code(s): C78.00 - Secondary malignant neoplasm of unspecified lung Condition: Stable Prescriptions: No Action ascorbic acid (vitamin C) 500 mg capsule, extended release 500 mg PO DAILY RF: 0 acetaminophen 325 mg capsule 650 mg PO QID PRN (Reason: Pain) RF: 0 albuterol sulfate 90 mcg/actuation aerosol powdr breath activated 2 inh INHALATION Q6H PRN (Reason: Shortness Of Breath) RF: 0 vitamin B complex [B Complex-Vitamin B12] Tablet 1 tab PO DAILY RF: 0 bupropion HCl 75 mg tablet 75 mg PO DAILY RF: 0 dronabinol 5 mg capsule 5 mg PO BID RF: 0 folic acid 400 mcg tablet 0.4 mg PO DAILY RF: 0 hydrocodone-acetaminophen 10-325 mg tablet 1 tab PO Q4H PRN (Reason: Pain) RF: 0 lactulose 10 gram/15 mL solution 20 gm PO BID RF: 0 furosemide [Lasix] 40 mg tablet 40 mg PO DAILY PRN (Reason: Edema) RF: 0 magnesium 250 mg tablet 250 mg PO DAILY RF: 0 multivitamin with minerals Capsule 1 cap PO DAILY RF: 0 ondansetron HCl 4 mg tablet 4 mg PO Q8H PRN (Reason: nausea and vomiting) RF: 0 pantoprazole 40 mg tablet,delayed release (DR/EC) 40 mg PO DAILY RF: 0 promethazine 25 mg suppository 25 mg TN Q6H PRN (Reason: N/V) RF: 0 Stiolto Respimat 2.5-2.5 mcg/actuation mist 2 puff INHALATION DAILY RF: 0 Keytruda 25 mg/mL solution 25 mg IVP .weekly RF: 0 lorazepam 0.5 mg tablet 0.5 mg PO Q6H PRN (Reason: UNKNKOWN) RF: 0 cabergoline 0.5 mg tablet 0.5 mg PO .WEEKLY RF: 0 hydrocortisone 20 mg tablet 10 mg PO DAILY RF: 0 carbidopa-levodopa [Sinemet] 25-100 mg tablet 0.5 tab PO TID 30 Days Qty: 45 RF: 3 gabapentin 100 mg Capsule See Rx Instructions .ROUTE .COMPLEX RF: 0 Benadryl See Rx Instructions .ROUTE .COMPLEX RF: 0 Sudafed See Rx Instructions .ROUTE .COMPLEX RF: 0 ampicillin See Rx Instructions .ROUTE .COMPLEX RF: 0 Referrals: Blayne Clark DO [Primary Care Provider] - Coding Level of Care Code ED Proof Machine Operator for Chg Fwd Exam Comprehensive
--- NOTE | 2020-01-30 19:51 | PC.NURSE ---
report called to Terra Mcclain RN
[2020-01-30] MEDS: ondansetron 2 mg/ML SDV 2 mL 4 MG IVP (20:19)
--- NOTE | 2020-01-30 20:19 | PC.NURSE ---
pt requesting zofran for transport. notified
[2020-01-30 20:58] VITALS: BP 136/84; PULSE 82; RESP 18; O2SAT 97
== END 2020-01-30 21:01 ==
PROVIDERS: Emergency Provider Emergency Medicine; PCP Emergency Medicine Emergency Medical Services
DX: C78.00 Secondary malignant neoplasm of unspecified lung (principal); Z98.2 Presence of cerebrospinal fluid drainage device; Z85.841 Personal history of malignant neoplasm of brain
CPT/HCPCS: 12345; 70450; 96374; 99282; 99285; J2405

== ENCOUNTER 2020-02-05 06:00 | Outpatient (RCR) | payer OTHER, SELFPAY | END 2020-03-05 23:59 | disposition home or self-care (01) | LOC: SPO 06:00 | PROVIDERS: PCP Emergency Medicine Emergency Medical Services; Visit Provider Emergency Medicine Emergency Medical Services | DX: R53.1 Weakness (principal); R26.81 Unsteadiness on feet; Z91.81 History of falling; C34.11 Malignant neoplasm of upper lobe, right bronchus or lung | CPT/HCPCS: 97110 ==

== ENCOUNTER 2020-02-27 06:19 | Outpatient (RCR) | payer OTHER, SELFPAY ==
[2020-02-05 15:04] LABS: Basophils % 0.3 %; Eosinophils # 0.3 10^3/uL (0.0-0.8); Eosinophils % 4.9 %; Hematocrit 43.7 % (42.0-52.0); Hemoglobin 14.2 g/dL (11.7-16.6); Lymphocytes # 2.7 10^3/uL (0.8-4.8); Lymphocytes % 40.7 %; Mean Corpuscular HGB Conc 32.5 g/dL (30.0-36.0); Mean Corpuscular Hemoglobin 31.6 pg (28.0-34.0); Mean Corpuscular Volume 97.1 fL (80-94); Mean Platelet Volume 9.3 fL (7.4-10.4); Monocytes # 0.4 10^3/uL (0.2-0.9); Monocytes % 6.5 %; Neutrophils # 3.12 10^3/uL (1.8-7.7); Neutrophils % 47.4 %; Nucleated Red Blood Cells % 0 %; Platelet Count 216 10^3/cmm (130-400); Red Cell Distribution Width 12.7 % (12.1-15.1); White Blood Count 6.6 10^3/uL (4.0-10.0)
[2020-02-05 15:14] LABS: Alanine Aminotransferase 12 U/L (0-41); Albumin Level 3.9 g/dL (3.5-5.2); Alkaline Phosphatase 81 IU/L (40-130); Anion Gap 10.6 (5-19); Aspartate Amino Transferase 11 U/L (0-40); Blood Urea Nitrogen 12 mg/dL (8-23); Calcium 9.4 mg/dL (8.5-10.5); Carbon Dioxide 29 mmol/L (22-29); Chloride 105 mmol/L (98-107); Globulin 3.1 g/dL (1.3-4.6); Glomerular Filtration Rate 85.5 mL/min (90-130); Glucose 112 mg/dL (65-115); Osmolality Calculated 289 mOsm/kg (285-295); Potassium 3.6 mmol/L (3.5-5.1); Sodium 141 mmol/L (136-145); Thyroid Stimulating Hormone 0.98 uIU/mL (0.27-4.20); Total Bilirubin 0.3 mg/dL (0.15-1.2)
--- NOTE | 2020-02-08 09:43 | ONC FU_ITS ---
Dr. Parra follow up note Patient: Alli Mcclellan Unit #: [id number]: 1955 Dicatated By: Harsha Parra M.D.Date of Visit:Feb 06, 2020 Onc Med Follow-up/Prog Note History of Present Illness: Mr. Mcclellan is a 64-year-old gentleman who was recently diagnosed with metastatic lung cancer to brain. Mr Mcclellan reports that in August 2017, he developed side effects in that he could not speak and had trouble typing with his left hand. He had an episode of ataxia and he felt significantly dizzy, so much so that he felt like he was going to pass out. He presented to the hospital where MRI scan of brain was done on 09/01/2017. The MRI showed left cerebral mass measuring 3.6 cm and mild asymmetric prominence and enhancement at right pituitary gland. Differential included macroadenoma, craniopharyngioma, or metastatic disease. A CT chest was done and reported spiculated area of the right upper lobe measuring 2.7 cm. He underwent posterior fossa craniotomy and resection of the cerebellar mass on 09/05/2017. The final pathology reported metastatic adenocarcinoma consistent with lung primary. Molecular assay was negative for EGFR, BRAF V600E IHC, ALK, RET, HER-2, BRAF, and ROS 1. PET/CT imaging was obtained on 10/29/2017. It did report 2 x 2.3 cm right apical pulmonary nodule with an SUV of 17.7. There were no additional pulmonary nodules or masses identified. Activity in the bilateral hilum and mediastinal lymph nodes was unremarkable. There was no other evidence for local or distant metastatic disease. Follow-up CT of the head from 11/10/2017 reported postoperative changes from prior occipital craniotomy and resection of the previous metastatic lesion from the superior aspect of the left cerebellar hemisphere. There was persistent subcutaneous occipital scalp fluid that may communicate with the CSF space through meningeal defect posterior to the cervical do medullary junction. There were mild central and peripheral atrophy. No acute findings of the head and no significant change from 10/17/2017. It was noted that he had left maxillary sinusitis. Mr. Mcclellan was referred to Dr Lyle in radiation oncology for treatment of the lung mass and consideration of radiation to the brain. Mr Mcclellan had SBRT to the right lung. He had a total dose of 3600 cGy (48 GY). His start date was 11/16/2017. His completion date was 11/23/2017. Mr. Mcclellan then underwent SRS to the brain. His total dose was 2400 cGy. He started on 01/11/2018 and ended on 01/16/2018. He was given Decadron 4 mg twice a day while on treatment with instructions to taper slowly after radiation was completed. Mr. Mcclellan was evaluated and was offered chemotherapy with cisplatin Alimta every 3 weeks for 4 cycles. He has been very hesitant to proceed with chemotherapy due to concerns about side effects. Interim history: Mr Mcclellan went to [place] for further oncology care. His CT PET scan done on 05/17 showed left cerebellar consistent with known prior dissection; Right lung upper lobe consistent with persistent tumor with right bronchial lymph node involvement; Left maxillary sinus of concern for metastatic disease and A new osseous lesion in the right anterior iliac crest consistent with metastatic disease. Once again chemotherapy was recommended and he consentetd. He was given 1 cycle of carboplatin/Alimta/pembrolizumab on 06/28/2018 but he had significant side effects including nausea, vomiting- fatigue requiring hydration, subsequently chemotherapy was discontinued because of intolerance. He was switched to single agent Keytruda on 09/06/2018, tolerated immunotherapy well-except associated or diarrhea which was treated with prednisone 60 mg daily and responded well. He has had no further episodes of the significant diarrhea. He had follow-up CT PET scanOn 11/25/2018 which showed the right apical lung lesion currently measured 3.9 x 2.4 cm with SUV of 3.4 (this is a significant improvement since prior study and likely represent chronic inflammation); Status post right ventriculoperitoneal shunt placement done on 02/15/2019. CT scan of head was done on 04/03/2019 showed stable frontal ventricular shunt tube position with decreased ventriculomegaly since 02/15/2019. 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 On 04/13/2019 Mr Mcclellan presented to the local emergency room with with chief complaints of floaters in his vision off and on and this time in the right eye only. He was sent to [facility] in [place] emergency room where he was evaluated by ophthalmology and no retinal detachment was observed. Follow-up in 2 weeks was recommended but he did not go for follow-up as condition resolved on its own. He also had CT scan of head done on 04/13/2019 which showed no intracranial hemorrhage or mass effect; Unchanged ventricular configuration; Unchanged right frontal ventricular shunt catheter tip terminating in the left frontal horn; Unchanged left cerebellar hemisphere encephalomalacia and postsurgical changes; CT scan of the head done on 05/14/2019 showed right frontal shunt catheter with tip in the left frontal horn. No hydrocephalus; Postoperative changes occipital craniectomy. He remains on immunotherapy with pembrolizumab. Tolerating Keytruda well otherwise Follow-up CT PET scan done on 08/11/2019 showed there is ongoing decrease in FDG activity in the right upper lobe nodule now SUV is 2.6 down from 3.4 previously .no new lesion seen CT scan of the head done on 10/12/2019 shows right frontal shunt cath with the tip in the left frontal horn. No hydrocephalus. Prior postoperative changes occipital status post occipital craniotomy. 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 Recently underwent left arm nerve conduction study, as per patient he was told his left hand weakness and numbness is due to ulnar neuropathy, now being treated with physical therapy. He has been having vertigo Patient was seen by ENT as per patient nothing significant was observed. He states he is having problems with his hand. He states that he did have nerve conduction which reportedly was normal but the technologist that was doing the study indicated that he might need an MRI of his brain. Mr. Mcclellan would like to pursue this if at all possible. He does see Dr. Sam on December [address] Sam is leaving in January so is not sure he can get the MRI scheduled at that point. He states that he does have an MRI of the brain he will need his shunt regulated. He states in regard to Dr. Flaco clinton, he has used Dr Dinh in [place], [place]. Follow-up CT scan of head was done on January 03, 2020 which is unchanged since October 12, 2019, no enhancing masses or acute intracranial hemorrhage. Postoperative changes of occipital craniectomy with encephalomalacia left cerebellum and unchanged pseudomeningocele. [employer] shunt catheter tip terminating anterior horn of left lateral ventricle. No hydrocephalus. Left maxillary sinusitis, Oral antibiotics were prescribed Came for follow-up, denies any specific complaint except persistent discomfort but mild puffiness in the left hand, which is improving, patient was transferred to [place] recently for nausea vomiting and there was a concern regarding malfunctioning of intracranial shunt, as per patient he was evaluated by neurosurgery in [place] and had MRI scan of head done there which showed shunt was functioning fine and no new lesions seen patient said he may have some kind of reaction to the contrast as he was feeling pain all over his body and responded well to morphine. Otherwise no fever chills, no nausea or vomiting, no diarrhea or constipation, no skin rash or itching, no hemoptysis or hematemesis, no jaundice. Tolerating maintenance immunotherapy well Medications: Acetaminophen 2 (325 mg) Capsule Oral PRN, Albuterol Sulfate Aerosol Powder, Breath Activated Inhalation, Ampicillin 1 Capsule (of 500 mg) Oral t.i.d., B Complex 1 Tablet Oral daily, buPROPion HCl 1 Tablet (of 75 mg) Oral q on Every Other Day, Cabergoline (0.5 mg) Tablet Oral Take as Directed, Calcium 1 Tablet (of 600 mg) Oral daily, Colace 1 Capsule (of 250 mg) Oral b.i.d. PRN, Dronabinol 1 Capsule (of 5 mg) Oral b.i.d., Essiac Tea Herbs Leaves Oral PRN, Folic Acid 1 Tablet (of 400 mcg) Oral daily, Hydrocodone-Acetaminophen 1 Tablet (of 10-325 mg) Tablet Oral 6x/d PRN, Hydrocortisone 1 Tablet (of 15 mg) Oral daily, Lactulose 2 tablespoonful(s) (of 10 g/15mL) Solution Oral b.i.d. PRN, Lasix 1 Tablet (of 40 mg) Oral daily PRN, Magnesium 1 Tablet (of 250 mg) Oral daily, Multivitamin and Minerals 1 Tablet daily, Ondansetron HCl 1 Tablet (of 4 mg) Oral t.i.d. PRN, Pantoprazole Sodium 1 Tablet (of 40 mg) Tablet, enteric coated Oral every am, Promethazine HCl 1 Suppository (of 25 mg) Rectal q 6 hours PRN, Senna-S 1 (8.6-50 mg) Tablet Oral b.i.d., Stiolto Respimat 1 puff(s) (of 2.5-2.5 mcg/act) Aerosol, solution Inhalation daily, Sudafed 1 Tablet (of 30 mg) Oral daily, Vitamin A Capsule Oral daily Allergies: Cats, Dust mites, Grass Pollen, Mold and Trees and HydroCHLOROthiazide. Review of Systems: Review of Systems is not available for this patient. Vital Signs: Performed on Feb 06, 2020 12:43 Height - 73.00 in Weight - 291.4 lbs (HIGH) BSA - 2.53 sq.m BMI - 38.45 (HIGH) Temperature - 98.3 F (LOW) Pulse - 67 /min Respiration - 26 /min BP - 146/81 mm(hg) (HIGH) O2 Sat - 96 % Pain - 3 Performance Status: 1 - No physically strenuous activity, but ambulatory and able to carry out light or sedentary work (e.g. office work, light house work). (ECOG) Physical Examination: ENMT - No mouth sores, no thrush, no jaundice, Respiratory - Lungs are clear, Cardiovascular - Regular rate and rhythm of heart, Abdomen - Soft, bowel sounds present, Extremities - No visible edema. Lab/Imaging: Test performed on Dec 18, 2019 15:38 Sodium 139 mmol/L TSH 1.44 uIU/mL Potassium 3.7 mmol/L Chloride 105 mmol/L CO2 26 mmol/L Anion Gap 11.7 BUN 9 mg/dL Creatinine 0.9 mg/dL Cr Clearance (Est) 156.59 mL/min eGFR 85.5 mL/min Glucose 117 mg/dL Calcium 9.4 mg/dL Protein, Total 7.3 g/dL Albumin 4.0 g/dL Globulin 3.3 g/dL Bilirubin, Total 0.5 mg/dL ALT (SGPT) 16 U/L AST (SGOT) 15 U/L Alkaline Phosphatase 72 IU/L WBC 9.0 10 3/uL RBC 4.45 10 6/uL HGB 13.9 g/dL HCT 43.6 % MCV 98.0 fL MCH 31.2 pg MCHC 31.9 g/dL RDW 13.1 % Platelet Count 216 10 3/cmm MPV 9.1 fL Neutrophils 5.58 10 3/uL Lymphocytes 2.6 10 3/uL Monocytes 0.5 10 3/uL Eosinophils 0.3 10 3/uL Basophils 0.0 10 3/uL Neutrophil % 61.7 % Lymphocyte % 28.8 % Monocyte % 6.0 % Eosinophil % 3.1 % Basophils % 0.2 % NRBC % 0 % Impression: 1. 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 2. status post metastasectomy done on 09/05/2017, postoperative MRI disclosed complete resection. Molecular studies on brain metastases biopsy showed negative for EGFR ALK, RET, HER-2/india, ROS 1,BRAF, 3. Right upper lobe lung mass 2.7 cm. 4. Indigestion/ heartburn nausea vomiting probably due to candidal esophagitis or questionable increase intracranial pressure , also with oral thrush EGD showed H. pylori status post antibiotics FOLLOWUP IMAGIN. CT scan of head done on 10/17/2017 showed stable postoperative changes from prior left occipital craniotomy and resection of previous metastatic mass from left cerebellum hemisphere. (Repeat CT of the head from 11/[address] [facility] reported findings consistent with the 10/17/2017 imaging with no acute findings). 6. PET/CT from 10/29/2017 showed 2 x 2.3 cm right apical pulmonary nodule with SUV of 17.7. No additional abnormality noted other than status post cranial metastasectomy site. 7. MRI of the brain with and without contrast on August 23, [address] [facility] in [place]. 8. CT of the head noncontrast on October 12, 2019: Right frontal shunt catheter with tip in the left frontal horn. No hydrocephalus. Ventricular size is unchanged from previous scans. Prior postoperative changes occipital craniectomy. 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 Stable cerebral tonsillar ectopia with normal fourth ventricle. 9. His last PET/CT imaging was August 11, 2019. Is reported that there was ongoing decrease in FDG activity in the right upper lobe lung nodule with an SUV of 2.6 down from 3.4 on previous exam. There were no new malignant lesions present there is no indication to suspect osseous metastatic disease. CURRENT TREATMENT SUMMARY: 7. SBRT to right lung mass completed 11/23/2017 for a total dose of 3,600 cGY (48 GGY). 8. SRS to brain completed 01/16/2018 for a total dose of 2,400 cGY. 9. Carboplatin/Alimta/pembrolizumab 06/28/2018. He had 1 dose of the carboplatin Alimta had significant side effects and was transitioned to just single agent pembrolizumab in September 2018. He remains on pembrolizumab currently. discussed with Mr Mcclellan the role of systemic chemotherapy with cisplatin/Alimta versus observation alone. He has recommended chemotherapy consisting of Cisplatin 75 mg/m2 day 1 and Alimta 500 mg/m??? on day 1 repeat every 21 days ???4 cycles along with dexamethasone, folic acid and B12 as prophylactic treatment for Alimta. Mr Mcclellan transferred his care to [facility] where getting evaluation CT PET scan was done on 05/17/2018 which showed persistent right upper lobe lung mass with right bronchial lymph node involvement; Finding in the left maxillary sinus of concern for metastatic disease; A new osseous lesion seen in the right anterior iliac crest consistent with metastatic disease. Mr Mcclellan was started on carboplatin/Alimta/pembrolizumab-he was given 1 dose of chemotherapy on 06/28/2018. He experienced significant side effects so chemotherapy was discontinued and then switched to single agent Keytruda in September 2018. Patient tolerated well except some diarrhea, responded to prednisone 60 mg by mouth daily, now resolved and his follow-up CT PET scan done on 11/25/2018 showed excellent response to single agent Keytruda. The PET/CT did show a right apical lung lesion measures 3.9 x 2.4 cm with SUV of 3.4 which is significant improvement since prior study in May 2018 and likely represent inflammatory posttreatment changes. Mr Mcclellan has continued with single agent Keytruda. He is tolerating it well and has improvement in his performance status. Plan: Discussed with patient regarding his labs white blood count 6.6 hemoglobin 14.2 crit 43.7 platelets 216,000 CMP within normal limits Clinically, patient is doing well with no new signs symptoms, recently underwent neurosurgical evaluation in [place] for persistent mild/moderate nausea vomiting and there was a concern but shunt malfunctioning, patient underwent MRI scan of the brain in [place] as inpatient and he was told MRI scan shows the shunt was functioning fine and no new lesion in the brain. As per patient nausea vomiting has resolved too. At this point we will resume his immunotherapy with Keytruda today and then he will return to clinic in 3 weeks with [facility]. Signed By: Harsha Parra M.D. <<Signature on File>>
[2020-02-26 15:30] LABS: Basophils % 0.3 %; Eosinophils # 0.4 10^3/uL (0.0-0.8); Eosinophils % 4.6 %; Hematocrit 44.1 % (42.0-52.0); Hemoglobin 14.4 g/dL (11.7-16.6); Lymphocytes % 37.2 %; Mean Corpuscular HGB Conc 32.7 g/dL (30.0-36.0); Mean Corpuscular Hemoglobin 31.6 pg (28.0-34.0); Mean Corpuscular Volume 96.7 fL (80-94); Monocytes # 0.7 10^3/uL (0.2-0.9); Monocytes % 8.3 %; Neutrophils # 3.96 10^3/uL (1.8-7.7); Neutrophils % 49.5 %; Nucleated Red Blood Cells % 0 %; Platelet Count 207 10^3/cmm (130-400); Red Blood Count 4.56 10^6/uL (4.1-5.3); Red Cell Distribution Width 12.8 % (12.1-15.1)
[2020-02-26 16:11] LABS: Alanine Aminotransferase 17 U/L (0-41); Albumin Level 4.1 g/dL (3.5-5.2); Alkaline Phosphatase 76 IU/L (40-130); Anion Gap 12.9 (5-19); Aspartate Amino Transferase 15 U/L (0-40); Blood Urea Nitrogen 11 mg/dL (8-23); Calcium 8.9 mg/dL (8.5-10.5); Carbon Dioxide 28 mmol/L (22-29); Chloride 106 mmol/L (98-107); Glomerular Filtration Rate 85.5 mL/min (90-130); Glucose 100 mg/dL (65-115); Osmolality Calculated 295 mOsm/kg (285-295); Potassium 3.9 mmol/L (3.5-5.1); Sodium 143 mmol/L (136-145); Total Bilirubin 0.2 mg/dL (0.15-1.2); Total Protein 7.1 g/dL (6.6-8.7)
== END 2020-03-05 23:59 | disposition home or self-care (01) ==
LOC: ONCMED 06:19
PROVIDERS: Nurse Practitioner; PCP Emergency Medicine Emergency Medical Services; Visit Provider Internal Medicine Hematology & Oncology
DX: Z51.12 Encounter for antineoplastic immunotherapy (principal); C34.11 Malignant neoplasm of upper lobe, right bronchus or lung; C79.31 Secondary malignant neoplasm of brain; C79.51 Secondary malignant neoplasm of bone; R27.0 Ataxia, unspecified; K21.9 Gastro-esophageal reflux disease without esophagitis
CPT/HCPCS: 36415; 80053; 84443; 85025; 96413; 99214; J7050; J9271

== ENCOUNTER 2020-03-03 06:00 | Outpatient (RCR) | payer OTHER, SELFPAY | END 2020-03-05 23:59 | disposition home or self-care (01) | LOC: SPT 06:00 | PROVIDERS: PCP Emergency Medicine Emergency Medical Services; Referring Provider Specialist; Visit Provider Specialist | DX: R42 Dizziness and giddiness (principal) | CPT/HCPCS: 97162 ==

== ENCOUNTER 2020-03-06 06:00 | Outpatient (RCR) | payer OTHER, SELFPAY | END 2020-04-05 23:59 | disposition home or self-care (01) | LOC: SPO 06:00 | PROVIDERS: PCP Emergency Medicine Emergency Medical Services; Visit Provider Emergency Medicine Emergency Medical Services | DX: R42 Dizziness and giddiness (principal) | CPT/HCPCS: 97110; 97112; 97150; 97164 ==

== ENCOUNTER 2020-03-06 06:00 | Outpatient (RCR) | payer OTHER, SELFPAY | END 2020-04-05 23:59 | disposition home or self-care (01) | LOC: SPT 06:00 | PROVIDERS: PCP Emergency Medicine Emergency Medical Services; Referring Provider Specialist; Visit Provider Specialist | DX: R42 Dizziness and giddiness (principal) | CPT/HCPCS: 97112; 97150 ==

== ENCOUNTER 2020-03-19 05:29 | Outpatient (RCR) | payer OTHER, SELFPAY ==
[2020-03-18 13:43] LABS: Basophils % 0.4 %; Eosinophils # 0.4 10^3/uL (0.0-0.8); Eosinophils % 5.6 %; Hematocrit 44.1 % (42.0-52.0); Hemoglobin 13.9 g/dL (11.7-16.6); Lymphocytes # 2.3 10^3/uL (0.8-4.8); Lymphocytes % 33.6 %; Mean Corpuscular HGB Conc 31.5 g/dL (30.0-36.0); Mean Corpuscular Volume 98.2 fL (80-94); Monocytes # 0.6 10^3/uL (0.2-0.9); Monocytes % 8.9 %; Neutrophils # 3.45 10^3/uL (1.8-7.7); Neutrophils % 51.4 %; Nucleated Red Blood Cells % 0 %; Platelet Count 231 10^3/cmm (130-400); Red Blood Count 4.49 10^6/uL (4.1-5.3); White Blood Count 6.7 10^3/uL (4.0-10.0)
[2020-03-18 14:13] LABS: Alanine Aminotransferase 25 U/L (0-41); Albumin Level 3.9 g/dL (3.5-5.2); Alkaline Phosphatase 83 IU/L (40-130); Anion Gap 11.8 (5-19); Aspartate Amino Transferase 18 U/L (0-40); Blood Urea Nitrogen 12 mg/dL (8-23); Calcium 8.7 mg/dL (8.5-10.5); Carbon Dioxide 27 mmol/L (22-29); Chloride 105 mmol/L (98-107); Globulin 2.7 g/dL (1.3-4.6); Glomerular Filtration Rate 85.5 mL/min (90-130); Glucose 113 mg/dL (65-115); Osmolality Calculated 291 mOsm/kg (285-295); Potassium 3.8 mmol/L (3.5-5.1); Sodium 140 mmol/L (136-145); Total Bilirubin 0.3 mg/dL (0.15-1.2); Total Protein 6.6 g/dL (6.6-8.7)
--- NOTE | 2020-03-19 13:51 | ONC FU_ITS ---
Dr. Parra follow up note Patient: Alli Mcclellan Unit #: [id number]: 1955 Dicatated By: Harsha Parra M.D.Date of Visit:Mar 19, 2020 Onc Med Follow-up/Prog Note History of Present Illness: Mr. Mcclellan is a 64-year-old gentleman who was recently diagnosed with metastatic lung cancer to brain. Mr Mcclellan reports that in August 2017, he developed side effects in that he could not speak and had trouble typing with his left hand. He had an episode of ataxia and he felt significantly dizzy, so much so that he felt like he was going to pass out. He presented to the hospital where MRI scan of brain was done on 09/01/2017. The MRI showed left cerebral mass measuring 3.6 cm and mild asymmetric prominence and enhancement at right pituitary gland. Differential included macroadenoma, craniopharyngioma, or metastatic disease. A CT chest was done and reported spiculated area of the right upper lobe measuring 2.7 cm. He underwent posterior fossa craniotomy and resection of the cerebellar mass on 09/05/2017. The final pathology reported metastatic adenocarcinoma consistent with lung primary. Molecular assay was negative for EGFR, BRAF V600E IHC, ALK, RET, HER-2, BRAF, and ROS 1. PET/CT imaging was obtained on 10/29/2017. It did report 2 x 2.3 cm right apical pulmonary nodule with an SUV of 17.7. There were no additional pulmonary nodules or masses identified. Activity in the bilateral hilum and mediastinal lymph nodes was unremarkable. There was no other evidence for local or distant metastatic disease. Follow-up CT of the head from 11/10/2017 reported postoperative changes from prior occipital craniotomy and resection of the previous metastatic lesion from the superior aspect of the left cerebellar hemisphere. There was persistent subcutaneous occipital scalp fluid that may communicate with the CSF space through meningeal defect posterior to the cervical do medullary junction. There were mild central and peripheral atrophy. No acute findings of the head and no significant change from 10/17/2017. It was noted that he had left maxillary sinusitis. Mr. Mcclellan was referred to Dr Lyle in radiation oncology for treatment of the lung mass and consideration of radiation to the brain. Mr Mcclellan had SBRT to the right lung. He had a total dose of 3600 cGy (48 GY). His start date was 11/16/2017. His completion date was 11/23/2017. Mr. Mcclellan then underwent SRS to the brain. His total dose was 2400 cGy. He started on 01/11/2018 and ended on 01/16/2018. He was given Decadron 4 mg twice a day while on treatment with instructions to taper slowly after radiation was completed. Mr. Mcclellan was evaluated and was offered chemotherapy with cisplatin Alimta every 3 weeks for 4 cycles. He has been very hesitant to proceed with chemotherapy due to concerns about side effects. Interim history: Mr Mcclellan went to [place] for further oncology care. His CT PET scan done on 05/17 showed left cerebellar consistent with known prior dissection; Right lung upper lobe consistent with persistent tumor with right bronchial lymph node involvement; Left maxillary sinus of concern for metastatic disease and A new osseous lesion in the right anterior iliac crest consistent with metastatic disease. Once again chemotherapy was recommended and he consentetd. He was given 1 cycle of carboplatin/Alimta/pembrolizumab on 06/28/2018 but he had significant side effects including nausea, vomiting- fatigue requiring hydration, subsequently chemotherapy was discontinued because of intolerance. He was switched to single agent Keytruda on 09/06/2018, tolerated immunotherapy well-except associated or diarrhea which was treated with prednisone 60 mg daily and responded well. He has had no further episodes of the significant diarrhea. He had follow-up CT PET scanOn 11/25/2018 which showed the right apical lung lesion currently measured 3.9 x 2.4 cm with SUV of 3.4 (this is a significant improvement since prior study and likely represent chronic inflammation); Status post right ventriculoperitoneal shunt placement done on 02/15/2019. CT scan of head was done on 04/03/2019 showed stable frontal ventricular shunt tube position with decreased ventriculomegaly since 02/15/2019. 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 On 04/13/2019 Mr Mcclellan presented to the local emergency room with with chief complaints of floaters in his vision off and on and this time in the right eye only. He was sent to [facility] in [place] emergency room where he was evaluated by ophthalmology and no retinal detachment was observed. Follow-up in 2 weeks was recommended but he did not go for follow-up as condition resolved on its own. He also had CT scan of head done on 04/13/2019 which showed no intracranial hemorrhage or mass effect; Unchanged ventricular configuration; Unchanged right frontal ventricular shunt catheter tip terminating in the left frontal horn; Unchanged left cerebellar hemisphere encephalomalacia and postsurgical changes; CT scan of the head done on 05/14/2019 showed right frontal shunt catheter with tip in the left frontal horn. No hydrocephalus; Postoperative changes occipital craniectomy. He remains on immunotherapy with pembrolizumab. Tolerating Keytruda well otherwise Follow-up CT PET scan done on 08/11/2019 showed there is ongoing decrease in FDG activity in the right upper lobe nodule now SUV is 2.6 down from 3.4 previously .no new lesion seen CT scan of the head done on 10/12/2019 shows right frontal shunt cath with the tip in the left frontal horn. No hydrocephalus. Prior postoperative changes occipital status post occipital craniotomy. 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 Recently underwent left arm nerve conduction study, as per patient he was told his left hand weakness and numbness is due to ulnar neuropathy, now being treated with physical therapy. He has been having vertigo Patient was seen by ENT as per patient nothing significant was observed. He states he is having problems with his hand. He states that he did have nerve conduction which reportedly was normal but the technologist that was doing the study indicated that he might need an MRI of his brain. Mr. Mcclellan would like to pursue this if at all possible. He does see Dr. Sam on December [address] Sam is leaving in January so is not sure he can get the MRI scheduled at that point. He states that he does have an MRI of the brain he will need his shunt regulated. He states in regard to Dr. Flaco clinton, he has used Dr Dinh in [place], [place]. Follow-up CT scan of head was done on January 03, 2020 which is unchanged since October 12, 2019, no enhancing masses or acute intracranial hemorrhage. Postoperative changes of occipital craniectomy with encephalomalacia left cerebellum and unchanged pseudomeningocele. [employer] shunt catheter tip terminating anterior horn of left lateral ventricle. No hydrocephalus. Left maxillary sinusitis, Oral antibiotics were prescribed persistent discomfort but mild puffiness in the left hand, which is improving, patient was transferred to [place] recently for nausea vomiting and there was a concern regarding malfunctioning of intracranial shunt, as per patient he was evaluated by neurosurgery in [place] and had MRI scan of head done there which showed shunt was functioning fine and no new lesions seen patient said he may have some kind of reaction to the contrast as he was feeling pain all over his body and responded well to morphine.Patient was referred to physical therapy Came for follow-up, denies any specific complaints except generalized weakness and fatigue, no fever chills, no nausea or vomiting, no diarrhea constipation, no shortness of breath, no skin rash, no diarrhea constipation, tolerating physical therapy well, think it is helping him as far as getting strength and improving balance. And tolerating immunotherapy with Keytruda well Medications: Acetaminophen 2 (325 mg) Capsule Oral PRN, Albuterol Sulfate Aerosol Powder, Breath Activated Inhalation, Ampicillin 1 Capsule (of 500 mg) Oral t.i.d., B Complex 1 Tablet Oral daily, buPROPion HCl 1 Tablet (of 75 mg) Oral q on Every Other Day, Cabergoline (0.5 mg) Tablet Oral Take as Directed, Calcium 1 Tablet (of 600 mg) Oral daily, Colace 1 Capsule (of 250 mg) Oral b.i.d. PRN, Dronabinol 1 Capsule (of 5 mg) Oral b.i.d., Essiac Tea Herbs Leaves Oral PRN, Folic Acid 1 Tablet (of 400 mcg) Oral daily, Hydrocodone-Acetaminophen 1 Tablet (of 10-325 mg) Tablet Oral 6x/d PRN, Hydrocortisone 1 Tablet (of 15 mg) Oral daily, Lactulose 2 tablespoonful(s) (of 10 g/15mL) Solution Oral b.i.d. PRN, Lasix 1 Tablet (of 40 mg) Oral daily PRN, Magnesium 1 Tablet (of 250 mg) Oral daily, Multivitamin and Minerals 1 Tablet daily, Ondansetron HCl 1 Tablet (of 4 mg) Oral t.i.d. PRN, Pantoprazole Sodium 1 Tablet (of 40 mg) Tablet, enteric coated Oral every am, Promethazine HCl 1 Suppository (of 25 mg) Rectal q 6 hours PRN, Senna-S 1 (8.6-50 mg) Tablet Oral b.i.d., Stiolto Respimat 1 puff(s) (of 2.5-2.5 mcg/act) Aerosol, solution Inhalation daily, Sudafed 1 Tablet (of 30 mg) Oral daily, Vitamin A Capsule Oral daily, Xyzal Allergy 24HR 1 Tablet (of 5 mg) Oral daily Allergies: Cats, Dust mites, Grass Pollen, Mold and Trees and HydroCHLOROthiazide. Review of Systems: Review of Systems is not available for this patient. Vital Signs: Performed on Mar 19, 2020 13:12 Height - 73.00 in Weight - 305.2 lbs (HIGH) BSA - 2.58 sq.m BMI - 40.27 (HIGH) Temperature - 98.6 F Pulse - 81 /min Respiration - 18 /min BP - 156/86 mm(hg) (HIGH) O2 Sat - 94 % (LOW) Pain - 3 Performance Status: 1 - No physically strenuous activity, but ambulatory and able to carry out light or sedentary work (e.g. office work, light house work). (ECOG) Physical Examination: ENMT - No mouth sores, no thrush, no jaundice, Respiratory - Lungs are clear to auscultation, Cardiovascular - Regular rate and rhythm of heart, Abdomen - Soft, bowel sounds present, Extremities - No visible edema. Lab/Imaging: Test performed on Dec 18, 2019 15:38 Sodium 139 mmol/L TSH 1.44 uIU/mL Potassium 3.7 mmol/L Chloride 105 mmol/L CO2 26 mmol/L Anion Gap 11.7 BUN 9 mg/dL Creatinine 0.9 mg/dL Cr Clearance (Est) 156.59 mL/min eGFR 85.5 mL/min Glucose 117 mg/dL Calcium 9.4 mg/dL Protein, Total 7.3 g/dL Albumin 4.0 g/dL Globulin 3.3 g/dL Bilirubin, Total 0.5 mg/dL ALT (SGPT) 16 U/L AST (SGOT) 15 U/L Alkaline Phosphatase 72 IU/L WBC 9.0 10 3/uL RBC 4.45 10 6/uL HGB 13.9 g/dL HCT 43.6 % MCV 98.0 fL MCH 31.2 pg MCHC 31.9 g/dL RDW 13.1 % Platelet Count 216 10 3/cmm MPV 9.1 fL Neutrophils 5.58 10 3/uL Lymphocytes 2.6 10 3/uL Monocytes 0.5 10 3/uL Eosinophils 0.3 10 3/uL Basophils 0.0 10 3/uL Neutrophil % 61.7 % Lymphocyte % 28.8 % Monocyte % 6.0 % Eosinophil % 3.1 % Basophils % 0.2 % NRBC % 0 % Impression: 1. 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 2. status post metastasectomy done on 09/05/2017, postoperative MRI disclosed complete resection. Molecular studies on brain metastases biopsy showed negative for EGFR ALK, RET, HER-2/ind[place], ROS 1,BRAF, 3. Right upper lobe lung mass 2.7 cm. 4. Indigestion/ heartburn nausea vomiting probably due to candidal esophagitis or questionable increase intracranial pressure , also with oral thrush EGD showed H. pylori status post antibiotics FOLLOWUP IMAGIN. CT scan of head done on 10/17/2017 showed stable postoperative changes from prior left occipital craniotomy and resection of previous metastatic mass from left cerebellum hemisphere. (Repeat CT of the head from 11/2017 in [facility] reported findings consistent with the 10/17/2017 imaging with no acute findings). 6. PET/CT from 10/29/2017 showed 2 x 2.3 cm right apical pulmonary nodule with SUV of 17.7. No additional abnormality noted other than status post cranial metastasectomy site. 7. MRI of the brain with and without contrast on August 23, 2018 from [facility] in [place]. 8. CT of the head noncontrast on October 12, 2019: Right frontal shunt catheter with tip in the left frontal horn. No hydrocephalus. Ventricular size is unchanged from previous scans. Prior postoperative changes occipital craniectomy. 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 Stable cerebral tonsillar ectopia with normal fourth ventricle. 9. His last PET/CT imaging was August 11, 2019. Is reported that there was ongoing decrease in FDG activity in the right upper lobe lung nodule with an SUV of 2.6 down from 3.4 on previous exam. There were no new malignant lesions present there is no indication to suspect osseous metastatic disease. CURRENT TREATMENT SUMMARY: 7. SBRT to right lung mass completed 11/23/2017 for a total dose of 3,600 cGY (48 GGY). 8. SRS to brain completed 01/16/2018 for a total dose of 2,400 cGY. 9. Carboplatin/Alimta/pembrolizumab 06/28/2018. He had 1 dose of the carboplatin Alimta had significant side effects and was transitioned to just single agent pembrolizumab in September 2018. He remains on pembrolizumab currently. discussed with Mr Mcclellan the role of systemic chemotherapy with cisplatin/Alimta versus observation alone. He has recommended chemotherapy consisting of Cisplatin 75 mg/m2 day 1 and Alimta 500 mg/m??? on day 1 repeat every 21 days ???4 cycles along with dexamethasone, folic acid and B12 as prophylactic treatment for Alimta. Mr Mcclellan transferred his care to [facility] where getting evaluation CT PET scan was done on 05/17/2018 which showed persistent right upper lobe lung mass with right bronchial lymph node involvement; Finding in the left maxillary sinus of concern for metastatic disease; A new osseous lesion seen in the right anterior iliac crest consistent with metastatic disease. Mr Mcclellan was started on carboplatin/Alimta/pembrolizumab-he was given 1 dose of chemotherapy on 06/28/2018. He experienced significant side effects so chemotherapy was discontinued and then switched to single agent Keytruda in September 2018. Patient tolerated well except some diarrhea, responded to prednisone 60 mg by mouth daily, now resolved and his follow-up CT PET scan done on 11/25/2018 showed excellent response to single agent Keytruda. The PET/CT did show a right apical lung lesion measures 3.9 x 2.4 cm with SUV of 3.4 which is significant improvement since prior study in May 2018 and likely represent inflammatory posttreatment changes. Mr Mcclellan has continued with single agent Keytruda. He is tolerating it well and has improvement in his performance status. Plan: Discussed with patient regarding his labs white blood count 6.7 hemoglobin 13.9 hematocrit 44.1 platelets 231,000 CMP within normal limits Clinically, patient is doing well with no signs symptom suggestive of disease progression, tolerating maintenance dose of Keytruda well. We will proceed with next 3 weekly dose of Keytruda today return to clinic in 3 weeks with CBC CMP. As far as left hand/arm weakness is concerned, now getting physical therapy, improving Signed By: Harsha Parra M.D. <<Signature on File>>
== END 2020-04-05 23:59 | disposition home or self-care (01) ==
LOC: ONCMED 05:29
PROVIDERS: Nurse Practitioner; PCP Emergency Medicine Emergency Medical Services; Visit Provider Internal Medicine Hematology & Oncology
DX: Z51.12 Encounter for antineoplastic immunotherapy (principal); C34.11 Malignant neoplasm of upper lobe, right bronchus or lung; C79.31 Secondary malignant neoplasm of brain; C79.51 Secondary malignant neoplasm of bone; Z79.899 Other long term (current) drug therapy
CPT/HCPCS: 36415; 80053; 84443; 85025; 96413; 99214; J7050; J9271

== ENCOUNTER 2020-04-06 06:00 | Outpatient (RCR) | payer OTHER, SELFPAY | END 2020-05-05 23:59 | disposition home or self-care (01) | LOC: SPO 06:00 | PROVIDERS: PCP Emergency Medicine Emergency Medical Services; Visit Provider Emergency Medicine Emergency Medical Services | DX: R42 Dizziness and giddiness (principal) | CPT/HCPCS: 97110 ==

== ENCOUNTER 2020-04-06 06:00 | Outpatient (RCR) | payer OTHER, SELFPAY | END 2020-05-05 23:59 | disposition home or self-care (01) | LOC: SPT 06:00 | PROVIDERS: PCP Emergency Medicine Emergency Medical Services; Referring Provider Specialist; Visit Provider Specialist | DX: R42 Dizziness and giddiness (principal) | CPT/HCPCS: 97110; 97112 ==

== ENCOUNTER 2020-04-30 05:41 | Outpatient (RCR) | payer OTHER, SELFPAY ==
[2020-04-09 10:14] LABS: Basophils % 0.5 %; Eosinophils # 0.3 10^3/uL (0.0-0.8); Eosinophils % 5.1 %; Hemoglobin 14.6 g/dL (11.7-16.6); Lymphocytes # 2.6 10^3/uL (0.8-4.8); Lymphocytes % 46.6 %; Mean Corpuscular HGB Conc 31.7 g/dL (30.0-36.0); Mean Corpuscular Hemoglobin 31.4 pg (28.0-34.0); Mean Corpuscular Volume 98.9 fL (80-94); Mean Platelet Volume 9.1 fL (7.4-10.4); Monocytes # 0.4 10^3/uL (0.2-0.9); Monocytes % 7.5 %; Neutrophils # 2.19 10^3/uL (1.8-7.7); Neutrophils % 40.1 %; Nucleated Red Blood Cells % 0 %; Platelet Count 208 10^3/cmm (130-400); Red Blood Count 4.65 10^6/uL (4.1-5.3); Red Cell Distribution Width 13.2 % (12.1-15.1); White Blood Count 5.5 10^3/uL (4.0-10.0)
[2020-04-09 10:43] LABS: Alanine Aminotransferase 20 U/L (0-41); Albumin Level 3.9 g/dL (3.5-5.2); Alkaline Phosphatase 89 IU/L (40-130); Anion Gap 12.1 (5-19); Aspartate Amino Transferase 16 U/L (0-40); Blood Urea Nitrogen 18 mg/dL (8-23); Calcium 9.1 mg/dL (8.5-10.5); Carbon Dioxide 28 mmol/L (22-29); Chloride 106 mmol/L (98-107); Globulin 2.9 g/dL (1.3-4.6); Glomerular Filtration Rate 75.7 mL/min (90-130); Glucose 124 mg/dL (65-115); Osmolality Calculated 297 mOsm/kg (285-295); Potassium 4.1 mmol/L (3.5-5.1); Sodium 142 mmol/L (136-145); Thyroid Stimulating Hormone 0.69 uIU/mL (0.27-4.20); Total Bilirubin 0.3 mg/dL (0.15-1.2); Total Protein 6.8 g/dL (6.6-8.7)
--- NOTE | 2020-04-09 11:13 | ONC FU_ITS ---
Dr. Parra follow up note Patient: Alli Mcclellan Unit #: [id number]: 1955 Dicatated By: Harsha Parra M.D.Date of Visit:Apr 09, 2020 Onc Med Follow-up/Prog Note History of Present Illness: Mr. Mcclellan is a 64-year-old gentleman who was recently diagnosed with metastatic lung cancer to brain. Mr Mcclellan reports that in August 2017, he developed side effects in that he could not speak and had trouble typing with his left hand. He had an episode of ataxia and he felt significantly dizzy, so much so that he felt like he was going to pass out. He presented to the hospital where MRI scan of brain was done on 09/01/2017. The MRI showed left cerebral mass measuring 3.6 cm and mild asymmetric prominence and enhancement at right pituitary gland. Differential included macroadenoma, craniopharyngioma, or metastatic disease. A CT chest was done and reported spiculated area of the right upper lobe measuring 2.7 cm. He underwent posterior fossa craniotomy and resection of the cerebellar mass on 09/05/2017. The final pathology reported metastatic adenocarcinoma consistent with lung primary. Molecular assay was negative for EGFR, BRAF V600E IHC, ALK, RET, HER-2, BRAF, and ROS 1. PET/CT imaging was obtained on 10/29/2017. It did report 2 x 2.3 cm right apical pulmonary nodule with an SUV of 17.7. There were no additional pulmonary nodules or masses identified. Activity in the bilateral hilum and mediastinal lymph nodes was unremarkable. There was no other evidence for local or distant metastatic disease. Follow-up CT of the head from 11/10/2017 reported postoperative changes from prior occipital craniotomy and resection of the previous metastatic lesion from the superior aspect of the left cerebellar hemisphere. There was persistent subcutaneous occipital scalp fluid that may communicate with the CSF space through meningeal defect posterior to the cervical do medullary junction. There were mild central and peripheral atrophy. No acute findings of the head and no significant change from 10/17/2017. It was noted that he had left maxillary sinusitis. Mr. Mcclellan was referred to Dr Lyle in radiation oncology for treatment of the lung mass and consideration of radiation to the brain. Mr Mcclellan had SBRT to the right lung. He had a total dose of 3600 cGy (48 GY). His start date was 11/16/2017. His completion date was 11/23/2017. Mr. Mcclellan then underwent SRS to the brain. His total dose was 2400 cGy. He started on 01/11/2018 and ended on 01/16/2018. He was given Decadron 4 mg twice a day while on treatment with instructions to taper slowly after radiation was completed. Mr. Mcclellan was evaluated and was offered chemotherapy with cisplatin Alimta every 3 weeks for 4 cycles. He has been very hesitant to proceed with chemotherapy due to concerns about side effects. Interim history: Mr Mcclellan went to [place] for further oncology care. His CT PET scan done on 05/17 showed left cerebellar consistent with known prior dissection; Right lung upper lobe consistent with persistent tumor with right bronchial lymph node involvement; Left maxillary sinus of concern for metastatic disease and A new osseous lesion in the right anterior iliac crest consistent with metastatic disease. Once again chemotherapy was recommended and he consentetd. He was given 1 cycle of carboplatin/Alimta/pembrolizumab on 06/28/2018 but he had significant side effects including nausea, vomiting- fatigue requiring hydration, subsequently chemotherapy was discontinued because of intolerance. He was switched to single agent Keytruda on 09/06/2018, tolerated immunotherapy well-except associated or diarrhea which was treated with prednisone 60 mg daily and responded well. He has had no further episodes of the significant diarrhea. He had follow-up CT PET scanOn 11/25/2018 which showed the right apical lung lesion currently measured 3.9 x 2.4 cm with SUV of 3.4 (this is a significant improvement since prior study and likely represent chronic inflammation); Status post right ventriculoperitoneal shunt placement done on 02/15/2019. CT scan of head was done on 04/03/2019 showed stable frontal ventricular shunt tube position with decreased ventriculomegaly since 02/15/2019. 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 On 04/13/2019 Mr Mcclellan presented to the local emergency room with with chief complaints of floaters in his vision off and on and this time in the right eye only. He was sent to [facility] in [place] emergency room where he was evaluated by ophthalmology and no retinal detachment was observed. Follow-up in 2 weeks was recommended but he did not go for follow-up as condition resolved on its own. He also had CT scan of head done on 04/13/2019 which showed no intracranial hemorrhage or mass effect; Unchanged ventricular configuration; Unchanged right frontal ventricular shunt catheter tip terminating in the left frontal horn; Unchanged left cerebellar hemisphere encephalomalacia and postsurgical changes; CT scan of the head done on 05/14/2019 showed right frontal shunt catheter with tip in the left frontal horn. No hydrocephalus; Postoperative changes occipital craniectomy. He remains on immunotherapy with pembrolizumab. Tolerating Keytruda well otherwise Follow-up CT PET scan done on 08/11/2019 showed there is ongoing decrease in FDG activity in the right upper lobe nodule now SUV is 2.6 down from 3.4 previously .no new lesion seen CT scan of the head done on 10/12/2019 shows right frontal shunt cath with the tip in the left frontal horn. No hydrocephalus. Prior postoperative changes occipital status post occipital craniotomy. 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 Recently underwent left arm nerve conduction study, as per patient he was told his left hand weakness and numbness is due to ulnar neuropathy, now being treated with physical therapy. He has been having vertigo Patient was seen by ENT as per patient nothing significant was observed. He states he is having problems with his hand. He states that he did have nerve conduction which reportedly was normal but the technologist that was doing the study indicated that he might need an MRI of his brain. Mr. Mcclellan would like to pursue this if at all possible. He does see Dr. Sam on December [address] Sam is leaving in January so is not sure he can get the MRI scheduled at that point. He states that he does have an MRI of the brain he will need his shunt regulated. He states in regard to Dr. Flaco clinton, he has used Dr Dinh in [place], [place]. Follow-up CT scan of head was done on January 03, 2020 which is unchanged since October 12, 2019, no enhancing masses or acute intracranial hemorrhage. Postoperative changes of occipital craniectomy with encephalomalacia left cerebellum and unchanged pseudomeningocele. [employer] shunt catheter tip terminating anterior horn of left lateral ventricle. No hydrocephalus. Left maxillary sinusitis, Oral antibiotics were prescribed persistent discomfort but mild puffiness in the left hand, which is improving, patient was transferred to [place] recently for nausea vomiting and there was a concern regarding malfunctioning of intracranial shunt, as per patient he was evaluated by neurosurgery in [place] and had MRI scan of head done there which showed shunt was functioning fine and no new lesions seen patient said he may have some kind of reaction to the contrast as he was feeling pain all over his body and responded well to morphine.Patient was referred to physical therapy Came for follow-up, denies any specific complaints, except generalized weakness and fatigue and mild discomfort in his left thumb, patient is undergoing physical therapy for left hand weakness, no fever chills, no nausea or vomiting, no diarrhea or constipation, no seizure-like activity, no headaches, no hemoptysis or hematemesis, no diarrhea or melena or hematochezia, no shortness of breath, no jaundice. Tolerating Keytruda well otherwise Medications: Acetaminophen 2 (325 mg) Capsule Oral PRN, Albuterol Sulfate Aerosol Powder, Breath Activated Inhalation, Ampicillin 1 Capsule (of 500 mg) Oral t.i.d., B Complex 1 Tablet Oral daily, buPROPion HCl 1 Tablet (of 75 mg) Oral q on Every Other Day, Cabergoline (0.5 mg) Tablet Oral Take as Directed, Calcium 1 Tablet (of 600 mg) Oral daily, Colace 1 Capsule (of 250 mg) Oral b.i.d. PRN, Dronabinol 1 Capsule (of 5 mg) Oral b.i.d. PRN, Essiac Tea Herbs Leaves Oral PRN, Folic Acid 1 Tablet (of 400 mcg) Oral daily, Gabapentin 1 Capsule (of 100 mg) Oral daily, Hydrocodone-Acetaminophen 1 Tablet (of 10-325 mg) Tablet Oral 6x/d PRN, Hydrocortisone 1 Tablet (of 15 mg) Oral daily, Lactulose 2 tablespoonful(s) (of 10 g/15mL) Solution Oral b.i.d. PRN, Lasix 1 Tablet (of 40 mg) Oral daily PRN, Magnesium 1 Tablet (of 250 mg) Oral daily, Multivitamin and Minerals 1 Tablet daily, Ondansetron HCl 1 Tablet (of 4 mg) Oral t.i.d. PRN, Pantoprazole Sodium 1 Tablet (of 40 mg) Tablet, enteric coated Oral every am, Promethazine HCl 1 Suppository (of 25 mg) Rectal q 6 hours PRN, Senna-S 1 (8.6-50 mg) Tablet Oral b.i.d., Stiolto Respimat 1 puff(s) (of 2.5-2.5 mcg/act) Aerosol, solution Inhalation daily, Sudafed 1 Tablet (of 30 mg) Oral daily, Vitamin A Capsule Oral daily, Xyzal Allergy 24HR 1 Tablet (of 5 mg) Oral daily Allergies: Cats, Dust mites, Grass Pollen, Mold and Trees and HydroCHLOROthiazide. Review of Systems: Constitutional - Appetite is poor/fair and weight is stable. No fever, chills, hot flashes, or night sweats. Energy level is poor, ENMT - No sinus congestion/drainage. No mouth sores. No sore throat or difficulty swallowing, Hematologic/Lymphatic - No abnormal bruising or bleeding, Respiratory - Shortness of breath with exertion. No cough. No pleuritic pain or hemoptysis, Cardiovascular - No angina pain. No palpitations, Gastrointestinal - Positive for occasional nausea, no vomiting. No heartburn or acid reflux. No diarrhea, some constipation. No blood in the stool or black stools, Genitourinary (M) - No dysuria or hematuria. No urinary frequency. No urgency or incontinence, Musculoskeletal - No joint or bone pain, Neurologic - Frequent headache and dizziness. Pt reports an increase in difficulty in daily activities with his hands, Psychiatric - Patient has anxiety, depression, and insomnia. Vital Signs: Performed on Apr 09, 2020 10:51 Height - 73.00 in Weight - 305.4 lbs (HIGH) BSA - 2.58 sq.m BMI - 40.29 (HIGH) Temperature - 98.2 F (LOW) Pulse - 90 /min Respiration - 24 /min BP - 134/69 mm(hg) O2 Sat - 95 % (LOW) Pain - 4 Performance Status: 1 - No physically strenuous activity, but ambulatory and able to carry out light or sedentary work (e.g. office work, light house work). (ECOG) Physical Examination: ENMT - No mouth sores, no thrush, no jaundice, Respiratory - Lungs are clear to auscultation, Cardiovascular - Regular rate and rhythm of heart, Abdomen - Soft, bowel sounds present, Extremities - No visible edema or rash. Lab/Imaging: Test performed on Feb 05, 2020 14:30 Sodium 141 mmol/L TSH 0.98 uIU/mL Potassium 3.6 mmol/L Chloride 105 mmol/L CO2 29 mmol/L Anion Gap 10.6 BUN 12 mg/dL Creatinine 0.9 mg/dL Cr Clearance (Est) 166.64 mL/min eGFR 85.5 mL/min Glucose 112 mg/dL Calcium 9.4 mg/dL Osmolality - Calculated 289 mOsm/kg Protein, Total 7.0 g/dL Albumin 3.9 g/dL Globulin 3.1 g/dL Bilirubin, Total 0.3 mg/dL ALT (SGPT) 12 U/L AST (SGOT) 11 U/L Alkaline Phosphatase 81 IU/L WBC 6.6 10 3/uL RBC 4.50 10 6/uL HGB 14.2 g/dL HCT 43.7 % MCV 97.1 fL MCH 31.6 pg MCHC 32.5 g/dL RDW 12.7 % Platelet Count 216 10 3/cmm MPV 9.3 fL Neutrophils 3.12 10 3/uL Lymphocytes 2.7 10 3/uL Monocytes 0.4 10 3/uL Eosinophils 0.3 10 3/uL Basophils 0.0 10 3/uL Neutrophil % 47.4 % Lymphocyte % 40.7 % Monocyte % 6.5 % Eosinophil % 4.9 % Basophils % 0.3 % NRBC % 0 % Impression: 1. 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 2. status post metastasectomy done on 09/05/2017, postoperative MRI disclosed complete resection. Molecular studies on brain metastases biopsy showed negative for EGFR ALK, RET, HER-2/india, ROS 1,BRAF, 3. Right upper lobe lung mass 2.7 cm. 4. Indigestion/ heartburn nausea vomiting probably due to candidal esophagitis or questionable increase intracranial pressure , also with oral thrush EGD showed H. pylori status post antibiotics FOLLOWUP IMAGIN. CT scan of head done on 10/17/2017 showed stable postoperative changes from prior left occipital craniotomy and resection of previous metastatic mass from left cerebellum hemisphere. (Repeat CT of the head from 11/2017 in [facility] reported findings consistent with the 10/17/2017 imaging with no acute findings). 6. PET/CT from 10/29/2017 showed 2 x 2.3 cm right apical pulmonary nodule with SUV of 17.7. No additional abnormality noted other than status post cranial metastasectomy site. 7. MRI of the brain with and without contrast on August 23, 2018 from [facility] in [place]. 8. CT of the head noncontrast on October 12, 2019: Right frontal shunt catheter with tip in the left frontal horn. No hydrocephalus. Ventricular size is unchanged from previous scans. Prior postoperative changes occipital craniectomy. 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 Stable cerebral tonsillar ectopia with normal fourth ventricle. 9. His last PET/CT imaging was August 11, 2019. Is reported that there was ongoing decrease in FDG activity in the right upper lobe lung nodule with an SUV of 2.6 down from 3.4 on previous exam. There were no new malignant lesions present there is no indication to suspect osseous metastatic disease. CURRENT TREATMENT SUMMARY: 7. SBRT to right lung mass completed 11/23/2017 for a total dose of 3,600 cGY (48 GGY). 8. SRS to brain completed 01/16/2018 for a total dose of 2,400 cGY. 9. Carboplatin/Alimta/pembrolizumab 06/28/2018. He had 1 dose of the carboplatin Alimta had significant side effects and was transitioned to just single agent pembrolizumab in September 2018. He remains on pembrolizumab currently. discussed with Mr Mcclellan the role of systemic chemotherapy with cisplatin/Alimta versus observation alone. He has recommended chemotherapy consisting of Cisplatin 75 mg/m2 day 1 and Alimta 500 mg/m??? on day 1 repeat every 21 days ???4 cycles along with dexamethasone, folic acid and B12 as prophylactic treatment for Alimta. Mr Mcclellan transferred his care to [facility] where getting evaluation CT PET scan was done on 05/17/2018 which showed persistent right upper lobe lung mass with right bronchial lymph node involvement; Finding in the left maxillary sinus of concern for metastatic disease; A new osseous lesion seen in the right anterior iliac crest consistent with metastatic disease. Mr Mcclellan was started on carboplatin/Alimta/pembrolizumab-he was given 1 dose of chemotherapy on 06/28/2018. He experienced significant side effects so chemotherapy was discontinued and then switched to single agent Keytruda in September 2018. Patient tolerated well except some diarrhea, responded to prednisone 60 mg by mouth daily, now resolved and his follow-up CT PET scan done on 11/25/2018 showed excellent response to single agent Keytruda. The PET/CT did show a right apical lung lesion measures 3.9 x 2.4 cm with SUV of 3.4 which is significant improvement since prior study in May 2018 and likely represent inflammatory posttreatment changes. Mr Mcclellan has continued with single agent Keytruda. He is tolerating it well and has improvement in his performance status. Plan: Discussed with patient regarding his labs white blood count 5.5 hemoglobin 14.6 crit 46 platelets 208,000 CMP within normal limits, TSH 0.5 Clinically, patient is doing reasonably well, with no new signs symptoms, tolerating maintenance therapy with immunotherapy Keytruda well, will proceed with the next 3 weekly dose today and then he will return to clinic in 3 weeks with CBC CMP and will also consider follow-up CT PET scan to assess disease status. Signed By: Harsha Parra M.D. <<Signature on File>>
[2020-04-29 15:21] LABS: Basophils % 0.4 %; Eosinophils # 0.3 10^3/uL (0.0-0.8); Hematocrit 46.6 % (42.0-52.0); Hemoglobin 15.1 g/dL (11.7-16.6); Lymphocytes # 2.7 10^3/uL (0.8-4.8); Lymphocytes % 39.8 %; Mean Corpuscular HGB Conc 32.4 g/dL (30.0-36.0); Mean Corpuscular Hemoglobin 31.2 pg (28.0-34.0); Mean Corpuscular Volume 96.3 fL (80-94); Mean Platelet Volume 8.9 fL (7.4-10.4); Monocytes # 0.5 10^3/uL (0.2-0.9); Monocytes % 7.7 %; Neutrophils # 3.21 10^3/uL (1.8-7.7); Nucleated Red Blood Cells % 0 %; Platelet Count 220 10^3/cmm (130-400); Red Blood Count 4.84 10^6/uL (4.1-5.3); Red Cell Distribution Width 12.9 % (12.1-15.1); White Blood Count 6.7 10^3/uL (4.0-10.0)
[2020-04-29 15:55] LABS: Alanine Aminotransferase 38 U/L (0-41); Albumin Level 4.2 g/dL (3.5-5.2); Alkaline Phosphatase 89 IU/L (40-130); Aspartate Amino Transferase 30 U/L (0-40); Blood Urea Nitrogen 12 mg/dL (8-23); Calcium 9.5 mg/dL (8.5-10.5); Carbon Dioxide 29 mmol/L (22-29); Chloride 104 mmol/L (98-107); Glomerular Filtration Rate 85.5 mL/min (90-130); Glucose 107 mg/dL (65-115); Osmolality Calculated 292 mOsm/kg (285-295); Sodium 141 mmol/L (136-145); Thyroid Stimulating Hormone 1.09 uIU/mL (0.27-4.20); Total Bilirubin 0.4 mg/dL (0.15-1.2); Total Protein 7.2 g/dL (6.6-8.7)
--- NOTE | 2020-04-30 21:42 | ONC FU_ITS ---
[facility] Patient Note Patient: Alli Mcclellan Unit #: [id number]: 1955 Dictated By: Lorena SmithDate of Visit: Apr 30, 2020 Onc MED Follow-Up/Prog Note Chief Complaint: Lung cancer with brain metastases History of Present Illness: Mr. Mcclellan is a 64-year-old gentleman who was recently diagnosed with metastatic lung cancer to brain. Mr Mcclellan reports that in August 2017, he developed side effects in that he could not speak and had trouble typing with his left hand. He had an episode of ataxia and he felt significantly dizzy, so much so that he felt like he was going to pass out. He presented to the hospital where MRI scan of brain was done on 09/01/2017. The MRI showed left cerebral mass measuring 3.6 cm and mild asymmetric prominence and enhancement at right pituitary gland. Differential included macroadenoma, craniopharyngioma, or metastatic disease. A CT chest was done and reported spiculated area of the right upper lobe measuring 2.7 cm. He underwent posterior fossa craniotomy and resection of the cerebellar mass on 09/05/2017. The final pathology reported metastatic adenocarcinoma consistent with lung primary. Molecular assay was negative for EGFR, BRAF V600E IHC, ALK, RET, HER-2, BRAF, and ROS 1. PET/CT imaging was obtained on 10/29/2017. It did report 2 x 2.3 cm right apical pulmonary nodule with an SUV of 17.7. There were no additional pulmonary nodules or masses identified. Activity in the bilateral hilum and mediastinal lymph nodes was unremarkable. There was no other evidence for local or distant metastatic disease. Follow-up CT of the head from 11/10/2017 reported postoperative changes from prior occipital craniotomy and resection of the previous metastatic lesion from the superior aspect of the left cerebellar hemisphere. There was persistent subcutaneous occipital scalp fluid that may communicate with the CSF space through meningeal defect posterior to the cervical do medullary junction. There were mild central and peripheral atrophy. No acute findings of the head and no significant change from 10/17/2017. It was noted that he had left maxillary sinusitis. Mr. Mcclellan was referred to Dr Lyle in radiation oncology for treatment of the lung mass and consideration of radiation to the brain. Mr Mcclellan had SBRT to the right lung. He had a total dose of 3600 cGy (48 GY). His start date was 11/16/2017. His completion date was 11/23/2017. Mr. Mcclellan then underwent SRS to the brain. His total dose was 2400 cGy. He started on 01/11/2018 and ended on 01/16/2018. He was given Decadron 4 mg twice a day while on treatment with instructions to taper slowly after radiation was completed. Mr. Mcclellan was evaluated and was offered chemotherapy with cisplatin Alimta every 3 weeks for 4 cycles. He has been very hesitant to proceed with chemotherapy due to concerns about side effects. Interim history: Mr Mcclellan went to [place] for further oncology care. His CT PET scan done on 05/17 showed left cerebellar consistent with known prior dissection; Right lung upper lobe consistent with persistent tumor with right bronchial lymph node involvement; Left maxillary sinus of concern for metastatic disease and A new osseous lesion in the right anterior iliac crest consistent with metastatic disease. Once again chemotherapy was recommended and he consentetd. He was given 1 cycle of carboplatin/Alimta/pembrolizumab on 06/28/2018 but he had significant side effects including nausea, vomiting- fatigue requiring hydration, subsequently chemotherapy was discontinued because of intolerance. He was switched to single agent Keytruda on 09/06/2018, tolerated immunotherapy well-except associated or diarrhea which was treated with prednisone 60 mg daily and responded well. He has had no further episodes of the significant diarrhea. He had follow-up CT PET scanOn 11/25/2018 which showed the right apical lung lesion currently measured 3.9 x 2.4 cm with SUV of 3.4 (this is a significant improvement since prior study and likely represent chronic inflammation); Status post right ventriculoperitoneal shunt placement done on 02/15/2019. CT scan of head was done on 04/03/2019 showed stable frontal ventricular shunt tube position with decreased ventriculomegaly since 02/15/2019. 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 On 04/13/2019 Mr Mcclellan presented to the local emergency room with with chief complaints of floaters in his vision off and on and this time in the right eye only. He was sent to [facility] in [place] emergency room where he was evaluated by ophthalmology and no retinal detachment was observed. Follow-up in 2 weeks was recommended but he did not go for follow-up as condition resolved on its own. He also had CT scan of head done on 04/13/2019 which showed no intracranial hemorrhage or mass effect; Unchanged ventricular configuration; Unchanged right frontal ventricular shunt catheter tip terminating in the left frontal horn; Unchanged left cerebellar hemisphere encephalomalacia and postsurgical changes; CT scan of the head done on 05/14/2019 showed right frontal shunt catheter with tip in the left frontal horn. No hydrocephalus; Postoperative changes occipital craniectomy. He remains on immunotherapy with pembrolizumab. Tolerating Keytruda well otherwise Follow-up CT PET scan done on 08/11/2019 showed there is ongoing decrease in FDG activity in the right upper lobe nodule now SUV is 2.6 down from 3.4 previously .no new lesion seen CT scan of the head done on 10/12/2019 shows right frontal shunt cath with the tip in the left frontal horn. No hydrocephalus. Prior postoperative changes occipital status post occipital craniotomy. 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 Recently underwent left arm nerve conduction study, as per patient he was told his left hand weakness and numbness is due to ulnar neuropathy, now being treated with physical therapy. He has been having vertigo Patient was seen by ENT as per patient nothing significant was observed. He states he is having problems with his hand. He states that he did have nerve conduction which reportedly was normal but the technologist that was doing the study indicated that he might need an MRI of his brain. Mr. Mcclellan would like to pursue this if at all possible. He does see Dr. Sam on December [address] Sam is leaving in January so is not sure he can get the MRI scheduled at that point. He states that he does have an MRI of the brain he will need his shunt regulated. He states in regard to Dr. Flaco clinton, he has used Dr Dinh in [place], [place]. Follow-up CT scan of head was done on January 03, 2020 which is unchanged since October 12, 2019, no enhancing masses or acute intracranial hemorrhage. Postoperative changes of occipital craniectomy with encephalomalacia left cerebellum and unchanged pseudomeningocele. [employer] shunt catheter tip terminating anterior horn of left lateral ventricle. No hydrocephalus. Left maxillary sinusitis, Oral antibiotics were prescribed He has had persistent discomfort but mild puffiness in the left hand, which is improving, patient was transferred to [place] recently for nausea vomiting and there was a concern regarding malfunctioning of intracranial shunt, as per patient he was evaluated by neurosurgery in [place] and had MRI scan of head done there which showed shunt was functioning fine and no new lesions seen patient said he may have some kind of reaction to the contrast as he was feeling pain all over his body and responded well to morphine. Mr Mcclellan was referred to physical therapy. He continues the Keytruda. Mr. Mcclellan had restaging PET CT on 04/26/2020. The findings were no evidence for active recurrent or residual malignancy. The right upper lobe nodule remains unchanged in size at 2.5 x 4.6 cm, with an SUV of 2.4; this is consistent with sterilize malignancy and mild residual inflammatory uptake . There was no findings to indicate osseous metastatic disease. The impression was negative for active malignancy and inflammatory activity in the sterilized right upper lobe lung carcinoma. Mr. Mcclellan is here today for follow-up. He is due for cycle 28 Keytruda. He reports overall he thinks he is doing pretty well. He still having some dizziness but is going to physical therapy and thinks it is improving some. He does not complain of any fever or chills. Has had no known Covid symptoms or exposure. He has no pending Covid testing. He denies any cough or hemoptysis. He states his breathing overall is pretty good. He denies any headaches or vision changes. His appetite is good. He states his energy is good he still has some limitations with mobility and utilizes a walking cane. He denies any falls. He denies any diarrhea or constipation. He has had no episodes of confusion or mental status changes that he is aware of. His ECOG is 2. Past Medical History: Chronic back pain Hypertension Past Surgical History: Appendectomy Craniotomy Allergies: Cats, Dust mites, Grass Pollen, Mold and Trees and HydroCHLOROthiazide. Medications: Acetaminophen 2 (325 mg) Capsule Oral PRN Albuterol Sulfate Aerosol Powder, Breath Activated Inhalation Ampicillin 1 Capsule (of 500 mg) Oral t.i.d. B Complex 1 Tablet Oral daily buPROPion HCl 1 Tablet (of 75 mg) Oral q on Every Other Day Cabergoline (0.5 mg) Tablet Oral Take as Directed Calcium 1 Tablet (of 600 mg) Oral daily Colace 1 Capsule (of 250 mg) Oral b.i.d. PRN Dronabinol 1 Capsule (of 5 mg) Oral b.i.d. PRN Essiac Tea Herbs Leaves Oral PRN Folic Acid 1 Tablet (of 400 mcg) Oral daily Gabapentin 1 Capsule (of 100 mg) Oral daily Hydrocodone-Acetaminophen 1 Tablet (of 10-325 mg) Tablet Oral 6x/d PRN Hydrocortisone 1 Tablet (of 15 mg) Oral daily Lactulose 2 tablespoonful(s) (of 10 g/15mL) Solution Oral b.i.d. PRN Lasix 1 Tablet (of 40 mg) Oral daily PRN Magnesium 1 Tablet (of 250 mg) Oral daily Multivitamin and Minerals 1 Tablet daily Ondansetron HCl 1 Tablet (of 4 mg) Oral t.i.d. PRN Pantoprazole Sodium 1 Tablet (of 40 mg) Tablet, enteric coated Oral every am Promethazine HCl 1 Suppository (of 25 mg) Rectal q 6 hours PRN Senna-S 1 (8.6-50 mg) Tablet Oral b.i.d. Stiolto Respimat 1 puff(s) (of 2.5-2.5 mcg/act) Aerosol, solution Inhalation daily Sudafed 1 Tablet (of 30 mg) Oral daily Vitamin A Capsule Oral daily Xyzal Allergy 24HR 1 Tablet (of 5 mg) Oral daily Family History: Mr. Mcclellan's mother at age 52: congestive heart failure. Mr. Mcclellan's father at age 82: kidney failure. Mr. Mcclellan has 1 sister who is : type ii diabetes. Sister - cancer antiplastic thyroid Grandmother and great grandmother with hx of thyroid and colon cancer. Social History: Mr. Mcclellan is . Mr. Mcclellan no longer smokes but had smoked 1.0 pack/day for 47 years. He has no history of drinking. Stopped smoking 08/2017 Pt reports marijuana usage. Review Of Symptoms: Constitutional Denies fevers, chills, night sweats, excessive fatigue or weight loss. Allergic/Immunologic No reactions. Eyes Denies significant visual changes. No diplopia. No amaurosis. ENMT Denies changes in hearing, sore throat, mouth sores, difficulty or changes in swallowing ability, and/or discolored sinus drainage. Endocrine No diabetes, thyroid disease or hormone replacement. Denies hot flashes or night sweats. Hematologic/Lymphatic Denies easy bruising or bleeding. The patient denies any tender or palpable lymph nodes. Respiratory Denies dyspnea on exertion, chest pain, cough or hemoptysis. Denies orthopnea. Cardiovascular Denies anginal chest pain, palpitations or orthopnea. Gastrointestinal Denies nausea, vomiting, diarrhea, GI bleeding, or constipation. Denies change in bowel habits and/or stool color, no heartburn or early satiety. Genitourinary (M) Denies hematuria, dysuria, increased frequency, urgency, hesitancy or incontinence. Musculoskeletal Denies joint pain, swelling or redness. No decreased range of motion. Left hand and arm sharp/nerve pain-seeing Dr Henderson. Integumentary Denies chronic rashes, inflammation, ulcerations or skin changes. Neurologic Slow, shuffled, assisted gait. Left arm/hand numbness/dizziness-following with Dr Henderson Psychiatric Denies insomnia, depression, aries or mood swings. Vital Signs: Performed on Apr 30, 2020 10:24 Height - 73.00 in Weight - 304.6 lbs (LOW) BSA - 2.57 sq.m BMI - 40.19 (HIGH) Temperature - 97.4 F (LOW) Pulse - 75 /min Respiration - 24 /min BP - 160/92 mm(hg) (HIGH) O2 Sat - 97 % Pain - 2,2 - Ambulatory/capable of all self-care, unable to perform any work activities. Up and about more than 50% of waking hours. (ECOG) Physical Examination: Constitutional Alert, oriented, no acute distress. Skin pink, warm and dry. Head Normocephalic; atraumatic. Eyes Conjunctivae and sclerae are clear and without icterus. Pupils are reactive and equal. He does wear glasses. Neck Supple without masses or thyromegaly. No jugular venous distension. Hematologic/Lymphatic No petechiae. No tender or palpable lymph nodes in the cervical or supraclavicular areas. Respiratory Lungs are clear to auscultation without rhonchi or wheezing. Cardiovascular Regular rate and rhythm of heart without murmurs,clicks, gallops or rubs. Abdomen Non-tender, non-distended, no masses or ascites. No guarding or rebound tenderness. No pulsatile masses. Back/Spine Non-tender to palpation. Extremities No visible deformities, no cyanosis, clubbing or edema. Integumentary No rashes or lesions. Neurologic No abnormalities noted. He does utilize a cane for ambulation. His gait is slow-but normal for him. Psychiatric Alert and oriented times three. Coherent speech. Verbalizes understanding of our discussions today. Laboratory:Test performed on Apr 09, 2020 09:51 Sodium 142 mmol/L TSH 0.69 uIU/mL Potassium 4.1 mmol/L Chloride 106 mmol/L CO2 28 mmol/L Anion Gap 12.1 BUN 18 mg/dL Creatinine 1.0 mg/dL Cr Clearance (Est) 150.07 mL/min eGFR 75.7 mL/min Glucose 124 mg/dL Osmolality - Calculated 297 mOsm/kg Calcium 9.1 mg/dL Protein, Total 6.8 g/dL Albumin 3.9 g/dL Globulin 2.9 g/dL Bilirubin, Total 0.3 mg/dL ALT (SGPT) 20 U/L AST (SGOT) 16 U/L Alkaline Phosphatase 89 IU/L WBC 5.5 10 3/uL RBC 4.65 10 6/uL HGB 14.6 g/dL HCT 46.0 % MCV 98.9 fL MCH 31.4 pg MCHC 31.7 g/dL RDW 13.2 % Platelet Count 208 10 3/cmm MPV 9.1 fL Neutrophils 2.19 10 3/uL Lymphocytes 2.6 10 3/uL Monocytes 0.4 10 3/uL Eosinophils 0.3 10 3/uL Basophils 0.0 10 3/uL Neutrophil % 40.1 % Lymphocyte % 46.6 % Monocyte % 7.5 % Eosinophil % 5.1 % Basophils % 0.5 % NRBC % 0 % Impression: 1. 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 2. status post metastasectomy done on 09/05/2017, postoperative MRI disclosed complete resection. Molecular studies on brain metastases biopsy showed negative for EGFR ALK, RET, HER-2/india, ROS 1,BRAF, 3. Right upper lobe lung mass 2.7 cm. 4. Indigestion/ heartburn nausea vomiting probably due to candidal esophagitis or questionable increase intracranial pressure , also with oral thrush EGD showed H. pylori status post antibiotics FOLLOWUP IMAGIN. CT scan of head done on 10/17/2017 showed stable postoperative changes from prior left occipital craniotomy and resection of previous metastatic mass from left cerebellum hemisphere. ([place]peat CT of the head from 11/2017 [place] [facility] [place] findings consistent with the 10/17/2017 imaging with no acute findings). 6. PET/CT from 10/29/2017 showed 2 x 2.3 cm right apical pulmonary nodule with SUV of 17.7. No additional abnormality noted other than status post cranial metastasectomy site. 7. MRI of the brain with and without contrast on August 23, 2018 from [facility] in [place]. 8. CT of the head noncontrast on October 12, 2019: Right frontal shunt catheter with tip in the left frontal horn. No hydrocephalus. Ventricular size is unchanged from previous scans. Prior postoperative changes occipital craniectomy. 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 Stable cerebral tonsillar ectopia with normal fourth ventricle. 9. His last PET/CT imaging was August 11, 2019. Is reported that there was ongoing decrease in FDG activity in the right upper lobe lung nodule with an SUV of 2.6 down from 3.4 on previous exam. There were no new malignant lesions present there was no indication to suspect osseous metastatic disease. Dr Parra discussed with Mr Mcclellan the role of systemic chemotherapy with cisplatin/Alimta versus observation alone. He has recommended chemotherapy consisting of Cisplatin 75 mg/m2 day 1 and Alimta 500 mg/m??? on day 1 repeat every 21 days ???4 cycles along with dexamethasone, folic acid and B12 as prophylactic treatment for Alimta. Mr Mcclellan transferred his care to [facility] where getting evaluation CT PET scan was done on 05/17/2018 which showed persistent right upper lobe lung mass with right bronchial lymph node involvement; Finding in the left maxillary sinus of concern for metastatic disease; A new osseous lesion seen in the right anterior iliac crest consistent with metastatic disease. Mr Mcclellan was started on carboplatin/Alimta/pembrolizumab-he was given 1 dose of chemotherapy on 06/28/2018. He experienced significant side effects so chemotherapy was discontinued and then switched to single agent Keytruda in September 2018. Patient tolerated well except some diarrhea, responded to prednisone 60 mg by mouth daily, now resolved and his follow-up CT PET scan done on 11/25/2018 showed excellent response to single agent Keytruda. The PET/CT did show a right apical lung lesion measures 3.9 x 2.4 cm with SUV of 3.4 which is significant improvement since prior study in May 2018 and likely represent inflammatory posttreatment changes. Mr Mcclellan has continued with single agent Keytruda. He is tolerating it well and has improvement in his performance status. Mr. Mcclellan had restaging PET CT on 04/26/2020. The findings were no evidence for active recurrent or residual malignancy. The right upper lobe nodule remains unchanged in size at 2.5 x 4.6 cm, with an SUV of 2.4; this is consistent with sterilize malignancy and mild residual inflammatory uptake . There was no findings to indicate osseous metastatic disease. The impression was negative for active malignancy and inflammatory activity in the sterilized right upper lobe lung carcinoma. CURRENT TREATMENT SUMMARY: 1. SBRT to right lung mass completed 11/23/2017 for a total dose of 3,600 cGY (48 GGY). 2. SRS to brain completed 01/16/2018 for a total dose of 2,400 cGY. 3. Carboplatin/Alimta/pembrolizumab 06/28/2018. He had 1 dose of the carboplatin Alimta had significant side effects and was transitioned to just single agent pembrolizumab in September 2018. He remains on pembrolizumab currently. Plan: 1. Proceed with Keytruda 200 mg daily. 2. Labs from 04/29/2020 were reviewed with Mr. Mcclellan and a copy was given to him. WBC 6.7, hemoglobin 15.1, platelets 220,000 ANC was 3200. Potassium 4.0 creatinine 0.9 random glucose 107 LFTs are normal. His TSH is 1.09. 3. We did review his PET/CT findings from 04/26/2020 as reported above and a copy was given to him. 4. We will plan to see him back in 3 weeks at which time of asked that he see Dr. Parra for further plan of care???Mr. Mcclellan is inquiring as to how many treatments he will need before he can stop. I have asked that he have a CBC, CMP and TSH for immunotherapy monitoring at that time as well. 5. Mr. Mcclellan was encouraged to let us know in interim if he has any questions or problems. Signed By: Lorena Smith-, [facility] Dereck Palomo MD <<Signature on File>>
== END 2020-05-05 23:59 | disposition home or self-care (01) ==
LOC: ONCMED 05:41
PROVIDERS: Internal Medicine Hematology & Oncology; PCP Emergency Medicine Emergency Medical Services; Visit Provider Nurse Practitioner
DX: Z51.12 Encounter for antineoplastic immunotherapy (principal); C34.11 Malignant neoplasm of upper lobe, right bronchus or lung; C79.31 Secondary malignant neoplasm of brain; C79.51 Secondary malignant neoplasm of bone; K21.9 Gastro-esophageal reflux disease without esophagitis; Z79.899 Other long term (current) drug therapy
CPT/HCPCS: 36415; 80053; 84443; 85025; 96413; 99214; J7050; J9271

== ENCOUNTER 2020-05-06 06:00 | Outpatient (RCR) | payer OTHER, SELFPAY | END 2020-06-05 23:59 | disposition home or self-care (01) | LOC: SPT 06:00 | PROVIDERS: PCP Emergency Medicine Emergency Medical Services; Referring Provider Specialist; Visit Provider Specialist | DX: R42 Dizziness and giddiness (principal) | CPT/HCPCS: 97110; 97112; 97164 ==

== ENCOUNTER 2020-05-21 05:39 | Outpatient (RCR) | payer OTHER, SELFPAY ==
[2020-05-20 14:01] LABS: Basophils % 0.4 %; Eosinophils # 0.3 10^3/uL (0.0-0.8); Eosinophils % 4.1 %; Hematocrit 45.8 % (42.0-52.0); Hemoglobin 14.7 g/dL (11.7-16.6); Lymphocytes # 3.1 10^3/uL (0.8-4.8); Lymphocytes % 38.8 %; Mean Corpuscular HGB Conc 32.1 g/dL (30.0-36.0); Mean Corpuscular Volume 96.6 fL (80-94); Monocytes # 0.6 10^3/uL (0.2-0.9); Monocytes % 7.5 %; Neutrophils # 3.93 10^3/uL (1.8-7.7); Neutrophils % 49.1 %; Nucleated Red Blood Cells % 0 %; Platelet Count 222 10^3/cmm (130-400); Red Blood Count 4.74 10^6/uL (4.1-5.3); Red Cell Distribution Width 12.9 % (12.1-15.1)
[2020-05-20 14:28] LABS: Alanine Aminotransferase 29 U/L (0-41); Alkaline Phosphatase 80 IU/L (40-130); Anion Gap 10.9 (5-19); Aspartate Amino Transferase 21 U/L (0-40); Blood Urea Nitrogen 13 mg/dL (8-23); Calcium 9.2 mg/dL (8.5-10.5); Carbon Dioxide 31 mmol/L (22-29); Chloride 105 mmol/L (98-107); Globulin 2.9 g/dL (1.3-4.6); Glomerular Filtration Rate 85.5 mL/min (90-130); Glucose 107 mg/dL (65-115); Osmolality Calculated 297 mOsm/kg (285-295); Potassium 3.9 mmol/L (3.5-5.1); Prolactin 25.34 ng/mL (4.0-15.2); Sodium 143 mmol/L (136-145); Thyroid Stimulating Hormone 2.72 uIU/mL (0.27-4.20); Total Bilirubin 0.3 mg/dL (0.15-1.2); Total Protein 6.9 g/dL (6.6-8.7)
--- NOTE | 2020-05-21 12:46 | ONC FU_ITS ---
Dr. Parra follow up note Patient: Alli Mcclellan Unit #: [id number]: 1955 Dicatated By: Harsha Parra M.D.Date of Visit:May 21, 2020 Onc Med Follow-up/Prog Note History of Present Illness: Mr. Mcclellan is a 64-year-old gentleman who was recently diagnosed with metastatic lung cancer to brain. Mr Mcclellan reports that in August 2017, he developed side effects in that he could not speak and had trouble typing with his left hand. He had an episode of ataxia and he felt significantly dizzy, so much so that he felt like he was going to pass out. He presented to the hospital where MRI scan of brain was done on 09/01/2017. The MRI showed left cerebral mass measuring 3.6 cm and mild asymmetric prominence and enhancement at right pituitary gland. Differential included macroadenoma, craniopharyngioma, or metastatic disease. A CT chest was done and reported spiculated area of the right upper lobe measuring 2.7 cm. He underwent posterior fossa craniotomy and resection of the cerebellar mass on 09/05/2017. The final pathology reported metastatic adenocarcinoma consistent with lung primary. Molecular assay was negative for EGFR, BRAF [id number] IHC, ALK, RET, HER-2, BRAF, and ROS 1. PET/CT imaging was obtained on 10/29/2017. It did report 2 x 2.3 cm right apical pulmonary nodule with an SUV of 17.7. There were no additional pulmonary nodules or masses identified. Activity in the bilateral hilum and mediastinal lymph nodes was unremarkable. There was no other evidence for local or distant metastatic disease. Follow-up CT of the head from 11/10/2017 reported postoperative changes from prior occipital craniotomy and resection of the previous metastatic lesion from the superior aspect of the left cerebellar hemisphere. There was persistent subcutaneous occipital scalp fluid that may communicate with the CSF space through meningeal defect posterior to the cervical do medullary junction. There were mild central and peripheral atrophy. No acute findings of the head and no significant change from 10/17/2017. It was noted that he had left maxillary sinusitis. Mr. Mcclellan was referred to Dr Lyle in radiation oncology for treatment of the lung mass and consideration of radiation to the brain. Mr Mcclellan had SBRT to the right lung. He had a total dose of 3600 cGy (48 GY). His start date was 11/16/2017. His completion date was 11/23/2017. Mr. Mcclellan then underwent SRS to the brain. His total dose was 2400 cGy. He started on 01/11/2018 and ended on 01/16/2018. He was given Decadron 4 mg twice a day while on treatment with instructions to taper slowly after radiation was completed. Mr. Mcclellan was evaluated and was offered chemotherapy with cisplatin Alimta every 3 weeks for 4 cycles. He has been very hesitant to proceed with chemotherapy due to concerns about side effects. Interim history: Mr Mcclellan went to [place] for further oncology care. His CT PET scan done on 05/17 showed left cerebellar consistent with known prior dissection; Right lung upper lobe consistent with persistent tumor with right bronchial lymph node involvement; Left maxillary sinus of concern for metastatic disease and A new osseous lesion in the right anterior iliac crest consistent with metastatic disease. Once again chemotherapy was recommended and he consentetd. He was given 1 cycle of carboplatin/Alimta/pembrolizumab on 06/28/2018 but he had significant side effects including nausea, vomiting- fatigue requiring hydration, subsequently chemotherapy was discontinued because of intolerance. He was switched to single agent Keytruda on 09/06/2018, tolerated immunotherapy well-except associated or diarrhea which was treated with prednisone 60 mg daily and responded well. He has had no further episodes of the significant diarrhea. He had follow-up CT PET scanOn 11/25/2018 which showed the right apical lung lesion currently measured 3.9 x 2.4 cm with SUV of 3.4 (this is a significant improvement since prior study and likely represent chronic inflammation); Status post right ventriculoperitoneal shunt placement done on 02/15/2019. CT scan of head was done on 04/03/2019 showed stable frontal ventricular shunt tube position with decreased ventriculomegaly since 02/15/2019. 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 On 04/13/2019 Mr Mcclellan presented to the local emergency room with with chief complaints of floaters in his vision off and on and this time in the right eye only. He was sent to [facility] in [place] emergency room where he was evaluated by ophthalmology and no retinal detachment was observed. Follow-up in 2 weeks was recommended but he did not go for follow-up as condition resolved on its own. He also had CT scan of head done on 04/13/2019 which showed no intracranial hemorrhage or mass effect; Unchanged ventricular configuration; Unchanged right frontal ventricular shunt catheter tip terminating in the left frontal horn; Unchanged left cerebellar hemisphere encephalomalacia and postsurgical changes; CT scan of the head done on 05/14/2019 showed right frontal shunt catheter with tip in the left frontal horn. No hydrocephalus; Postoperative changes occipital craniectomy. He remains on immunotherapy with pembrolizumab. Tolerating Keytruda well otherwise Follow-up CT PET scan done on 08/11/2019 showed there is ongoing decrease in FDG activity in the right upper lobe nodule now SUV is 2.6 down from 3.4 previously .no new lesion seen CT scan of the head done on 10/12/2019 shows right frontal shunt cath with the tip in the left frontal horn. No hydrocephalus. Prior postoperative changes occipital status post occipital craniotomy. 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 Recently underwent left arm nerve conduction study, as per patient he was told his left hand weakness and numbness is due to ulnar neuropathy, now being treated with physical therapy. He has been having vertigo Patient was seen by ENT as per patient nothing significant was observed. He states he is having problems with his hand. He states that he did have nerve conduction which reportedly was normal but the technologist that was doing the study indicated that he might need an MRI of his brain. Mr. Mcclellan would like to pursue this if at all possible. He does see Dr. Sam on December [address] Sam is leaving in January so is not sure he can get the MRI scheduled at that point. He states that he does have an MRI of the brain he will need his shunt regulated. He states in regard to Dr. Flaco clinton, he has used Dr Dinh in [place], [place]. Follow-up CT scan of head was done on January 03, 2020 which is unchanged since October 12, 2019, no enhancing masses or acute intracranial hemorrhage. Postoperative changes of occipital craniectomy with encephalomalacia left cerebellum and unchanged pseudomeningocele. [employer] shunt catheter tip terminating anterior horn of left lateral ventricle. No hydrocephalus. Left maxillary sinusitis, Oral antibiotics were prescribed He has had persistent discomfort but mild puffiness in the left hand, which is improving, patient was transferred to [place] recently for nausea vomiting and there was a concern regarding malfunctioning of intracranial shunt, as per patient he was evaluated by neurosurgery in [place] and had MRI scan of head done there which showed shunt was functioning fine and no new lesions seen patient said he may have some kind of reaction to the contrast as he was feeling pain all over his body and responded well to morphine. Mr Mcclellan was referred to physical therapy. He continues the Keytruda. Mr. Mcclellan had restaging PET CT on 04/26/2020. The findings were no evidence for active recurrent or residual malignancy. The right upper lobe nodule remains unchanged in size at 2.5 x 4.6 cm, with an SUV of 2.4; this is consistent with sterilize malignancy and mild residual inflammatory uptake . There was no findings to indicate osseous metastatic disease. The impression was negative for active malignancy and inflammatory activity in the sterilized right upper lobe lung carcinoma. Came for follow-up, denies any specific complaints, no fever chills, no nausea or vomiting, no diarrhea constipation, no shortness of breath, no skin rash, no jaundice, no melena or hematochezia. Tolerating Keytruda well otherwise Medications: Acetaminophen 2 (325 mg) Capsule Oral PRN, Albuterol Sulfate Aerosol Powder, Breath Activated Inhalation, Ampicillin 1 Capsule (of 500 mg) Oral t.i.d., B Complex 1 Tablet Oral daily, buPROPion HCl 1 Tablet (of 75 mg) Oral q on Every Other Day, Cabergoline (0.5 mg) Tablet Oral Take as Directed, Calcium 1 Tablet (of 600 mg) Oral daily, Colace 1 Capsule (of 250 mg) Oral b.i.d. PRN, Dronabinol 1 Capsule (of 5 mg) Oral b.i.d. PRN, Essiac Tea Herbs Leaves Oral PRN, Folic Acid 1 Tablet (of 400 mcg) Oral daily, Gabapentin 1 Capsule (of 100 mg) Oral daily, Hydrocodone-Acetaminophen 1 Tablet (of 10-325 mg) Tablet Oral 6x/d PRN, Hydrocortisone 1 Tablet (of 15 mg) Oral daily, Lactulose 2 tablespoonful(s) (of 10 g/15mL) Solution Oral b.i.d. PRN, Lasix 1 Tablet (of 40 mg) Oral daily PRN, Magnesium 1 Tablet (of 250 mg) Oral daily, Multivitamin and Minerals 1 Tablet daily, Ondansetron HCl 1 Tablet (of 4 mg) Oral t.i.d. PRN, Pantoprazole Sodium 1 Tablet (of 40 mg) Tablet, enteric coated Oral every am, Promethazine HCl 1 Suppository (of 25 mg) Rectal q 6 hours PRN, Senna-S 1 (8.6-50 mg) Tablet Oral b.i.d., Stiolto Respimat 1 puff(s) (of 2.5-2.5 mcg/act) Aerosol, solution Inhalation daily, Sudafed 1 Tablet (of 30 mg) Oral daily, Vitamin A Capsule Oral daily, Xyzal Allergy 24HR 1 Tablet (of 5 mg) Oral daily Allergies: Cats, Dust mites, Grass Pollen, Mold and Trees and HydroCHLOROthiazide. Review of Systems: Constitutional - Appetite is poor/fair and weight is stable. No fever, chills, hot flashes, or night sweats. Energy level is poor, ENMT - No sinus congestion/drainage. No mouth sores. No sore throat or difficulty swallowing, Hematologic/Lymphatic - No abnormal bruising or bleeding, Respiratory - worseing Shortness of breath with exertion. No cough. No pleuritic pain or hemoptysis, Cardiovascular - No angina pain. No palpitations, Gastrointestinal - Positive for occasional nausea, no vomiting. No heartburn or acid reflux. Positive for diarrhea, some constipation. No blood in the stool or black stools, Genitourinary (M) - No dysuria or hematuria. No urinary frequency. No urgency or incontinence, Musculoskeletal - Positive for joint or bone pain, Integumentary - Pt has slight rash on his face and hands, Neurologic - Frequent headache and dizziness. Pt reports an increase in difficulty in daily activities with his hands, Psychiatric - Patient has anxiety, depression, and insomnia. Vital Signs: Performed on May 21, 2020 10:13 Height - 73.00 in Weight - 309.2 lbs (HIGH) BSA - 2.59 sq.m BMI - 40.79 (HIGH) Temperature - 98.3 F (LOW) Pulse - 89 /min Respiration - 24 /min BP - 156/96 mm(hg) (HIGH) O2 Sat - 96 % Pain - 2 Performance Status: 2 - Ambulatory/capable of all self-care, unable to perform any work activities. Up and about more than 50% of waking hours. (ECOG) Physical Examination: ENMT - No mouth sores, no thrush, no jaundice, Respiratory - Lungs are clear to auscultation, Cardiovascular - Regular rate and rhythm of heart, Abdomen - Soft, bowel sounds present, Extremities - No visible edema. Lab/Imaging: Test performed on Apr 29, 2020 15:08 Sodium 141 mmol/L TSH 1.09 uIU/mL Potassium 4.0 mmol/L Chloride 104 mmol/L CO2 29 mmol/L Anion Gap 12.0 BUN 12 mg/dL Creatinine 0.9 mg/dL Cr Clearance (Est) 166.31 mL/min eGFR 85.5 mL/min Glucose 107 mg/dL Osmolality - Calculated 292 mOsm/kg Calcium 9.5 mg/dL Protein, Total 7.2 g/dL Albumin 4.2 g/dL Globulin 3.0 g/dL Bilirubin, Total 0.4 mg/dL ALT (SGPT) 38 U/L AST (SGOT) 30 U/L Alkaline Phosphatase 89 IU/L WBC 6.7 10 3/uL RBC 4.84 10 6/uL HGB 15.1 g/dL HCT 46.6 % MCV 96.3 fL MCH 31.2 pg MCHC 32.4 g/dL RDW 12.9 % Platelet Count 220 10 3/cmm MPV 8.9 fL Neutrophils 3.21 10 3/uL Lymphocytes 2.7 10 3/uL Monocytes 0.5 10 3/uL Eosinophils 0.3 10 3/uL Basophils 0.0 10 3/uL Neutrophil % 48.0 % Lymphocyte % 39.8 % Monocyte % 7.7 % Eosinophil % 4.0 % Basophils % 0.4 % NRBC % 0 % Test performed on Apr 29, 2020 00:00 Manual Diff Cancelled via OM: Entered in error Impression: 1. 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 2. status post metastasectomy done on 09/05/2017, postoperative MRI disclosed complete resection. Molecular studies on brain metastases biopsy showed negative for EGFR ALK, RET, HER-2/ind[place], ROS 1,BRAF, 3. Right upper lobe lung mass 2.7 cm. 4. Indigestion/ heartburn nausea vomiting probably due to candidal esophagitis or questionable increase intracranial pressure , also with oral thrush EGD showed H. pylori status post antibiotics FOLLOWUP IMAGIN. CT scan of head done on 10/17/2017 showed stable postoperative changes from prior left occipital craniotomy and resection of previous metastatic mass from left cerebellum hemisphere. (Repeat CT of the head from 11/2017 in [facility] reported findings consistent with the 10/17/2017 imaging with no acute findings). 6. PET/CT from 10/29/2017 showed 2 x 2.3 cm right apical pulmonary nodule with SUV of 17.7. No additional abnormality noted other than status post cranial metastasectomy site. 7. MRI of the brain with and without contrast on August 23, 2018 from [facility] in [place]. 8. CT of the head noncontrast on October 12, 2019: Right frontal shunt catheter with tip in the left frontal horn. No hydrocephalus. Ventricular size is unchanged from previous scans. Prior postoperative changes occipital craniectomy. 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 Stable cerebral tonsillar ectopia with normal fourth ventricle. 9. His last PET/CT imaging was August 11, 2019. Is reported that there was ongoing decrease in FDG activity in the right upper lobe lung nodule with an SUV of 2.6 down from 3.4 on previous exam. There were no new malignant lesions present there is no indication to suspect osseous metastatic disease. CURRENT TREATMENT SUMMARY: 7. SBRT to right lung mass completed 11/23/2017 for a total dose of 3,600 cGY (48 GGY). 8. SRS to brain completed 01/16/2018 for a total dose of 2,400 cGY. 9. Carboplatin/Alimta/pembrolizumab 06/28/2018. He had 1 dose of the carboplatin Alimta had significant side effects and was transitioned to just single agent pembrolizumab in September 2018. He remains on pembrolizumab currently. discussed with Mr Mcclellan the role of systemic chemotherapy with cisplatin/Alimta versus observation alone. He has recommended chemotherapy consisting of Cisplatin 75 mg/m2 day 1 and Alimta 500 mg/m??? on day 1 repeat every 21 days ???4 cycles along with dexamethasone, folic acid and B12 as prophylactic treatment for Alimta. Mr Mcclellan transferred his care to [facility] where getting evaluation CT PET scan was done on 05/17/2018 which showed persistent right upper lobe lung mass with right bronchial lymph node involvement; Finding in the left maxillary sinus of concern for metastatic disease; A new osseous lesion seen in the right anterior iliac crest consistent with metastatic disease. Mr Mcclellan was started on carboplatin/Alimta/pembrolizumab-he was given 1 dose of chemotherapy on 06/28/2018. He experienced significant side effects so chemotherapy was discontinued and then switched to single agent Keytruda in September 2018. Patient tolerated well except some diarrhea, responded to prednisone 60 mg by mouth daily, now resolved and his follow-up CT PET scan done on 11/25/2018 showed excellent response to single agent Keytruda. The PET/CT did show a right apical lung lesion measures 3.9 x 2.4 cm with SUV of 3.4 which is significant improvement since prior study in May 2018 and likely represent inflammatory posttreatment changes. Mr Mcclellan has continued with single agent Keytruda. He is tolerating it well and has improvement in his performance status. Mr. Mcclellan had restaging PET CT on 04/26/2020. The findings were no evidence for active recurrent or residual malignancy. The right upper lobe nodule remains unchanged in size at 2.5 x 4.6 cm, with an SUV of 2.4; this is consistent with sterilize malignancy and mild residual inflammatory uptake . There was no findings to indicate osseous metastatic disease. The impression was negative for active malignancy and inflammatory activity in the sterilized right upper lobe lung carcinoma. Plan: Discussed with patient regarding his labs white blood count 8 hemoglobin 14.7 hematocrit 45.8 platelets 222,000 CMP within normal limits Clinically, patient doing well with no signs symptom suggestive of disease progression, tolerating Keytruda well and his follow-up CT PET scan done recently showed excellent response with no sign of active disease. Patient is tolerating Keytruda well except couple of days after infusion he feels somewhat weak and tired otherwise no significant side effect toxicity. Patient wants to hold his immunotherapy till [place] and then he will return to clinic after [place] to discuss whether he wants to continue immunotherapy or switch to observation alone as recently done CT PET scan shows persistently no evidence of active disease. Return to clinic in 2 weeks with for further discussion. Signed By: Harsha Parra M.D. <<Signature on File>>
== END 2020-06-05 23:59 | disposition home or self-care (01) ==
LOC: ONCMED 05:39
PROVIDERS: Nurse Practitioner; PCP Emergency Medicine Emergency Medical Services; Visit Provider Internal Medicine Hematology & Oncology
DX: C34.11 Malignant neoplasm of upper lobe, right bronchus or lung (principal); C79.51 Secondary malignant neoplasm of bone; C79.31 Secondary malignant neoplasm of brain; K21.9 Gastro-esophageal reflux disease without esophagitis; D51.9 Vitamin B12 deficiency anemia, unspecified; Z79.52 Long term (current) use of systemic steroids; Z79.899 Other long term (current) drug therapy
CPT/HCPCS: 36415; 80053; 84146; 84443; 85025; 99214

== ENCOUNTER 2020-06-02 06:00 | Outpatient (RCR) | payer OTHER, SELFPAY | END 2020-06-05 23:59 | disposition home or self-care (01) | LOC: SPO 06:00 | PROVIDERS: PCP Emergency Medicine Emergency Medical Services; Visit Provider Emergency Medicine Emergency Medical Services | DX: C34.11 Malignant neoplasm of upper lobe, right bronchus or lung (principal); R53.1 Weakness; R26.81 Unsteadiness on feet | CPT/HCPCS: 97110 ==

== ENCOUNTER 2020-06-06 06:00 | Outpatient (RCR) | payer OTHER, SELFPAY | END 2020-07-06 23:59 | disposition home or self-care (01) | LOC: SPO 06:00 | PROVIDERS: PCP Emergency Medicine Emergency Medical Services; Visit Provider Emergency Medicine Emergency Medical Services | DX: R42 Dizziness and giddiness (principal) | CPT/HCPCS: 97110; 97112; 97116 ==

== ENCOUNTER 2020-07-01 09:21 | Outpatient (RCR) | payer OTHER, SELFPAY ==
[2020-06-11 13:44] LABS: Basophils % 0.5 %; Eosinophils # 0.3 10^3/uL (0.0-0.8); Eosinophils % 4.6 %; Hematocrit 45.8 % (42.0-52.0); Hemoglobin 14.8 g/dL (11.7-16.6); Lymphocytes # 2.9 10^3/uL (0.8-4.8); Lymphocytes % 45.8 %; Mean Corpuscular HGB Conc 32.3 g/dL (30.0-36.0); Mean Corpuscular Hemoglobin 31.4 pg (28.0-34.0); Mean Corpuscular Volume 97.2 fL (80-94); Mean Platelet Volume 9.2 fL (7.4-10.4); Monocytes # 0.5 10^3/uL (0.2-0.9); Neutrophils # 2.56 10^3/uL (1.8-7.7); Neutrophils % 40.2 %; Nucleated Red Blood Cells % 0 %; Platelet Count 208 10^3/cmm (130-400); Red Blood Count 4.71 10^6/uL (4.1-5.3); Red Cell Distribution Width 12.9 % (12.1-15.1); White Blood Count 6.4 10^3/uL (4.0-10.0)
[2020-06-11 14:40] LABS: Alanine Aminotransferase 32 U/L (0-41); Albumin Level 3.8 g/dL (3.5-5.2); Alkaline Phosphatase 77 IU/L (40-130); Anion Gap 10.3 (5-19); Aspartate Amino Transferase 26 U/L (0-40); Blood Urea Nitrogen 14 mg/dL (8-23); Calcium 9.4 mg/dL (8.5-10.5); Carbon Dioxide 29 mmol/L (22-29); Chloride 106 mmol/L (98-107); Globulin 3.2 g/dL (1.3-4.6); Glomerular Filtration Rate 75.7 mL/min (90-130); Glucose 110 mg/dL (65-115); Osmolality Calculated 293 mOsm/kg (285-295); Potassium 4.3 mmol/L (3.5-5.1); Sodium 141 mmol/L (136-145); Thyroid Stimulating Hormone 0.95 uIU/mL (0.27-4.20); Total Bilirubin 0.3 mg/dL (0.15-1.2)
--- NOTE | 2020-06-16 13:15 | ONC FU_ITS ---
[facility] Patient Note Patient: Alli Mcclellan Unit #: [id number]: 1955 Dictated By: Lorena SmithDate of Visit: Jun 11, 2020 Onc MED Follow-Up/Prog Note Chief Complaint: Lung cancer with brain metastases History of Present Illness: Mr. Mcclellan is a 64-year-old gentleman who was recently diagnosed with metastatic lung cancer to brain. Mr Mcclellan reports that in August 2017, he developed side effects in that he could not speak and had trouble typing with his left hand. He had an episode of ataxia and he felt significantly dizzy, so much so that he felt like he was going to pass out. He presented to the hospital where MRI scan of brain was done on 09/01/2017. The MRI showed left cerebral mass measuring 3.6 cm and mild asymmetric prominence and enhancement at right pituitary gland. Differential included macroadenoma, craniopharyngioma, or metastatic disease. A CT chest was done and reported spiculated area of the right upper lobe measuring 2.7 cm. He underwent posterior fossa craniotomy and resection of the cerebellar mass on 09/05/2017. The final pathology reported metastatic adenocarcinoma consistent with lung primary. Molecular assay was negative for EGFR, BRAF V600E IHC, ALK, RET, HER-2, BRAF, and ROS 1. PET/CT imaging was obtained on 10/29/2017. It did report 2 x 2.3 cm right apical pulmonary nodule with an SUV of 17.7. There were no additional pulmonary nodules or masses identified. Activity in the bilateral hilum and mediastinal lymph nodes was unremarkable. There was no other evidence for local or distant metastatic disease. Follow-up CT of the head from 11/10/2017 reported postoperative changes from prior occipital craniotomy and resection of the previous metastatic lesion from the superior aspect of the left cerebellar hemisphere. There was persistent subcutaneous occipital scalp fluid that may communicate with the CSF space through meningeal defect posterior to the cervical do medullary junction. There were mild central and peripheral atrophy. No acute findings of the head and no significant change from 10/17/2017. It was noted that he had left maxillary sinusitis. Mr. Mcclellan was referred to Dr Lyle in radiation oncology for treatment of the lung mass and consideration of radiation to the brain. Mr Mcclellan had SBRT to the right lung. He had a total dose of 3600 cGy (48 GY). His start date was 11/16/2017. His completion date was 11/23/2017. Mr. Mcclellan then underwent SRS to the brain. His total dose was 2400 cGy. He started on 01/11/2018 and ended on 01/16/2018. He was given Decadron 4 mg twice a day while on treatment with instructions to taper slowly after radiation was completed. Mr. Mcclellan was evaluated and was offered chemotherapy with cisplatin Alimta every 3 weeks for 4 cycles. He has been very hesitant to proceed with chemotherapy due to concerns about side effects. Interim history: Mr Mcclellan went to [place] for further oncology care. His CT PET scan done on 05/17 showed left cerebellar consistent with known prior dissection; Right lung upper lobe consistent with persistent tumor with right bronchial lymph node involvement; Left maxillary sinus of concern for metastatic disease and A new osseous lesion in the right anterior iliac crest consistent with metastatic disease. Once again chemotherapy was recommended and he consentetd. He was given 1 cycle of carboplatin/Alimta/pembrolizumab on 06/28/2018 but he had significant side effects including nausea, vomiting- fatigue requiring hydration, subsequently chemotherapy was discontinued because of intolerance. He was switched to single agent Keytruda on 09/06/2018, tolerated immunotherapy well-except associated or diarrhea which was treated with prednisone 60 mg daily and responded well. He has had no further episodes of the significant diarrhea. He had follow-up CT PET scanOn 11/25/2018 which showed the right apical lung lesion currently measured 3.9 x 2.4 cm with SUV of 3.4 (this is a significant improvement since prior study and likely represent chronic inflammation); Status post right ventriculoperitoneal shunt placement done on 02/15/2019. CT scan of head was done on 04/03/2019 showed stable frontal ventricular shunt tube position with decreased ventriculomegaly since 02/15/2019. 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 On 04/13/2019 Mr Mcclellan presented to the local emergency room with with chief complaints of floaters in his vision off and on and this time in the right eye only. He was sent to [facility] in [place] emergency room where he was evaluated by ophthalmology and no retinal detachment was observed. Follow-up in 2 weeks was recommended but he did not go for follow-up as condition resolved on its own. He also had CT scan of head done on 04/13/2019 which showed no intracranial hemorrhage or mass effect; Unchanged ventricular configuration; Unchanged right frontal ventricular shunt catheter tip terminating in the left frontal horn; Unchanged left cerebellar hemisphere encephalomalacia and postsurgical changes; CT scan of the head done on 05/14/2019 showed right frontal shunt catheter with tip in the left frontal horn. No hydrocephalus; Postoperative changes occipital craniectomy. He remains on immunotherapy with pembrolizumab. Tolerating Keytruda well otherwise Follow-up CT PET scan done on 08/11/2019 showed there is ongoing decrease in FDG activity in the right upper lobe nodule now SUV is 2.6 down from 3.4 previously .no new lesion seen CT scan of the head done on 10/12/2019 shows right frontal shunt cath with the tip in the left frontal horn. No hydrocephalus. Prior postoperative changes occipital status post occipital craniotomy. 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 Recently underwent left arm nerve conduction study, as per patient he was told his left hand weakness and numbness is due to ulnar neuropathy, now being treated with physical therapy. He has been having vertigo Patient was seen by ENT as per patient nothing significant was observed. He states he is having problems with his hand. He states that he did have nerve conduction which reportedly was normal but the technologist that was doing the study indicated that he might need an MRI of his brain. Mr. Mcclellan would like to pursue this if at all possible. He does see Dr. Sam on December [address] Sam is leaving in January so is not sure he can get the MRI scheduled at that point. He states that he does have an MRI of the brain he will need his shunt regulated. He states in regard to Dr. Flaco clinton, he has used Dr Dinh in [place], [place]. Follow-up CT scan of head was done on January 03, 2020 which is unchanged since October 12, 2019, no enhancing masses or acute intracranial hemorrhage. Postoperative changes of occipital craniectomy with encephalomalacia left cerebellum and unchanged pseudomeningocele. [employer] shunt catheter tip terminating anterior horn of left lateral ventricle. No hydrocephalus. Left maxillary sinusitis, Oral antibiotics were prescribed He has had persistent discomfort but mild puffiness in the left hand, which is improving, patient was transferred to [place] recently for nausea vomiting and there was a concern regarding malfunctioning of intracranial shunt, as per patient he was evaluated by neurosurgery in [place] and had MRI scan of head done there which showed shunt was functioning fine and no new lesions seen patient said he may have some kind of reaction to the contrast as he was feeling pain all over his body and responded well to morphine. Mr Mcclellan was referred to physical therapy. He continues the Keytruda. Mr. Mcclellan had restaging PET CT on 04/26/2020. The findings were no evidence for active recurrent or residual malignancy. The right upper lobe nodule remains unchanged in size at 2.5 x 4.6 cm, with an SUV of 2.4; this is consistent with sterilize malignancy and mild residual inflammatory uptake . There was no findings to indicate osseous metastatic disease. The impression was negative for active malignancy and inflammatory activity in the sterilized right upper lobe lung carcinoma. He continues with Keytruda. Mr Mcclellan is here today for followup and consideration of Keytruda. He has completed 28 cycles with his last cycle being 04/30/2020. At his follow-up visit with Dr. Parra on 05/21/2020 they had discussed his PET CT results from 04/26/2020. The findings were no evidence for active recurrent or residual malignancy. The right upper lobe nodule remains unchanged in size from 2.5 x 4.6 cm with an SUV of 2.4; this is consistent with sterilized malignancy and mild residual inflammatory uptake . There were no findings to indicate osseous metastatic disease. The impression was negative for active malignancy and inflammatory activity in the sterilized right upper lobe lung carcinoma. Given those results Dr. Parra has offered Mr. Mcclellan the option of continuing immunotherapy or switching to observation alone as the recent PET/CT persistently shows no evidence of active active disease. He states overall he is feeling really good. He states that generally after the treatment he does feel pretty bad for a few days. He states he just feels washed out and weak. Just cannot go. He has had a little diarrhea but nothing that can be managed with Imodium. However he is very concerned about missing treatment and the disease returning. He is aware that there are no solid answers on how to make this decision or know if it will or will not come back. He was advised that should he decide to forego further immunotherapy at this time that he would be placed on a close monitoring system. He states his main concern to is the metastatic lesion in his brain. His concern is that he has not had recent scan of the head for followup of that. He reports that he is having some left sided leg and arm weakness which seems to be progressing. He has had known protruding disc at L4-L5. He also has been having more numbness and tingling on that side. He states it is affecting his ability to walk. He is utilizing a cane or wheeled walker to help him remain mobile in the home. His ECOG is 1. Past Medical History: Chronic back pain Hypertension Past Surgical History: Appendectomy Craniotomy Allergies: Cats, Dust mites, Grass Pollen, Mold and Trees and HydroCHLOROthiazide. Medications: Acetaminophen 2 (325 mg) Capsule Oral PRN Albuterol Sulfate Aerosol Powder, Breath Activated Inhalation Ampicillin 1 Capsule (of 500 mg) Oral t.i.d. B Complex 1 Tablet Oral daily buPROPion HCl 1 Tablet (of 75 mg) Oral q on Every Other Day Cabergoline (0.5 mg) Tablet Oral Take as Directed Calcium 1 Tablet (of 600 mg) Oral daily Colace 1 Capsule (of 250 mg) Oral b.i.d. PRN Dronabinol 1 Capsule (of 5 mg) Oral b.i.d. PRN Essiac Tea Herbs Leaves Oral PRN Folic Acid 1 Tablet (of 400 mcg) Oral daily Gabapentin 1 Capsule (of 100 mg) Oral daily Hydrocodone-Acetaminophen 1 Tablet (of 10-325 mg) Tablet Oral 6x/d PRN Hydrocortisone 1 Tablet (of 15 mg) Oral daily Lactulose 2 tablespoonful(s) (of 10 g/15mL) Solution Oral b.i.d. PRN Lasix 1 Tablet (of 40 mg) Oral daily PRN Magnesium 1 Tablet (of 250 mg) Oral daily Multivitamin and Minerals 1 Tablet daily Ondansetron HCl 1 Tablet (of 4 mg) Oral t.i.d. PRN Pantoprazole Sodium 1 Tablet (of 40 mg) Tablet, enteric coated Oral every am Promethazine HCl 1 Suppository (of 25 mg) Rectal q 6 hours PRN Senna-S 1 (8.6-50 mg) Tablet Oral b.i.d. Stiolto Respimat 1 puff(s) (of 2.5-2.5 mcg/act) Aerosol, solution Inhalation daily Sudafed 1 Tablet (of 30 mg) Oral daily Vitamin A Capsule Oral daily Xyzal Allergy 24HR 1 Tablet (of 5 mg) Oral daily Family History: Mr. Mcclellan's mother at age 52: congestive heart failure. Mr. Mcclellan's father at age 82: kidney failure. Mr. Mcclellan has 1 sister who is : type ii diabetes. Sister - cancer antiplastic thyroid Grandmother and great grandmother with hx of thyroid and colon cancer. Social History: Mr. Mcclellan is . Mr. Mcclellan no longer smokes but had smoked 1.0 pack/day for 47 years. He has no history of drinking. Stopped smoking 08/2017 Pt reports marijuana usage. Review Of Symptoms: Constitutional Denies fevers, chills, night sweats, excessive fatigue or weight loss. Allergic/Immunologic No reactions. Eyes Denies significant visual changes. No diplopia. No amaurosis. ENMT Denies changes in hearing, sore throat, mouth sores, difficulty or changes in swallowing ability, and/or discolored sinus drainage. Hematologic/Lymphatic Denies easy bruising or bleeding. The patient denies any tender or palpable lymph nodes. Respiratory Denies dyspnea on exertion, chest pain, cough or hemoptysis. Denies orthopnea. Cardiovascular Denies anginal chest pain, palpitations or orthopnea. Gastrointestinal Denies nausea, vomiting, diarrhea, GI bleeding, or constipation. Denies change in bowel habits and/or stool color, no heartburn or early satiety. Genitourinary (M) Denies hematuria, dysuria, increased frequency, urgency, hesitancy or incontinence. Musculoskeletal Denies joint pain, swelling or redness. No decreased range of motion. Left hand and arm sharp/nerve pain-now with weakness; for neurology, he sees Dr Henderson. Integumentary Denies chronic rashes, inflammation, ulcerations or skin changes. Neurologic Slow, shuffled, assisted gait. Left arm/hand numbness/dizziness-following with Dr Henderson Psychiatric Denies insomnia, depression, aries or mood swings. Vital Signs: ,1 - No physically strenuous activity, but ambulatory and able to carry out light or sedentary work (e.g. office work, light house work). (ECOG) Physical Examination: Constitutional Alert, oriented, no acute distress. Skin pink, warm and dry. Head Normocephalic; atraumatic. Eyes Conjunctivae and sclerae are clear and without icterus. Pupils are reactive and equal. He does wear glasses. Neck Supple without masses or thyromegaly. No jugular venous distension. Hematologic/Lymphatic No petechiae. No tender or palpable lymph nodes in the cervical or supraclavicular areas. Respiratory Lungs are clear to auscultation without rhonchi or wheezing. Cardiovascular Regular rate and rhythm of heart without murmurs,clicks, gallops or rubs. Abdomen Non-tender, non-distended, no masses or ascites. No guarding or rebound tenderness. No pulsatile masses. Back/Spine Non-tender to palpation. Extremities No visible deformities, no cyanosis, clubbing or edema. Integumentary No rashes or lesions. Neurologic No abnormalities noted. He does utilize a cane for ambulation. His gait is slow-but normal for him. Psychiatric Alert and oriented times three. Coherent speech. Verbalizes understanding of our discussions today. Laboratory:Test performed on Jun 11, 2020 13:25 Sodium 141 mmol/L TSH 0.95 uIU/mL Potassium 4.3 mmol/L Chloride 106 mmol/L CO2 29 mmol/L Anion Gap 10.3 BUN 14 mg/dL Creatinine 1.0 mg/dL Cr Clearance (Est) 151.9400 mL/min eGFR 75.7 mL/min Glucose 110 mg/dL Osmolality - Calculated 293 mOsm/kg Calcium 9.4 mg/dL Protein, Total 7.0 g/dL Albumin 3.8 g/dL Globulin 3.2 g/dL Bilirubin, Total 0.3 mg/dL ALT (SGPT) 32 U/L AST (SGOT) 26 U/L Alkaline Phosphatase 77 IU/L WBC 6.4 10 3/uL RBC 4.71 10 6/uL HGB 14.8 g/dL HCT 45.8 % MCV 97.2 fL MCH 31.4 pg MCHC 32.3 g/dL RDW 12.9 % Platelet Count 208 10 3/cmm MPV 9.2 fL Neutrophils 2.56 10 3/uL Lymphocytes 2.9 10 3/uL Monocytes 0.5 10 3/uL Eosinophils 0.3 10 3/uL Basophils 0.0 10 3/uL Neutrophil % 40.2 % Lymphocyte % 45.8 % Monocyte % 8.0 % Eosinophil % 4.6 % Basophils % 0.5 % NRBC % 0 % Test performed on Apr 29, 2020 00:00 Manual Diff Cancelled via OM: Entered in error Impression: 1. 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 2. status post metastasectomy done on 09/05/2017, postoperative MRI disclosed complete resection. Molecular studies on brain metastases biopsy showed negative for EGFR ALK, RET, HER-2/india, ROS 1,BRAF, 3. Right upper lobe lung mass 2.7 cm. 4. Indigestion/ heartburn nausea vomiting probably due to candidal esophagitis or questionable increase intracranial pressure , also with oral thrush EGD showed H. pylori status post antibiotics FOLLOWUP IMAGIN. CT scan of head done on 10/17/2017 showed stable postoperative changes from prior left occipital craniotomy and resection of previous metastatic mass from left cerebellum hemisphere. (Repeat CT of the head from 11/2017 in [facility] reported findings consistent with the 10/17/2017 imaging with no acute findings). 6. PET/CT from 10/29/2017 showed 2 x 2.3 cm right apical pulmonary nodule with SUV of 17.7. No additional abnormality noted other than status post cranial metastasectomy site. 7. MRI of the brain with and without contrast on August 23, 2018 from [facility] in [place]. 8. CT of the head noncontrast on October 12, 2019: Right frontal shunt catheter with tip in the left frontal horn. No hydrocephalus. Ventricular size is unchanged from previous scans. Prior postoperative changes occipital craniectomy. 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 Stable cerebral tonsillar ectopia with normal fourth ventricle. 9. His last PET/CT imaging was August 11, 2019. Is reported that there was ongoing decrease in FDG activity in the right upper lobe lung nodule with an SUV of 2.6 down from 3.4 on previous exam. There were no new malignant lesions present there is no indication to suspect osseous metastatic disease. CURRENT TREATMENT SUMMARY: 7. SBRT to right lung mass completed 11/23/2017 for a total dose of 3,600 cGY (48 GGY). 8. SRS to brain completed 01/16/2018 for a total dose of 2,400 cGY. 9. Carboplatin/Alimta/pembrolizumab 06/28/2018. He had 1 dose of the carboplatin Alimta had significant side effects and was transitioned to just single agent pembrolizumab in September 2018. He remains on pembrolizumab currently. discussed with Mr Mcclellan the role of systemic chemotherapy with cisplatin/Alimta versus observation alone. He has recommended chemotherapy consisting of Cisplatin 75 mg/m2 day 1 and Alimta 500 mg/m??? on day 1 repeat every 21 days ???4 cycles along with dexamethasone, folic acid and B12 as prophylactic treatment for Alimta. Mr Mcclellan transferred his care to [facility] where getting evaluation CT PET scan was done on 05/17/2018 which showed persistent right upper lobe lung mass with right bronchial lymph node involvement; Finding in the left maxillary sinus of concern for metastatic disease; A new osseous lesion seen in the right anterior iliac crest consistent with metastatic disease. Mr Mcclellan was started on carboplatin/Alimta/pembrolizumab-he was given 1 dose of chemotherapy on 06/28/2018. He experienced significant side effects so chemotherapy was discontinued and then switched to single agent Keytruda in September 2018. Patient tolerated well except some diarrhea, responded to prednisone 60 mg by mouth daily, now resolved and his follow-up CT PET scan done on 11/25/2018 showed excellent response to single agent Keytruda. The PET/CT did show a right apical lung lesion measures 3.9 x 2.4 cm with SUV of 3.4 which is significant improvement since prior study in May 2018 and likely represent inflammatory posttreatment changes. Mr Mcclellan has continued with single agent Keytruda. He is tolerating it well and has improvement in his performance status. Mr. Mcclellan had restaging PET CT on 04/26/2020. The findings were no evidence for active recurrent or residual malignancy. The right upper lobe nodule remains unchanged in size at 2.5 x 4.6 cm, with an SUV of 2.4; this is consistent with sterilize malignancy and mild residual inflammatory uptake . There was no findings to indicate osseous metastatic disease. The impression was negative for active malignancy and inflammatory activity in the sterilized right upper lobe lung carcinoma. Mr Mcclellan opted to hold his immunotherapy through . He has returned today to discuss continuing treatment verses observation alone. Plan: PROBLEMS ADDRESSED TODAY 1. Metastatic adenocarcinoma with LUNG PRIMARY AND BRAIN METASTASIS: A. He request to proceed with Keytruda at normal dosing today. B. We did discuss increasing the dose to the 6-week dosing at 400 mg daily if [facility]. He states he would definitely be interested in this. C. We discussed at length how he feels after treatment versus high felt while he was off of treatment for the last 6 weeks. He states he definitely feels better off the treatment. He states he is just so concerned that it may return. He was reassured that should it return we may have other options to offer him that would obviously include chemotherapy as well. D. I requested a CT of the head for follow-up of his previous CT for the brain lesion. He states that having the head CT will hopefully make him more likely to make a decision regarding continue current plan, increasing to every 6 weeks at double dosing or observation alone. I did request that he pay attention to how he feels after this treatment as her has been 6-week delay. He says significant trouble with nausea with treatment in the past. E. We will plan to see him back in 3 weeks with CBC, CMP and TSH at which time he will be due for cycle 30 of Keytruda. We should have plenty of time to get his imaging results back and review those with him at that appointment. F. Labs from today were reviewed in detail discussed with Mr. Mcclellan and a copy was given to him. WBC 6.4, hemoglobin 14.8, platelets 208,000 ANC is 2600. Potassium 4.3 creatinine 1.0 random glucose 110 LFTs are normal and TSH is 0.95. 2. EXTREMITY WEAKNESS A. MRI of the lumbar spine from 09/29/2018 at [facility] reported mild to moderate lumbar disc degeneration. Moderate to prominent facet and interspinous a arthropathy may be pain generating moderate bilateral subarticular and neuroforaminal narrowing at L???5 which crowds both descending and exiting nerve roots no compression fracture. The MRI of the spine from 08/01/2018 reports mild to moderate lumbar disc degeneration L4-5 mild to moderate annular bulging and moderate facet arthroplathy. L5-S1 mild annular bulging and moderate facet arthropathy. Mild bilateral subarticular and neuroforaminal narrowing. The overall impression indicated mild to moderate lumbar disc degeneration moderate to prominent facet and interspinous arthroplasty which may be due to degenerating moderate bilateral subarticular and neuroforaminal narrowing at L4-L5 which causes both a sending and exiting nerve roots. There is no compression fracture found on that 08/01/2018 exam. His last imaging was done on04/26/2020 and that was a PET/CT. B. Follow-up MRI of the cervical and lumbar spine if possible for evaluation of leg and arm weakness. C. He continues to follow with neurosurgery in regards to the brain metastasis. Repeat CT of the head as above. 3. We will plan for follow-up in 3 weeks with CBC CMP TSH and scheduled for his next dose of Keytruda hopefully able to get the 400 mg if approved by the [facility]. In the interim we will obtain the scans as above. Mr. Mcclellan has been encouraged to contact us in interim should questions or problems arise. 4. Total time spent in review of patient's chart prior to his visit, discussing his current concerns, formulating plan of care and documentation was greater than 60 minutes. Signed By: Lorena Smith-, AOCNP Harsha Parra MD <<Signature on File>>
--- NOTE | 2020-07-01 09:31 | CT_ITS ---
WS: [id number] CT HEAD WITH AND WITHOUT CONTRAST HISTORY: FOLLOW UP BRAIN TUMOR TECHNIQUE: Noncontrast 2.5 mm axial images obtained from the vertex to the skull base. Additional eduardo ging performed at 2.5 mm axial images status post IV contrast. Bone and soft tissue windows are revie wed. All CT scans at [facility] use at least one of these dose optimization techniques: a utomated exposure control; mA and/or kV adjustment per patient size (includes targeted exams where do se is matched to clinical indication); or iterative reconstruction. CONTRAST: Omnipaque 300; 95 mL IV. DLP: 2116.36 mGycm COMPARISON: 01/30/2020 and 01/03/2020 No acute intracranial hemorrhage, edema or midline shift. Mild cerebral atrophy. No enhancing mass or vascular malformations identified. Postsurgical changes and volume loss and ence phalomalacia in the LEFT cerebellum are stable. There is no adjacent enhancement to suggest recurrent tumor. There is mild ex vacuo dilatation of the lateral ventricle. RIGHT frontal VINYL WELDER AND FABRICATOR shunt catheter u nchanged in position with the tip terminating in the anterior LEFT frontal horn. Dural venous sinuses are normally enhancing. Visualized [place] of [place] is unremarkable. Paranasal sinuses as visualized: Mucoperiosteal thickening ethmoid sinuses and LEFT maxillary sinus. There is near complete opacification of the LEFT frontal sinus. Mastoid air cells: Clear. Calvarium and scalp: Large craniectomy defect in the posterior occipital region measures 6.2 cm. Post operative fluid at the craniectomy site is stable. CT/CT head wo/w con [id number] IMPRESSION: 1. Stable occipital craniectomy and postsurgical changes in the LEFT cerebellu m. No recurrent tumor. 2. RIGHT frontal VINYL WELDER AND FABRICATOR shunt catheter unchanged in position. No hydrocephalus or increase in size of the ventricles. 3. Sinusitis.
[2020-07-01] MEDS: iohexol 300 mg/mL 100 mL Btl IV (09:49)
== END 2020-07-06 23:59 | disposition home or self-care (01) ==
LOC: ONCMED 09:21
PROVIDERS: PCP Emergency Medicine Emergency Medical Services; Visit Provider Nurse Practitioner
DX: Z51.12 Encounter for antineoplastic immunotherapy (principal); C34.11 Malignant neoplasm of upper lobe, right bronchus or lung; C79.51 Secondary malignant neoplasm of bone; C79.31 Secondary malignant neoplasm of brain; J32.9 Chronic sinusitis, unspecified; K30 Functional dyspepsia; R12 Heartburn; K21.9 Gastro-esophageal reflux disease without esophagitis; I10 Essential (primary) hypertension; Z79.899 Other long term (current) drug therapy
CPT/HCPCS: 70470; 80053; 84443; 85025; 96413; 99215; J7050; J9271; Q9967

== ENCOUNTER 2020-07-07 06:00 | Outpatient (RCR) | payer OTHER, SELFPAY | END 2020-08-03 23:59 | disposition home or self-care (01) | LOC: SPO 06:00 | PROVIDERS: PCP Emergency Medicine Emergency Medical Services; Visit Provider Emergency Medicine Emergency Medical Services | DX: C34.12 Malignant neoplasm of upper lobe, left bronchus or lung (principal); R53.1 Weakness; R26.89 Other abnormalities of gait and mobility | CPT/HCPCS: 97110; 97112 ==

== ENCOUNTER 2020-07-14 05:43 | Outpatient (RCR) | payer OTHER, SELFPAY ==
[2020-07-14 14:16] LABS: Basophils % 0.4 %; Eosinophils # 0.3 10^3/uL (0.0-0.8); Hematocrit 46.4 % (42.0-52.0); Hemoglobin 14.8 g/dL (11.7-16.6); Lymphocytes # 2.7 10^3/uL (0.8-4.8); Mean Corpuscular HGB Conc 31.9 g/dL (30.0-36.0); Mean Corpuscular Hemoglobin 31.3 pg (28.0-34.0); Mean Corpuscular Volume 98.1 fL (80-94); Mean Platelet Volume 9.4 fL (7.4-10.4); Monocytes # 0.6 10^3/uL (0.2-0.9); Monocytes % 8.4 %; Neutrophils % 47.1 %; Nucleated Red Blood Cells % 0 %; Platelet Count 210 10^3/cmm (130-400); Red Blood Count 4.73 10^6/uL (4.1-5.3); Red Cell Distribution Width 13.2 % (12.1-15.1); White Blood Count 6.8 10^3/uL (4.0-10.0)
[2020-07-14 14:49] LABS: Alanine Aminotransferase 27 U/L (0-41); Albumin Level 4.1 g/dL (3.5-5.2); Alkaline Phosphatase 75 IU/L (40-130); Anion Gap 12.9 (5-19); Aspartate Amino Transferase 19 U/L (0-40); Blood Urea Nitrogen 15 mg/dL (8-23); Calcium 9.3 mg/dL (8.5-10.5); Carbon Dioxide 30 mmol/L (22-29); Chloride 103 mmol/L (98-107); Globulin 3.1 g/dL (1.3-4.6); Glomerular Filtration Rate 75.7 mL/min (90-130); Glucose 113 mg/dL (65-115); Osmolality Calculated 296 mOsm/kg (285-295); Potassium 3.9 mmol/L (3.5-5.1); Sodium 142 mmol/L (136-145); Thyroid Stimulating Hormone 0.95 uIU/mL (0.27-4.20); Total Bilirubin 0.3 mg/dL (0.15-1.2); Total Protein 7.2 g/dL (6.6-8.7)
--- NOTE | 2020-07-14 15:47 | ONC FU_ITS ---
Dr. Parra follow up note Patient: Alli Mcclellan Unit #: [id number]: 1955 Dicatated By: Harsha Parra M.D.Date of Visit:Jul 14, 2020 Onc Med Follow-up/Prog Note History of Present Illness: Mr. Mcclellan is a 64-year-old gentleman who was recently diagnosed with metastatic lung cancer to brain. Mr Mcclellan reports that in August 2017, he developed side effects in that he could not speak and had trouble typing with his left hand. He had an episode of ataxia and he felt significantly dizzy, so much so that he felt like he was going to pass out. He presented to the hospital where MRI scan of brain was done on 09/01/2017. The MRI showed left cerebral mass measuring 3.6 cm and mild asymmetric prominence and enhancement at right pituitary gland. Differential included macroadenoma, craniopharyngioma, or metastatic disease. A CT chest was done and reported spiculated area of the right upper lobe measuring 2.7 cm. He underwent posterior fossa craniotomy and resection of the cerebellar mass on 09/05/2017. The final pathology reported metastatic adenocarcinoma consistent with lung primary. Molecular assay was negative for EGFR, BRAF V600E IHC, ALK, RET, HER-2, BRAF, and ROS 1. PET/CT imaging was obtained on 10/29/2017. It did report 2 x 2.3 cm right apical pulmonary nodule with an SUV of 17.7. There were no additional pulmonary nodules or masses identified. Activity in the bilateral hilum and mediastinal lymph nodes was unremarkable. There was no other evidence for local or distant metastatic disease. Follow-up CT of the head from 11/10/2017 reported postoperative changes from prior occipital craniotomy and resection of the previous metastatic lesion from the superior aspect of the left cerebellar hemisphere. There was persistent subcutaneous occipital scalp fluid that may communicate with the CSF space through meningeal defect posterior to the cervical do medullary junction. There were mild central and peripheral atrophy. No acute findings of the head and no significant change from 10/17/2017. It was noted that he had left maxillary sinusitis. Mr. Mcclellan was referred to Dr Lyle in radiation oncology for treatment of the lung mass and consideration of radiation to the brain. Mr Mcclellan had SBRT to the right lung. He had a total dose of 3600 cGy (48 GY). His start date was 11/16/2017. His completion date was 11/23/2017. Mr. Mcclellan then underwent SRS to the brain. His total dose was 2400 cGy. He started on 01/11/2018 and ended on 01/16/2018. He was given Decadron 4 mg twice a day while on treatment with instructions to taper slowly after radiation was completed. Mr. Mcclellan was evaluated and was offered chemotherapy with cisplatin Alimta every 3 weeks for 4 cycles. He has been very hesitant to proceed with chemotherapy due to concerns about side effects. Interim history: Mr Mcclellan went to [place] for further oncology care. His CT PET scan done on 05/17 showed left cerebellar consistent with known prior dissection; Right lung upper lobe consistent with persistent tumor with right bronchial lymph node involvement; Left maxillary sinus of concern for metastatic disease and A new osseous lesion in the right anterior iliac crest consistent with metastatic disease. Once again chemotherapy was recommended and he consentetd. He was given 1 cycle of carboplatin/Alimta/pembrolizumab on 06/28/2018 but he had significant side effects including nausea, vomiting- fatigue requiring hydration, subsequently chemotherapy was discontinued because of intolerance. He was switched to single agent Keytruda on 09/06/2018, tolerated immunotherapy well-except associated or diarrhea which was treated with prednisone 60 mg daily and responded well. He has had no further episodes of the significant diarrhea. He had follow-up CT PET scanOn 11/25/2018 which showed the right apical lung lesion currently measured 3.9 x 2.4 cm with SUV of 3.4 (this is a significant improvement since prior study and likely represent chronic inflammation); Status post right ventriculoperitoneal shunt placement done on 02/15/2019. CT scan of head was done on 04/03/2019 showed stable frontal ventricular shunt tube position with decreased ventriculomegaly since 02/15/2019. 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 On 04/13/2019 Mr Mcclellan presented to the local emergency room with with chief complaints of floaters in his vision off and on and this time in the right eye only. He was sent to [facility] in [place] emergency room where he was evaluated by ophthalmology and no retinal detachment was observed. Follow-up in 2 weeks was recommended but he did not go for follow-up as condition resolved on its own. He also had CT scan of head done on 04/13/2019 which showed no intracranial hemorrhage or mass effect; Unchanged ventricular configuration; Unchanged right frontal ventricular shunt catheter tip terminating in the left frontal horn; Unchanged left cerebellar hemisphere encephalomalacia and postsurgical changes; CT scan of the head done on 05/14/2019 showed right frontal shunt catheter with tip in the left frontal horn. No hydrocephalus; Postoperative changes occipital craniectomy. He remains on immunotherapy with pembrolizumab. Tolerating Keytruda well otherwise Follow-up CT PET scan done on 08/11/2019 showed there is ongoing decrease in FDG activity in the right upper lobe nodule now SUV is 2.6 down from 3.4 previously .no new lesion seen CT scan of the head done on 10/12/2019 shows right frontal shunt cath with the tip in the left frontal horn. No hydrocephalus. Prior postoperative changes occipital status post occipital craniotomy. 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 Recently underwent left arm nerve conduction study, as per patient he was told his left hand weakness and numbness is due to ulnar neuropathy, now being treated with physical therapy. He has been having vertigo Patient was seen by ENT as per patient nothing significant was observed. He states he is having problems with his hand. He states that he did have nerve conduction which reportedly was normal but the technologist that was doing the study indicated that he might need an MRI of his brain. Mr. Mcclellan would like to pursue this if at all possible. He does see Dr. Sam on December [address] Sam is leaving in January so is not sure he can get the MRI scheduled at that point. He states that he does have an MRI of the brain he will need his shunt regulated. He states in regard to Dr. Flaco clinton, he has used Dr Dinh in [place], [place]. Follow-up CT scan of head was done on January 03, 2020 which is unchanged since October 12, 2019, no enhancing masses or acute intracranial hemorrhage. Postoperative changes of occipital craniectomy with encephalomalacia left cerebellum and unchanged pseudomeningocele. INTAKE MANAGER shunt catheter tip terminating anterior horn of left lateral ventricle. No hydrocephalus. Left maxillary sinusitis, Oral antibiotics were prescribed He has had persistent discomfort but mild puffiness in the left hand, which is improving, patient was transferred to [place] recently for nausea vomiting and there was a concern regarding malfunctioning of intracranial shunt, as per patient he was evaluated by neurosurgery in [place] and had MRI scan of head done there which showed shunt was functioning fine and no new lesions seen patient said he may have some kind of reaction to the contrast as he was feeling pain all over his body and responded well to morphine. Mr Mcclellan was referred to physical therapy. He continues the Keytruda. Mr. Mcclellan had restaging PET CT on 04/26/2020. The findings were no evidence for active recurrent or residual malignancy. The right upper lobe nodule remains unchanged in size at 2.5 x 4.6 cm, with an SUV of 2.4; this is consistent with sterilize malignancy and mild residual inflammatory uptake . There was no findings to indicate osseous metastatic disease. The impression was negative for active malignancy and inflammatory activity in the sterilized right upper lobe lung carcinoma. He continues with Keytruda. Mr Mcclellan is here today for followup and consideration of Keytruda. He has completed 28 cycles with his last cycle being 04/30/2020. At his follow-up visit with us on 05/21/2020 they had discussed his PET CT results from 04/26/2020. The findings were no evidence for active recurrent or residual malignancy. The right upper lobe nodule remains unchanged in size from 2.5 x 4.6 cm with an SUV of 2.4; this is consistent with sterilized malignancy and mild residual inflammatory uptake . There were no findings to indicate osseous metastatic disease. The impression was negative for active malignancy and inflammatory activity in the sterilized right upper lobe lung carcinoma. Given those results and was offered either the option of continuing immunotherapy or switching to observation alone as the recent PET/CT persistently shows no evidence of active active disease.Patient opted to continue with the treatment but would prefer every [address] scan of head done on July 01, 2020 showed stable occipital craniectomy and postsurgical change in the left cerebellum. No recurrent tumor. Right frontal INTAKE MANAGER shunt catheter unchanged in position. No hydrocephalus. Sinusitis Came for follow-up, denies any specific complaints except weakness and discomfort in left leg and left arm which is chronic, no fever chills, no nausea or vomiting, no seizure-like activity no hemoptysis or hematemesis. Has history of recurrent sinusitis and recently completed course of antibiotics. And underwent CT scan of head on July 01, 2020 which showed no evidence of recurrence of disease no hydrocephalus Patient scheduled for follow-up MRI scan of C-spine and lumbar spine to evaluate progressive left arm and leg weakness , On July 18, 2020 Medications: Acetaminophen 2 (325 mg) Capsule Oral PRN, Albuterol Sulfate Aerosol Powder, Breath Activated Inhalation, Ampicillin 1 Capsule (of 500 mg) Oral t.i.d., B Complex 1 Tablet Oral daily, buPROPion HCl 1 Tablet (of 75 mg) Oral q on Every Other Day, Cabergoline (0.5 mg) Tablet Oral Take as Directed, Calcium 1 Tablet (of 600 mg) Oral daily, Colace 1 Capsule (of 250 mg) Oral b.i.d. PRN, Dronabinol 1 Capsule (of 5 mg) Oral b.i.d. PRN, Essiac Tea Herbs Leaves Oral PRN, Folic Acid 1 Tablet (of 400 mcg) Oral daily, Gabapentin 1 Capsule (of 100 mg) Oral daily, Hydrocodone-Acetaminophen 1 Tablet (of 10-325 mg) Tablet Oral 6x/d PRN, Hydrocortisone 1 Tablet (of 15 mg) Oral daily, Lactulose 2 tablespoonful(s) (of 10 g/15mL) Solution Oral b.i.d. PRN, Lasix 1 Tablet (of 40 mg) Oral daily PRN, Magnesium 1 Tablet (of 250 mg) Oral daily, Multivitamin and Minerals 1 Tablet daily, Ondansetron HCl 1 Tablet (of 4 mg) Oral t.i.d. PRN, Pantoprazole Sodium 1 Tablet (of 40 mg) Tablet, enteric coated Oral every am, Promethazine HCl 1 Suppository (of 25 mg) Rectal q 6 hours PRN, Senna-S 1 (8.6-50 mg) Tablet Oral b.i.d., Stiolto Respimat 1 puff(s) (of 2.5-2.5 mcg/act) Aerosol, solution Inhalation daily, Sudafed 1 Tablet (of 30 mg) Oral daily, Vitamin A Capsule Oral daily, Xyzal Allergy 24HR 1 Tablet (of 5 mg) Oral daily Allergies: Cats, Dust mites, Grass Pollen, Mold and Trees and HydroCHLOROthiazide. Review of Systems: Review of Systems is not available for this patient. Vital Signs: Performed on Jul 14, 2020 15:12 Height - 73.00 in Weight - 320 lbs (HIGH) BSA - 2.63 sq.m BMI - 42.22 (HIGH) Temperature - 96.7 F (LOW) Pulse - 86 /min Respiration - 18 /min BP - 148/78 mm(hg) (HIGH) O2 Sat - 94 % (LOW) Pain - 3 Fatigue - 5 Performance Status: 2 - Ambulatory/capable of all self-care, unable to perform any work activities. Up and about more than 50% of waking hours. (ECOG) Physical Examination: ENMT - No mouth sores, no thrush, no jaundice, Respiratory - Lungs are clear to auscultation, Cardiovascular - Regular rate and rhythm of heart, Abdomen - Soft, bowel sounds present, Extremities - No visible edema. Lab/Imaging: Test performed on Jun 11, 2020 13:25 Sodium 141 mmol/L TSH 0.95 uIU/mL Potassium 4.3 mmol/L Chloride 106 mmol/L CO2 29 mmol/L Anion Gap 10.3 BUN 14 mg/dL Creatinine 1.0 mg/dL Cr Clearance (Est) 151.9400 mL/min eGFR 75.7 mL/min Glucose 110 mg/dL Osmolality - Calculated 293 mOsm/kg Calcium 9.4 mg/dL Protein, Total 7.0 g/dL Albumin 3.8 g/dL Globulin 3.2 g/dL Bilirubin, Total 0.3 mg/dL ALT (SGPT) 32 U/L AST (SGOT) 26 U/L Alkaline Phosphatase 77 IU/L WBC 6.4 10 3/uL RBC 4.71 10 6/uL HGB 14.8 g/dL HCT 45.8 % MCV 97.2 fL MCH 31.4 pg MCHC 32.3 g/dL RDW 12.9 % Platelet Count 208 10 3/cmm MPV 9.2 fL Neutrophils 2.56 10 3/uL Lymphocytes 2.9 10 3/uL Monocytes 0.5 10 3/uL Eosinophils 0.3 10 3/uL Basophils 0.0 10 3/uL Neutrophil % 40.2 % Lymphocyte % 45.8 % Monocyte % 8.0 % Eosinophil % 4.6 % Basophils % 0.5 % NRBC % 0 % Test performed on Apr 29, 2020 00:00 Manual Diff Cancelled via OM: Entered in error Impression: 1. 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 2. status post metastasectomy done on 09/05/2017, postoperative MRI disclosed complete resection. Molecular studies on brain metastases biopsy showed negative for EGFR ALK, RET, HER-2/india, ROS 1,BRAF, 3. Right upper lobe lung mass 2.7 cm. 4. Indigestion/ heartburn nausea vomiting probably due to candidal esophagitis or questionable increase intracranial pressure , also with oral thrush EGD showed H. pylori status post antibiotics FOLLOWUP IMAGIN. CT scan of head done on 10/17/2017 showed stable postoperative changes from prior left occipital craniotomy and resection of previous metastatic mass from left cerebellum hemisphere. (Repeat CT of the head from 11/2017 in [facility] reported findings consistent with the 10/17/2017 imaging with no acute findings). 6. PET/CT from 10/29/2017 showed 2 x 2.3 cm right apical pulmonary nodule with SUV of 17.7. No additional abnormality noted other than status post cranial metastasectomy site. 7. MRI of the brain with and without contrast on August 23, 2018 from [facility] in [place]. 8. CT of the head noncontrast on October 12, 2019: Right frontal shunt catheter with tip in the left frontal horn. No hydrocephalus. Ventricular size is unchanged from previous scans. Prior postoperative changes occipital craniectomy. 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 Stable cerebral tonsillar ectopia with normal fourth ventricle. 9. His last PET/CT imaging was August 11, 2019. Is reported that there was ongoing decrease in FDG activity in the right upper lobe lung nodule with an SUV of 2.6 down from 3.4 on previous exam. There were no new malignant lesions present there is no indication to suspect osseous metastatic disease. CURRENT TREATMENT SUMMARY: 7. SBRT to right lung mass completed 11/23/2017 for a total dose of 3,600 cGY (48 GGY). 8. SRS to brain completed 01/16/2018 for a total dose of 2,400 cGY. 9. Carboplatin/Alimta/pembrolizumab 06/28/2018. He had 1 dose of the carboplatin Alimta had significant side effects and was transitioned to just single agent pembrolizumab in September 2018. He remains on pembrolizumab currently. discussed with Mr Mcclellan the role of systemic chemotherapy with cisplatin/Alimta versus observation alone. He has recommended chemotherapy consisting of Cisplatin 75 mg/m2 day 1 and Alimta 500 mg/m??? on day 1 repeat every 21 days ???4 cycles along with dexamethasone, folic acid and B12 as prophylactic treatment for Alimta. Mr Mcclellan transferred his care to [facility] where getting evaluation CT PET scan was done on 05/17/2018 which showed persistent right upper lobe lung mass with right bronchial lymph node involvement; Finding in the left maxillary sinus of concern for metastatic disease; A new osseous lesion seen in the right anterior iliac crest consistent with metastatic disease. Mr Mcclellan was started on carboplatin/Alimta/pembrolizumab-he was given 1 dose of chemotherapy on 06/28/2018. He experienced significant side effects so chemotherapy was discontinued and then switched to single agent Keytruda in September 2018. Patient tolerated well except some diarrhea, responded to prednisone 60 mg by mouth daily, now resolved and his follow-up CT PET scan done on 11/25/2018 showed excellent response to single agent Keytruda. The PET/CT did show a right apical lung lesion measures 3.9 x 2.4 cm with SUV of 3.4 which is significant improvement since prior study in May 2018 and likely represent inflammatory posttreatment changes. Mr Mcclellan has continued with single agent Keytruda. He is tolerating it well and has improvement in his performance status. Mr. Mcclellan had restaging PET CT on 04/26/2020. The findings were no evidence for active recurrent or residual malignancy. The right upper lobe nodule remains unchanged in size at 2.5 x 4.6 cm, with an SUV of 2.4; this is consistent with sterilize malignancy and mild residual inflammatory uptake . There was no findings to indicate osseous metastatic disease. The impression was negative for active malignancy and inflammatory activity in the sterilized right upper lobe lung carcinoma. Mr Mcclellan opted to hold his immunotherapy through . He has returned today to discuss continuing treatment verses observation alone. CT scan of head done on July 01, 2020 shows no recurrence of disease Plan: Discussed with patient regarding his labs white blood count 6.8 hemoglobin 14.8 hematocrit 46.4 platelets 210,000 CMP within normal limits and CT scan of the head, which showed no evidence of recurrence Clinically, patient doing well with no new signs symptom except persistent left arm/leg weakness and discomfort etiology unclear, now being scheduled for MRI scan of C-spine and lumbar spine on Saturday July 18, 2020. His follow-up CT scan of head showed no recurrence of disease, again treatment options including observation versus continue with immunotherapy were discussed patient opted for continue with immunotherapy with Keytruda as long as tolerated but prefer 6 weekly schedule, so we will obtain approval from his insurance for Keytruda 400 mg intravenously every 6 weeks. In the meantime, patient will return to clinic in 1 week after 6 weekly dose of Keytruda for evaluation. Signed By: Harsha Parra M.D. <<Signature on File>>
== END 2020-08-03 23:59 | disposition home or self-care (01) ==
LOC: ONCMED 05:43
PROVIDERS: PCP Emergency Medicine Emergency Medical Services; Visit Provider Internal Medicine Hematology & Oncology
DX: C34.11 Malignant neoplasm of upper lobe, right bronchus or lung (principal); C79.31 Secondary malignant neoplasm of brain; C79.51 Secondary malignant neoplasm of bone; K21.9 Gastro-esophageal reflux disease without esophagitis; E03.9 Hypothyroidism, unspecified; Z79.899 Other long term (current) drug therapy
CPT/HCPCS: 80053; 84443; 85025; 99214

== ENCOUNTER 2020-08-04 06:00 | Outpatient (RCR) | payer OTHER, SELFPAY | END 2020-09-03 23:59 | disposition home or self-care (01) | LOC: SPO 06:00 | PROVIDERS: PCP Emergency Medicine Emergency Medical Services; Visit Provider Emergency Medicine Emergency Medical Services | DX: C34.12 Malignant neoplasm of upper lobe, left bronchus or lung (principal); R53.1 Weakness; R26.89 Other abnormalities of gait and mobility | CPT/HCPCS: 97110 ==

== ENCOUNTER 2020-08-14 05:48 | Outpatient (CLI) | payer OTHER, SELFPAY ==
[2020-08-14 09:43] LABS: Basophils % 0.5 %; Eosinophils # 0.4 10^3/uL (0.0-0.8); Eosinophils % 5.1 %; Hematocrit 46.2 % (42.0-52.0); Hemoglobin 14.7 g/dL (11.7-16.6); Lymphocytes # 3.5 10^3/uL (0.8-4.8); Lymphocytes % 44.1 %; Mean Corpuscular HGB Conc 31.8 g/dL (30.0-36.0); Mean Corpuscular Hemoglobin 31.6 pg (28.0-34.0); Mean Corpuscular Volume 99.4 fL (80-94); Monocytes # 0.7 10^3/uL (0.2-0.9); Monocytes % 8.1 %; Neutrophils # 3.36 10^3/uL (1.8-7.7); Neutrophils % 41.8 %; Nucleated Red Blood Cells % 0 %; Platelet Count 222 10^3/cmm (130-400); Red Blood Count 4.65 10^6/uL (4.1-5.3); Red Cell Distribution Width 13.5 % (12.1-15.1)
[2020-08-14 10:29] LABS: Alanine Aminotransferase 42 U/L (0-41); Albumin Level 3.7 g/dL (3.5-5.2); Alkaline Phosphatase 78 IU/L (40-130); Anion Gap 13.7 (5-19); Aspartate Amino Transferase 21 U/L (0-40); Blood Urea Nitrogen 14 mg/dL (8-23); Calcium 8.5 mg/dL (8.5-10.5); Carbon Dioxide 26 mmol/L (22-29); Chloride 107 mmol/L (98-107); Globulin 2.8 g/dL (1.3-4.6); Glomerular Filtration Rate 67.6 mL/min (90-130); Glucose 144 mg/dL (65-115); Osmolality Calculated 299 mOsm/kg (285-295); Potassium 3.7 mmol/L (3.5-5.1); Sodium 143 mmol/L (136-145); Thyroid Stimulating Hormone 1.32 uIU/mL (0.27-4.20); Total Bilirubin 0.2 mg/dL (0.15-1.2); Total Protein 6.5 g/dL (6.6-8.7)
--- NOTE | 2020-08-14 17:33 | ONC FU_ITS ---
Dr. Parra follow up note Patient: Alli Mcclellan Unit #: [id number]: 1955 Dicatated By: Harsha Parra M.D.Date of Visit:Aug 14, 2020 Onc Med Follow-up/Prog Note History of Present Illness: Mr. Mcclellan is a 65-year-old gentleman who was recently diagnosed with metastatic lung cancer to brain. Mr Mcclellan reports that in August 2017, he developed side effects in that he could not speak and had trouble typing with his left hand. He had an episode of ataxia and he felt significantly dizzy, so much so that he felt like he was going to pass out. He presented to the hospital where MRI scan of brain was done on 09/01/2017. The MRI showed left cerebral mass measuring 3.6 cm and mild asymmetric prominence and enhancement at right pituitary gland. Differential included macroadenoma, craniopharyngioma, or metastatic disease. A CT chest was done and reported spiculated area of the right upper lobe measuring 2.7 cm. He underwent posterior fossa craniotomy and resection of the cerebellar mass on 09/05/2017. The final pathology reported metastatic adenocarcinoma consistent with lung primary. Molecular assay was negative for EGFR, BRAF [id number] IHC, ALK, RET, HER-2, BRAF, and ROS 1. PET/CT imaging was obtained on 10/29/2017. It did report 2 x 2.3 cm right apical pulmonary nodule with an SUV of 17.7. There were no additional pulmonary nodules or masses identified. Activity in the bilateral hilum and mediastinal lymph nodes was unremarkable. There was no other evidence for local or distant metastatic disease. Follow-up CT of the head from 11/10/2017 reported postoperative changes from prior occipital craniotomy and resection of the previous metastatic lesion from the superior aspect of the left cerebellar hemisphere. There was persistent subcutaneous occipital scalp fluid that may communicate with the CSF space through meningeal defect posterior to the cervical do medullary junction. There were mild central and peripheral atrophy. No acute findings of the head and no significant change from 10/17/2017. It was noted that he had left maxillary sinusitis. Mr. Mcclellan was referred to Dr Lyle in radiation oncology for treatment of the lung mass and consideration of radiation to the brain. Mr Mcclellan had SBRT to the right lung. He had a total dose of 3600 cGy (48 GY). His start date was 11/16/2017. His completion date was 11/23/2017. Mr. Mcclellan then underwent SRS to the brain. His total dose was 2400 cGy. He started on 01/11/2018 and ended on 01/16/2018. He was given Decadron 4 mg twice a day while on treatment with instructions to taper slowly after radiation was completed. Mr. Mcclellan was evaluated and was offered chemotherapy with cisplatin Alimta every 3 weeks for 4 cycles. He has been very hesitant to proceed with chemotherapy due to concerns about side effects. Interim history: Mr Mcclellan went to [place] for further oncology care. His CT PET scan done on 05/17 showed left cerebellar consistent with known prior dissection; Right lung upper lobe consistent with persistent tumor with right bronchial lymph node involvement; Left maxillary sinus of concern for metastatic disease and A new osseous lesion in the right anterior iliac crest consistent with metastatic disease. Once again chemotherapy was recommended and he consentetd. He was given 1 cycle of carboplatin/Alimta/pembrolizumab on 06/28/2018 but he had significant side effects including nausea, vomiting- fatigue requiring hydration, subsequently chemotherapy was discontinued because of intolerance. He was switched to single agent Keytruda on 09/06/2018, tolerated immunotherapy well-except associated or diarrhea which was treated with prednisone 60 mg daily and responded well. He has had no further episodes of the significant diarrhea. He had follow-up CT PET scanOn 11/25/2018 which showed the right apical lung lesion currently measured 3.9 x 2.4 cm with SUV of 3.4 (this is a significant improvement since prior study and likely represent chronic inflammation); Status post right ventriculoperitoneal shunt placement done on 02/15/2019. CT scan of head was done on 04/03/2019 showed stable frontal ventricular shunt tube position with decreased ventriculomegaly since 02/15/2019. 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 On 04/13/2019 Mr Mcclellan presented to the local emergency room with with chief complaints of floaters in his vision off and on and this time in the right eye only. He was sent to [facility] in [place] emergency room where he was evaluated by ophthalmology and no retinal detachment was observed. Follow-up in 2 weeks was recommended but he did not go for follow-up as condition resolved on its own. He also had CT scan of head done on 04/13/2019 which showed no intracranial hemorrhage or mass effect; Unchanged ventricular configuration; Unchanged right frontal ventricular shunt catheter tip terminating in the left frontal horn; Unchanged left cerebellar hemisphere encephalomalacia and postsurgical changes; CT scan of the head done on 05/14/2019 showed right frontal shunt catheter with tip in the left frontal horn. No hydrocephalus; Postoperative changes occipital craniectomy. He remains on immunotherapy with pembrolizumab. Tolerating Keytruda well otherwise Follow-up CT PET scan done on 08/11/2019 showed there is ongoing decrease in FDG activity in the right upper lobe nodule now SUV is 2.6 down from 3.4 previously .no new lesion seen CT scan of the head done on 10/12/2019 shows right frontal shunt cath with the tip in the left frontal horn. No hydrocephalus. Prior postoperative changes occipital status post occipital craniotomy. 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 Recently underwent left arm nerve conduction study, as per patient he was told his left hand weakness and numbness is due to ulnar neuropathy, now being treated with physical therapy. He has been having vertigo Patient was seen by ENT as per patient nothing significant was observed. He states he is having problems with his hand. He states that he did have nerve conduction which reportedly was normal but the technologist that was doing the study indicated that he might need an MRI of his brain. Mr. Mcclellan would like to pursue this if at all possible. He does see Dr. Sam on December [address] Sam is leaving in January so is not sure he can get the MRI scheduled at that point. He states that he does have an MRI of the brain he will need his shunt regulated. He states in regard to Dr. Flaco clinton, he has used Dr Dinh in [place], [place]. Follow-up CT scan of head was done on January 03, 2020 which is unchanged since October 12, 2019, no enhancing masses or acute intracranial hemorrhage. Postoperative changes of occipital craniectomy with encephalomalacia left cerebellum and unchanged pseudomeningocele. MANAGEMENT NURSE RN shunt catheter tip terminating anterior horn of left lateral ventricle. No hydrocephalus. Left maxillary sinusitis, Oral antibiotics were prescribed He has had persistent discomfort but mild puffiness in the left hand, which is improving, patient was transferred to [place] recently for nausea vomiting and there was a concern regarding malfunctioning of intracranial shunt, as per patient he was evaluated by neurosurgery in [place] and had MRI scan of head done there which showed shunt was functioning fine and no new lesions seen patient said he may have some kind of reaction to the contrast as he was feeling pain all over his body and responded well to morphine. Mr Mcclellan was referred to physical therapy. He continues the Keytruda. Mr. Mcclellan had restaging PET CT on 04/26/2020. The findings were no evidence for active recurrent or residual malignancy. The right upper lobe nodule remains unchanged in size at 2.5 x 4.6 cm, with an SUV of 2.4; this is consistent with sterilize malignancy and mild residual inflammatory uptake . There was no findings to indicate osseous metastatic disease. The impression was negative for active malignancy and inflammatory activity in the sterilized right upper lobe lung carcinoma. He continues with Keytruda. Mr Mcclellan is here today for followup and consideration of Keytruda. He has completed 28 cycles with his last cycle being 04/30/2020. At his follow-up visit with us on 05/21/2020 they had discussed his PET CT results from 04/26/2020. The findings were no evidence for active recurrent or residual malignancy. The right upper lobe nodule remains unchanged in size from 2.5 x 4.6 cm with an SUV of 2.4; this is consistent with sterilized malignancy and mild residual inflammatory uptake . There were no findings to indicate osseous metastatic disease. The impression was negative for active malignancy and inflammatory activity in the sterilized right upper lobe lung carcinoma. Given those results and was offered either the option of continuing immunotherapy or switching to observation alone as the recent PET/CT persistently shows no evidence of active active disease.Patient opted to continue with the treatment but would prefer every [address] scan of head done on July 01, 2020 showed stable occipital craniectomy and postsurgical change in the left cerebellum. No recurrent tumor. Right frontal MANAGEMENT NURSE RN shunt catheter unchanged in position. No hydrocephalus. Sinusitis And underwent CT scan of head on July 01, 2020 which showed no evidence of recurrence of disease no hydrocephalus Patient scheduled for follow-up MRI scan of C-spine and lumbar spine to evaluate progressive left arm and leg weakness Done on August 05, 2020 which showed no significant change. Stable C5-6 disc bulge with facet degenerative changes and moderate central canal and severe bilateral foraminal narrowing. Additional degenerative changes throughout the cervical spine without significant central canal or foraminal stenosis. #2 stable appearance of the midline suboccipital craniectomy and overlying suspected pseudomeningocele. Chronic bilateral inferior cerebellar changes with volume loss and enlarged fourth ventricle. MRI scan lumbar showed no significant change or acute osseous or soft tissue abnormality seen. Mild worsening of the moderate central canal stenosis at L4-5 secondary to worsening ligamentum flavum hypertrophy and facet degenerative changes and persistent bulging disc As per patient he was offered surgical option for C-spine abnormality, which may improve his left arm weakness, patient is considering other options Came for follow-up, denies any specific complaints, no fever chills, no nausea or vomiting, no diarrhea or constipation, no headaches blurred vision or double vision, no new bony pains but persistent left arm weakness. No hemoptysis hematemesis,, no skin rash, no jaundice. Tolerating immunotherapy with Keytruda well otherwise now being considered for 6 weekly dose schedule with Keytruda 400 mg every 6-week Medications: Acetaminophen 2 (325 mg) Capsule Oral PRN, Albuterol Sulfate Aerosol Powder, Breath Activated Inhalation, Ampicillin 1 Capsule (of 500 mg) Oral t.i.d., B Complex 1 Tablet Oral daily, buPROPion HCl 1 Tablet (of 75 mg) Oral q on Every Other Day, Cabergoline (0.5 mg) Tablet Oral Take as Directed, Calcium 1 Tablet (of 600 mg) Oral daily, Colace 1 Capsule (of 250 mg) Oral b.i.d. PRN, Dronabinol 1 Capsule (of 5 mg) Oral b.i.d. PRN, Essiac Tea Herbs Leaves Oral PRN, Folic Acid 1 Tablet (of 400 mcg) Oral daily, Gabapentin 1 Capsule (of 100 mg) Oral daily, Hydrocodone-Acetaminophen 1 Tablet (of 10-325 mg) Tablet Oral 6x/d PRN, Hydrocortisone 1 Tablet (of 15 mg) Oral daily, Lactulose 2 tablespoonful(s) (of 10 g/15mL) Solution Oral b.i.d. PRN, Lasix 1 Tablet (of 40 mg) Oral daily PRN, Magnesium 1 Tablet (of 250 mg) Oral daily, Multivitamin and Minerals 1 Tablet daily, Ondansetron HCl 1 Tablet (of 4 mg) Oral t.i.d. PRN, Pantoprazole Sodium 1 Tablet (of 40 mg) Tablet, enteric coated Oral every am, Promethazine HCl 1 Suppository (of 25 mg) Rectal q 6 hours PRN, Senna-S 1 (8.6-50 mg) Tablet Oral b.i.d., Stiolto Respimat 1 puff(s) (of 2.5-2.5 mcg/act) Aerosol, solution Inhalation daily, Sudafed 1 Tablet (of 30 mg) Oral daily, Vitamin A Capsule Oral daily, Xyzal Allergy 24HR 1 Tablet (of 5 mg) Oral daily Allergies: Cats, Dust mites, Grass Pollen, Mold and Trees and HydroCHLOROthiazide. Review of Systems: Review of Systems is not available for this patient. Vital Signs: Performed on Aug 14, 2020 11:39 Height - 73.00 in Weight - 318.8 lbs (LOW) BSA - 2.62 sq.m BMI - 42.06 (HIGH) Temperature - 98.7 F Pulse - 82 /min Respiration - 18 /min BP - 149/79 mm(hg) (HIGH) O2 Sat - 92 % (LOW) Pain - 3 Fatigue - 5 Performance Status: 1 - No physically strenuous activity, but ambulatory and able to carry out light or sedentary work (e.g. office work, light house work). (ECOG) Physical Examination: ENMT - Both, no thrush, no jaundice, Respiratory - Lungs are clear to auscultation, Cardiovascular - Regular rate and rhythm of heart, Abdomen - Soft, bowel sounds present, Extremities - No visible edema. Lab/Imaging: Test performed on Jul 14, 2020 13:51 Sodium 142 mmol/L TSH 0.95 uIU/mL Potassium 3.9 mmol/L Chloride 103 mmol/L CO2 30 mmol/L Anion Gap 12.9 BUN 15 mg/dL Creatinine 1.0 mg/dL Cr Clearance (Est) 155.23 mL/min eGFR 75.7 mL/min Glucose 113 mg/dL Osmolality - Calculated 296 mOsm/kg Calcium 9.3 mg/dL Protein, Total 7.2 g/dL Albumin 4.1 g/dL Globulin 3.1 g/dL Bilirubin, Total 0.3 mg/dL ALT (SGPT) 27 U/L AST (SGOT) 19 U/L Alkaline Phosphatase 75 IU/L WBC 6.8 10 3/uL RBC 4.73 10 6/uL HGB 14.8 g/dL HCT 46.4 % MCV 98.1 fL MCH 31.3 pg MCHC 31.9 g/dL RDW 13.2 % Platelet Count 210 10 3/cmm MPV 9.4 fL Neutrophils 3.20 10 3/uL Lymphocytes 2.7 10 3/uL Monocytes 0.6 10 3/uL Eosinophils 0.3 10 3/uL Basophils 0.0 10 3/uL Neutrophil % 47.1 % Lymphocyte % 40.0 % Monocyte % 8.4 % Eosinophil % 4.0 % Basophils % 0.4 % NRBC % 0 % Test performed on Apr 29, 2020 00:00 Manual Diff Cancelled via OM: Entered in error Impression: 1. 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 2. status post metastasectomy done on 09/05/2017, postoperative MRI disclosed complete resection. Molecular studies on brain metastases biopsy showed negative for EGFR ALK, RET, HER-2/india, ROS 1,BRAF, 3. Right upper lobe lung mass 2.7 cm. 4. Indigestion/ heartburn nausea vomiting probably due to candidal esophagitis or questionable increase intracranial pressure , also with oral thrush EGD showed H. pylori status post antibiotics FOLLOWUP IMAGIN. CT scan of head done on 10/17/2017 showed stable postoperative changes from prior left occipital craniotomy and resection of previous metastatic mass from left cerebellum hemisphere. (Repeat CT of the head from 11/2017 [place] [facility] reported findings consistent with the 10/17/2017 imaging with no acute findings). 6. PET/CT from 10/29/2017 showed 2 x 2.3 cm right apical pulmonary nodule with SUV of 17.7. No additional abnormality noted other than status post cranial metastasectomy site. 7. MRI of the brain with and without contrast on August 23, 2018 from [facility] in [place]. 8. CT of the head noncontrast on October 12, 2019: Right frontal shunt catheter with tip in the left frontal horn. No hydrocephalus. Ventricular size is unchanged from previous scans. Prior postoperative changes occipital craniectomy. 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 Stable cerebral tonsillar ectopia with normal fourth ventricle. 9. His last PET/CT imaging was August 11, 2019. Is reported that there was ongoing decrease in FDG activity in the right upper lobe lung nodule with an SUV of 2.6 down from 3.4 on previous exam. There were no new malignant lesions present there is no indication to suspect osseous metastatic disease. CURRENT TREATMENT SUMMARY: 7. SBRT to right lung mass completed 11/23/2017 for a total dose of 3,600 cGY (48 GGY). 8. SRS to brain completed 01/16/2018 for a total dose of 2,400 cGY. 9. Carboplatin/Alimta/pembrolizumab 06/28/2018. He had 1 dose of the carboplatin Alimta had significant side effects and was transitioned to just single agent pembrolizumab in September 2018. He remains on pembrolizumab currently. discussed with Mr Mcclellan the role of systemic chemotherapy with cisplatin/Alimta versus observation alone. He has recommended chemotherapy consisting of Cisplatin 75 mg/m2 day 1 and Alimta 500 mg/m??? on day 1 repeat every 21 days ???4 cycles along with dexamethasone, folic acid and B12 as prophylactic treatment for Alimta. Mr Mcclellan transferred his care to [facility] where getting evaluation CT PET scan was done on 05/17/2018 which showed persistent right upper lobe lung mass with right bronchial lymph node involvement; Finding in the left maxillary sinus of concern for metastatic disease; A new osseous lesion seen in the right anterior iliac crest consistent with metastatic disease. Mr Mcclellan was started on carboplatin/Alimta/pembrolizumab-he was given 1 dose of chemotherapy on 06/28/2018. He experienced significant side effects so chemotherapy was discontinued and then switched to single agent Keytruda in September 2018. Patient tolerated well except some diarrhea, responded to prednisone 60 mg by mouth daily, now resolved and his follow-up CT PET scan done on 11/25/2018 showed excellent response to single agent Keytruda. The PET/CT did show a right apical lung lesion measures 3.9 x 2.4 cm with SUV of 3.4 which is significant improvement since prior study in May 2018 and likely represent inflammatory posttreatment changes. Mr Mcclellan has continued with single agent Keytruda. He is tolerating it well and has improvement in his performance status. Mr. Mcclellan had restaging PET CT on 04/26/2020. The findings were no evidence for active recurrent or residual malignancy. The right upper lobe nodule remains unchanged in size at 2.5 x 4.6 cm, with an SUV of 2.4; this is consistent with sterilize malignancy and mild residual inflammatory uptake . There was no findings to indicate osseous metastatic disease. The impression was negative for active malignancy and inflammatory activity in the sterilized right upper lobe lung carcinoma. Mr Mcclellan opted to hold his immunotherapy through [place]. He has returned today to discuss continuing treatment verses observation alone. CT scan of head done on July 01, 2020 shows no recurrence of disease MRI scan of the C-spine done on August 05, 2020 to evaluate left arm weakness shows no significant change but stable C5-C6 disc bulge with facet degenerative changes and moderate central canal and severe bilateral foraminal narrowing. As per patient surgical option was discussed but he is somewhat reluctant and considering other options MRI scan of lumbar done on August 05, 2020 showed no significant changes mild worsening of moderate central canal stenosis at L4-5 secondary to worsening ligamentum flavum hypertrophy and facet degenerative changes and persistent bulging disc Plan: Discussed with patient regarding his labs white blood count 8 hemoglobin 14.7 hematocrit 46.2 platelets 222,000 Clinically, patient doing well with no new signs symptoms, tolerating Keytruda well, no being considered for 6 weekly schedule so he will receive Keytruda 400 mg intravenously today and then return to clinic in 6 weeks with CBC CMP and follow-up CT PET scan to assess disease status As well left arm weakness on neuropathy is concerned, recent done MRI scan of C-spine shows bulging disc at C5-6 and surgical options under consideration but patient is somewhat reluctant but will discuss with neurosurgery in [place] Signed By: Harsha Parra M.D. <<Signature on File>>
== END 2020-08-14 05:49 | disposition home or self-care (01) ==
LOC: ONCMED 05:49
PROVIDERS: PCP Emergency Medicine Emergency Medical Services; Visit Provider Internal Medicine Hematology & Oncology
DX: C34.11 Malignant neoplasm of upper lobe, right bronchus or lung (principal); C79.31 Secondary malignant neoplasm of brain; M50.222 Other cervical disc displacement at C5-C6 level; R53.1 Weakness; Z92.3 Personal history of irradiation; Z79.899 Other long term (current) drug therapy
CPT/HCPCS: 80053; 84443; 85025; 96413; 99214; J7050; J9271

== ENCOUNTER 2020-08-19 08:20 | Outpatient (CLI) | payer OTHER, SELFPAY ==
--- NOTE | 2020-08-19 08:23 | CT_ITS ---
WS: [id number] CT scan of the sinuses without IV contrast. Additional two-dimensional coronal and sagittal reconstru ction was performed. 08/19/2020 Clinical Data: CHRONIC SINUS INFECTION Comparison: CT head, 07/01/2020 DLP: 377.[address] scans at [facility] use at least one of these dose optimization techniques: automat ed exposure control; mA and/or kV adjustment per patient size (includes targeted exams where dose is matched to clinical indication); or iterative reconstruction. Findings: There is minimal mucoperiosteal thickening of the left frontal sinus, left maxillary sinus and left e thmoid sinus but no air-fluid levels are seen. There is no bone destruction or erosion. There is nasa l septal deviation from right to left. There is a ventriculoperitoneal shunt tube ending in the anter ior horn of the left lateral ventricle but entering from the right frontal bone. Mild ventricular dil atation is present. CT/CT sinus wo con* [id number] Impression: 1. Mild chronic left frontal, maxillary and ethmoid sinusitis. 2. Negative for acute sinusitis.
== END 2020-08-19 08:21 | disposition home or self-care (01) ==
LOC: RADWPI 08:22
PROVIDERS: PCP Emergency Medicine Emergency Medical Services; Visit Provider Emergency Medicine Emergency Medical Services
DX: J32.1 Chronic frontal sinusitis (principal); J32.0 Chronic maxillary sinusitis; J32.2 Chronic ethmoidal sinusitis
CPT/HCPCS: 70486

== ENCOUNTER 2020-09-25 08:27 | Outpatient (CLI) | payer OTHER, SELFPAY ==
[2020-09-25 09:11] LABS: Basophils % 0.5 %; Eosinophils # 0.3 10^3/uL (0.0-0.8); Eosinophils % 3.9 %; Hematocrit 45.8 % (42.0-52.0); Hemoglobin 14.9 g/dL (11.7-16.6); Lymphocytes # 2.3 10^3/uL (0.8-4.8); Lymphocytes % 35.9 %; Mean Corpuscular HGB Conc 32.5 g/dL (30.0-36.0); Mean Corpuscular Hemoglobin 31.9 pg (28.0-34.0); Mean Corpuscular Volume 98.1 fL (80-94); Monocytes # 0.6 10^3/uL (0.2-0.9); Monocytes % 8.8 %; Neutrophils % 50.7 %; Nucleated Red Blood Cells % 0 %; Platelet Count 209 10^3/cmm (130-400); Red Blood Count 4.67 10^6/uL (4.1-5.3); Red Cell Distribution Width 13.2 % (12.1-15.1); White Blood Count 6.5 10^3/uL (4.0-10.0)
[2020-09-25 09:40] LABS: Alanine Aminotransferase 36 U/L (0-41); Alkaline Phosphatase 73 IU/L (40-130); Anion Gap 13.8 (5-19); Aspartate Amino Transferase 23 U/L (0-40); Blood Urea Nitrogen 10 mg/dL (8-23); Calcium 8.5 mg/dL (8.5-10.5); Carbon Dioxide 24 mmol/L (22-29); Chloride 103 mmol/L (98-107); Glomerular Filtration Rate 113.9 mL/min (90-130); Glucose 98 mg/dL (65-115); Osmolality Calculated 283 mOsm/kg (285-295); Potassium 3.8 mmol/L (3.5-5.1); Sodium 137 mmol/L (136-145); Total Bilirubin 0.5 mg/dL (0.15-1.2)
--- NOTE | 2020-09-25 14:38 | ONC FU_ITS ---
Dr. Parra follow up note Patient: Alli Mcclellan Unit #: [id number]: 1955 Dicatated By: Harsha Parra M.D.Date of Visit:Sep 25, 2020 Onc Med Follow-up/Prog Note History of Present Illness: Mr. Mcclellan is a 65-year-old gentleman who was recently diagnosed with metastatic lung cancer to brain. Mr Mcclellan reports that in August 2017, he developed side effects in that he could not speak and had trouble typing with his left hand. He had an episode of ataxia and he felt significantly dizzy, so much so that he felt like he was going to pass out. He presented to the hospital where MRI scan of brain was done on 09/01/2017. The MRI showed left cerebral mass measuring 3.6 cm and mild asymmetric prominence and enhancement at right pituitary gland. Differential included macroadenoma, craniopharyngioma, or metastatic disease. A CT chest was done and reported spiculated area of the right upper lobe measuring 2.7 cm. He underwent posterior fossa craniotomy and resection of the cerebellar mass on 09/05/2017. The final pathology reported metastatic adenocarcinoma consistent with lung primary. Molecular assay was negative for EGFR, BRAF V600E IHC, ALK, RET, HER-2, BRAF, and ROS 1. PET/CT imaging was obtained on 10/29/2017. It did report 2 x 2.3 cm right apical pulmonary nodule with an SUV of 17.7. There were no additional pulmonary nodules or masses identified. Activity in the bilateral hilum and mediastinal lymph nodes was unremarkable. There was no other evidence for local or distant metastatic disease. Follow-up CT of the head from 11/10/2017 reported postoperative changes from prior occipital craniotomy and resection of the previous metastatic lesion from the superior aspect of the left cerebellar hemisphere. There was persistent subcutaneous occipital scalp fluid that may communicate with the CSF space through meningeal defect posterior to the cervical do medullary junction. There were mild central and peripheral atrophy. No acute findings of the head and no significant change from 10/17/2017. It was noted that he had left maxillary sinusitis. Mr. Mcclellan was referred to Dr Lyle in radiation oncology for treatment of the lung mass and consideration of radiation to the brain. Mr Mcclellan had SBRT to the right lung. He had a total dose of 3600 cGy (48 GY). His start date was 11/16/2017. His completion date was 11/23/2017. Mr. Mcclellan then underwent SRS to the brain. His total dose was 2400 cGy. He started on 01/11/2018 and ended on 01/16/2018. He was given Decadron 4 mg twice a day while on treatment with instructions to taper slowly after radiation was completed. Mr. Mcclellan was evaluated and was offered chemotherapy with cisplatin Alimta every 3 weeks for 4 cycles. He has been very hesitant to proceed with chemotherapy due to concerns about side effects. Interim history: Mr Mcclellan went to [place] for further oncology care. His CT PET scan done on 05/17 showed left cerebellar consistent with known prior dissection; Right lung upper lobe consistent with persistent tumor with right bronchial lymph node involvement; Left maxillary sinus of concern for metastatic disease and A new osseous lesion in the right anterior iliac crest consistent with metastatic disease. Once again chemotherapy was recommended and he consentetd. He was given 1 cycle of carboplatin/Alimta/pembrolizumab on 06/28/2018 but he had significant side effects including nausea, vomiting- fatigue requiring hydration, subsequently chemotherapy was discontinued because of intolerance. He was switched to single agent Keytruda on 09/06/2018, tolerated immunotherapy well-except associated or diarrhea which was treated with prednisone 60 mg daily and responded well. He has had no further episodes of the significant diarrhea. He had follow-up CT PET scanOn 11/25/2018 which showed the right apical lung lesion currently measured 3.9 x 2.4 cm with SUV of 3.4 (this is a significant improvement since prior study and likely represent chronic inflammation); Status post right ventriculoperitoneal shunt placement done on 02/15/2019. CT scan of head was done on 04/03/2019 showed stable frontal ventricular shunt tube position with decreased ventriculomegaly since 02/15/2019. 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 On 04/13/2019 Mr Mcclellan presented to the local emergency room with with chief complaints of floaters in his vision off and on and this time in the right eye only. He was sent to [facility] in [place] emergency room where he was evaluated by ophthalmology and no retinal detachment was observed. Follow-up in 2 weeks was recommended but he did not go for follow-up as condition resolved on its own. He also had CT scan of head done on 04/13/2019 which showed no intracranial hemorrhage or mass effect; Unchanged ventricular configuration; Unchanged right frontal ventricular shunt catheter tip terminating in the left frontal horn; Unchanged left cerebellar hemisphere encephalomalacia and postsurgical changes; CT scan of the head done on 05/14/2019 showed right frontal shunt catheter with tip in the left frontal horn. No hydrocephalus; Postoperative changes occipital craniectomy. He remains on immunotherapy with pembrolizumab. Tolerating Keytruda well otherwise Follow-up CT PET scan done on 08/11/2019 showed there is ongoing decrease in FDG activity in the right upper lobe nodule now SUV is 2.6 down from 3.4 previously .no new lesion seen CT scan of the head done on 10/12/2019 shows right frontal shunt cath with the tip in the left frontal horn. No hydrocephalus. Prior postoperative changes occipital status post occipital craniotomy. 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 Recently underwent left arm nerve conduction study, as per patient he was told his left hand weakness and numbness is due to ulnar neuropathy, now being treated with physical therapy. He has been having vertigo Patient was seen by ENT as per patient nothing significant was observed. He states he is having problems with his hand. He states that he did have nerve conduction which reportedly was normal but the technologist that was doing the study indicated that he might need an MRI of his brain. Mr. Mcclellan would like to pursue this if at all possible. He does see Dr. Sam on December [address] Sam is leaving in January so is not sure he can get the MRI scheduled at that point. He states that he does have an MRI of the brain he will need his shunt regulated. He states in regard to Dr. Flaco clinton, he has used Dr Dinh in [place], [place]. Follow-up CT scan of head was done on January 03, 2020 which is unchanged since October 12, 2019, no enhancing masses or acute intracranial hemorrhage. Postoperative changes of occipital craniectomy with encephalomalacia left cerebellum and unchanged pseudomeningocele. SHIPPER shunt catheter tip terminating anterior horn of left lateral ventricle. No hydrocephalus. Left maxillary sinusitis, Oral antibiotics were prescribed He has had persistent discomfort but mild puffiness in the left hand, which is improving, patient was transferred to [place] recently for nausea vomiting and there was a concern regarding malfunctioning of intracranial shunt, as per patient he was evaluated by neurosurgery in [place] and had MRI scan of head done there which showed shunt was functioning fine and no new lesions seen patient said he may have some kind of reaction to the contrast as he was feeling pain all over his body and responded well to morphine. Mr Mcclellan was referred to physical therapy. He continues the Keytruda. Mr. Mcclellan had restaging PET CT on 04/26/2020. The findings were no evidence for active recurrent or residual malignancy. The right upper lobe nodule remains unchanged in size at 2.5 x 4.6 cm, with an SUV of 2.4; this is consistent with sterilize malignancy and mild residual inflammatory uptake . There was no findings to indicate osseous metastatic disease. The impression was negative for active malignancy and inflammatory activity in the sterilized right upper lobe lung carcinoma. He continues with Keytruda. Mr Mcclellan is here today for followup and consideration of Keytruda. He has completed 28 cycles with his last cycle being 04/30/2020. At his follow-up visit with us on 05/21/2020 they had discussed his PET CT results from 04/26/2020. The findings were no evidence for active recurrent or residual malignancy. The right upper lobe nodule remains unchanged in size from 2.5 x 4.6 cm with an SUV of 2.4; this is consistent with sterilized malignancy and mild residual inflammatory uptake . There were no findings to indicate osseous metastatic disease. The impression was negative for active malignancy and inflammatory activity in the sterilized right upper lobe lung carcinoma. Given those results and was offered either the option of continuing immunotherapy or switching to observation alone as the recent PET/CT persistently shows no evidence of active active disease.Patient opted to continue with the treatment but would prefer every [address] scan of head done on July 01, 2020 showed stable occipital craniectomy and postsurgical change in the left cerebellum. No recurrent tumor. Right frontal SHIPPER shunt catheter unchanged in position. No hydrocephalus. Sinusitis And underwent CT scan of head on July 01, 2020 which showed no evidence of recurrence of disease no hydrocephalus Patient scheduled for follow-up MRI scan of C-spine and lumbar spine to evaluate progressive left arm and leg weakness Done on August 05, 2020 which showed no significant change. Stable C5-6 disc bulge with facet degenerative changes and moderate central canal and severe bilateral foraminal narrowing. Additional degenerative changes throughout the cervical spine without significant central canal or foraminal stenosis. #2 stable appearance of the midline suboccipital craniectomy and overlying suspected pseudomeningocele. Chronic bilateral inferior cerebellar changes with volume loss and enlarged fourth ventricle. MRI scan lumbar showed no significant change or acute osseous or soft tissue abnormality seen. Mild worsening of the moderate central canal stenosis at L4-5 secondary to worsening ligamentum flavum hypertrophy and facet degenerative changes and persistent bulging disc As per patient he was offered surgical option for C-spine abnormality, which may improve his left arm weakness, patient is considering other options Follow-up CT PET scan done on August 16, 2020 showed there has been no change in the right upper lobe mass measuring 2.5 x 4.7 cm SUV of 2.7 which is consistent with sterilized malignancy and mild chronic inflammation Came for follow-up, denies any specific complaint except generalized body aches and mild diarrhea, patient had a second Covid vaccine yesterday as per patient even with the first dose he felt tender at the injection site in his left arm and then diarrhea for couple of days. , Also complaining of vomiting off and on, in the past lorazepam has helped him and but no indigestion no hemoptysis or hematemesis, no skin rash, no jaundice, no blood in his stool. Patient had CT PET scan done recently and also had MRI scan of brain done at [facility] in [place] last week. And he is here to discuss the results and further treatment. Medications: Acetaminophen 2 (325 mg) Capsule Oral PRN, Albuterol Sulfate Aerosol Powder, Breath Activated Inhalation, Ampicillin 1 Capsule (of 500 mg) Oral t.i.d., B Complex 1 Tablet Oral daily, buPROPion HCl 1 Tablet (of 75 mg) Oral q on Every Other Day, Cabergoline (0.5 mg) Tablet Oral Take as Directed, Calcium 1 Tablet (of 600 mg) Oral daily, Colace 1 Capsule (of 250 mg) Oral b.i.d. PRN, Dronabinol 1 Capsule (of 5 mg) Oral b.i.d. PRN, Essiac Tea Herbs Leaves Oral PRN, Folic Acid 1 Tablet (of 400 mcg) Oral daily, Gabapentin 1 Capsule (of 100 mg) Oral daily, Hydrocodone-Acetaminophen 1 Tablet (of 10-325 mg) Tablet Oral 6x/d PRN, Hydrocortisone 1 Tablet (of 2.5 mg) Oral daily, Lactulose 2 tablespoonful(s) (of 10 g/15mL) Solution Oral b.i.d. PRN, Lasix 1 Tablet (of 40 mg) Oral daily PRN, Magnesium 1 Tablet (of 250 mg) Oral daily, Multivitamin and Minerals 1 Tablet daily, Ondansetron HCl 1 Tablet (of 4 mg) Oral t.i.d. PRN, Pantoprazole Sodium 1 Tablet (of 40 mg) Tablet, enteric coated Oral every am, Promethazine HCl 1 Suppository (of 25 mg) Rectal q 6 hours PRN, Senna-S 1 (8.6-50 mg) Tablet Oral b.i.d., Stiolto Respimat 1 puff(s) (of 2.5-2.5 mcg/act) Aerosol, solution Inhalation daily, Sudafed 1 Tablet (of 30 mg) Oral daily, Vitamin A Capsule Oral daily, Xyzal Allergy 24HR 1 Tablet (of 5 mg) Oral daily Allergies: Cats, Dust mites, Grass Pollen, Mold and Trees and HydroCHLOROthiazide. Review of Systems: Review of Systems is not available for this patient. Vital Signs: Performed on Sep 25, 2020 13:11 Height - 73.00 in Weight - 317.6 lbs (LOW) BSA - 2.62 sq.m BMI - 41.90 (HIGH) Temperature - 98.0 F (LOW) Pulse - 87 /min Respiration - 18 /min BP - 137/89 mm(hg) O2 Sat - 97 % Pain - 3 Performance Status: 2 - Ambulatory/capable of all self-care, unable to perform any work activities. Up and about more than 50% of waking hours. (ECOG) Physical Examination: ENMT - No mouth sores, no thrush, no jaundice, Respiratory - Poor air entry otherwise clear, Cardiovascular - Regular rate and rhythm of heart, Abdomen - Soft, bowel sounds present, Extremities - Trace edema bilaterally. Lab/Imaging: Test performed on Jul 14, 2020 13:51 Sodium 142 mmol/L TSH 0.95 uIU/mL Potassium 3.9 mmol/L Chloride 103 mmol/L CO2 30 mmol/L Anion Gap 12.9 BUN 15 mg/dL Creatinine 1.0 mg/dL Cr Clearance (Est) 155.23 mL/min eGFR 75.7 mL/min Glucose 113 mg/dL Osmolality - Calculated 296 mOsm/kg Calcium 9.3 mg/dL Protein, Total 7.2 g/dL Albumin 4.1 g/dL Globulin 3.1 g/dL Bilirubin, Total 0.3 mg/dL ALT (SGPT) 27 U/L AST (SGOT) 19 U/L Alkaline Phosphatase 75 IU/L WBC 6.8 10 3/uL RBC 4.73 10 6/uL HGB 14.8 g/dL HCT 46.4 % MCV 98.1 fL MCH 31.3 pg MCHC 31.9 g/dL RDW 13.2 % Platelet Count 210 10 3/cmm MPV 9.4 fL Neutrophils 3.20 10 3/uL Lymphocytes 2.7 10 3/uL Monocytes 0.6 10 3/uL Eosinophils 0.3 10 3/uL Basophils 0.0 10 3/uL Neutrophil % 47.1 % Lymphocyte % 40.0 % Monocyte % 8.4 % Eosinophil % 4.0 % Basophils % 0.4 % NRBC % 0 % Test performed on Apr 29, 2020 00:00 Manual Diff Cancelled via OM: Entered in error Impression: 1. 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 2. status post metastasectomy done on 09/05/2017, postoperative MRI disclosed complete resection. Molecular studies on brain metastases biopsy showed negative for EGFR ALK, RET, HER-2/india, ROS 1,BRAF, 3. Right upper lobe lung mass 2.7 cm. 4. Indigestion/ heartburn nausea vomiting probably due to candidal esophagitis or questionable increase intracranial pressure , also with oral thrush EGD showed H. pylori status post antibiotics FOLLOWUP IMAGIN. CT scan of head done on 10/17/2017 showed stable postoperative changes from prior left occipital craniotomy and resection of previous metastatic mass from left cerebellum hemisphere. (Repeat CT of the head from 11/2017 in [facility] reported findings consistent with the 10/17/2017 imaging with no acute findings). 6. PET/CT from 10/29/2017 showed 2 x 2.3 cm right apical pulmonary nodule with SUV of 17.7. No additional abnormality noted other than status post cranial metastasectomy site. 7. MRI of the brain with and without contrast on August 23, 2018 from [facility] in [place]. 8. CT of the head noncontrast on October 12, 2019: Right frontal shunt catheter with tip in the left frontal horn. No hydrocephalus. Ventricular size is unchanged from previous scans. Prior postoperative changes occipital craniectomy. 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 Stable cerebral tonsillar ectopia with normal fourth ventricle. 9. His last PET/CT imaging was August 11, 2019. Is reported that there was ongoing decrease in FDG activity in the right upper lobe lung nodule with an SUV of 2.6 down from 3.4 on previous exam. There were no new malignant lesions present there is no indication to suspect osseous metastatic disease. CURRENT TREATMENT SUMMARY: 7. SBRT to right lung mass completed 11/23/2017 for a total dose of 3,600 cGY (48 GGY). 8. SRS to brain completed 01/16/2018 for a total dose of 2,400 cGY. 9. Carboplatin/Alimta/pembrolizumab 06/28/2018. He had 1 dose of the carboplatin Alimta had significant side effects and was transitioned to just single agent pembrolizumab in September 2018. He remains on pembrolizumab currently. discussed with Mr Mcclellan the role of systemic chemotherapy with cisplatin/Alimta versus observation alone. He has recommended chemotherapy consisting of Cisplatin 75 mg/m2 day 1 and Alimta 500 mg/m??? on day 1 repeat every 21 days ???4 cycles along with dexamethasone, folic acid and B12 as prophylactic treatment for Alimta. Mr Mcclellan transferred his care to [facility] where getting evaluation CT PET scan was done on 05/17/2018 which showed persistent right upper lobe lung mass with right bronchial lymph node involvement; Finding in the left maxillary sinus of concern for metastatic disease; A new osseous lesion seen in the right anterior iliac crest consistent with metastatic disease. Mr Mcclellan was started on carboplatin/Alimta/pembrolizumab-he was given 1 dose of chemotherapy on 06/28/2018. He experienced significant side effects so chemotherapy was discontinued and then switched to single agent Keytruda in September 2018. Patient tolerated well except some diarrhea, responded to prednisone 60 mg by mouth daily, now resolved and his follow-up CT PET scan done on 11/25/2018 showed excellent response to single agent Keytruda. The PET/CT did show a right apical lung lesion measures 3.9 x 2.4 cm with SUV of 3.4 which is significant improvement since prior study in May 2018 and likely represent inflammatory posttreatment changes. Mr Mcclellan has continued with single agent Keytruda. He is tolerating it well and has improvement in his performance status. Mr. Mcclellan had restaging PET CT on 04/26/2020. The findings were no evidence for active recurrent or residual malignancy. The right upper lobe nodule remains unchanged in size at 2.5 x 4.6 cm, with an SUV of 2.4; this is consistent with sterilize malignancy and mild residual inflammatory uptake . There was no findings to indicate osseous metastatic disease. The impression was negative for active malignancy and inflammatory activity in the sterilized right upper lobe lung carcinoma. Mr Mcclellan opted to hold his immunotherapy through . He has returned today to discuss continuing treatment verses observation alone. CT scan of head done on July 01, 2020 shows no recurrence of disease MRI scan of the C-spine done on August 05, 2020 to evaluate left arm weakness shows no significant change but stable C5-C6 disc bulge with facet degenerative changes and moderate central canal and severe bilateral foraminal narrowing. As per patient surgical option was discussed but he is somewhat reluctant and considering other options MRI scan of lumbar done on August 05, 2020 showed no significant changes mild worsening of moderate central canal stenosis at L4-5 secondary to worsening ligamentum flavum hypertrophy and facet degenerative changes and persistent bulging disc Follow-up CT PET scan done on August 16, 2020 showed no change in the treated right upper lobe malignancy. Negative for active disease. Plan: Discussed with patient regarding his labs white blood count 6.5 hemoglobin 14.9 hematocrit 45.8 platelets 209,000 CMP within normal limits and CT PET scan which showed no evidence of recurrence of disease, his MRI scan of the head which was done at [facility] last week report is pending Clinically, patient doing well with no signs symptom suggestive of disease recurrence, tolerating maintenance immunotherapy well but with expected side effects. Patient had a Covid 19 vaccine yesterday so no having mild symptoms so wants to postpone immunotherapy till resolution of symptoms thus if he feels better, he will come back on Tuesday for next dose of monthly dose of Keytruda. In the meantime we will obtain his MRI scan of head report from [facility] in [place] and review. As per the mild nausea and off-and-on vomiting concern patient was advised to try lorazepam which he has at home and if no improvement then will consider another antiemetics. Signed By: Harsha Parra M.D. <<Signature on File>>
== END 2020-09-25 08:28 | disposition home or self-care (01) ==
LOC: ONCMED 08:29
PROVIDERS: PCP Emergency Medicine Emergency Medical Services; Visit Provider Internal Medicine Hematology & Oncology
DX: C34.11 Malignant neoplasm of upper lobe, right bronchus or lung (principal); C79.51 Secondary malignant neoplasm of bone; C79.31 Secondary malignant neoplasm of brain; K21.9 Gastro-esophageal reflux disease without esophagitis; B37.81 Candidal esophagitis; M51.36 Other intervertebral disc degeneration, lumbar region; M48.061 Spinal stenosis, lumbar region without neurogenic claudication; Z79.899 Other long term (current) drug therapy
CPT/HCPCS: 36415; 80053; 85025; 99215

== ENCOUNTER 2020-09-29 06:30 | Outpatient (CLI) | payer OTHER, SELFPAY | END 2020-09-29 06:31 | disposition home or self-care (01) | LOC: ONCMED 06:32 | PROVIDERS: PCP Emergency Medicine Emergency Medical Services; Visit Provider Nurse Practitioner | DX: Z51.12 Encounter for antineoplastic immunotherapy (principal); C34.11 Malignant neoplasm of upper lobe, right bronchus or lung; C79.31 Secondary malignant neoplasm of brain; C79.51 Secondary malignant neoplasm of bone | CPT/HCPCS: 96413; J7050; J9271 ==

== ENCOUNTER 2020-10-28 12:01 | Outpatient (CLI) | payer OTHER, SELFPAY ==
[2020-10-28 12:44] LABS: Basophils % 0.3 %; Eosinophils # 0.3 10^3/uL (0.0-0.8); Eosinophils % 4.4 %; Hematocrit 44.7 % (42.0-52.0); Hemoglobin 14.6 g/dL (11.7-16.6); Lymphocytes # 2.7 10^3/uL (0.8-4.8); Lymphocytes % 46.2 %; Mean Corpuscular HGB Conc 32.7 g/dL (30.0-36.0); Mean Corpuscular Hemoglobin 32.1 pg (28.0-34.0); Mean Corpuscular Volume 98.2 fL (80-94); Mean Platelet Volume 9.1 fL (7.4-10.4); Monocytes # 0.5 10^3/uL (0.2-0.9); Monocytes % 8.2 %; Neutrophils # 2.39 10^3/uL (1.8-7.7); Neutrophils % 40.9 %; Nucleated Red Blood Cells % 0 %; Platelet Count 198 10^3/cmm (130-400); Red Blood Count 4.55 10^6/uL (4.1-5.3); White Blood Count 5.9 10^3/uL (4.0-10.0)
[2020-10-28 13:05] LABS: Alanine Aminotransferase 23 U/L (0-41); Alkaline Phosphatase 64 IU/L (40-130); Anion Gap 9.7 (5-19); Aspartate Amino Transferase 18 U/L (0-40); Blood Urea Nitrogen 11 mg/dL (8-23); Calcium 9.1 mg/dL (8.5-10.5); Carbon Dioxide 30 mmol/L (22-29); Chloride 106 mmol/L (98-107); Glomerular Filtration Rate 85.2 mL/min (90-130); Glucose 94 mg/dL (65-115); Osmolality Calculated 293 mOsm/kg (285-295); Potassium 3.7 mmol/L (3.5-5.1); Sodium 142 mmol/L (136-145); Total Bilirubin 0.5 mg/dL (0.15-1.2)
--- NOTE | 2020-10-28 14:31 | ONC FU_ITS ---
Dr. Parra follow up note Patient: Alli Mcclellan Unit #: [id number]: 1955 Dicatated By: Harsha Parra M.D.Date of Visit:October 28, 2020 Onc Med Follow-up/Prog Note History of Present Illness: Mr. Mcclellan is a 65-year-old gentleman who was recently diagnosed with metastatic lung cancer to brain. Mr Mcclellan reports that in August 2017, he developed side effects in that he could not speak and had trouble typing with his left hand. He had an episode of ataxia and he felt significantly dizzy, so much so that he felt like he was going to pass out. He presented to the hospital where MRI scan of brain was done on 09/01/2017. The MRI showed left cerebral mass measuring 3.6 cm and mild asymmetric prominence and enhancement at right pituitary gland. Differential included macroadenoma, craniopharyngioma, or metastatic disease. A CT chest was done and reported spiculated area of the right upper lobe measuring 2.7 cm. He underwent posterior fossa craniotomy and resection of the cerebellar mass on 09/05/2017. The final pathology reported metastatic adenocarcinoma consistent with lung primary. Molecular assay was negative for EGFR, BRAF [id number] IHC, ALK, RET, HER-2, BRAF, and ROS 1. PET/CT imaging was obtained on 10/29/2017. It did report 2 x 2.3 cm right apical pulmonary nodule with an SUV of 17.7. There were no additional pulmonary nodules or masses identified. Activity in the bilateral hilum and mediastinal lymph nodes was unremarkable. There was no other evidence for local or distant metastatic disease. Follow-up CT of the head from 11/10/2017 reported postoperative changes from prior occipital craniotomy and resection of the previous metastatic lesion from the superior aspect of the left cerebellar hemisphere. There was persistent subcutaneous occipital scalp fluid that may communicate with the CSF space through meningeal defect posterior to the cervical do medullary junction. There were mild central and peripheral atrophy. No acute findings of the head and no significant change from 10/17/2017. It was noted that he had left maxillary sinusitis. Mr. Mcclellan was referred to Dr Lyle in radiation oncology for treatment of the lung mass and consideration of radiation to the brain. Mr Mcclellan had SBRT to the right lung. He had a total dose of 3600 cGy (48 GY). His start date was 11/16/2017. His completion date was 11/23/2017. Mr. Mcclellan then underwent SRS to the brain. His total dose was 2400 cGy. He started on 01/11/2018 and ended on 01/16/2018. He was given Decadron 4 mg twice a day while on treatment with instructions to taper slowly after radiation was completed. Mr. Mcclellan was evaluated and was offered chemotherapy with cisplatin Alimta every 3 weeks for 4 cycles. He has been very hesitant to proceed with chemotherapy due to concerns about side effects. Interim history: Mr Mcclellan went to [place] for further oncology care. His CT PET scan done on 05/17 showed left cerebellar consistent with known prior dissection; Right lung upper lobe consistent with persistent tumor with right bronchial lymph node involvement; Left maxillary sinus of concern for metastatic disease and A new osseous lesion in the right anterior iliac crest consistent with metastatic disease. Once again chemotherapy was recommended and he consentetd. He was given 1 cycle of carboplatin/Alimta/pembrolizumab on 06/28/2018 but he had significant side effects including nausea, vomiting- fatigue requiring hydration, subsequently chemotherapy was discontinued because of intolerance. He was switched to single agent Keytruda on 09/06/2018, tolerated immunotherapy well-except associated or diarrhea which was treated with prednisone 60 mg daily and responded well. He has had no further episodes of the significant diarrhea. He had follow-up CT PET scanOn 11/25/2018 which showed the right apical lung lesion currently measured 3.9 x 2.4 cm with SUV of 3.4 (this is a significant improvement since prior study and likely represent chronic inflammation); Status post right ventriculoperitoneal shunt placement done on 02/15/2019. CT scan of head was done on 04/03/2019 showed stable frontal ventricular shunt tube position with decreased ventriculomegaly since 02/15/2019. 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 On 04/13/2019 Mr Mcclellan presented to the local emergency room with with chief complaints of floaters in his vision off and on and this time in the right eye only. He was sent to [facility] in [place] emergency room where he was evaluated by ophthalmology and no retinal detachment was observed. Follow-up in 2 weeks was recommended but he did not go for follow-up as condition resolved on its own. He also had CT scan of head done on 04/13/2019 which showed no intracranial hemorrhage or mass effect; Unchanged ventricular configuration; Unchanged right frontal ventricular shunt catheter tip terminating in the left frontal horn; Unchanged left cerebellar hemisphere encephalomalacia and postsurgical changes; CT scan of the head done on 05/14/2019 showed right frontal shunt catheter with tip in the left frontal horn. No hydrocephalus; Postoperative changes occipital craniectomy. He remains on immunotherapy with pembrolizumab. Tolerating Keytruda well otherwise Follow-up CT PET scan done on 08/11/2019 showed there is ongoing decrease in FDG activity in the right upper lobe nodule now SUV is 2.6 down from 3.4 previously .no new lesion seen CT scan of the head done on 10/12/2019 shows right frontal shunt cath with the tip in the left frontal horn. No hydrocephalus. Prior postoperative changes occipital status post occipital craniotomy. 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 Recently underwent left arm nerve conduction study, as per patient he was told his left hand weakness and numbness is due to ulnar neuropathy, now being treated with physical therapy. He has been having vertigo Patient was seen by ENT as per patient nothing significant was observed. He states he is having problems with his hand. He states that he did have nerve conduction which reportedly was normal but the technologist that was doing the study indicated that he might need an MRI of his brain. Mr. Mcclellan would like to pursue this if at all possible. He does see Dr. Sam on December [address] Sam is leaving in January so is not sure he can get the MRI scheduled at that point. He states that he does have an MRI of the brain he will need his shunt regulated. He states in regard to Dr. Flaco clinton, he has used Dr Dinh in [place], [place]. Follow-up CT scan of head was done on January 03, 2020 which is unchanged since October 12, 2019, no enhancing masses or acute intracranial hemorrhage. Postoperative changes of occipital craniectomy with encephalomalacia left cerebellum and unchanged pseudomeningocele. [employer] shunt catheter tip terminating anterior horn of left lateral ventricle. No hydrocephalus. Left maxillary sinusitis, Oral antibiotics were prescribed He has had persistent discomfort but mild puffiness in the left hand, which is improving, patient was transferred to [place] recently for nausea vomiting and there was a concern regarding malfunctioning of intracranial shunt, as per patient he was evaluated by neurosurgery in [place] and had MRI scan of head done there which showed shunt was functioning fine and no new lesions seen patient said he may have some kind of reaction to the contrast as he was feeling pain all over his body and responded well to morphine. Mr Mcclellan was referred to physical therapy. He continues the Keytruda. Mr. Mcclellan had restaging PET CT on 04/26/2020. The findings were no evidence for active recurrent or residual malignancy. The right upper lobe nodule remains unchanged in size at 2.5 x 4.6 cm, with an SUV of 2.4; this is consistent with sterilize malignancy and mild residual inflammatory uptake . There was no findings to indicate osseous metastatic disease. The impression was negative for active malignancy and inflammatory activity in the sterilized right upper lobe lung carcinoma. He continues with Keytruda. Mr Mcclellan is here today for followup and consideration of Keytruda. He has completed 28 cycles with his last cycle being 04/30/2020. At his follow-up visit with us on 05/21/2020 they had discussed his PET CT results from 04/26/2020. The findings were no evidence for active recurrent or residual malignancy. The right upper lobe nodule remains unchanged in size from 2.5 x 4.6 cm with an SUV of 2.4; this is consistent with sterilized malignancy and mild residual inflammatory uptake . There were no findings to indicate osseous metastatic disease. The impression was negative for active malignancy and inflammatory activity in the sterilized right upper lobe lung carcinoma. Given those results and was offered either the option of continuing immunotherapy or switching to observation alone as the recent PET/CT persistently shows no evidence of active active disease.Patient opted to continue with the treatment but would prefer every [address] scan of head done on July 01, 2020 showed stable occipital craniectomy and postsurgical change in the left cerebellum. No recurrent tumor. Right frontal [employer] shunt catheter unchanged in position. No hydrocephalus. Sinusitis And underwent CT scan of head on July 01, 2020 which showed no evidence of recurrence of disease no hydrocephalus Patient scheduled for follow-up MRI scan of C-spine and lumbar spine to evaluate progressive left arm and leg weakness Done on August 05, 2020 which showed no significant change. Stable C5-6 disc bulge with facet degenerative changes and moderate central canal and severe bilateral foraminal narrowing. Additional degenerative changes throughout the cervical spine without significant central canal or foraminal stenosis. #2 stable appearance of the midline suboccipital craniectomy and overlying suspected pseudomeningocele. Chronic bilateral inferior cerebellar changes with volume loss and enlarged fourth ventricle. MRI scan lumbar showed no significant change or acute osseous or soft tissue abnormality seen. Mild worsening of the moderate central canal stenosis at L4-5 secondary to worsening ligamentum flavum hypertrophy and facet degenerative changes and persistent bulging disc As per patient he was offered surgical option for C-spine abnormality, which may improve his left arm weakness, patient is considering other options Follow-up CT PET scan done on August 16, 2020 showed there has been no change in the right upper lobe mass measuring 2.5 x 4.7 cm SUV of 2.7 which is consistent with sterilized malignancy and mild chronic inflammation Came for follow-up, denies any specific complaint except off and on lightheaded dizziness for which she underwent CT scan of the head ordered by neurosurgery at [facility], as per patient it showed no acute abnormality, now neurological evaluations under consideration. Patient has also seen Dr. Figueroa, ENT. Denies any blurred vision or double vision denies any fever chills denies any nausea or vomiting denies any diarrhea or constipation, denies any focal weakness denies any skin rash denies any shortness of breath denies any jaundice tolerating maintenance immunotherapy with monthly Keytruda well Medications: Acetaminophen 2 (325 mg) Capsule Oral PRN, Albuterol Sulfate Aerosol Powder, Breath Activated Inhalation, B Complex 1 Tablet Oral daily, buPROPion HCl 1 Tablet (of 75 mg) Oral q on Every Other Day, Cabergoline (0.5 mg) Tablet Oral Take as Directed, Calcium 1 Tablet (of 600 mg) Oral daily, Colace 1 Capsule (of 250 mg) Oral b.i.d. PRN, Dronabinol 1 Capsule (of 5 mg) Oral b.i.d. PRN, Essiac Tea Herbs Leaves Oral PRN, Folic Acid 1 Tablet (of 400 mcg) Oral daily, Gabapentin 1 Capsule (of 100 mg) Oral daily, Hydrocodone-Acetaminophen 1 Tablet (of 10-325 mg) Tablet Oral 6x/d PRN, Hydrocortisone 1 Tablet (of 2.5 mg) Oral q 48 hours, Lactulose 2 tablespoonful(s) (of 10 g/15mL) Solution Oral b.i.d. PRN, Lasix 1 Tablet (of 40 mg) Oral daily PRN, Lisinopril 1 Tablet (of 20 mg) Oral daily, Magnesium 1 Tablet (of 250 mg) Oral daily, Multivitamin and Minerals 1 Tablet daily, Ondansetron HCl 1 Tablet (of 4 mg) Oral t.i.d. PRN, Pantoprazole Sodium 1 Tablet (of 40 mg) Tablet, enteric coated Oral every am, Promethazine HCl 1 Suppository (of 25 mg) Rectal q 6 hours PRN, Senna-S 1 (8.6-50 mg) Tablet Oral b.i.d., Stiolto Respimat 1 puff(s) (of 2.5-2.5 mcg/act) Aerosol, solution Inhalation daily, Sudafed 1 Tablet (of 30 mg) Oral daily, Vitamin A Capsule Oral daily, Xyzal Allergy 24HR 1 Tablet (of 5 mg) Oral daily Allergies: Cats, Dust mites, Grass Pollen, Mold and Trees and HydroCHLOROthiazide. Review of Systems: Review of Systems is not available for this patient. Vital Signs: Performed on October 28, 2020 12:17 Height - 73.00 in Weight - 313.0 lbs (LOW) BSA - 2.60 sq.m BMI - 41.30 (HIGH) Temperature - 97.4 F (LOW) Pulse - 86 /min Respiration - 18 /min BP - 146/86 mm(hg) (HIGH) O2 Sat - 93 % (LOW) Pain - 3 Performance Status: 1 - No physically strenuous activity, but ambulatory and able to carry out light or sedentary work (e.g. office work, light house work). (ECOG) Physical Examination: ENMT - No mouth sores, no thrush, no jaundice, Respiratory - Lungs are clear to auscultation, Cardiovascular - Regular rate and rhythm of heart, Abdomen - Soft, bowel sounds present, Extremities - No visible edema. Lab/Imaging: Test performed on Jul 14, 2020 13:51 Sodium 142 mmol/L TSH 0.95 uIU/mL Potassium 3.9 mmol/L Chloride 103 mmol/L CO2 30 mmol/L Anion Gap 12.9 BUN 15 mg/dL Creatinine 1.0 mg/dL Cr Clearance (Est) 155.23 mL/min eGFR 75.7 mL/min Glucose 113 mg/dL Osmolality - Calculated 296 mOsm/kg Calcium 9.3 mg/dL Protein, Total 7.2 g/dL Albumin 4.1 g/dL Globulin 3.1 g/dL Bilirubin, Total 0.3 mg/dL ALT (SGPT) 27 U/L AST (SGOT) 19 U/L Alkaline Phosphatase 75 IU/L WBC 6.8 10 3/uL RBC 4.73 10 6/uL HGB 14.8 g/dL HCT 46.4 % MCV 98.1 fL MCH 31.3 pg MCHC 31.9 g/dL RDW 13.2 % Platelet Count 210 10 3/cmm MPV 9.4 fL Neutrophils 3.20 10 3/uL Lymphocytes 2.7 10 3/uL Monocytes 0.6 10 3/uL Eosinophils 0.3 10 3/uL Basophils 0.0 10 3/uL Neutrophil % 47.1 % Lymphocyte % 40.0 % Monocyte % 8.4 % Eosinophil % 4.0 % Basophils % 0.4 % NRBC % 0 % Impression: 1. 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 2. status post metastasectomy done on 09/05/2017, postoperative MRI disclosed complete resection. Molecular studies on brain metastases biopsy showed negative for EGFR ALK, RET, HER-2/india, ROS 1,BRAF, 3. Right upper lobe lung mass 2.7 cm. 4. Indigestion/ heartburn nausea vomiting probably due to candidal esophagitis or questionable increase intracranial pressure , also with oral thrush EGD showed H. pylori status post antibiotics FOLLOWUP IMAGIN. CT scan of head done on 10/17/2017 showed stable postoperative changes from prior left occipital craniotomy and resection of previous metastatic mass from left cerebellum hemisphere. (Repeat CT of the head from 11/2017 in [facility] reported findings consistent with the 10/17/2017 imaging with no acute findings). 6. PET/CT from 10/29/2017 showed 2 x 2.3 cm right apical pulmonary nodule with SUV of 17.7. No additional abnormality noted other than status post cranial metastasectomy site. 7. MRI of the brain with and without contrast on August 23, 2018 from [facility] in [place]. 8. CT of the head noncontrast on October 12, 2019: Right frontal shunt catheter with tip in the left frontal horn. No hydrocephalus. Ventricular size is unchanged from previous scans. Prior postoperative changes occipital craniectomy. 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 Stable cerebral tonsillar ectopia with normal fourth ventricle. 9. His last PET/CT imaging was August 11, 2019. Is reported that there was ongoing decrease in FDG activity in the right upper lobe lung nodule with an SUV of 2.6 down from 3.4 on previous exam. There were no new malignant lesions present there is no indication to suspect osseous metastatic disease. CURRENT TREATMENT SUMMARY: 7. SBRT to right lung mass completed 11/23/2017 for a total dose of 3,600 cGY (48 GGY). 8. SRS to brain completed 01/16/2018 for a total dose of 2,400 cGY. 9. Carboplatin/Alimta/pembrolizumab 06/28/2018. He had 1 dose of the carboplatin Alimta had significant side effects and was transitioned to just single agent pembrolizumab in September 2018. He remains on pembrolizumab currently. discussed with Mr Mcclellan the role of systemic chemotherapy with cisplatin/Alimta versus observation alone. He has recommended chemotherapy consisting of Cisplatin 75 mg/m2 day 1 and Alimta 500 mg/m??? on day 1 repeat every 21 days ???4 cycles along with dexamethasone, folic acid and B12 as prophylactic treatment for Alimta. Mr Mcclellan transferred his care to [facility] where getting evaluation CT PET scan was done on 05/17/2018 which showed persistent right upper lobe lung mass with right bronchial lymph node involvement; Finding in the left maxillary sinus of concern for metastatic disease; A new osseous lesion seen in the right anterior iliac crest consistent with metastatic disease. Mr Mcclellan was started on carboplatin/Alimta/pembrolizumab-he was given 1 dose of chemotherapy on 06/28/2018. He experienced significant side effects so chemotherapy was discontinued and then switched to single agent Keytruda in September 2018. Patient tolerated well except some diarrhea, responded to prednisone 60 mg by mouth daily, now resolved and his follow-up CT PET scan done on 11/25/2018 showed excellent response to single agent Keytruda. The PET/CT did show a right apical lung lesion measures 3.9 x 2.4 cm with SUV of 3.4 which is significant improvement since prior study in May 2018 and likely represent inflammatory posttreatment changes. Mr Mcclellan has continued with single agent Keytruda. He is tolerating it well and has improvement in his performance status. Mr. Mcclellan had restaging PET CT on 04/26/2020. The findings were no evidence for active recurrent or residual malignancy. The right upper lobe nodule remains unchanged in size at 2.5 x 4.6 cm, with an SUV of 2.4; this is consistent with sterilize malignancy and mild residual inflammatory uptake . There was no findings to indicate osseous metastatic disease. The impression was negative for active malignancy and inflammatory activity in the sterilized right upper lobe lung carcinoma. Mr Mcclellan opted to hold his immunotherapy through [facility]. He has returned today to discuss continuing treatment verses observation alone. CT scan of head done on July 01, 2020 shows no recurrence of disease MRI scan of the C-spine done on August 05, 2020 to evaluate left arm weakness shows no significant change but stable C5-C6 disc bulge with facet degenerative changes and moderate central canal and severe bilateral foraminal narrowing. As per patient surgical option was discussed but he is somewhat reluctant and considering other options MRI scan of lumbar done on August 05, 2020 showed no significant changes mild worsening of moderate central canal stenosis at L4-5 secondary to worsening ligamentum flavum hypertrophy and facet degenerative changes and persistent bulging disc Follow-up CT PET scan done on August 16, 2020 showed no change in the treated right upper lobe malignancy. Negative for active disease. Plan: Discussed with patient regarding his question and concerns, now being evaluated for off-and-on dizziness is recently done CT scan of head did not show any acute changes, as per patient neurological evaluation is under consideration. Otherwise, he is tolerating Keytruda well,, his follow-up CBC CMP is pending, will review in the meantime will proceed with next monthly dose of Keytruda today and he will return to clinic in 1 month with CBC CMP Signed By: Harsha Parra M.D. <<Signature on File>>
== END 2020-10-28 12:02 | disposition home or self-care (01) ==
LOC: ONCMED 12:02
PROVIDERS: PCP Emergency Medicine Emergency Medical Services; Visit Provider Internal Medicine Hematology & Oncology
DX: C34.11 Malignant neoplasm of upper lobe, right bronchus or lung (principal); C79.31 Secondary malignant neoplasm of brain; K21.9 Gastro-esophageal reflux disease without esophagitis; B37.81 Candidal esophagitis; Z79.899 Other long term (current) drug therapy; Z92.21 Personal history of antineoplastic chemotherapy
CPT/HCPCS: 36415; 80053; 85025; 99214

== ENCOUNTER 2020-12-29 12:41 | Outpatient (CLI) | payer OTHER, SELFPAY ==
[2020-12-29 13:39] LABS: Basophils % 0.4 %; Eosinophils # 0.4 10^3/uL (0.0-0.8); Eosinophils % 4.9 %; Hematocrit 45.3 % (42.0-52.0); Hemoglobin 14.7 g/dL (11.7-16.6); Lymphocytes # 2.7 10^3/uL (0.8-4.8); Lymphocytes % 36.9 %; Mean Corpuscular HGB Conc 32.5 g/dL (30.0-36.0); Mean Corpuscular Hemoglobin 31.5 pg (28.0-34.0); Mean Platelet Volume 9.4 fL (7.4-10.4); Monocytes # 0.6 10^3/uL (0.2-0.9); Monocytes % 7.5 %; Neutrophils # 3.71 10^3/uL (1.8-7.7); Nucleated Red Blood Cells % 0 %; Platelet Count 229 10^3/cmm (130-400); Red Blood Count 4.67 10^6/uL (4.1-5.3); Red Cell Distribution Width 12.7 % (12.1-15.1); White Blood Count 7.4 10^3/uL (4.0-10.0)
[2020-12-29 14:12] LABS: Alanine Aminotransferase 26 U/L (0-41); Albumin Level 3.9 g/dL (3.5-5.2); Alkaline Phosphatase 68 IU/L (40-130); Anion Gap 15.8 (5-19); Aspartate Amino Transferase 24 U/L (0-40); Blood Urea Nitrogen 10 mg/dL (8-23); Calcium 8.5 mg/dL (8.5-10.5); Carbon Dioxide 25 mmol/L (22-29); Chloride 103 mmol/L (98-107); Globulin 2.8 g/dL (1.3-4.6); Glomerular Filtration Rate 97.6 mL/min (90-130); Glucose 114 mg/dL (65-115); Osmolality Calculated 290 mOsm/kg (285-295); Potassium 3.8 mmol/L (3.5-5.1); Sodium 140 mmol/L (136-145); Total Bilirubin 0.4 mg/dL (0.15-1.2); Total Protein 6.7 g/dL (6.6-8.7)
--- NOTE | 2020-12-29 15:18 | ONC FU_ITS ---
Dr. Parra follow up note Patient: Alli Mcclellan Unit #: [id number]: 1955 Dicatated By: Harsha Parra M.D.Date of Visit:Dec 29, 2020 Onc Med Follow-up/Prog Note History of Present Illness: Mr. Mcclellan is a 65-year-old gentleman who was recently diagnosed with metastatic lung cancer to brain. Mr Mcclellan reports that in August 2017, he developed side effects in that he could not speak and had trouble typing with his left hand. He had an episode of ataxia and he felt significantly dizzy, so much so that he felt like he was going to pass out. He presented to the hospital where MRI scan of brain was done on 09/01/2017. The MRI showed left cerebral mass measuring 3.6 cm and mild asymmetric prominence and enhancement at right pituitary gland. Differential included macroadenoma, craniopharyngioma, or metastatic disease. A CT chest was done and reported spiculated area of the right upper lobe measuring 2.7 cm. He underwent posterior fossa craniotomy and resection of the cerebellar mass on 09/05/2017. The final pathology reported metastatic adenocarcinoma consistent with lung primary. Molecular assay was negative for EGFR, BRAF V600E IHC, ALK, RET, HER-2, BRAF, and ROS 1. PET/CT imaging was obtained on 10/29/2017. It did report 2 x 2.3 cm right apical pulmonary nodule with an SUV of 17.7. There were no additional pulmonary nodules or masses identified. Activity in the bilateral hilum and mediastinal lymph nodes was unremarkable. There was no other evidence for local or distant metastatic disease. Follow-up CT of the head from 11/10/2017 reported postoperative changes from prior occipital craniotomy and resection of the previous metastatic lesion from the superior aspect of the left cerebellar hemisphere. There was persistent subcutaneous occipital scalp fluid that may communicate with the CSF space through meningeal defect posterior to the cervical do medullary junction. There were mild central and peripheral atrophy. No acute findings of the head and no significant change from 10/17/2017. It was noted that he had left maxillary sinusitis. Mr. Mcclellan was referred to Dr Lyle in radiation oncology for treatment of the lung mass and consideration of radiation to the brain. Mr Mcclellan had SBRT to the right lung. He had a total dose of 3600 cGy (48 GY). His start date was 11/16/2017. His completion date was 11/23/2017. Mr. Mcclellan then underwent SRS to the brain. His total dose was 2400 cGy. He started on 01/11/2018 and ended on 01/16/2018. He was given Decadron 4 mg twice a day while on treatment with instructions to taper slowly after radiation was completed. Mr. Mcclellan was evaluated and was offered chemotherapy with cisplatin Alimta every 3 weeks for 4 cycles. He has been very hesitant to proceed with chemotherapy due to concerns about side effects. Interim history: Mr Mcclellan went to [place] for further oncology care. His CT PET scan done on 05/17 showed left cerebellar consistent with known prior dissection; Right lung upper lobe consistent with persistent tumor with right bronchial lymph node involvement; Left maxillary sinus of concern for metastatic disease and A new osseous lesion in the right anterior iliac crest consistent with metastatic disease. Once again chemotherapy was recommended and he consentetd. He was given 1 cycle of carboplatin/Alimta/pembrolizumab on 06/28/2018 but he had significant side effects including nausea, vomiting- fatigue requiring hydration, subsequently chemotherapy was discontinued because of intolerance. He was switched to single agent Keytruda on 09/06/2018, tolerated immunotherapy well-except associated or diarrhea which was treated with prednisone 60 mg daily and responded well. He has had no further episodes of the significant diarrhea. He had follow-up CT PET scanOn 11/25/2018 which showed the right apical lung lesion currently measured 3.9 x 2.4 cm with SUV of 3.4 (this is a significant improvement since prior study and likely represent chronic inflammation); Status post right ventriculoperitoneal shunt placement done on 02/15/2019. CT scan of head was done on 04/03/2019 showed stable frontal ventricular shunt tube position with decreased ventriculomegaly since 02/15/2019. 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 On 04/13/2019 Mr Mcclellan presented to the local emergency room with with chief complaints of floaters in his vision off and on and this time in the right eye only. He was sent to [facility] in [place] emergency room where he was evaluated by ophthalmology and no retinal detachment was observed. Follow-up in 2 weeks was recommended but he did not go for follow-up as condition resolved on its own. He also had CT scan of head done on 04/13/2019 which showed no intracranial hemorrhage or mass effect; Unchanged ventricular configuration; Unchanged right frontal ventricular shunt catheter tip terminating in the left frontal horn; Unchanged left cerebellar hemisphere encephalomalacia and postsurgical changes; CT scan of the head done on 05/14/2019 showed right frontal shunt catheter with tip in the left frontal horn. No hydrocephalus; Postoperative changes occipital craniectomy. He remains on immunotherapy with pembrolizumab. Tolerating Keytruda well otherwise Follow-up CT PET scan done on 08/11/2019 showed there is ongoing decrease in FDG activity in the right upper lobe nodule now SUV is 2.6 down from 3.4 previously .no new lesion seen CT scan of the head done on 10/12/2019 shows right frontal shunt cath with the tip in the left frontal horn. No hydrocephalus. Prior postoperative changes occipital status post occipital craniotomy. 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 Recently underwent left arm nerve conduction study, as per patient he was told his left hand weakness and numbness is due to ulnar neuropathy, now being treated with physical therapy. He has been having vertigo Patient was seen by ENT as per patient nothing significant was observed. He states he is having problems with his hand. He states that he did have nerve conduction which reportedly was normal but the technologist that was doing the study indicated that he might need an MRI of his brain. Mr. Mcclellan would like to pursue this if at all possible. He does see Dr. Sam on December [address] Sam is leaving in January so is not sure he can get the MRI scheduled at that point. He states that he does have an MRI of the brain he will need his shunt regulated. He states in regard to Dr. Flaco clinton, he has used Dr Dinh in [place], [place]. Follow-up CT scan of head was done on January 03, 2020 which is unchanged since October 12, 2019, no enhancing masses or acute intracranial hemorrhage. Postoperative changes of occipital craniectomy with encephalomalacia left cerebellum and unchanged pseudomeningocele. [employer] shunt catheter tip terminating anterior horn of left lateral ventricle. No hydrocephalus. Left maxillary sinusitis, Oral antibiotics were prescribed He has had persistent discomfort but mild puffiness in the left hand, which is improving, patient was transferred to [place] recently for nausea vomiting and there was a concern regarding malfunctioning of intracranial shunt, as per patient he was evaluated by neurosurgery in [place] and had MRI scan of head done there which showed shunt was functioning fine and no new lesions seen patient said he may have some kind of reaction to the contrast as he was feeling pain all over his body and responded well to morphine. Mr Mcclellan was referred to physical therapy. He continues the Keytruda. Mr. Mcclellan had restaging PET CT on 04/26/2020. The findings were no evidence for active recurrent or residual malignancy. The right upper lobe nodule remains unchanged in size at 2.5 x 4.6 cm, with an SUV of 2.4; this is consistent with sterilize malignancy and mild residual inflammatory uptake . There was no findings to indicate osseous metastatic disease. The impression was negative for active malignancy and inflammatory activity in the sterilized right upper lobe lung carcinoma. He continues with Keytruda. Mr Mcclellan is here today for followup and consideration of Keytruda. He has completed 28 cycles with his last cycle being 04/30/2020. At his follow-up visit with us on 05/21/2020 they had discussed his PET CT results from 04/26/2020. The findings were no evidence for active recurrent or residual malignancy. The right upper lobe nodule remains unchanged in size from 2.5 x 4.6 cm with an SUV of 2.4; this is consistent with sterilized malignancy and mild residual inflammatory uptake . There were no findings to indicate osseous metastatic disease. The impression was negative for active malignancy and inflammatory activity in the sterilized right upper lobe lung carcinoma. Given those results and was offered either the option of continuing immunotherapy or switching to observation alone as the recent PET/CT persistently shows no evidence of active active disease.Patient opted to continue with the treatment but would prefer every [address] scan of head done on July 01, 2020 showed stable occipital craniectomy and postsurgical change in the left cerebellum. No recurrent tumor. Right frontal [employer] shunt catheter unchanged in position. No hydrocephalus. Sinusitis And underwent CT scan of head on July 01, 2020 which showed no evidence of recurrence of disease no hydrocephalus Patient scheduled for follow-up MRI scan of C-spine and lumbar spine to evaluate progressive left arm and leg weakness Done on August 05, 2020 which showed no significant change. Stable C5-6 disc bulge with facet degenerative changes and moderate central canal and severe bilateral foraminal narrowing. Additional degenerative changes throughout the cervical spine without significant central canal or foraminal stenosis. #2 stable appearance of the midline suboccipital craniectomy and overlying suspected pseudomeningocele. Chronic bilateral inferior cerebellar changes with volume loss and enlarged fourth ventricle. MRI scan lumbar showed no significant change or acute osseous or soft tissue abnormality seen. Mild worsening of the moderate central canal stenosis at L4-5 secondary to worsening ligamentum flavum hypertrophy and facet degenerative changes and persistent bulging disc As per patient he was offered surgical option for C-spine abnormality, which may improve his left arm weakness, patient is considering other options Follow-up CT PET scan done on August 16, 2020 showed there has been no change in the right upper lobe mass measuring 2.5 x 4.7 cm SUV of 2.7 which is consistent with sterilized malignancy and mild chronic inflammation Came for follow-up, denies any specific complaint except generalized weakness and fatigue, as per patient he is not tolerating every 6 week Keytruda that well compared to every 3-week dose as per patient for couple of days after 6 weekly Keytruda he experience significant side effect like generalized weakness and fatigue no diarrhea, no skin rash, no jaundice so he was thinking about quitting maintenance immunotherapy versus going back to every 3 weeks dosing. Denies any seizure-like activity denies any blurred vision or double vision denies any fever or chills denies any nausea or vomiting denies any shortness of breath or wheezing denies any skin rash denies any melena or hematochezia patient missed his last dose of Keytruda due to personal reasons as his last 6 weekly dose was given on September 29, 2020. Medications: Acetaminophen 2 (325 mg) Capsule Oral PRN, Albuterol Sulfate Aerosol Powder, Breath Activated Inhalation, B Complex 1 Tablet Oral daily, buPROPion HCl 1 Tablet (of 75 mg) Oral q on Every Other Day, Cabergoline (0.5 mg) Tablet Oral Take as Directed, Calcium 1 Tablet (of 600 mg) Oral daily, Colace 1 Capsule (of 250 mg) Oral b.i.d. PRN, Dronabinol 1 Capsule (of 5 mg) Oral b.i.d. PRN, Essiac Tea Herbs Leaves Oral PRN, Folic Acid 1 Tablet (of 400 mcg) Oral daily, Gabapentin 1 Capsule (of 100 mg) Oral daily, Hydrocodone-Acetaminophen 1 Tablet (of 10-325 mg) Tablet Oral 6x/d PRN, Hydrocortisone 1 Tablet (of 2.5 mg) Oral q 48 hours, Lactulose 2 tablespoonful(s) (of 10 g/15mL) Solution Oral b.i.d. PRN, Lasix 1 Tablet (of 40 mg) Oral daily PRN, Lisinopril 1 Tablet (of 20 mg) Oral daily, Magnesium 1 Tablet (of 250 mg) Oral daily, Multivitamin and Minerals 1 Tablet daily, Ondansetron HCl 1 Tablet (of 4 mg) Oral t.i.d. PRN, Pantoprazole Sodium 1 Tablet (of 40 mg) Tablet, enteric coated Oral every am, Promethazine HCl 1 Suppository (of 25 mg) Rectal q 6 hours PRN, Senna-S 1 (8.6-50 mg) Tablet Oral b.i.d., Stiolto Respimat 1 puff(s) (of 2.5-2.5 mcg/act) Aerosol, solution Inhalation daily, Sudafed 1 Tablet (of 30 mg) Oral daily, Vitamin A Capsule Oral daily, Xyzal Allergy 24HR 1 Tablet (of 5 mg) Oral daily Allergies: Cats, Dust mites, Grass Pollen, Mold and Trees and HydroCHLOROthiazide. Review of Systems: Review of Systems is not available for this patient. Vital Signs: Performed on Dec 29, 2020 14:30 Height - 73.00 in Weight - 308 lbs (LOW) BSA - 2.59 sq.m BMI - 40.64 (HIGH) Temperature - 97.8 F (LOW) Pulse - 86 /min Respiration - 18 /min BP - 112/72 mm(hg) O2 Sat - 93 % (LOW) Pain - 3 Fatigue - 4 Performance Status: 1 - No physically strenuous activity, but ambulatory and able to carry out light or sedentary work (e.g. office work, light house work). (ECOG) Physical Examination: ENMT - No mouth sores, no thrush, no jaundice, Respiratory - Lungs are clear to auscultation, Cardiovascular - Regular rate and rhythm of heart , Abdomen - Soft, bowel sounds present, Extremities - Trace edema bilaterally. Lab/Imaging: Test performed on Jul 14, 2020 13:51 Sodium 142 mmol/L TSH 0.95 uIU/mL Potassium 3.9 mmol/L Chloride 103 mmol/L CO2 30 mmol/L Anion Gap 12.9 BUN 15 mg/dL Creatinine 1.0 mg/dL Cr Clearance (Est) 155.23 mL/min eGFR 75.7 mL/min Glucose 113 mg/dL Osmolality - Calculated 296 mOsm/kg Calcium 9.3 mg/dL Protein, Total 7.2 g/dL Albumin 4.1 g/dL Globulin 3.1 g/dL Bilirubin, Total 0.3 mg/dL ALT (SGPT) 27 U/L AST (SGOT) 19 U/L Alkaline Phosphatase 75 IU/L WBC 6.8 10 3/uL RBC 4.73 10 6/uL HGB 14.8 g/dL HCT 46.4 % MCV 98.1 fL MCH 31.3 pg MCHC 31.9 g/dL RDW 13.2 % Platelet Count 210 10 3/cmm MPV 9.4 fL Neutrophils 3.20 10 3/uL Lymphocytes 2.7 10 3/uL Monocytes 0.6 10 3/uL Eosinophils 0.3 10 3/uL Basophils 0.0 10 3/uL Neutrophil % 47.1 % Lymphocyte % 40.0 % Monocyte % 8.4 % Eosinophil % 4.0 % Basophils % 0.4 % NRBC % 0 % Impression: 1. 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 2. status post metastasectomy done on 09/05/2017, postoperative MRI disclosed complete resection. Molecular studies on brain metastases biopsy showed negative for EGFR ALK, RET, HER-2/india, ROS 1,BRAF, 3. Right upper lobe lung mass 2.7 cm. 4. Indigestion/ heartburn nausea vomiting probably due to candidal esophagitis or questionable increase intracranial pressure , also with oral thrush EGD showed H. pylori status post antibiotics FOLLOWUP IMAGIN. CT scan of head done on 10/17/2017 showed stable postoperative changes from prior left occipital craniotomy and resection of previous metastatic mass from left cerebellum hemisphere. (Repeat CT of the head from 11/2017 in [facility] reported findings consistent with the 10/17/2017 imaging with no acute findings). 6. PET/CT from 10/29/2017 showed 2 x 2.3 cm right apical pulmonary nodule with SUV of 17.7. No additional abnormality noted other than status post cranial metastasectomy site. 7. MRI of the brain with and without contrast on August 23, 2018 from [facility] in [place]. 8. CT of the head noncontrast on October 12, 2019: Right frontal shunt catheter with tip in the left frontal horn. No hydrocephalus. Ventricular size is unchanged from previous scans. Prior postoperative changes occipital craniectomy. 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 Stable cerebral tonsillar ectopia with normal fourth ventricle. 9. His last PET/CT imaging was August 11, 2019. Is reported that there was ongoing decrease in FDG activity in the right upper lobe lung nodule with an SUV of 2.6 down from 3.4 on previous exam. There were no new malignant lesions present there is no indication to suspect osseous metastatic disease. CURRENT TREATMENT SUMMARY: 7. SBRT to right lung mass completed 11/23/2017 for a total dose of 3,600 cGY (48 GGY). 8. SRS to brain completed 01/16/2018 for a total dose of 2,400 cGY. 9. Carboplatin/Alimta/pembrolizumab 06/28/2018. He had 1 dose of the carboplatin Alimta had significant side effects and was transitioned to just single agent pembrolizumab in September 2018. He remains on pembrolizumab currently. discussed with Mr Mcclellan the role of systemic chemotherapy with cisplatin/Alimta versus observation alone. He has recommended chemotherapy consisting of Cisplatin 75 mg/m2 day 1 and Alimta 500 mg/m??? on day 1 repeat every 21 days ???4 cycles along with dexamethasone, folic acid and B12 as prophylactic treatment for Alimta. Mr Mcclellan transferred his care to [facility] where getting evaluation CT PET scan was done on 05/17/2018 which showed persistent right upper lobe lung mass with right bronchial lymph node involvement; Finding in the left maxillary sinus of concern for metastatic disease; A new osseous lesion seen in the right anterior iliac crest consistent with metastatic disease. Mr Mcclellan was started on carboplatin/Alimta/pembrolizumab-he was given 1 dose of chemotherapy on 06/28/2018. He experienced significant side effects so chemotherapy was discontinued and then switched to single agent Keytruda in September 2018. Patient tolerated well except some diarrhea, responded to prednisone 60 mg by mouth daily, now resolved and his follow-up CT PET scan done on 11/25/2018 showed excellent response to single agent Keytruda. The PET/CT did show a right apical lung lesion measures 3.9 x 2.4 cm with SUV of 3.4 which is significant improvement since prior study in May 2018 and likely represent inflammatory posttreatment changes. Mr Mcclellan has continued with single agent Keytruda. He is tolerating it well and has improvement in his performance status. Mr. Mcclellan had restaging PET CT on 04/26/2020. The findings were no evidence for active recurrent or residual malignancy. The right upper lobe nodule remains unchanged in size at 2.5 x 4.6 cm, with an SUV of 2.4; this is consistent with sterilize malignancy and mild residual inflammatory uptake . There was no findings to indicate osseous metastatic disease. The impression was negative for active malignancy and inflammatory activity in the sterilized right upper lobe lung carcinoma. Mr Mcclellan opted to hold his immunotherapy through . He has returned today to discuss continuing treatment verses observation alone. CT scan of head done on July 01, 2020 shows no recurrence of disease MRI scan of the C-spine done on August 05, 2020 to evaluate left arm weakness shows no significant change but stable C5-C6 disc bulge with facet degenerative changes and moderate central canal and severe bilateral foraminal narrowing. As per patient surgical option was discussed but he is somewhat reluctant and considering other options MRI scan of lumbar done on August 05, 2020 showed no significant changes mild worsening of moderate central canal stenosis at L4-5 secondary to worsening ligamentum flavum hypertrophy and facet degenerative changes and persistent bulging disc Follow-up CT PET scan done on August 16, 2020 showed no change in the treated right upper lobe malignancy. Negative for active disease. On August 14, 2020 he was switched to Keytruda every 6 weeks, patient missed his 6 weekly dose of Keytruda after September 29, 2020 due to personal reasons and intolerance e.g. generalized weakness and fatigue and decided to go back on every 3 weeks in December 2020 Plan: Discussed with patient regarding his labs white blood count 7.4 hemoglobin 14.7 hematocrit 45.3 platelets 229,000 CMP within normal limits Clinically, patient is doing reasonably well with no new signs symptoms suggestive of disease progression his follow-up lab work-up is within normal range. Discussed with patient regarding further treatment e.g. continue with maintenance immunotherapy versus observation, patient was tolerating 3 weekly Keytruda well but then because of inconvenience he requested to switch to 6 weekly and patient received 2 doses on 6 weekly schedule, as per patient he experienced more side effect like generalized weakness and fatigue so he started thinking about quitting treatment as he peripheral quality of life over quantity of life. We discussed about risk versus benefit associated with maintenance immunotherapy, patient is a high risk for recurrence of disease, he did tolerate 3 weekly Keytruda schedule better than 6 weekly, now patient agreed to continue with maintenance immunotherapy but 3 weekly schedule so he will return to clinic in 1 week to start Keytruda 200 mg every [address] PET scan was done in August 2020, so we will consider follow-up CT PET scan to assess disease status. Return to clinic in 1 week for Keytruda 200 mg every 3 weeks and then we will see him back in 1 month with CBC CMP and follow-up CT PET scan Signed By: Harsha Parra M.D. <<Signature on File>>
== END 2020-12-29 12:42 | disposition home or self-care (01) ==
LOC: ONCMED 12:47
PROVIDERS: PCP Emergency Medicine Emergency Medical Services; Visit Provider Internal Medicine Hematology & Oncology
DX: C34.11 Malignant neoplasm of upper lobe, right bronchus or lung (principal); C79.31 Secondary malignant neoplasm of brain; K30 Functional dyspepsia; B37.81 Candidal esophagitis; Z79.899 Other long term (current) drug therapy; Z92.21 Personal history of antineoplastic chemotherapy; Z92.3 Personal history of irradiation
CPT/HCPCS: 36415; 80053; 85025; 99214

== ENCOUNTER 2021-01-20 10:13 | Outpatient (CLI) | payer OTHER, SELFPAY | END 2021-01-20 10:14 | disposition home or self-care (01) | LOC: ONCMED 10:15 | PROVIDERS: PCP Emergency Medicine Emergency Medical Services; Visit Provider Internal Medicine Hematology & Oncology | DX: Z51.12 Encounter for antineoplastic immunotherapy (principal); C34.11 Malignant neoplasm of upper lobe, right bronchus or lung; C79.31 Secondary malignant neoplasm of brain | CPT/HCPCS: 96413; J7050; J9271 ==

== ENCOUNTER 2021-02-10 09:06 | Outpatient (CLI) | payer OTHER, SELFPAY ==
[2021-02-10 09:48] LABS: Basophils % 0.3 %; Eosinophils # 0.3 10^3/uL (0.0-0.8); Eosinophils % 4.9 %; Hematocrit 45.8 % (42.0-52.0); Hemoglobin 14.9 g/dL (11.7-16.6); Lymphocytes # 2.4 10^3/uL (0.8-4.8); Lymphocytes % 40.1 %; Mean Corpuscular HGB Conc 32.5 g/dL (30.0-36.0); Mean Corpuscular Hemoglobin 31.8 pg (28.0-34.0); Mean Corpuscular Volume 97.7 fl (80-94); Mean Platelet Volume 9.2 fL (7.4-10.4); Monocytes # 0.4 10^3/uL (0.2-0.9); Neutrophils # 2.79 10^3/uL (1.8-7.7); Neutrophils % 47.5 %; Nucleated Red Blood Cells % 0 %; Platelet Count 207 10^3/cmm (130-400); Red Blood Count 4.69 10^6/uL (4.1-5.3); Red Cell Distribution Width 12.9 % (12.1-15.1); White Blood Count 5.9 10^3/uL (4.0-10.0)
[2021-02-10 10:18] LABS: Alanine Aminotransferase 23 U/L (0-41); Alkaline Phosphatase 71 IU/L (40-130); Aspartate Amino Transferase 16 U/L (0-40); Blood Urea Nitrogen 15 mg/dL (8-23); Calcium 8.7 mg/dL (8.5-10.5); Carbon Dioxide 27 mmol/L (22-29); Chloride 106 mmol/L (98-107); Globulin 2.9 g/dL (1.3-4.6); Glomerular Filtration Rate 97.6 mL/min (90-130); Glucose 90 mg/dL (65-115); Osmolality Calculated 294 mOsm/kg (285-295); Sodium 142 mmol/L (136-145); Total Bilirubin 0.3 mg/dL (0.15-1.2); Total Protein 6.9 g/dL (6.6-8.7)
--- NOTE | 2021-02-10 15:40 | ONC FU_ITS ---
Dr. Parra follow up note Patient: Alli Mcclellan Unit #: [id number]: 1955 Dicatated By: Harsha Parra M.D.Date of Visit:Feb 10, 2021 Onc Med Follow-up/Prog Note History of Present Illness: Mr. Mcclellan is a 65-year-old gentleman who was recently diagnosed with metastatic lung cancer to brain. Mr Mcclellan reports that in August 2017, he developed side effects in that he could not speak and had trouble typing with his left hand. He had an episode of ataxia and he felt significantly dizzy, so much so that he felt like he was going to pass out. He presented to the hospital where MRI scan of brain was done on 09/01/2017. The MRI showed left cerebral mass measuring 3.6 cm and mild asymmetric prominence and enhancement at right pituitary gland. Differential included macroadenoma, craniopharyngioma, or metastatic disease. A CT chest was done and reported spiculated area of the right upper lobe measuring 2.7 cm. He underwent posterior fossa craniotomy and resection of the cerebellar mass on 09/05/2017. The final pathology reported metastatic adenocarcinoma consistent with lung primary. Molecular assay was negative for EGFR, BRAF V600E IHC, ALK, RET, HER-2, BRAF, and ROS 1. PET/CT imaging was obtained on 10/29/2017. It did report 2 x 2.3 cm right apical pulmonary nodule with an SUV of 17.7. There were no additional pulmonary nodules or masses identified. Activity in the bilateral hilum and mediastinal lymph nodes was unremarkable. There was no other evidence for local or distant metastatic disease. Follow-up CT of the head from 11/10/2017 reported postoperative changes from prior occipital craniotomy and resection of the previous metastatic lesion from the superior aspect of the left cerebellar hemisphere. There was persistent subcutaneous occipital scalp fluid that may communicate with the CSF space through meningeal defect posterior to the cervical do medullary junction. There were mild central and peripheral atrophy. No acute findings of the head and no significant change from 10/17/2017. It was noted that he had left maxillary sinusitis. Mr. Mcclellan was referred to Dr Lyle in radiation oncology for treatment of the lung mass and consideration of radiation to the brain. Mr Mcclellan had SBRT to the right lung. He had a total dose of 3600 cGy (48 GY). His start date was 11/16/2017. His completion date was 11/23/2017. Mr. Mcclellan then underwent SRS to the brain. His total dose was 2400 cGy. He started on 01/11/2018 and ended on 01/16/2018. He was given Decadron 4 mg twice a day while on treatment with instructions to taper slowly after radiation was completed. Mr. Mcclellan was evaluated and was offered chemotherapy with cisplatin Alimta every 3 weeks for 4 cycles. He has been very hesitant to proceed with chemotherapy due to concerns about side effects. Interim history: Mr Mcclellan went to [facility] for further oncology care. His CT PET scan done on 05/17 showed left cerebellar consistent with known prior dissection; Right lung upper lobe consistent with persistent tumor with right bronchial lymph node involvement; Left maxillary sinus of concern for metastatic disease and A new osseous lesion in the right anterior iliac crest consistent with metastatic disease. Once again chemotherapy was recommended and he consentetd. He was given 1 cycle of carboplatin/Alimta/pembrolizumab on 06/28/2018 but he had significant side effects including nausea, vomiting- fatigue requiring hydration, subsequently chemotherapy was discontinued because of intolerance. He was switched to single agent Keytruda on 09/06/2018, tolerated immunotherapy well-except associated or diarrhea which was treated with prednisone 60 mg daily and responded well. He has had no further episodes of the significant diarrhea. He had follow-up CT PET scanOn 11/25/2018 which showed the right apical lung lesion currently measured 3.9 x 2.4 cm with SUV of 3.4 (this is a significant improvement since prior study and likely represent chronic inflammation); Status post right ventriculoperitoneal shunt placement done on 02/15/2019. CT scan of head was done on 04/03/2019 showed stable frontal ventricular shunt tube position with decreased ventriculomegaly since 02/15/2019. 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 On 04/13/2019 Mr Mcclellan presented to the local emergency room with with chief complaints of floaters in his vision off and on and this time in the right eye only. He was sent to [facility] in [place] emergency room where he was evaluated by ophthalmology and no retinal detachment was observed. Follow-up in 2 weeks was recommended but he did not go for follow-up as condition resolved on its own. He also had CT scan of head done on 04/13/2019 which showed no intracranial hemorrhage or mass effect; Unchanged ventricular configuration; Unchanged right frontal ventricular shunt catheter tip terminating in the left frontal horn; Unchanged left cerebellar hemisphere encephalomalacia and postsurgical changes; CT scan of the head done on 05/14/2019 showed right frontal shunt catheter with tip in the left frontal horn. No hydrocephalus; Postoperative changes occipital craniectomy. He remains on immunotherapy with pembrolizumab. Tolerating Keytruda well otherwise Follow-up CT PET scan done on 08/11/2019 showed there is ongoing decrease in FDG activity in the right upper lobe nodule now SUV is 2.6 down from 3.4 previously .no new lesion seen CT scan of the head done on 10/12/2019 shows right frontal shunt cath with the tip in the left frontal horn. No hydrocephalus. Prior postoperative changes occipital status post occipital craniotomy. 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 Recently underwent left arm nerve conduction study, as per patient he was told his left hand weakness and numbness is due to ulnar neuropathy, now being treated with physical therapy. He has been having vertigo Patient was seen by ENT as per patient nothing significant was observed. He states he is having problems with his hand. He states that he did have nerve conduction which reportedly was normal but the technologist that was doing the study indicated that he might need an MRI of his brain. Mr. Mcclellan would like to pursue this if at all possible. He does see Dr. Sam on December [address] Sam is leaving in January so is not sure he can get the MRI scheduled at that point. He states that he does have an MRI of the brain he will need his shunt regulated. He states in regard to Dr. Flaco clinton, he has used Dr Dinh in [place], [place]. Follow-up CT scan of head was done on January 03, 2020 which is unchanged since October 12, 2019, no enhancing masses or acute intracranial hemorrhage. Postoperative changes of occipital craniectomy with encephalomalacia left cerebellum and unchanged pseudomeningocele. CABINET INSTALLER shunt catheter tip terminating anterior horn of left lateral ventricle. No hydrocephalus. Left maxillary sinusitis, Oral antibiotics were prescribed He has had persistent discomfort but mild puffiness in the left hand, which is improving, patient was transferred to [facility] recently for nausea vomiting and there was a concern regarding malfunctioning of intracranial shunt, as per patient he was evaluated by neurosurgery in [place] and had MRI scan of head done there which showed shunt was functioning fine and no new lesions seen patient said he may have some kind of reaction to the contrast as he was feeling pain all over his body and responded well to morphine. Mr Mcclellan was referred to physical therapy. He continues the Keytruda. Mr. Mcclellan had restaging PET CT on 04/26/2020. The findings were no evidence for active recurrent or residual malignancy. The right upper lobe nodule remains unchanged in size at 2.5 x 4.6 cm, with an SUV of 2.4; this is consistent with sterilize malignancy and mild residual inflammatory uptake . There was no findings to indicate osseous metastatic disease. The impression was negative for active malignancy and inflammatory activity in the sterilized right upper lobe lung carcinoma. He continues with Keytruda. Mr Mcclellan is here today for followup and consideration of Keytruda. He has completed 28 cycles with his last cycle being 04/30/2020. At his follow-up visit with us on 05/21/2020 they had discussed his PET CT results from 04/26/2020. The findings were no evidence for active recurrent or residual malignancy. The right upper lobe nodule remains unchanged in size from 2.5 x 4.6 cm with an SUV of 2.4; this is consistent with sterilized malignancy and mild residual inflammatory uptake . There were no findings to indicate osseous metastatic disease. The impression was negative for active malignancy and inflammatory activity in the sterilized right upper lobe lung carcinoma. Given those results and was offered either the option of continuing immunotherapy or switching to observation alone as the recent PET/CT persistently shows no evidence of active active disease.Patient opted to continue with the treatment but would prefer every [address] scan of head done on July 01, 2020 showed stable occipital craniectomy and postsurgical change in the left cerebellum. No recurrent tumor. Right frontal CABINET INSTALLER shunt catheter unchanged in position. No hydrocephalus. Sinusitis And underwent CT scan of head on July 01, 2020 which showed no evidence of recurrence of disease no hydrocephalus Patient scheduled for follow-up MRI scan of C-spine and lumbar spine to evaluate progressive left arm and leg weakness Done on August 05, 2020 which showed no significant change. Stable C5-6 disc bulge with facet degenerative changes and moderate central canal and severe bilateral foraminal narrowing. Additional degenerative changes throughout the cervical spine without significant central canal or foraminal stenosis. #2 stable appearance of the midline suboccipital craniectomy and overlying suspected pseudomeningocele. Chronic bilateral inferior cerebellar changes with volume loss and enlarged fourth ventricle. MRI scan lumbar showed no significant change or acute osseous or soft tissue abnormality seen. Mild worsening of the moderate central canal stenosis at L4-5 secondary to worsening ligamentum flavum hypertrophy and facet degenerative changes and persistent bulging disc As per patient he was offered surgical option for C-spine abnormality, which may improve his left arm weakness, patient is considering other options Follow-up CT PET scan done on August 16, 2020 showed there has been no change in the right upper lobe mass measuring 2.5 x 4.7 cm SUV of 2.7 which is consistent with sterilized malignancy and mild chronic inflammation Came for follow-up, denies any specific complaints, no fever chills, no nausea or vomiting, no diarrhea constipation, no headaches or blurred vision or double vision, no hemoptysis or hematemesis, no wheezing, no jaundice, no mucus in stool, tolerating Keytruda well otherwise Medications: Acetaminophen 2 (325 mg) Capsule Oral PRN, Albuterol Sulfate Aerosol Powder, Breath Activated Inhalation, B Complex 1 Tablet Oral daily, buPROPion HCl 1 Tablet (of 75 mg) Oral q on Every Other Day, Cabergoline (0.5 mg) Tablet Oral Take as Directed, Calcium 1 Tablet (of 600 mg) Oral daily, Colace 1 Capsule (of 250 mg) Oral b.i.d. PRN, Dronabinol 1 Capsule (of 5 mg) Oral b.i.d. PRN, Essiac Tea Herbs Leaves Oral PRN, Folic Acid 1 Tablet (of 400 mcg) Oral daily, Gabapentin 1 Capsule (of 100 mg) Oral daily, Hydrocodone-Acetaminophen 1 Tablet (of 10-325 mg) Tablet Oral 6x/d PRN, Hydrocortisone 1 Tablet (of 2.5 mg) Oral q 48 hours, Lactulose 2 tablespoonful(s) (of 10 g/15mL) Solution Oral b.i.d. PRN, Lasix 1 Tablet (of 40 mg) Oral daily PRN, Lisinopril 1 Tablet (of 20 mg) Oral daily, Magnesium 1 Tablet (of 250 mg) Oral daily, Multivitamin and Minerals 1 Tablet daily, Ondansetron HCl 1 Tablet (of 4 mg) Oral t.i.d. PRN, Pantoprazole Sodium 1 Tablet (of 40 mg) Tablet, enteric coated Oral every am, Promethazine HCl 1 Suppository (of 25 mg) Rectal q 6 hours PRN, Senna-S 1 (8.6-50 mg) Tablet Oral b.i.d., Stiolto Respimat 1 puff(s) (of 2.5-2.5 mcg/act) Aerosol, solution Inhalation daily, Sudafed 1 Tablet (of 30 mg) Oral daily, Vitamin A Capsule Oral daily, Xyzal Allergy 24HR 1 Tablet (of 5 mg) Oral daily Allergies: Cats, Dust mites, Grass Pollen, Mold and Trees and HydroCHLOROthiazide. Review of Systems: Review of Systems is not available for this patient. Vital Signs: Performed on Feb 10, 2021 10:50 Height - 73.00 in Weight - 304.2 lbs (LOW) BSA - 2.57 sq.m BMI - 40.13 (HIGH) Temperature - 97.0 F (LOW) Pulse - 67 /min Respiration - 18 /min BP - 144/85 mm(hg) (HIGH) O2 Sat - 94 % (LOW) Pain - 3 Performance Status: 0 - Fully active, able to carry on all predisease activities without restrictions. (ECOG) Physical Examination: ENMT - No mouth sores, no thrush, no jaundice, Respiratory - Lungs are clear to auscultation, Cardiovascular - Regular rate and rhythm of heart, Abdomen - Soft, bowel sounds present, Extremities - Trace edema bilaterally. Lab/Imaging: Most recent lab results are not available for this patient. Impression: 1. 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 2. status post metastasectomy done on 09/05/2017, postoperative MRI disclosed complete resection. Molecular studies on brain metastases biopsy showed negative for EGFR ALK, RET, HER-2/[place], ROS 1,BRAF, 3. Right upper lobe lung mass 2.7 cm. 4. Indigestion/ heartburn nausea vomiting probably due to candidal esophagitis or questionable increase intracranial pressure , also with oral thrush EGD showed H. pylori status post antibiotics FOLLOWUP IMAGIN. CT scan of head done on 10/17/2017 showed stable postoperative changes from prior left occipital craniotomy and resection of previous metastatic mass from left cerebellum hemisphere. ([place] of [place] head from 11/2017 [place] [facility] [place] findings consistent with the 10/17/2017 imaging with no acute findings). 6. PET/CT from 10/29/2017 showed 2 x 2.3 cm right apical pulmonary nodule with SUV of 17.7. No additional abnormality noted other than status post cranial metastasectomy site. 7. MRI of the brain with and without contrast on August 23, 2018 from [facility] in [place]. 8. CT of the head noncontrast on October 12, 2019: Right frontal shunt catheter with tip in the left frontal horn. No hydrocephalus. Ventricular size is unchanged from previous scans. Prior postoperative changes occipital craniectomy. 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 Stable cerebral tonsillar ectopia with normal fourth ventricle. 9. His last PET/CT imaging was August 11, 2019. Is reported that there was ongoing decrease in FDG activity in the right upper lobe lung nodule with an SUV of 2.6 down from 3.4 on previous exam. There were no new malignant lesions present there is no indication to suspect osseous metastatic disease. CURRENT TREATMENT SUMMARY: 7. SBRT to right lung mass completed 11/23/2017 for a total dose of 3,600 cGY (48 GGY). 8. SRS to brain completed 01/16/2018 for a total dose of 2,400 cGY. 9. Carboplatin/Alimta/pembrolizumab 06/28/2018. He had 1 dose of the carboplatin Alimta had significant side effects and was transitioned to just single agent pembrolizumab in September 2018. He remains on pembrolizumab currently. discussed with Mr Mcclellan the role of systemic chemotherapy with cisplatin/Alimta versus observation alone. He has recommended chemotherapy consisting of Cisplatin 75 mg/m2 day 1 and Alimta 500 mg/m??? on day 1 repeat every 21 days ???4 cycles along with dexamethasone, folic acid and B12 as prophylactic treatment for Alimta. Mr Mcclellan transferred his care to [facility] where getting evaluation CT PET scan was done on 05/17/2018 which showed persistent right upper lobe lung mass with right bronchial lymph node involvement; Finding in the left maxillary sinus of concern for metastatic disease; A new osseous lesion seen in the right anterior iliac crest consistent with metastatic disease. Mr Mcclellan was started on carboplatin/Alimta/pembrolizumab-he was given 1 dose of chemotherapy on 06/28/2018. He experienced significant side effects so chemotherapy was discontinued and then switched to single agent Keytruda in September 2018. Patient tolerated well except some diarrhea, responded to prednisone 60 mg by mouth daily, now resolved and his follow-up CT PET scan done on 11/25/2018 showed excellent response to single agent Keytruda. The PET/CT did show a right apical lung lesion measures 3.9 x 2.4 cm with SUV of 3.4 which is significant improvement since prior study in May 2018 and likely represent inflammatory posttreatment changes. Mr Mcclellan has continued with single agent Keytruda. He is tolerating it well and has improvement in his performance status. Mr. Mcclellan had restaging PET CT on 04/26/2020. The findings were no evidence for active recurrent or residual malignancy. The right upper lobe nodule remains unchanged in size at 2.5 x 4.6 cm, with an SUV of 2.4; this is consistent with sterilize malignancy and mild residual inflammatory uptake . There was no findings to indicate osseous metastatic disease. The impression was negative for active malignancy and inflammatory activity in the sterilized right upper lobe lung carcinoma. Mr Mcclellan opted to hold his immunotherapy through . He has returned today to discuss continuing treatment verses observation alone. CT scan of head done on July 01, 2020 shows no recurrence of disease MRI scan of the C-spine done on August 05, 2020 to evaluate left arm weakness shows no significant change but stable C5-C6 disc bulge with facet degenerative changes and moderate central canal and severe bilateral foraminal narrowing. As per patient surgical option was discussed but he is somewhat reluctant and considering other options MRI scan of lumbar done on August 05, 2020 showed no significant changes mild worsening of moderate central canal stenosis at L4-5 secondary to worsening ligamentum flavum hypertrophy and facet degenerative changes and persistent bulging disc Follow-up CT PET scan done on August 16, 2020 showed no change in the treated right upper lobe malignancy. Negative for active disease. Plan: Discussed with patient regarding his labs white blood count 5.9 hemoglobin 14.9 hematocrit 45.8 platelets 207,000 CMP within normal limits Clinically, patient doing well with no new signs symptoms just of recurrence of disease, will proceed with next 3 weekly dose of Keytruda 200 mg today then he will return to clinic in 3 weeks with CBC CMP Signed By: Harsha Parra M.D. <<Signature on File>>
== END 2021-02-10 09:07 | disposition home or self-care (01) ==
PROVIDERS: PCP Emergency Medicine Emergency Medical Services; Visit Provider Internal Medicine Hematology & Oncology
DX: Z51.12 Encounter for antineoplastic immunotherapy (principal); C34.11 Malignant neoplasm of upper lobe, right bronchus or lung; C79.31 Secondary malignant neoplasm of brain; K21.9 Gastro-esophageal reflux disease without esophagitis; B37.81 Candidal esophagitis; Z79.899 Other long term (current) drug therapy; Z92.21 Personal history of antineoplastic chemotherapy; Z92.3 Personal history of irradiation
CPT/HCPCS: 80053; 85025; 96413; 99215; J7050; J9271

== ENCOUNTER 2021-03-03 06:44 | Outpatient (CLI) | payer OTHER, SELFPAY ==
[2021-03-03 08:52] LABS: Basophils % 0.3 %; Eosinophils # 0.3 10^3/uL (0.0-0.8); Eosinophils % 4.8 %; Hematocrit 43.3 % (42.0-52.0); Hemoglobin 13.9 g/dL (11.7-16.6); Lymphocytes # 2.9 10^3/uL (0.8-4.8); Lymphocytes % 44.4 %; Mean Corpuscular HGB Conc 32.1 g/dL (30.0-36.0); Mean Corpuscular Volume 99.5 fl (80-94); Mean Platelet Volume 9.3 fL (7.4-10.4); Monocytes # 0.5 10^3/uL (0.2-0.9); Monocytes % 8.4 %; Neutrophils # 2.71 10^3/uL (1.8-7.7); Neutrophils % 41.9 %; Nucleated Red Blood Cells % 0 %; Platelet Count 209 10^3/cmm (130-400); Red Blood Count 4.35 10^6/uL (4.1-5.3); White Blood Count 6.5 10^3/uL (4.0-10.0)
[2021-03-03 09:01] LABS: Alanine Aminotransferase 23 U/L (0-41); Albumin Level 3.6 g/dL (3.5-5.2); Alkaline Phosphatase 64 IU/L (40-130); Anion Gap 12.8 (5-19); Aspartate Amino Transferase 17 U/L (0-40); Blood Urea Nitrogen 11 mg/dL (8-23); Calcium 8.4 mg/dL (8.5-10.5); Carbon Dioxide 25 mmol/L (22-29); Chloride 105 mmol/L (98-107); Globulin 2.8 g/dL (1.3-4.6); Glomerular Filtration Rate 113.9 mL/min (90-130); Glucose 95 mg/dL (65-115); Osmolality Calculated 287 mOsm/kg (285-295); Potassium 3.8 mmol/L (3.5-5.1); Sodium 139 mmol/L (136-145); Total Bilirubin 0.3 mg/dL (0.15-1.2); Total Protein 6.4 g/dL (6.6-8.7)
--- NOTE | 2021-03-03 18:00 | ONC FU_ITS ---
Dr. Parra follow up note Patient: Alli Mcclellan Unit #: [id number]: 1955 Dicatated By: Harsha Parra M.D.Date of Visit:Mar 03, 2021 Onc Med Follow-up/Prog Note History of Present Illness: Mr. Mcclellan is a 65-year-old gentleman who was recently diagnosed with metastatic lung cancer to brain. Mr Mcclellan reports that in August 2017, he developed side effects in that he could not speak and had trouble typing with his left hand. He had an episode of ataxia and he felt significantly dizzy, so much so that he felt like he was going to pass out. He presented to the hospital where MRI scan of brain was done on 09/01/2017. The MRI showed left cerebral mass measuring 3.6 cm and mild asymmetric prominence and enhancement at right pituitary gland. Differential included macroadenoma, craniopharyngioma, or metastatic disease. A CT chest was done and reported spiculated area of the right upper lobe measuring 2.7 cm. He underwent posterior fossa craniotomy and resection of the cerebellar mass on 09/05/2017. The final pathology reported metastatic adenocarcinoma consistent with lung primary. Molecular assay was negative for EGFR, BRAF V600E IHC, ALK, RET, HER-2, BRAF, and ROS 1. PET/CT imaging was obtained on 10/29/2017. It did report 2 x 2.3 cm right apical pulmonary nodule with an SUV of 17.7. There were no additional pulmonary nodules or masses identified. Activity in the bilateral hilum and mediastinal lymph nodes was unremarkable. There was no other evidence for local or distant metastatic disease. Follow-up CT of the head from 11/10/2017 reported postoperative changes from prior occipital craniotomy and resection of the previous metastatic lesion from the superior aspect of the left cerebellar hemisphere. There was persistent subcutaneous occipital scalp fluid that may communicate with the CSF space through meningeal defect posterior to the cervical do medullary junction. There were mild central and peripheral atrophy. No acute findings of the head and no significant change from 10/17/2017. It was noted that he had left maxillary sinusitis. Mr. Mcclellan was referred to Dr Lyle in radiation oncology for treatment of the lung mass and consideration of radiation to the brain. Mr Mcclellan had SBRT to the right lung. He had a total dose of 3600 cGy (48 GY). His start date was 11/16/2017. His completion date was 11/23/2017. Mr. Mcclellan then underwent SRS to the brain. His total dose was 2400 cGy. He started on 01/11/2018 and ended on 01/16/2018. He was given Decadron 4 mg twice a day while on treatment with instructions to taper slowly after radiation was completed. Mr. Mcclellan was evaluated and was offered chemotherapy with cisplatin Alimta every 3 weeks for 4 cycles. He has been very hesitant to proceed with chemotherapy due to concerns about side effects. Interim history: Mr Mcclellan went to [place] for further oncology care. His CT PET scan done on 05/17 showed left cerebellar consistent with known prior dissection; Right lung upper lobe consistent with persistent tumor with right bronchial lymph node involvement; Left maxillary sinus of concern for metastatic disease and A new osseous lesion in the right anterior iliac crest consistent with metastatic disease. Once again chemotherapy was recommended and he consentetd. He was given 1 cycle of carboplatin/Alimta/pembrolizumab on 06/28/2018 but he had significant side effects including nausea, vomiting- fatigue requiring hydration, subsequently chemotherapy was discontinued because of intolerance. He was switched to single agent Keytruda on 09/06/2018, tolerated immunotherapy well-except associated or diarrhea which was treated with prednisone 60 mg daily and responded well. He has had no further episodes of the significant diarrhea. He had follow-up CT PET scanOn 11/25/2018 which showed the right apical lung lesion currently measured 3.9 x 2.4 cm with SUV of 3.4 (this is a significant improvement since prior study and likely represent chronic inflammation); Status post right ventriculoperitoneal shunt placement done on 02/15/2019. CT scan of head was done on 04/03/2019 showed stable frontal ventricular shunt tube position with decreased ventriculomegaly since 02/15/2019. 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 On 04/13/2019 Mr Mcclellan presented to the local emergency room with with chief complaints of floaters in his vision off and on and this time in the right eye only. He was sent to [facility] in [place] emergency room where he was evaluated by ophthalmology and no retinal detachment was observed. Follow-up in 2 weeks was recommended but he did not go for follow-up as condition resolved on its own. He also had CT scan of head done on 04/13/2019 which showed no intracranial hemorrhage or mass effect; Unchanged ventricular configuration; Unchanged right frontal ventricular shunt catheter tip terminating in the left frontal horn; Unchanged left cerebellar hemisphere encephalomalacia and postsurgical changes; CT scan of the head done on 05/14/2019 showed right frontal shunt catheter with tip in the left frontal horn. No hydrocephalus; Postoperative changes occipital craniectomy. He remains on immunotherapy with pembrolizumab. Tolerating Keytruda well otherwise Follow-up CT PET scan done on 08/11/2019 showed there is ongoing decrease in FDG activity in the right upper lobe nodule now SUV is 2.6 down from 3.4 previously .no new lesion seen CT scan of the head done on 10/12/2019 shows right frontal shunt cath with the tip in the left frontal horn. No hydrocephalus. Prior postoperative changes occipital status post occipital craniotomy. 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 Recently underwent left arm nerve conduction study, as per patient he was told his left hand weakness and numbness is due to ulnar neuropathy, now being treated with physical therapy. He has been having vertigo Patient was seen by ENT as per patient nothing significant was observed. He states he is having problems with his hand. He states that he did have nerve conduction which reportedly was normal but the technologist that was doing the study indicated that he might need an MRI of his brain. Mr. Mcclellan would like to pursue this if at all possible. He does see Dr. Sam on December [address] Sam is leaving in January so is not sure he can get the MRI scheduled at that point. He states that he does have an MRI of the brain he will need his shunt regulated. He states in regard to Dr. Flaco clinton, he has used Dr Dinh in [place], [place]. Follow-up CT scan of head was done on January 03, 2020 which is unchanged since October 12, 2019, no enhancing masses or acute intracranial hemorrhage. Postoperative changes of occipital craniectomy with encephalomalacia left cerebellum and unchanged pseudomeningocele. CHIEF COUNSEL shunt catheter tip terminating anterior horn of left lateral ventricle. No hydrocephalus. Left maxillary sinusitis, Oral antibiotics were prescribed He has had persistent discomfort but mild puffiness in the left hand, which is improving, patient was transferred to [place] recently for nausea vomiting and there was a concern regarding malfunctioning of intracranial shunt, as per patient he was evaluated by neurosurgery in [place] and had MRI scan of head done there which showed shunt was functioning fine and no new lesions seen patient said he may have some kind of reaction to the contrast as he was feeling pain all over his body and responded well to morphine. Mr Mcclellan was referred to physical therapy. He continues the Keytruda. Mr. Mcclellan had restaging PET CT on 04/26/2020. The findings were no evidence for active recurrent or residual malignancy. The right upper lobe nodule remains unchanged in size at 2.5 x 4.6 cm, with an SUV of 2.4; this is consistent with sterilize malignancy and mild residual inflammatory uptake . There was no findings to indicate osseous metastatic disease. The impression was negative for active malignancy and inflammatory activity in the sterilized right upper lobe lung carcinoma. He continues with Keytruda. Mr Mcclellan is here today for followup and consideration of Keytruda. He has completed 28 cycles with his last cycle being 04/30/2020. At his follow-up visit with us on 05/21/2020 they had discussed his PET CT results from 04/26/2020. The findings were no evidence for active recurrent or residual malignancy. The right upper lobe nodule remains unchanged in size from 2.5 x 4.6 cm with an SUV of 2.4; this is consistent with sterilized malignancy and mild residual inflammatory uptake . There were no findings to indicate osseous metastatic disease. The impression was negative for active malignancy and inflammatory activity in the sterilized right upper lobe lung carcinoma. Given those results and was offered either the option of continuing immunotherapy or switching to observation alone as the recent PET/CT persistently shows no evidence of active active disease.Patient opted to continue with the treatment but would prefer every [address] scan of head done on July 01, 2020 showed stable occipital craniectomy and postsurgical change in the left cerebellum. No recurrent tumor. Right frontal CHIEF COUNSEL shunt catheter unchanged in position. No hydrocephalus. Sinusitis And underwent CT scan of head on July 01, 2020 which showed no evidence of recurrence of disease no hydrocephalus Patient scheduled for follow-up MRI scan of C-spine and lumbar spine to evaluate progressive left arm and leg weakness Done on August 05, 2020 which showed no significant change. Stable C5-6 disc bulge with facet degenerative changes and moderate central canal and severe bilateral foraminal narrowing. Additional degenerative changes throughout the cervical spine without significant central canal or foraminal stenosis. #2 stable appearance of the midline suboccipital craniectomy and overlying suspected pseudomeningocele. Chronic bilateral inferior cerebellar changes with volume loss and enlarged fourth ventricle. MRI scan lumbar showed no significant change or acute osseous or soft tissue abnormality seen. Mild worsening of the moderate central canal stenosis at L4-5 secondary to worsening ligamentum flavum hypertrophy and facet degenerative changes and persistent bulging disc As per patient he was offered surgical option for C-spine abnormality, which may improve his left arm weakness, patient is considering other options Follow-up CT PET scan done on August 16, 2020 showed there has been no change in the right upper lobe mass measuring 2.5 x 4.7 cm SUV of 2.7 which is consistent with sterilized malignancy and mild chronic inflammation Came for follow-up, complaining of left flank pain going to the groin area since around February 21, 2021, as per patient he went to see his friends in [place] where he was experimenting with recreational marijuana and had an episode of self-limiting gross hematuria which lasted for about 1 day, also experienced severe left flank pain radiating to groin area, as per patient he has history of kidney stones about 40 years ago and he had similar symptoms at that time too. And day after hematuria, he was visiting his friend, as per patient he had an episode of near syncopal attack but no seizure-like activity and then he recovered on his own. No more episode after that, no headaches blurred vision or double vision. Patient continues to have left flank pain and called on-call oncologist Dr. Palomo, who suggested hydrocodeine with that his pain got better, as per patient last Sandy he went to [place] to see his neurosurgeon at [facility]. He had CT scan of the head done as a follow-up and waiting for report. And the while on symptomatic control his left flank pain got worse and he went to [facility] and waited there for 5 hours without seeing a physician and then went back last night and left ER without seeing physician., Now his pain is around 6-7 on a scale of 1-10 but no more hematuria no more burning micturition, no fever chills, denies any trauma to his back denies any numbness in his left leg, denies any diarrhea or constipation or melena or hematochezia. Medications: Acetaminophen 2 (325 mg) Capsule Oral PRN, Albuterol Sulfate Aerosol Powder, Breath Activated Inhalation, B Complex 1 Tablet Oral daily, buPROPion HCl 1 Tablet (of 75 mg) Oral q on Every Other Day, Cabergoline (0.5 mg) Tablet Oral Take as Directed, Calcium 1 Tablet (of 600 mg) Oral daily, Colace 1 Capsule (of 250 mg) Oral b.i.d. PRN, Dronabinol 1 Capsule (of 5 mg) Oral b.i.d. PRN, Essiac Tea Herbs Leaves Oral PRN, Folic Acid 1 Tablet (of 400 mcg) Oral daily, Gabapentin 1 Capsule (of 100 mg) Oral daily, Hydrocodone-Acetaminophen 1 Tablet (of 10-325 mg) Tablet Oral 6x/d PRN, Hydrocortisone 1 Tablet (of 2.5 mg) Oral q 48 hours, Lactulose 2 tablespoonful(s) (of 10 g/15mL) Solution Oral b.i.d. PRN, Lasix 1 Tablet (of 40 mg) Oral daily PRN, Lisinopril 1 Tablet (of 20 mg) Oral daily, Magnesium 1 Tablet (of 250 mg) Oral daily, Multivitamin and Minerals 1 Tablet daily, Ondansetron HCl 1 Tablet (of 4 mg) Oral t.i.d. PRN, Pantoprazole Sodium 1 Tablet (of 40 mg) Tablet, enteric coated Oral every am, Promethazine HCl 1 Suppository (of 25 mg) Rectal q 6 hours PRN, Senna-S 1 (8.6-50 mg) Tablet Oral b.i.d., Stiolto Respimat 1 puff(s) (of 2.5-2.5 mcg/act) Aerosol, solution Inhalation daily, Sudafed 1 Tablet (of 30 mg) Oral daily, Vitamin A Capsule Oral daily, Xyzal Allergy 24HR 1 Tablet (of 5 mg) Oral daily Allergies: Cats, Dust mites, Grass Pollen, Mold and Trees and HydroCHLOROthiazide. Review of Systems: Review of Systems is not available for this patient. Vital Signs: Performed on Mar 03, 2021 09:23 Height - 73.00 in Weight - 309.8 lbs (HIGH) BSA - 2.59 sq.m BMI - 40.87 (HIGH) Temperature - 98.1 F (LOW) Pulse - 75 /min Respiration - 18 /min BP - 148/89 mm(hg) (HIGH) O2 Sat - 94 % (LOW) Pain - 6 Fatigue - 4 Performance Status: 1 - No physically strenuous activity, but ambulatory and able to carry out light or sedentary work (e.g. office work, light house work). (ECOG) Physical Examination: ENMT - No mouth sores, no thrush, no jaundice, Respiratory - Lungs are clear to auscultation, Cardiovascular - Regular rate and rhythm of heart, Abdomen - Soft, bowel sounds present, no rebound tenderness, no mass palpable, no discomfort in left flank area, Extremities - No visible edema. Lab/Imaging: Most recent lab results are not available for this patient. Impression: 1. 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 2. status post metastasectomy done on 09/05/2017, postoperative MRI disclosed complete resection. Molecular studies on brain metastases biopsy showed negative for EGFR ALK, RET, HER-2/[place], ROS 1,BRAF, 3. Right upper lobe lung mass 2.7 cm. 4. Indigestion/ heartburn nausea vomiting probably due to candidal esophagitis or questionable increase intracranial pressure , also with oral thrush EGD showed H. pylori status post antibiotics FOLLOWUP IMAGIN. CT scan of head done on 10/17/2017 showed stable postoperative changes from prior left occipital craniotomy and resection of previous metastatic mass from left cerebellum hemisphere. (Repeat CT of the head from 11/2017 in [facility] reported findings consistent with the 10/17/2017 imaging with no acute findings). 6. PET/CT from 10/29/2017 showed 2 x 2.3 cm right apical pulmonary nodule with SUV of 17.7. No additional abnormality noted other than status post cranial metastasectomy site. 7. MRI of the brain with and without contrast on August 23, [address] [facility] in [place]. 8. CT of the head noncontrast on October 12, 2019: Right frontal shunt catheter with tip in the left frontal horn. No hydrocephalus. Ventricular size is unchanged from previous scans. Prior postoperative changes occipital craniectomy. 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 Stable cerebral tonsillar ectopia with normal fourth ventricle. 9. His last PET/CT imaging was August 11, 2019. Is reported that there was ongoing decrease in FDG activity in the right upper lobe lung nodule with an SUV of 2.6 down from 3.4 on previous exam. There were no new malignant lesions present there is no indication to suspect osseous metastatic disease. CURRENT TREATMENT SUMMARY: 7. SBRT to right lung mass completed 11/23/2017 for a total dose of 3,600 cGY (48 GGY). 8. SRS to brain completed 01/16/2018 for a total dose of 2,400 cGY. 9. Carboplatin/Alimta/pembrolizumab 06/28/2018. He had 1 dose of the carboplatin Alimta had significant side effects and was transitioned to just single agent pembrolizumab in September 2018. He remains on pembrolizumab currently. discussed with Mr Mcclellan the role of systemic chemotherapy with cisplatin/Alimta versus observation alone. He has recommended chemotherapy consisting of Cisplatin 75 mg/m2 day 1 and Alimta 500 mg/m??? on day 1 repeat every 21 days ???4 cycles along with dexamethasone, folic acid and B12 as prophylactic treatment for Alimta. Mr Mcclellan transferred his care to [facility] where getting evaluation CT PET scan was done on 05/17/2018 which showed persistent right upper lobe lung mass with right bronchial lymph node involvement; Finding in the left maxillary sinus of concern for metastatic disease; A new osseous lesion seen in the right anterior iliac crest consistent with metastatic disease. Mr Mcclellan was started on carboplatin/Alimta/pembrolizumab-he was given 1 dose of chemotherapy on 06/28/2018. He experienced significant side effects so chemotherapy was discontinued and then switched to single agent Keytruda in September 2018. Patient tolerated well except some diarrhea, responded to prednisone 60 mg by mouth daily, now resolved and his follow-up CT PET scan done on 11/25/2018 showed excellent response to single agent Keytruda. The PET/CT did show a right apical lung lesion measures 3.9 x 2.4 cm with SUV of 3.4 which is significant improvement since prior study in May 2018 and likely represent inflammatory posttreatment changes. Mr Mcclellan has continued with single agent Keytruda. He is tolerating it well and has improvement in his performance status. Mr. Mcclellan had restaging PET CT on 04/26/2020. The findings were no evidence for active recurrent or residual malignancy. The right upper lobe nodule remains unchanged in size at 2.5 x 4.6 cm, with an SUV of 2.4; this is consistent with sterilize malignancy and mild residual inflammatory uptake . There was no findings to indicate osseous metastatic disease. The impression was negative for active malignancy and inflammatory activity in the sterilized right upper lobe lung carcinoma. Mr Mcclellan opted to hold his immunotherapy through [facility]. He has returned today to discuss continuing treatment verses observation alone. CT scan of head done on July 01, 2020 shows no recurrence of disease MRI scan of the C-spine done on August 05, 2020 to evaluate left arm weakness shows no significant change but stable C5-C6 disc bulge with facet degenerative changes and moderate central canal and severe bilateral foraminal narrowing. As per patient surgical option was discussed but he is somewhat reluctant and considering other options MRI scan of lumbar done on August 05, 2020 showed no significant changes mild worsening of moderate central canal stenosis at L4-5 secondary to worsening ligamentum flavum hypertrophy and facet degenerative changes and persistent bulging disc Follow-up CT PET scan done on August 16, 2020 showed no change in the treated right upper lobe malignancy. Negative for active disease. Plan: Discussed with patient regarding his labs white blood count 6.5 hemoglobin 13.9 hematocrit 43.3 platelets 209 CMP within normal limits Clinically, patient is in mild/moderate distress due to left flank pain radiating to the groin area but under control with current pain medication, no more episode of hematuria, his signs symptom suggestive of genitourinary pathology like stones or blood clot or other pathology. At this point , we will hold his scheduled immunotherapy today and will refer him to Dr. Dyson, neurologist for evaluation, patient was advised if there is a worsening of symptoms he need to go to [facility] for evaluation. Patient return to clinic in 2 weeks with CBC CMP. And if his related symptoms resolved, will resume his immunotherapy. Signed By: Harsha Parra M.D. <<Signature on File>>
== END 2021-03-03 06:45 | disposition home or self-care (01) ==
PROVIDERS: PCP Emergency Medicine Emergency Medical Services; Visit Provider Internal Medicine Hematology & Oncology
DX: C34.11 Malignant neoplasm of upper lobe, right bronchus or lung (principal); Z79.899 Other long term (current) drug therapy; Z79.891 Long term (current) use of opiate analgesic
CPT/HCPCS: 36415; 80053; 85025; 99214

== ENCOUNTER 2021-03-12 23:23 | Emergency (ER) | payer OTHER, SELFPAY ==
[2021-03-12 23:28] VITALS: BP 161/99; PULSE 75; RESP 18; TEMP 36.9; O2SAT 94; BMI 41.3
--- NOTE | 2021-03-12 23:50 | CTR_ITS ---
PROCEDURE INFORMATION: Exam: CT Abdomen And Pelvis With Contrast Exam date and time: 03/12/2021 11:50 PM Age: 65 years old Clinical indication: Nausea and vomiting; Prior surgery; Surgery type: Appy. Wing Coverer shunt. ; Patient HX: Persistent n/v. History of lung cancer. TECHNIQUE: Imaging protocol: Computed tomography of the abdomen and pelvis with contrast. Radiation optimization: All CT scans at this facility use at least one of these dose optimization techniques: automated exposure control; mA and/or kV adjustment per patient size (includes targeted exams where dose is matched to clinical indication); or iterative reconstruction. Contrast material: OMNI 300; Contrast volume: 95 ml; Contrast route: INTRAVENOUS (IV); COMPARISON: CT abdomen pelvis w con* [id number] 10/03/2017 4:20 PM RADIATION DOSE METRICS: Total DLP (mGy-cm): 2105.06 FINDINGS: Tubes, catheters and devices: TAX APPRAISER shunt catheter terminates in the lower pelvis. Lungs: The lung bases are clear. No effusion Liver: 3.2 cm low-attenuation lesion of the right lobe of the liver is new and is suspicious for metastatic disease. Gallbladder and bile ducts: No wall thickening, pericholecystic fluid or stones. 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 Spleen: Normal. No splenomegaly. Adrenal glands: Normal. No mass. Kidneys and ureters: 1.6 cm right renal cyst. 5 mm mildly obstructing left mid ureteral stone. Stomach and bowel: Diverticulosis without diverticulitis. Appendix: Appendix has been removed. Intraperitoneal space: Unremarkable. No free air. No significant fluid collection. Vasculature: Unremarkable. No abdominal aortic aneurysm. Lymph nodes: Unremarkable. No enlarged lymph nodes. Urinary bladder: Unremarkable as visualized. Reproductive: Unremarkable as visualized. Bones/joints: Unremarkable. No acute fracture. Soft tissues: Unremarkable. CT/CT abdomen pelvis w con* [id number] IMPRESSION: 1. 3.2 cm low-attenuation lesion of the right lobe of the liver is new and is suspicious for metastatic disease. 2. 5 mm mildly obstructing left mid ureteral stone. 3. 4.3 x 4.8 cm peripancreatic lipoma, previously 3.9 x 3 cm. 4. Diverticulosis without diverticulitis. COMMENTS: Consistent with the [employer]'s Incidental Findings Committee white paper (J Am Rachel Radiol 2018): Any incidental renal lesion less than 1 cm or classified as too small to characterize, or any incidental cystic renal lesion characterized as simple-appearing, is likely benign. No follow-up imaging is recommended for these lesions per consensus recommendations based on imaging criteria. Radiation Dose CTDIVOL = (mGy): DLP = 2105.06 (mGy-cm)
--- NOTE | 2021-03-12 23:56 | W.ED.NAVMDI ---
HPI - Nausea/Vomiting/Diarrhea General: Chief complaint: Nausea/Vomiting/Diarrhea Stated complaint: N\V Time Seen by Provider: 03/12/21 23:30 Source: patient Mode of arrival: ambulatory Limitations: no limitations History of Present Illness: HPI Narrative: 65-year-old male who has a history of lung cancer is on immunotherapy for lung cancer. He states of last 2 days and is feeling extremely ill has been having vomiting. He states his vomiting is worsened much tonight he is actually actively vomiting in the room. States he is feels like he cannot keep anything down and has had extreme vomiting. He states has not had this issue in the past. Denies any abdominal pain or fevers. Denies any worsening improving factors. Denies any known sick contacts. Associated nausea: Yes Associated symtoms: Reports nausea; Denies chest pain, dysuria or headache(s) Review of Systems Const: Denies: fever(s), chills, body aches or change in appetite Eyes: Denies: blurry vision or eye discomfort ENMT: Denies: throat pain or dental pain Card: Denies: chest pain Resp: Denies: dyspnea GI: Reports: nausea and vomiting : Denies: dysuria Musc: Denies: neck pain or back pain Skin/Breast: Denies: rash Neuro: Denies: headache(s) Psych: Denies: depression Danny/Lymph: Denies: easy bruising All/Imm: Denies: urticaria PFSH ED PFSH: Medical History (Updated 03/13/21 @ 01:53 by Nida Land MD) Hydrocephalus Intervertebral disc disorder of cervical region with myelopathy Left arm pain Metastatic lung carcinoma Primary lung adenocarcinoma Ulnar neuropathy at elbow of left upper extremity Surgical History History of craniotomy 09/05/2017 Posterior fossa craniotomy and resection of the cerebellar mass Status post ventriculoperitoneal shunt Family History Family/Other CAD (coronary artery disease) Social History Smoking and tobacco status: never smoked Alcohol intake: never Household members: none Marital status: Current occupational status: disabled History of recent travel: No Physical Exam Const: COMMON NORMALS: no acute distress, patient oriented x3 and healthy appearing HENMT: COMMON NORMALS: normocephalic and atraumatic HEAD & SCALP: normocephalic and atraumatic Eye: COMMON NORMALS: Equal, round and reactive pupils present and EOMs intact bilaterally PUPIL: Yes Equal, round and reactive pupils present Neck/C-Spine: COMMON NORMALS: full ROM and supple Chest: COMMONS NORMALS: normal inspection of the chest and normal palpation of entire chest wall Resp: COMMON NORMALS: normal respiratory effort, No retractions, No use of accessory muscles and clear to auscultation bilaterally AUSCULTATION: clear to auscultation bilaterally Cardio: COMMON NORMALS: regular rate, regular rhythm and No murmurs present (Cardio) RATE: regular rate RHYTHM: regular rhythm GI: COMMON NORMALS: Normal to inspection, nondistended, normoactive bowel sounds present, Soft to palpation, non-tender and no masses PALPATION: Yes Soft to palpation Extremity: COMMON NORMALS: normal to inspection and full ROM Neuro: COMMON NORMALS: patient oriented x3, moves all extremities and no focal motor deficits Psych: COMMON NORMALS: mental status grossly normal, Normal thought process present and cooperative THOUGHT PROCESS: Normal thought process present Skin: COMMON NORMALS: no rashes or lesions noted and no wounds GENERAL SKIN EXAM: no rashes or lesions noted Course Vital Signs: Vital signs: Vital Signs Temperature 98.4 F 03/12/21 23:28 Pulse Rate 61 03/13/21 01:45 Respiratory Rate 23 H 03/13/21 01:45 Blood Pressure 124/73 03/13/21 01:45 Pulse Oximetry 93 03/13/21 01:45 MDM - Nausea/Vomiting/Diarrhea MDM Narrative: Medical decision making narrative: Patient presents with abdominal pain and vomiting likely from his kidney stone his pain is much improved here he is on pain meds at home and will start him on Flomax and nausea medicine. He is to follow-up with urology. Also informed him of liver met likely found on CT as well he has follow-up with Dr. Parra next week for his lung cancer and will discuss this with him at this time. He is return if worsening. Lab Data: Labs: Lab Results 03/13/21 03/13/21 00:10 00:10 WBC 9.4 10^3/uL 10^3/ uL (4.0-10.0) RBC 4.78 10^6/uL 10^6 /uL (4.1-5.3) Hgb 15.2 g/dL g/dL (11.7-16.6) Hct 47.2 % % (42.0-52.0) MCV 98.7 fl H fl (80-94) MCH 31.8 pg pg (28.0-34.0) MCHC 32.2 g/dL g/dL (30.0-36.0) RDW 13.0 % % (12.1-15.1) Plt Count 225 10^3/cmm 10^3 /cmm (130-400) MPV 9.3 fL fL (7.4-10.4) Neut % (Auto) 56.7 % % Lymph % (Auto) 32.5 % % [place] % (Auto) 8.2 % % Eos % (Auto) 2.3 % % Baso % (Auto) 0.2 % % Neut # (Auto) 5.35 10^3/uL 10^3 /uL (1.8-7.7) Lymph # (Auto) 3.1 10^3/uL 10^3/ uL (0.8-4.8) [place] # (Auto) 0.8 10^3/uL 10^3/ uL (0.2-0.9) Eos # (Auto) 0.2 10^3/uL 10^3/ uL (0.0-0.8) Baso # (Auto) 0.0 10^3/uL 10^3/ uL (0.0-0.1) Nucleated RBC % (a uto) 0 % % Nucleated RBCs # 0.0 /100WBC /100W BC Sodium 141 mmol/L mmol/L (136-145) Potassium 3.7 mmol/L mmol/L (3.5-5.1) Chloride 101 mmol/L mmol/L (98-107) Carbon Dioxide 28 mmol/L mmol/L (22-29) Anion Gap 15.7 (5-19) BUN 13 mg/dL mg/dL (8-23) Creatinine 1.4 mg/dL H mg/dL (0.7-1.2) GFR Calculation 51.2 mL/min L mL/ min (90-130) Glucose 109 mg/dL mg/dL (65-115) Calculated Osmolal ity 293 mOsm/kg mOsm/ kg (285-295) Calcium 9.1 mg/dL mg/dL (8.5-10.5) Total Bilirubin 0.7 mg/dL mg/dL (0.15-1.2) AST 18 U/L U/L (0-40) ALT 20 U/L U/L (0-41) Alkaline Phosphata se 71 IU/L IU/L (40-130) Total Protein 7.4 g/dL g/dL (6.6-8.7) Albumin 4.1 g/dL g/dL (3.5-5.2) Globulin 3.3 g/dL g/dL (1.3-4.6) Lipase 17 U/L U/L (13-60) Imaging Data^: CT Abd/Pel: Attestation: I personally reviewed and interpreted this imaging study as follows: Radiologist's impression: [address] [address] [address] Scan Report Signed Patient: Alli Mcclellan Unit #: [id number] : 1955 Age/Sex: 65 / M ADM Date: 03/12/21 Loc: ER Room/Bed: Attending Dr: Ordering Provider/Ordering MD: Nida Land MD Date of Service: 03/12/21 Procedure(s): CT abdomen pelvis w con* [id number] Accession Number(s): [id number] Report Number: [id number] PROCEDURE INFORMATION: Exam: CT Abdomen And Pelvis With Contrast Exam date and time: 03/12/2021 11:50 PM Age: 65 years old Clinical indication: Nausea and vomiting; Prior surgery; Surgery type: Appy. 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 ; Patient HX: Persistent n/v. History of lung cancer. TECHNIQUE: Imaging protocol: Computed tomography of the abdomen and pelvis with contrast. Radiation optimization: All CT scans at this facility use at least one of these dose optimization techniques: automated exposure control; mA and/or kV adjustment per patient size (includes targeted exams where dose is matched to clinical indication); or iterative reconstruction. Contrast material: OMNI 300; Contrast volume: 95 ml; Contrast route: INTRAVENOUS (IV); COMPARISON: CT abdomen pelvis w con* [id number] 10/03/2017 4:20 PM RADIATION DOSE METRICS: Total DLP (mGy-cm): 2105.06 FINDINGS: Tubes, catheters and devices: INSTRUMENT STERILIZER shunt catheter terminates in the lower pelvis. Lungs: The lung bases are clear. No effusion Liver: 3.2 cm low-attenuation lesion of the right lobe of the liver is new and is suspicious for metastatic disease. Gallbladder and bile ducts: No wall thickening, pericholecystic fluid or stones. 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 Spleen: Normal. No splenomegaly. Adrenal glands: Normal. No mass. Kidneys and ureters: 1.6 cm right renal cyst. 5 mm mildly obstructing left mid ureteral stone. Stomach and bowel: Diverticulosis without diverticulitis. Appendix: Appendix has been removed. Intraperitoneal space: Unremarkable. No free air. No significant fluid collection. Vasculature: Unremarkable. No abdominal aortic aneurysm. Lymph nodes: Unremarkable. No enlarged lymph nodes. Urinary bladder: Unremarkable as visualized. Reproductive: Unremarkable as visualized. Bones/joints: Unremarkable. No acute fracture. Soft tissues: Unremarkable. CT/CT abdomen pelvis w con* [id number] IMPRESSION: 1. 3.2 cm low-attenuation lesion of the right lobe of the liver is new and is suspicious for metastatic disease. 2. 5 mm mildly obstructing left mid ureteral stone. 3. 4.3 x 4.8 cm peripancreatic lipoma, previously 3.9 x 3 cm. 4. Diverticulosis without diverticulitis. COMMENTS: Consistent with the [employer]'s Incidental Findings Committee white paper (J Am Rachel Radiol 2018): Any incidental renal lesion less than 1 cm or classified as too small to characterize, or any incidental cystic renal lesion characterized as simple-appearing, is likely benign. No follow-up imaging is recommended for these lesions per consensus recommendations based on imaging criteria. Radiation Dose CTDIVOL = (mGy): DLP = 2105.06 (mGy-cm) Dictated By: Leandro Wheeler Signed By: Leandro Wheeler Signed Date/Time: 03/13/21 0134 DD/ 2820 Discharge Plan Discharge Patient Disposition: Home Clinical Impression: Kidney stone Condition: Stable Prescriptions: New Flomax 0.4 mg capsule 0.4 mg PO DAILY Qty: 5 RF: 0 ondansetron 4 mg tablet,disintegrating 4 mg PO Q6H PRN (Reason: nausea and vomiting) Qty: 14 RF: 0 No Action ascorbic acid (vitamin C) 500 mg capsule, extended release 500 mg PO DAILY RF: 0 acetaminophen 325 mg capsule 650 mg PO QID PRN (Reason: Pain) RF: 0 albuterol sulfate 90 mcg/actuation aerosol powdr breath activated 2 inh INHALATION Q6H PRN (Reason: Shortness Of Breath) RF: 0 vitamin B complex [B Complex-Vitamin B12] Tablet 1 tab PO DAILY RF: 0 bupropion HCl 75 mg tablet 75 mg PO DAILY RF: 0 dronabinol 5 mg capsule 5 mg PO BID RF: 0 folic acid 400 mcg tablet 0.4 mg PO DAILY RF: 0 hydrocodone-acetaminophen 10-325 mg tablet 1 tab PO Q4H PRN (Reason: Pain) RF: 0 lactulose 10 gram/15 mL solution 20 gm PO BID RF: 0 furosemide [Lasix] 40 mg tablet 40 mg PO DAILY PRN (Reason: Edema) RF: 0 magnesium 250 mg tablet 250 mg PO DAILY RF: 0 multivitamin with minerals Capsule 1 cap PO DAILY RF: 0 ondansetron HCl 4 mg tablet 4 mg PO Q8H PRN (Reason: nausea and vomiting) RF: 0 pantoprazole 40 mg tablet,delayed release (DR/EC) 40 mg PO DAILY RF: 0 promethazine 25 mg suppository 25 mg DE Q6H PRN (Reason: N/V) RF: 0 Stiolto Respimat 2.5-2.5 mcg/actuation mist 2 puff INHALATION DAILY RF: 0 Keytruda 25 mg/mL solution 25 mg IVP .weekly RF: 0 lorazepam 0.5 mg tablet 0.5 mg PO Q6H PRN (Reason: UNKNKOWN) RF: 0 cabergoline 0.5 mg tablet 0.5 mg PO .WEEKLY RF: 0 hydrocortisone 20 mg tablet 10 mg PO DAILY RF: 0 carbidopa-levodopa [Sinemet] 25-100 mg tablet 0.5 tab PO TID 30 Days Qty: 45 RF: 3 gabapentin 100 mg Capsule See Rx Instructions .ROUTE .COMPLEX RF: 0 Benadryl See Rx Instructions .ROUTE .COMPLEX RF: 0 Sudafed See Rx Instructions .ROUTE .COMPLEX RF: 0 ampicillin See Rx Instructions .ROUTE .COMPLEX RF: 0 Discharge Orders: Discharge ED (Routine); Ordered 03/13/21 Ordered By: Nida Land Referrals: Rhett Dyson MD [Physician] - 1-3 days Blayne Clark DO [Primary Care Provider] - Discharge Diet: Advance as tolerated Discharge Activity: Resume usual activity Patient Instructions: Kidney Stones (ED) Coding Level of Care Code ED Drum Saw Operator for Chg Fwd Exam Comprehensive
[2021-03-13] MEDS: iohexol 300 mg/mL 100 mL Btl IV (00:11)
[2021-03-13] MEDS: diphenhydrAMINE 50 mg/mL SDV 1mL IVP (00:33)
[2021-03-13] MEDS: metoclopramide 5 mg/mL SDV 2 mL 10 MG IVP (00:33)
[2021-03-13 00:36] VITALS: BP 155/85
[2021-03-13 00:38] LABS: Basophils % 0.2 %; Eosinophils # 0.2 10^3/uL (0.0-0.8); Eosinophils % 2.3 %; Hematocrit 47.2 % (42.0-52.0); Hemoglobin 15.2 g/dL (11.7-16.6); Lymphocytes # 3.1 10^3/uL (0.8-4.8); Lymphocytes % 32.5 %; Mean Corpuscular HGB Conc 32.2 g/dL (30.0-36.0); Mean Corpuscular Hemoglobin 31.8 pg (28.0-34.0); Mean Corpuscular Volume 98.7 fl (80-94); Mean Platelet Volume 9.3 fL (7.4-10.4); Monocytes # 0.8 10^3/uL (0.2-0.9); Monocytes % 8.2 %; Neutrophils # 5.35 10^3/uL (1.8-7.7); Neutrophils % 56.7 %; Nucleated Red Blood Cells % 0 %; Platelet Count 225 10^3/cmm (130-400); Red Blood Count 4.78 10^6/uL (4.1-5.3); White Blood Count 9.4 10^3/uL (4.0-10.0)
[2021-03-13] MEDS: sodium chloride 0.9% 1,000 ML 999 ML IV (00:41)
[2021-03-13 00:55] LABS: Alanine Aminotransferase 20 U/L (0-41); Albumin Level 4.1 g/dL (3.5-5.2); Alkaline Phosphatase 71 IU/L (40-130); Blood Urea Nitrogen 13 mg/dL (8-23); Calcium 9.1 mg/dL (8.5-10.5); Carbon Dioxide 28 mmol/L (22-29); Chloride 101 mmol/L (98-107); Globulin 3.3 g/dL (1.3-4.6); Glomerular Filtration Rate 51.2 mL/min (90-130); Glucose 109 mg/dL (65-115); Lipase 17 U/L (13-60); Osmolality Calculated 293 mOsm/kg (285-295); Sodium 141 mmol/L (136-145); Total Bilirubin 0.7 mg/dL (0.15-1.2); Total Protein 7.4 g/dL (6.6-8.7)
[2021-03-13 00:56] LABS: Anion Gap 15.7 (5-19); Aspartate Amino Transferase 18 U/L (0-40); Creatinine Clr Calc Pharmacy 77.8391; Potassium 3.7 mmol/L (3.5-5.1)
[2021-03-13 01:45] VITALS: BP 124/73; PULSE 61; RESP 23; O2SAT 93
[2021-03-13 02:24] VITALS: BP 135/74
--- NOTE | 2021-03-13 11:49 | DCPLANNER ---
Addendum entered by Janell Gallegos 03/13/21 12:06: Patient has [facility] insurance, pillowcase turner will email patients information to Luz Elena with [employer] [facility], so authorization process could be started. Original Note: commercial lines manager had message to schedule a follow up appointment for patient with Dr. Dyson. commercial lines manager called the office of Dr. Dyson, spoke with Manisha, gave clinic patients information. commercial lines manager was told that patients information would be printed and reviewed. Clinic will call patient with appointment information.
--- NOTE | 2021-03-26 15:16 | DCPLANNER ---
Patient had a follow up appointment scheduled for 03.19.[address] Dyson - patient did attend appointment.
== END 2021-03-13 02:08 | disposition home or self-care (01) ==
PROVIDERS: Emergency Provider Emergency Medicine; PCP Emergency Medicine Emergency Medical Services
DX: N20.0 Calculus of kidney (principal); Z85.118 Personal history of other malignant neoplasm of bronchus and lung
CPT/HCPCS: 74177; 80053; 83690; 85025; 96361; 96374; 96375; 99284; J1200; J2765; J7030; Q9967

== ENCOUNTER 2021-03-17 08:12 | Outpatient (CLI) | payer OTHER, SELFPAY ==
[2021-03-17 09:21] LABS: Basophils % 0.2 %; Eosinophils # 0.4 10^3/uL (0.0-0.8); Eosinophils % 6.3 %; Hematocrit 43.7 % (42.0-52.0); Hemoglobin 14.4 g/dL (11.7-16.6); Lymphocytes # 2.5 10^3/uL (0.8-4.8); Lymphocytes % 40.7 %; Mean Corpuscular Hemoglobin 32.7 pg (28.0-34.0); Mean Corpuscular Volume 99.1 fl (80-94); Mean Platelet Volume 9.1 fL (7.4-10.4); Monocytes # 0.5 10^3/uL (0.2-0.9); Monocytes % 7.4 %; Neutrophils # 2.83 10^3/uL (1.8-7.7); Neutrophils % 45.2 %; Nucleated Red Blood Cells % 0 %; Platelet Count 225 10^3/cmm (130-400); Red Blood Count 4.41 10^6/uL (4.1-5.3); Red Cell Distribution Width 12.9 % (12.1-15.1); White Blood Count 6.2 10^3/uL (4.0-10.0)
[2021-03-17 09:54] LABS: Alanine Aminotransferase 17 U/L (0-41); Albumin Level 3.6 g/dL (3.5-5.2); Alkaline Phosphatase 58 IU/L (40-130); Anion Gap 12.7 (5-19); Aspartate Amino Transferase 13 U/L (0-40); Blood Urea Nitrogen 13 mg/dL (8-23); Calcium 8.7 mg/dL (8.5-10.5); Carbon Dioxide 26 mmol/L (22-29); Chloride 105 mmol/L (98-107); Glomerular Filtration Rate 85.2 mL/min (90-130); Glucose 91 mg/dL (65-115); Osmolality Calculated 290 mOsm/kg (285-295); Potassium 3.7 mmol/L (3.5-5.1); Sodium 140 mmol/L (136-145); Total Bilirubin 0.3 mg/dL (0.15-1.2); Total Protein 6.6 g/dL (6.6-8.7)
--- NOTE | 2021-03-23 10:10 | ONC FU_ITS ---
Dr. Parra follow up note Patient: Alli Mcclellan Unit #: [id number]: 1955 Dicatated By: Harsha Parra M.D.Date of Visit:Mar 17, 2021 Onc Med Follow-up/Prog Note History of Present Illness: Mr. Mcclellan is a 65-year-old gentleman who was recently diagnosed with metastatic lung cancer to brain. Mr Mcclellan reports that in August 2017, he developed side effects in that he could not speak and had trouble typing with his left hand. He had an episode of ataxia and he felt significantly dizzy, so much so that he felt like he was going to pass out. He presented to the hospital where MRI scan of brain was done on 09/01/2017. The MRI showed left cerebral mass measuring 3.6 cm and mild asymmetric prominence and enhancement at right pituitary gland. Differential included macroadenoma, craniopharyngioma, or metastatic disease. A CT chest was done and reported spiculated area of the right upper lobe measuring 2.7 cm. He underwent posterior fossa craniotomy and resection of the cerebellar mass on 09/05/2017. The final pathology reported metastatic adenocarcinoma consistent with lung primary. Molecular assay was negative for EGFR, BRAF V600E IHC, ALK, RET, HER-2, BRAF, and ROS 1. PET/CT imaging was obtained on 10/29/2017. It did report 2 x 2.3 cm right apical pulmonary nodule with an SUV of 17.7. There were no additional pulmonary nodules or masses identified. Activity in the bilateral hilum and mediastinal lymph nodes was unremarkable. There was no other evidence for local or distant metastatic disease. Follow-up CT of the head from 11/10/2017 reported postoperative changes from prior occipital craniotomy and resection of the previous metastatic lesion from the superior aspect of the left cerebellar hemisphere. There was persistent subcutaneous occipital scalp fluid that may communicate with the CSF space through meningeal defect posterior to the cervical do medullary junction. There were mild central and peripheral atrophy. No acute findings of the head and no significant change from 10/17/2017. It was noted that he had left maxillary sinusitis. Mr. Mcclellan was referred to Dr Lyle in radiation oncology for treatment of the lung mass and consideration of radiation to the brain. Mr Mcclellan had SBRT to the right lung. He had a total dose of 3600 cGy (48 GY). His start date was 11/16/2017. His completion date was 11/23/2017. Mr. Mcclellan then underwent SRS to the brain. His total dose was 2400 cGy. He started on 01/11/2018 and ended on 01/16/2018. He was given Decadron 4 mg twice a day while on treatment with instructions to taper slowly after radiation was completed. Mr. Mcclellan was evaluated and was offered chemotherapy with cisplatin Alimta every 3 weeks for 4 cycles. He has been very hesitant to proceed with chemotherapy due to concerns about side effects. Interim history: Mr Mcclellan went to [place] for further oncology care. His CT PET scan done on 05/17 showed left cerebellar consistent with known prior dissection; Right lung upper lobe consistent with persistent tumor with right bronchial lymph node involvement; Left maxillary sinus of concern for metastatic disease and A new osseous lesion in the right anterior iliac crest consistent with metastatic disease. Once again chemotherapy was recommended and he consentetd. He was given 1 cycle of carboplatin/Alimta/pembrolizumab on 06/28/2018 but he had significant side effects including nausea, vomiting- fatigue requiring hydration, subsequently chemotherapy was discontinued because of intolerance. He was switched to single agent Keytruda on 09/06/2018, tolerated immunotherapy well-except associated or diarrhea which was treated with prednisone 60 mg daily and responded well. He has had no further episodes of the significant diarrhea. He had follow-up CT PET scanOn 11/25/2018 which showed the right apical lung lesion currently measured 3.9 x 2.4 cm with SUV of 3.4 (this is a significant improvement since prior study and likely represent chronic inflammation); Status post right ventriculoperitoneal shunt placement done on 02/15/2019. CT scan of head was done on 04/03/2019 showed stable frontal ventricular shunt tube position with decreased ventriculomegaly since 02/15/2019. 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 On 04/13/2019 Mr Mcclellan presented to the local emergency room with with chief complaints of floaters in his vision off and on and this time in the right eye only. He was sent to [facility] in [place] emergency room where he was evaluated by ophthalmology and no retinal detachment was observed. Follow-up in 2 weeks was recommended but he did not go for follow-up as condition resolved on its own. He also had CT scan of head done on 04/13/2019 which showed no intracranial hemorrhage or mass effect; Unchanged ventricular configuration; Unchanged right frontal ventricular shunt catheter tip terminating in the left frontal horn; Unchanged left cerebellar hemisphere encephalomalacia and postsurgical changes; CT scan of the head done on 05/14/2019 showed right frontal shunt catheter with tip in the left frontal horn. No hydrocephalus; Postoperative changes occipital craniectomy. He remains on immunotherapy with pembrolizumab. Tolerating Keytruda well otherwise Follow-up CT PET scan done on 08/11/2019 showed there is ongoing decrease in FDG activity in the right upper lobe nodule now SUV is 2.6 down from 3.4 previously .no new lesion seen CT scan of the head done on 10/12/2019 shows right frontal shunt cath with the tip in the left frontal horn. No hydrocephalus. Prior postoperative changes occipital status post occipital craniotomy. 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 Recently underwent left arm nerve conduction study, as per patient he was told his left hand weakness and numbness is due to ulnar neuropathy, now being treated with physical therapy. He has been having vertigo Patient was seen by ENT as per patient nothing significant was observed. He states he is having problems with his hand. He states that he did have nerve conduction which reportedly was normal but the technologist that was doing the study indicated that he might need an MRI of his brain. Mr. Mcclellan would like to pursue this if at all possible. He does see Dr. Sam on December [address] Sam is leaving in January so is not sure he can get the MRI scheduled at that point. He states that he does have an MRI of the brain he will need his shunt regulated. He states in regard to Dr. Flaco clinton, he has used Dr Dinh in [place], [place]. Follow-up CT scan of head was done on January 03, 2020 which is unchanged since October 12, 2019, no enhancing masses or acute intracranial hemorrhage. Postoperative changes of occipital craniectomy with encephalomalacia left cerebellum and unchanged pseudomeningocele. [employer] shunt catheter tip terminating anterior horn of left lateral ventricle. No hydrocephalus. Left maxillary sinusitis, Oral antibiotics were prescribed He has had persistent discomfort but mild puffiness in the left hand, which is improving, patient was transferred to [place] recently for nausea vomiting and there was a concern regarding malfunctioning of intracranial shunt, as per patient he was evaluated by neurosurgery in [place] and had MRI scan of head done there which showed shunt was functioning fine and no new lesions seen patient said he may have some kind of reaction to the contrast as he was feeling pain all over his body and responded well to morphine. Mr Mcclellan was referred to physical therapy. He continues the Keytruda. Mr. Mcclellan had restaging PET CT on 04/26/2020. The findings were no evidence for active recurrent or residual malignancy. The right upper lobe nodule remains unchanged in size at 2.5 x 4.6 cm, with an SUV of 2.4; this is consistent with sterilize malignancy and mild residual inflammatory uptake . There was no findings to indicate osseous metastatic disease. The impression was negative for active malignancy and inflammatory activity in the sterilized right upper lobe lung carcinoma. He continues with Keytruda. Mr Mcclellan is here today for followup and consideration of Keytruda. He has completed 28 cycles with his last cycle being 04/30/2020. At his follow-up visit with us on 05/21/2020 they had discussed his PET CT results from 04/26/2020. The findings were no evidence for active recurrent or residual malignancy. The right upper lobe nodule remains unchanged in size from 2.5 x 4.6 cm with an SUV of 2.4; this is consistent with sterilized malignancy and mild residual inflammatory uptake . There were no findings to indicate osseous metastatic disease. The impression was negative for active malignancy and inflammatory activity in the sterilized right upper lobe lung carcinoma. Given those results and was offered either the option of continuing immunotherapy or switching to observation alone as the recent PET/CT persistently shows no evidence of active active disease.Patient opted to continue with the treatment but would prefer every [address] scan of head done on July 01, 2020 showed stable occipital craniectomy and postsurgical change in the left cerebellum. No recurrent tumor. Right frontal [employer] shunt catheter unchanged in position. No hydrocephalus. Sinusitis And underwent CT scan of head on July 01, 2020 which showed no evidence of recurrence of disease no hydrocephalus Patient scheduled for follow-up MRI scan of C-spine and lumbar spine to evaluate progressive left arm and leg weakness Done on August 05, 2020 which showed no significant change. Stable C5-6 disc bulge with facet degenerative changes and moderate central canal and severe bilateral foraminal narrowing. Additional degenerative changes throughout the cervical spine without significant central canal or foraminal stenosis. #2 stable appearance of the midline suboccipital craniectomy and overlying suspected pseudomeningocele. Chronic bilateral inferior cerebellar changes with volume loss and enlarged fourth ventricle. MRI scan lumbar showed no significant change or acute osseous or soft tissue abnormality seen. Mild worsening of the moderate central canal stenosis at L4-5 secondary to worsening ligamentum flavum hypertrophy and facet degenerative changes and persistent bulging disc As per patient he was offered surgical option for C-spine abnormality, which may improve his left arm weakness, patient is considering other options Follow-up CT PET scan done on August 16, 2020 showed there has been no change in the right upper lobe mass measuring 2.5 x 4.7 cm SUV of 2.7 which is consistent with sterilized malignancy and mild chronic inflammation Came for follow-up denies any specific complaint except vague discomfort/pain in left flank which is somewhat improving, as per patient he was recently went to [facility] on March 12, 2021 with nausea vomiting diarrhea and underwent CT scan of abdomen pelvis on March 12, 2021 which showed 3.2 cm low-attenuation lesion of right lobe of the liver which is new and suspicious for metastatic disease, 4.3 x 4.8 cm peripancreatic lipoma previously was 3.9 x 3 cm. 5 mm mildly obstructing left mid ureteral stone., Patient was treated symptomatically, patient is here to discuss about his recently done CT scan finding which shows new liver lesion and other than that also complaining of generalized weakness and fatigue, no fever chills, no nausea or vomiting, no diarrhea constipation, no hematuria or dysuria, no hemoptysis hematemesis, no seizure-like activity Medications: Acetaminophen 2 (325 mg) Capsule Oral PRN, Albuterol Sulfate Aerosol Powder, Breath Activated Inhalation, B Complex 1 Tablet Oral daily, buPROPion HCl 1 Tablet (of 75 mg) Oral q on Every Other Day, Cabergoline (0.5 mg) Tablet Oral Take as Directed, Calcium 1 Tablet (of 600 mg) Oral daily, Colace 1 Capsule (of 250 mg) Oral b.i.d. PRN, Dronabinol 1 Capsule (of 5 mg) Oral b.i.d. PRN, Essiac Tea Herbs Leaves Oral PRN, Folic Acid 1 Tablet (of 400 mcg) Oral daily, Gabapentin 1 Capsule (of 100 mg) Oral daily, Hydrocodone-Acetaminophen 1 Tablet (of 10-325 mg) Tablet Oral 6x/d PRN, Hydrocortisone 1 Tablet (of 2.5 mg) Oral q 48 hours, Lactulose 2 tablespoonful(s) (of 10 g/15mL) Solution Oral b.i.d. PRN, Lasix 1 Tablet (of 40 mg) Oral daily PRN, Lisinopril 1 Tablet (of 20 mg) Oral daily, Magnesium 1 Tablet (of 250 mg) Oral daily, Multivitamin and Minerals 1 Tablet daily, Ondansetron HCl 1 Tablet (of 4 mg) Oral t.i.d. PRN, Pantoprazole Sodium 1 Tablet (of 40 mg) Tablet, enteric coated Oral every am, Promethazine HCl 1 Suppository (of 25 mg) Rectal q 6 hours PRN, Senna-S 1 (8.6-50 mg) Tablet Oral b.i.d., Stiolto Respimat 1 puff(s) (of 2.5-2.5 mcg/act) Aerosol, solution Inhalation daily, Sudafed 1 Tablet (of 30 mg) Oral daily, Vitamin A Capsule Oral daily, Xyzal Allergy 24HR 1 Tablet (of 5 mg) Oral daily Allergies: Cats, Dust mites, Grass Pollen, Mold and Trees and HydroCHLOROthiazide. Review of Systems: Review of Systems is not available for this patient. Vital Signs: Performed on Mar 17, 2021 10:16 Height - 73.00 in Weight - 308.8 lbs (LOW) BSA - 2.59 sq.m BMI - 40.74 (HIGH) Temperature - 97.8 F (LOW) Pulse - 64 /min Respiration - 18 /min BP - 139/83 mm(hg) O2 Sat - 96 % Pain - 4 Fatigue - 5 Performance Status: 2 - Ambulatory/capable of all self-care, unable to perform any work activities. Up and about more than 50% of waking hours. (ECOG) Physical Examination: ENMT - No mouth sores, no thrush, no jaundice, Respiratory - Lungs are clear to auscultation, Cardiovascular - Regular rate and rhythm of heart, Abdomen - Soft, bowel sounds present, Extremities - Trace edema bilaterally. Lab/Imaging: Most recent lab results are not available for this patient. Impression: 1. 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 2. status post metastasectomy done on 09/05/2017, postoperative MRI disclosed complete resection. Molecular studies on brain metastases biopsy showed negative for EGFR ALK, RET, HER-2/india, ROS 1,BRAF, 3. Right upper lobe lung mass 2.7 cm. 4. Indigestion/ heartburn nausea vomiting probably due to candidal esophagitis or questionable increase intracranial pressure , also with oral thrush EGD showed H. pylori status post antibiotics FOLLOWUP IMAGIN. CT scan of head done on 10/17/2017 showed stable postoperative changes from prior left occipital craniotomy and resection of previous metastatic mass from left cerebellum hemisphere. (Repeat CT of the head from 11/2017 in [facility] reported findings consistent with the 10/17/2017 imaging with no acute findings). 6. PET/CT from 10/29/2017 showed 2 x 2.3 cm right apical pulmonary nodule with SUV of 17.7. No additional abnormality noted other than status post cranial metastasectomy site. 7. MRI of the brain with and without contrast on August 23, 2018 from [facility] in [place]. 8. CT of the head noncontrast on October 12, 2019: Right frontal shunt catheter with tip in the left frontal horn. No hydrocephalus. Ventricular size is unchanged from previous scans. Prior postoperative changes occipital craniectomy. 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 Stable cerebral tonsillar ectopia with normal fourth ventricle. 9. His last PET/CT imaging was August 11, 2019. Is reported that there was ongoing decrease in FDG activity in the right upper lobe lung nodule with an SUV of 2.6 down from 3.4 on previous exam. There were no new malignant lesions present there is no indication to suspect osseous metastatic disease. CURRENT TREATMENT SUMMARY: 7. SBRT to right lung mass completed 11/23/2017 for a total dose of 3,600 cGY (48 GGY). 8. SRS to brain completed 01/16/2018 for a total dose of 2,400 cGY. 9. Carboplatin/Alimta/pembrolizumab 06/28/2018. He had 1 dose of the carboplatin Alimta had significant side effects and was transitioned to just single agent pembrolizumab in September 2018. He remains on pembrolizumab currently. discussed with Mr Mcclellan the role of systemic chemotherapy with cisplatin/Alimta versus observation alone. He has recommended chemotherapy consisting of Cisplatin 75 mg/m2 day 1 and Alimta 500 mg/m??? on day 1 repeat every 21 days ???4 cycles along with dexamethasone, folic acid and B12 as prophylactic treatment for Alimta. Mr Mcclellan transferred his care to [facility] where getting evaluation CT PET scan was done on 05/17/2018 which showed persistent right upper lobe lung mass with right bronchial lymph node involvement; Finding in the left maxillary sinus of concern for metastatic disease; A new osseous lesion seen in the right anterior iliac crest consistent with metastatic disease. Mr Mcclellan was started on carboplatin/Alimta/pembrolizumab-he was given 1 dose of chemotherapy on 06/28/2018. He experienced significant side effects so chemotherapy was discontinued and then switched to single agent Keytruda in September 2018. Patient tolerated well except some diarrhea, responded to prednisone 60 mg by mouth daily, now resolved and his follow-up CT PET scan done on 11/25/2018 showed excellent response to single agent Keytruda. The PET/CT did show a right apical lung lesion measures 3.9 x 2.4 cm with SUV of 3.4 which is significant improvement since prior study in May 2018 and likely represent inflammatory posttreatment changes. Mr Mcclellan has continued with single agent Keytruda. He is tolerating it well and has improvement in his performance status. Mr. Mcclellan had restaging PET CT on 04/26/2020. The findings were no evidence for active recurrent or residual malignancy. The right upper lobe nodule remains unchanged in size at 2.5 x 4.6 cm, with an SUV of 2.4; this is consistent with sterilize malignancy and mild residual inflammatory uptake . There was no findings to indicate osseous metastatic disease. The impression was negative for active malignancy and inflammatory activity in the sterilized right upper lobe lung carcinoma. Mr Mcclellan opted to hold his immunotherapy through . He has returned today to discuss continuing treatment verses observation alone. CT scan of head done on July 01, 2020 shows no recurrence of disease MRI scan of the C-spine done on August 05, 2020 to evaluate left arm weakness shows no significant change but stable C5-C6 disc bulge with facet degenerative changes and moderate central canal and severe bilateral foraminal narrowing. As per patient surgical option was discussed but he is somewhat reluctant and considering other options MRI scan of lumbar done on August 05, 2020 showed no significant changes mild worsening of moderate central canal stenosis at L4-5 secondary to worsening ligamentum flavum hypertrophy and facet degenerative changes and persistent bulging disc Follow-up CT PET scan done on August 16, 2020 showed no change in the treated right upper lobe malignancy. Negative for active disease. Plan: Discussed with patient regarding his labs white blood count 6.2 hemoglobin 14.4 hematocrit 43.7 platelets 225,000 CMP within normal limits and CT scan of abdomen pelvis done on March 12, 2021 during his visit to [facility] findings which shows new liver lesion concern about metastatic disease. Clinically, patient is doing well with no new signs symptom suggestive of disease progression and recently underwent CT scan of abdomen pelvis for left renal stone shows incidental finding of liver lesion, patient is anxious about disease progression, at this point will consider CT PET scan to confirm the metastatic disease in the liver and if it confirmed, will consider liver biopsy for confirmation as well as molecular profiling to identify targetable mutation. Patient return to clinic in 3 weeks with CBC CMP TSH and follow-up CT PET scan^, In the meantime we will proceed with his next 3 weekly dose of Keytruda today which was delayed because of recent episode of left renal stone.] Signed By: Harsha Parra M.D. <<Signature on File>>
== END 2021-03-17 08:13 | disposition home or self-care (01) ==
LOC: ONCMED 08:14
PROVIDERS: PCP Emergency Medicine Emergency Medical Services; Visit Provider Internal Medicine Hematology & Oncology
DX: Z51.12 Encounter for antineoplastic immunotherapy (principal); C34.90 Malignant neoplasm of unspecified part of unspecified bronchus or lung; C79.31 Secondary malignant neoplasm of brain; R53.1 Weakness; M48.061 Spinal stenosis, lumbar region without neurogenic claudication; M51.26 Other intervertebral disc displacement, lumbar region; Z79.899 Other long term (current) drug therapy
CPT/HCPCS: 80053; 85025; 96413; 99215; J7050; J9271

== ENCOUNTER 2021-03-19 09:21 | Outpatient (CLI) | payer OTHER, SELFPAY ==
--- NOTE | 2021-03-19 09:25 | XR_ITS ---
WS: [id number] XR KUB [id number] REASON FOR EXAM: KIDNEY STONE FINDINGS: CT scan of 03/13/2021 demonstrated a left ureteral calculus at the L4 level. Calculus density seen in the left lower abdomen, L4 level, congruent with the CT finding. Ventriculoperitoneal shunt tubing. No other significant abdominal or pelvic abnormality. XR/XR KUB [id number] IMPRESSION: Presumed left ureteral calculus as above.
== END 2021-03-19 09:22 | disposition home or self-care (01) ==
LOC: RAD 09:23
PROVIDERS: PCP Emergency Medicine Emergency Medical Services; Visit Provider Urology
DX: N20.0 Calculus of kidney (principal)
CPT/HCPCS: 74018; 81003

== ENCOUNTER 2021-03-25 08:27 | Outpatient (CLI) | payer OTHER, SELFPAY ==
--- NOTE | 2021-03-25 08:15 | XR_ITS ---
WS: [id number] KUB, AP view, 03/25/2021 Clinical Data: KIDNEY STONE Comparison: KUB, 03/19/2021 Findings: No abnormal intraabdominal masses are seen. There is no dilatated small bowel or evidence of obstruct ion. There is a faint calcification to the left of the L4 transverse process which may represent a left mi d ureteral calculus. There are phleboliths in the true pelvis. There is a ventriculoperitoneal cathet er unchanged in position. XR/XR KUB [id number] Impression: No change in possible left mid ureteral calculus.
== END 2021-03-25 08:28 | disposition home or self-care (01) ==
LOC: RAD 08:29
PROVIDERS: PCP Emergency Medicine Emergency Medical Services; Visit Provider Urology
DX: N20.2 Calculus of kidney with calculus of ureter (principal)
CPT/HCPCS: 74018; 81003

== ENCOUNTER 2021-04-15 15:02 | Outpatient (CLI) | payer OTHER, SELFPAY ==
--- NOTE | 2021-04-15 15:00 | XR_ITS ---
WS: [id number] KUB, AP view, 04/15/2021 Clinical Data: URETERAL CALCULUS Comparison: KUB, 03/25/2021. Findings: No abnormal intraabdominal masses or calcifications are seen. There is no dilatated small bowel or ev idence of obstruction. The possible left mid ureteral calculus is not seen on this exam. There are phleboliths in the true p lori. The peritoneal catheter remains same. XR/XR KUB [id number] Impression: Left mid ureteral calculus not seen on this exam.
== END 2021-04-15 15:03 | disposition home or self-care (01) ==
LOC: RAD 15:03
PROVIDERS: PCP Emergency Medicine Emergency Medical Services; Visit Provider Urology
DX: N20.1 Calculus of ureter (principal)
CPT/HCPCS: 74018; 81003

== ENCOUNTER 2021-04-29 14:13 | Outpatient (CLI) | payer OTHER, SELFPAY ==
--- NOTE | 2021-04-29 14:00 | XRR_ITS ---
PROCEDURE INFORMATION: Exam: XR Abdomen Exam date and time: 04/29/2021 2:00 PM Age: 65 years old Clinical indication: Condition or disease; Kidney or ureter condition; Calculus (stone) in ureter; Additional info: Ureteral calculus TECHNIQUE: Imaging protocol: XR of the abdomen. Views: Frontal supine view of the abdomen. 1 View. COMPARISON: CR XR KUB [id number] 04/15/2021 3:[address] abdomen and pelvis 03/13/2021 FINDINGS: Tubes, catheters and devices: A intact ventricular peritoneal shunt catheter is seen in the abdomen. Gastrointestinal tract: Normal. No bowel dilation. Organs: Examination is negative for radiodense urinary tract stones. Bones/joints: Unremarkable. XR/XR KUB [id number] IMPRESSION: 1. No acute findings. 2. Negative for radiodense urinary tract stones. 3. Intact ventricular peritoneal shunt catheter Radiation Dose CTDIVOL = (mGy): DLP = (mGy-cm)
== END 2021-04-29 14:14 | disposition home or self-care (01) ==
LOC: RAD 14:14
PROVIDERS: PCP Emergency Medicine Emergency Medical Services; Visit Provider Nurse Practitioner Family
DX: N20.1 Calculus of ureter (principal); Z98.2 Presence of cerebrospinal fluid drainage device
CPT/HCPCS: 74018; 81003

== ENCOUNTER 2021-05-11 07:09 | Outpatient (CLI) | payer OTHER, SELFPAY ==
--- NOTE | 2021-05-11 07:00 | XR_ITS ---
WS: [id number] Exam: XR KUB [id number] Date/Time of Exam: 05/11/2021 7:17 AM Reason For Exam: URETERAL CALCULUS Comparison 04/29/2021. No bowel obstruction or free air. No sign of organ enlargement. A CSF shunt catheter is looped in the mid abdomen. No calcifications noted over the region of the kidneys. Nonspecific pelvic calcificatio ns. Bony structures are intact. XR/XR KUB [id number] IMPRESSION: 1. No acute abdominal process. 2. No calcifications seen in the region of the kidneys.
== END 2021-05-11 07:10 | disposition home or self-care (01) ==
LOC: RAD 07:11
PROVIDERS: PCP Emergency Medicine Emergency Medical Services; Visit Provider Urology
DX: N20.1 Calculus of ureter (principal)
CPT/HCPCS: 74018; 81003

== ENCOUNTER 2021-05-25 13:38 | Outpatient (CLI) | payer OTHER, SELFPAY ==
[2021-05-25 14:10] LABS: Basophils % 0.6 %; Eosinophils # 0.4 10^3/uL (0.0-0.8); Eosinophils % 5.8 %; Hematocrit 45.8 % (42.0-52.0); Hemoglobin 15.1 g/dL (11.7-16.6); Lymphocytes # 2.7 10^3/uL (0.8-4.8); Mean Corpuscular Hemoglobin 31.2 pg (28.0-34.0); Mean Corpuscular Volume 94.6 fl (80-94); Mean Platelet Volume 8.7 fL (7.4-10.4); Monocytes # 0.6 10^3/uL (0.2-0.9); Monocytes % 8.1 %; Neutrophils # 3.23 10^3/uL (1.8-7.7); Neutrophils % 46.4 %; Nucleated Red Blood Cells % 0 %; Platelet Count 199 10^3/cmm (130-400); Red Blood Count 4.84 10^6/uL (4.1-5.3); Red Cell Distribution Width 12.7 % (12.1-15.1)
[2021-05-25 14:42] LABS: Alanine Aminotransferase 20 U/L (0-41); Albumin Level 4.1 g/dL (3.5-5.2); Alkaline Phosphatase 70 IU/L (40-130); Aspartate Amino Transferase 13 U/L (0-40); Blood Urea Nitrogen 12 mg/dL (8-23); Calcium 8.6 mg/dL (8.5-10.5); Carbon Dioxide 25 mmol/L (22-29); Chloride 105 mmol/L (98-107); Glomerular Filtration Rate 75.5 mL/min (90-130); Glucose 113 mg/dL (65-115); Osmolality Calculated 295 mOsm/kg (285-295); Sodium 142 mmol/L (136-145); Thyroid Stimulating Hormone 1.31 uIU/mL (0.27-4.20); Total Bilirubin 0.4 mg/dL (0.15-1.2); Total Protein 7.1 g/dL (6.6-8.7)
== END 2021-05-25 13:39 | disposition home or self-care (01) ==
LOC: ONCMED 13:44
PROVIDERS: PCP Emergency Medicine Emergency Medical Services; Visit Provider Internal Medicine Hematology & Oncology
DX: C34.11 Malignant neoplasm of upper lobe, right bronchus or lung (principal); C79.51 Secondary malignant neoplasm of bone; C79.31 Secondary malignant neoplasm of brain; Z79.899 Other long term (current) drug therapy
CPT/HCPCS: 36415; 80053; 84443; 85025

== ENCOUNTER 2021-05-26 06:39 | Outpatient (CLI) | payer OTHER, SELFPAY ==
--- NOTE | 2021-05-26 12:59 | ONC FU_ITS ---
Dr. Parra follow up note Patient: Alli Mcclellan Unit #: [id number]: 1955 Dicatated By: Harsha Parra M.D.Date of Visit:May 26, 2021 Onc Med Follow-up/Prog Note History of Present Illness: Mr. Mcclellan is a 65-year-old gentleman who was recently diagnosed with metastatic lung cancer to brain. Mr Mcclellan reports that in August 2017, he developed side effects in that he could not speak and had trouble typing with his left hand. He had an episode of ataxia and he felt significantly dizzy, so much so that he felt like he was going to pass out. He presented to the hospital where MRI scan of brain was done on 09/01/2017. The MRI showed left cerebral mass measuring 3.6 cm and mild asymmetric prominence and enhancement at right pituitary gland. Differential included macroadenoma, craniopharyngioma, or metastatic disease. A CT chest was done and reported spiculated area of the right upper lobe measuring 2.7 cm. He underwent posterior fossa craniotomy and resection of the cerebellar mass on 09/05/2017. The final pathology reported metastatic adenocarcinoma consistent with lung primary. Molecular assay was negative for EGFR, BRAF V600E IHC, ALK, RET, HER-2, BRAF, and ROS 1. PET/CT imaging was obtained on 10/29/2017. It did report 2 x 2.3 cm right apical pulmonary nodule with an SUV of 17.7. There were no additional pulmonary nodules or masses identified. Activity in the bilateral hilum and mediastinal lymph nodes was unremarkable. There was no other evidence for local or distant metastatic disease. Follow-up CT of the head from 11/10/2017 reported postoperative changes from prior occipital craniotomy and resection of the previous metastatic lesion from the superior aspect of the left cerebellar hemisphere. There was persistent subcutaneous occipital scalp fluid that may communicate with the CSF space through meningeal defect posterior to the cervical do medullary junction. There were mild central and peripheral atrophy. No acute findings of the head and no significant change from 10/17/2017. It was noted that he had left maxillary sinusitis. Mr. Mcclellan was referred to Dr Lyle in radiation oncology for treatment of the lung mass and consideration of radiation to the brain. Mr Mcclellan had SBRT to the right lung. He had a total dose of 3600 cGy (48 GY). His start date was 11/16/2017. His completion date was 11/23/2017. Mr. Mcclellan then underwent SRS to the brain. His total dose was 2400 cGy. He started on 01/11/2018 and ended on 01/16/2018. He was given Decadron 4 mg twice a day while on treatment with instructions to taper slowly after radiation was completed. Mr. Mcclellan was evaluated and was offered chemotherapy with cisplatin Alimta every 3 weeks for 4 cycles. He has been very hesitant to proceed with chemotherapy due to concerns about side effects. Interim history: Mr Mcclellan went to [place] for further oncology care. His CT PET scan done on 05/17 showed left cerebellar consistent with known prior dissection; Right lung upper lobe consistent with persistent tumor with right bronchial lymph node involvement; Left maxillary sinus of concern for metastatic disease and A new osseous lesion in the right anterior iliac crest consistent with metastatic disease. Once again chemotherapy was recommended and he consentetd. He was given 1 cycle of carboplatin/Alimta/pembrolizumab on 06/28/2018 but he had significant side effects including nausea, vomiting- fatigue requiring hydration, subsequently chemotherapy was discontinued because of intolerance. He was switched to single agent Keytruda on 09/06/2018, tolerated immunotherapy well-except associated or diarrhea which was treated with prednisone 60 mg daily and responded well. He has had no further episodes of the significant diarrhea. He had follow-up CT PET scanOn 11/25/2018 which showed the right apical lung lesion currently measured 3.9 x 2.4 cm with SUV of 3.4 (this is a significant improvement since prior study and likely represent chronic inflammation); Status post right ventriculoperitoneal shunt placement done on 02/15/2019. CT scan of head was done on 04/03/2019 showed stable frontal ventricular shunt tube position with decreased ventriculomegaly since 02/15/2019. 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 On 04/13/2019 Mr Mcclellan presented to the local emergency room with with chief complaints of floaters in his vision off and on and this time in the right eye only. He was sent to [facility] in [place] emergency room where he was evaluated by ophthalmology and no retinal detachment was observed. Follow-up in 2 weeks was recommended but he did not go for follow-up as condition resolved on its own. He also had CT scan of head done on 04/13/2019 which showed no intracranial hemorrhage or mass effect; Unchanged ventricular configuration; Unchanged right frontal ventricular shunt catheter tip terminating in the left frontal horn; Unchanged left cerebellar hemisphere encephalomalacia and postsurgical changes; CT scan of the head done on 05/14/2019 showed right frontal shunt catheter with tip in the left frontal horn. No hydrocephalus; Postoperative changes occipital craniectomy. He remains on immunotherapy with pembrolizumab. Tolerating Keytruda well otherwise Follow-up CT PET scan done on 08/11/2019 showed there is ongoing decrease in FDG activity in the right upper lobe nodule now SUV is 2.6 down from 3.4 previously .no new lesion seen CT scan of the head done on 10/12/2019 shows right frontal shunt cath with the tip in the left frontal horn. No hydrocephalus. Prior postoperative changes occipital status post occipital craniotomy. 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 Recently underwent left arm nerve conduction study, as per patient he was told his left hand weakness and numbness is due to ulnar neuropathy, now being treated with physical therapy. He has been having vertigo Patient was seen by ENT as per patient nothing significant was observed. He states he is having problems with his hand. He states that he did have nerve conduction which reportedly was normal but the technologist that was doing the study indicated that he might need an MRI of his brain. Mr. Mcclellan would like to pursue this if at all possible. He does see Dr. Sam on December [address] Sam is leaving in January so is not sure he can get the MRI scheduled at that point. He states that he does have an MRI of the brain he will need his shunt regulated. He states in regard to Dr. Flaco clinton, he has used Dr Dinh in [place], [place]. Follow-up CT scan of head was done on January 03, 2020 which is unchanged since October 12, 2019, no enhancing masses or acute intracranial hemorrhage. Postoperative changes of occipital craniectomy with encephalomalacia left cerebellum and unchanged pseudomeningocele. SCIENTIST shunt catheter tip terminating anterior horn of left lateral ventricle. No hydrocephalus. Left maxillary sinusitis, Oral antibiotics were prescribed He has had persistent discomfort but mild puffiness in the left hand, which is improving, patient was transferred to [place] recently for nausea vomiting and there was a concern regarding malfunctioning of intracranial shunt, as per patient he was evaluated by neurosurgery in [place] and had MRI scan of head done there which showed shunt was functioning fine and no new lesions seen patient said he may have some kind of reaction to the contrast as he was feeling pain all over his body and responded well to morphine. Mr Mcclellan was referred to physical therapy. He continues the Keytruda. Mr. Mcclellan had restaging PET CT on 04/26/2020. The findings were no evidence for active recurrent or residual malignancy. The right upper lobe nodule remains unchanged in size at 2.5 x 4.6 cm, with an SUV of 2.4; this is consistent with sterilize malignancy and mild residual inflammatory uptake . There was no findings to indicate osseous metastatic disease. The impression was negative for active malignancy and inflammatory activity in the sterilized right upper lobe lung carcinoma. He continues with Keytruda. Mr Mcclellan is here today for followup and consideration of Keytruda. He has completed 28 cycles with his last cycle being 04/30/2020. At his follow-up visit with us on 05/21/2020 they had discussed his PET CT results from 04/26/2020. The findings were no evidence for active recurrent or residual malignancy. The right upper lobe nodule remains unchanged in size from 2.5 x 4.6 cm with an SUV of 2.4; this is consistent with sterilized malignancy and mild residual inflammatory uptake . There were no findings to indicate osseous metastatic disease. The impression was negative for active malignancy and inflammatory activity in the sterilized right upper lobe lung carcinoma. Given those results and was offered either the option of continuing immunotherapy or switching to observation alone as the recent PET/CT persistently shows no evidence of active active disease.Patient opted to continue with the treatment but would prefer every [address] scan of head done on July 01, 2020 showed stable occipital craniectomy and postsurgical change in the left cerebellum. No recurrent tumor. Right frontal SCIENTIST shunt catheter unchanged in position. No hydrocephalus. Sinusitis And underwent CT scan of head on July 01, 2020 which showed no evidence of recurrence of disease no hydrocephalus Patient scheduled for follow-up MRI scan of C-spine and lumbar spine to evaluate progressive left arm and leg weakness Done on August 05, 2020 which showed no significant change. Stable C5-6 disc bulge with facet degenerative changes and moderate central canal and severe bilateral foraminal narrowing. Additional degenerative changes throughout the cervical spine without significant central canal or foraminal stenosis. #2 stable appearance of the midline suboccipital craniectomy and overlying suspected pseudomeningocele. Chronic bilateral inferior cerebellar changes with volume loss and enlarged fourth ventricle. MRI scan lumbar showed no significant change or acute osseous or soft tissue abnormality seen. Mild worsening of the moderate central canal stenosis at L4-5 secondary to worsening ligamentum flavum hypertrophy and facet degenerative changes and persistent bulging disc As per patient he was offered surgical option for C-spine abnormality, which may improve his left arm weakness, patient is considering other options Follow-up CT PET scan done on August 16, 2020 showed there has been no change in the right upper lobe mass measuring 2.5 x 4.7 cm SUV of 2.7 which is consistent with sterilized malignancy and mild chronic inflammation went [place] [facility] on March 12, 2021 with nausea vomiting diarrhea and underwent CT scan of abdomen pelvis on March 12, 2021 which showed 3.2 cm low-attenuation lesion of right lobe of the liver which is new and suspicious for metastatic disease, 4.3 x 4.8 cm peripancreatic lipoma previously was 3.9 x 3 cm. 5 mm mildly obstructing left mid ureteral stone., Patient was treated symptomatically, patient is here to discuss about his recently done CT scan finding which shows new liver lesion and , Subsequently underwent CT PET scan on March 21, 2021 which showed no change in size of the treated right upper lobe lesion, inflammatory uptake is slightly more prominent but unlikely represent recurrence. No abnormality in the liver or upper abdomen,No significant change when compared with CT PET scan done in December 2020 As far as renal stone is concerned, patient is being evaluated and followed by urology Came for follow-up, denies any specific complaints, no fever chills, no nausea or vomiting, no diarrhea constipation, patient has chronic left sinus problem because of damage done to the floor of maxillary sinus on the left side during tooth extraction in the past. Patient said, there is a oral surgeon in [facility] who is considering repairing this hole in the floor of left maxillary sinus. Otherwise denies any skin rash, denies any shortness of breath, denies any diarrhea or mucus in the stool, denies any hematuria or dysuria denies any abdominal pain, denies any seizure-like activity but persistent left hand weakness but stable tolerating Keytruda well last dose was given on March 17, 2021,, patient is here to resume his maintenance immunotherapy Medications: Acetaminophen 2 (325 mg) Capsule Oral PRN, Albuterol Sulfate Aerosol Powder, Breath Activated Inhalation, B Complex 1 Tablet Oral daily, buPROPion HCl 1 Tablet (of 75 mg) Oral q on Every Other Day, Cabergoline (0.5 mg) Tablet Oral Take as Directed, Calcium 1 Tablet (of 600 mg) Oral daily, Claritin 1 Tablet (of 10 mg) Oral daily, Colace 1 Capsule (of 250 mg) Oral b.i.d. PRN, Dronabinol 1 Capsule (of 5 mg) Oral b.i.d. PRN, Essiac Tea Herbs Leaves Oral PRN, Folic Acid 1 Tablet (of 400 mcg) Oral daily, Gabapentin 1 Capsule (of 100 mg) Oral daily, Hydrocodone-Acetaminophen 1 Tablet (of 10-325 mg) Tablet Oral 6x/d PRN, Hydrocortisone 1 Tablet (of 2.5 mg) Oral q 48 hours, Lactulose 2 tablespoonful(s) (of 10 g/15mL) Solution Oral b.i.d. PRN, Lasix 1 Tablet (of 40 mg) Oral daily PRN, Lisinopril 1 Tablet (of 20 mg) Oral daily, Magnesium 1 Tablet (of 250 mg) Oral daily, Multivitamin and Minerals 1 Tablet daily, Ondansetron HCl 1 Tablet (of 4 mg) Oral t.i.d. PRN, Pantoprazole Sodium 1 Tablet (of 40 mg) Tablet, enteric coated Oral every am, Promethazine HCl 1 Suppository (of 25 mg) Rectal q 6 hours PRN, Senna-S 1 (8.6-50 mg) Tablet Oral b.i.d., Stiolto Respimat 1 puff(s) (of 2.5-2.5 mcg/act) Aerosol, solution Inhalation daily, Sudafed 1 Tablet (of 30 mg) Oral daily PRN, Vitamin A Capsule Oral daily, Xyzal Allergy 24HR 1 Tablet (of 5 mg) Oral daily, ZyrTEC Allergy 1 Tablet (of 10 mg) Capsule Oral at bedtime Allergies: Cats, Dust mites, Grass Pollen, Mold and Trees and HydroCHLOROthiazide. Review of Systems: Review of Systems is not available for this patient. Vital Signs: Performed on May 26, 2021 11:48 Height - 73.00 in Weight - 309.8 lbs (HIGH) BSA - 2.59 sq.m BMI - 40.87 (HIGH) Temperature - 97.4 F (LOW) Pulse - 64 /min Respiration - 20 /min BP - 136/88 mm(hg) O2 Sat - 96 % Pain - 3 Fatigue - 5 Performance Status: 1 - No physically strenuous activity, but ambulatory and able to carry out light or sedentary work (e.g. office work, light house work). (ECOG) Physical Examination: ENMT - No mouth sores, no thrush, no jaundice, Respiratory - Lungs are clear to auscultation, Cardiovascular - Regular rate and rhythm of heart, Abdomen - Soft, bowel sounds present, Extremities - Trace edema. Lab/Imaging: Most recent lab results are not available for this patient. Impression: 1. 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 2. status post metastasectomy done on 09/05/2017, postoperative MRI disclosed complete resection. Molecular studies on brain metastases biopsy showed negative for EGFR ALK, RET, HER-2/[place], ROS 1,BRAF, 3. Right upper lobe lung mass 2.7 cm. 4. Indigestion/ heartburn nausea vomiting probably due to candidal esophagitis or questionable increase intracranial pressure , also with oral thrush EGD showed H. pylori status post antibiotics FOLLOWUP IMAGIN. CT scan of head done on 10/17/2017 showed stable postoperative changes from prior left occipital craniotomy and resection of previous metastatic mass from left cerebellum hemisphere. (Repeat CT of the head from 11/2017 in [facility] reported findings consistent with the 10/17/2017 imaging with no acute findings). 6. PET/CT from 10/29/2017 showed 2 x 2.3 cm right apical pulmonary nodule with SUV of 17.7. No additional abnormality noted other than status post cranial metastasectomy site. 7. MRI of the brain with and without contrast on August 23, 2018 from [facility] in [place]. 8. CT of the head noncontrast on October 12, 2019: Right frontal shunt catheter with tip in the left frontal horn. No hydrocephalus. Ventricular size is unchanged from previous scans. Prior postoperative changes occipital craniectomy. 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 Stable cerebral tonsillar ectopia with normal fourth ventricle. 9. His last PET/CT imaging was August 11, 2019. Is reported that there was ongoing decrease in FDG activity in the right upper lobe lung nodule with an SUV of 2.6 down from 3.4 on previous exam. There were no new malignant lesions present there is no indication to suspect osseous metastatic disease. CURRENT TREATMENT SUMMARY: 7. SBRT to right lung mass completed 11/23/2017 for a total dose of 3,600 cGY (48 GGY). 8. SRS to brain completed 01/16/2018 for a total dose of 2,400 cGY. 9. Carboplatin/Alimta/pembrolizumab 06/28/2018. He had 1 dose of the carboplatin Alimta had significant side effects and was transitioned to just single agent pembrolizumab in September 2018. He remains on pembrolizumab currently. discussed with Mr Mcclellan the role of systemic chemotherapy with cisplatin/Alimta versus observation alone. He has recommended chemotherapy consisting of Cisplatin 75 mg/m2 day 1 and Alimta 500 mg/m??? on day 1 repeat every 21 days ???4 cycles along with dexamethasone, folic acid and B12 as prophylactic treatment for Alimta. Mr Mcclellan transferred his care to [facility] where getting evaluation CT PET scan was done on 05/17/2018 which showed persistent right upper lobe lung mass with right bronchial lymph node involvement; Finding in the left maxillary sinus of concern for metastatic disease; A new osseous lesion seen in the right anterior iliac crest consistent with metastatic disease. Mr Mcclellan was started on carboplatin/Alimta/pembrolizumab-he was given 1 dose of chemotherapy on 06/28/2018. He experienced significant side effects so chemotherapy was discontinued and then switched to single agent Keytruda in September 2018. Patient tolerated well except some diarrhea, responded to prednisone 60 mg by mouth daily, now resolved and his follow-up CT PET scan done on 11/25/2018 showed excellent response to single agent Keytruda. The PET/CT did show a right apical lung lesion measures 3.9 x 2.4 cm with SUV of 3.4 which is significant improvement since prior study in May 2018 and likely represent inflammatory posttreatment changes. Mr Mcclellan has continued with single agent Keytruda. He is tolerating it well and has improvement in his performance status. Mr. Mcclellan had restaging PET CT on 04/26/2020. The findings were no evidence for active recurrent or residual malignancy. The right upper lobe nodule remains unchanged in size at 2.5 x 4.6 cm, with an SUV of 2.4; this is consistent with sterilize malignancy and mild residual inflammatory uptake . There was no findings to indicate osseous metastatic disease. The impression was negative for active malignancy and inflammatory activity in the sterilized right upper lobe lung carcinoma. Mr Mcclellan opted to hold his immunotherapy through [place]. He has returned today to discuss continuing treatment verses observation alone. CT scan of head done on July 01, 2020 shows no recurrence of disease MRI scan of the C-spine done on August 05, 2020 to evaluate left arm weakness shows no significant change but stable C5-C6 disc bulge with facet degenerative changes and moderate central canal and severe bilateral foraminal narrowing. As per patient surgical option was discussed but he is somewhat reluctant and considering other options MRI scan of lumbar done on August 05, 2020 showed no significant changes mild worsening of moderate central canal stenosis at L4-5 secondary to worsening ligamentum flavum hypertrophy and facet degenerative changes and persistent bulging disc Follow-up CT PET scan done on August 16, 2020 showed no change in the treated right upper lobe malignancy. Negative for active disease. Plan: Discussed with patient regarding his labs white blood count 7 hemoglobin 15.1 hematocrit 45.8 platelets 299,000 CMP within normal limits Clinically, patient doing well with no new signs symptoms history of recurrence of disease, his CT scan of abdomen done in March 2021 shows liver lesion and upper abdomen abnormality but CT PET scan done on March 21, 2021 shows no uptake in the liver or upper abdomen or new lesions and and stable findings when compared with CT PET scan done in December 2020. Patient was undergoing urology evaluation for kidney stone and also undergoing oral surgery evaluation for left maxillary floor damage done during tooth extraction, patient is here to resume his maintenance immunotherapy, will proceed with his next dose of Keytruda today and then he will return to clinic in 3 weeks with CBC CMP and TSH Signed By: Harsha Parra M.D. <<Signature on File>>
== END 2021-05-26 06:40 | disposition home or self-care (01) ==
LOC: ONCMED 06:39
PROVIDERS: PCP Emergency Medicine Emergency Medical Services; Visit Provider Internal Medicine Hematology & Oncology
DX: Z51.12 Encounter for antineoplastic immunotherapy (principal); Z85.118 Personal history of other malignant neoplasm of bronchus and lung; Z85.841 Personal history of malignant neoplasm of brain; N20.0 Calculus of kidney
CPT/HCPCS: 96413; 99215; J7050; J9271

== ENCOUNTER 2021-06-12 07:11 | Outpatient (CLI) | payer OTHER, SELFPAY ==
--- NOTE | 2021-06-12 07:00 | XR_ITS ---
WS: [id number] KUB, AP view, 06/12/2021 Clinical Data: stones Comparison: KUB, 05/11/2021. Findings: No abnormal intraabdominal masses or calcifications are seen. There is no dilatated small bowel or ev idence of obstruction. There is a shunt catheter ending in the peritoneum. There are phleboliths in the true pelvis. There i s a large amount of fecal material throughout the colon. XR/XR KUB [id number] Impression: Negative KUB.
== END 2021-06-12 07:12 | disposition home or self-care (01) ==
LOC: RAD 07:12
PROVIDERS: PCP Emergency Medicine Emergency Medical Services; Visit Provider Urology
DX: N20.1 Calculus of ureter (principal)
CPT/HCPCS: 74018; 81003

== ENCOUNTER 2021-06-15 07:20 | Outpatient (CLI) | payer OTHER, SELFPAY ==
--- NOTE | 2021-06-15 07:28 | CT_ITS ---
WS: [id number] CT ABDOMEN PELVIS TECHNIQUE: Noncontrast CT of the abdomen and pelvis with coronal and sagittal reformatted images. CLINICAL INFORMATION: LEFT URETERAL CALCULUS COMPARISON: March 13, 2021 DLP: 1934.[address] scans at [facility] use at least one of these dose optimization techniques: automated e xposure control; mA and/or kV adjustment per patient size (includes targeted exams where dose is matc hed to clinical indication); or iterative reconstruction. FINDINGS: Left midureteral calculus is no longer visualized. Calculus has migrated into the distal left ureter just proximal to the UVJ measuring 4 mm. Minimal left ureterectasis. No hydronephrosis in the left ki dney. Right ureter is decompressed. No hydronephrosis in right kidney. Adrenal glands are normal. TRANSPLANT NURSE shunt catheter with catheter in the pelvis. Sigmoid diverticulosis. No evidence of acute diverticulitis. Normal noncontrast liver. Stable low-att enuation right hepatic lesion likely cavernous hemangioma better evaluated on the prior contrast-enha nced CT. Normal gallbladder. Atelectasis in the lung bases. Normal GE junction. Mild fatty atrophy of the pancreas. Mild aortic calcification. Normal caliber abdominal aorta. Slight anterolisthesis L4 on L5. Previousl y described peripancreatic lipoma is unchanged. CT/CT kidney stone [id number] IMPRESSION: 1. Previously described left midureteral calculus is no longer visualized. The re is a new or migrated distal left ureteral calculus just proximal to the UVJ measuring 4 mm. Mild left ureterectasis. No hydronephrosis. 2. No hydronephrosis in the right kidney. No obstructing right renal or ureter al calculi. 3. 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 4. Stable low-attenuation right hepatic lesion likely cavernous hemangioma bet ter evaluated on the prior contrast-enhanced CT. 5. No other significant changes compared to previous.
== END 2021-06-15 07:21 | disposition home or self-care (01) ==
LOC: RAD 07:21
PROVIDERS: PCP Emergency Medicine Emergency Medical Services; Visit Provider Urology
DX: N20.1 Calculus of ureter (principal); D17.79 Benign lipomatous neoplasm of other sites
CPT/HCPCS: 74176; 81003

== ENCOUNTER 2021-06-16 06:25 | Outpatient (CLI) | payer OTHER, SELFPAY ==
[2021-06-16 09:44] LABS: Basophils % 0.6 %; Eosinophils # 0.3 10^3/uL (0.0-0.8); Eosinophils % 5.3 %; Hemoglobin 14.1 g/dL (11.7-16.6); Lymphocytes # 2.2 10^3/uL (0.8-4.8); Lymphocytes % 40.9 %; Mean Corpuscular HGB Conc 32.8 g/dL (30.0-36.0); Mean Corpuscular Hemoglobin 31.3 pg (28.0-34.0); Mean Corpuscular Volume 95.6 fl (80-94); Mean Platelet Volume 10.3 fL (7.4-10.4); Monocytes # 0.4 10^3/uL (0.2-0.9); Monocytes % 7.7 %; Neutrophils # 2.42 10^3/uL (1.8-7.7); Neutrophils % 45.3 %; Nucleated Red Blood Cells % 0 %; Platelet Count 249 10^3/cmm (130-400); Red Cell Distribution Width 12.9 % (12.1-15.1); White Blood Count 5.3 10^3/uL (4.0-10.0)
[2021-06-16 11:17] LABS: Alanine Aminotransferase 15 U/L (0-41); Albumin Level 3.9 g/dL (3.5-5.2); Alkaline Phosphatase 76 IU/L (40-130); Blood Urea Nitrogen 12 mg/dL (8-23); Calcium 8.7 mg/dL (8.5-10.5); Carbon Dioxide 26 mmol/L (22-29); Chloride 106 mmol/L (98-107); Globulin 2.6 g/dL (1.3-4.6); Glomerular Filtration Rate 97.6 mL/min (90-130); Glucose 86 mg/dL (65-115); Osmolality Calculated 293 mOsm/kg (285-295); Sodium 142 mmol/L (136-145); Thyroid Stimulating Hormone 0.55 uIU/mL (0.27-4.20); Total Bilirubin 0.3 mg/dL (0.15-1.2); Total Protein 6.5 g/dL (6.6-8.7)
[2021-06-16 11:25] LABS: Anion Gap 14.2 (5-19); Aspartate Amino Transferase 14 U/L (0-40); Potassium 4.2 mmol/L (3.5-5.1)
--- NOTE | 2021-06-16 15:10 | ONC FU_ITS ---
Dr. Parra follow up note Patient: Alli Mcclellan Unit #: [id number]: 1955 Dicatated By: Harsha Parra M.D.Date of Visit:Jun 16, 2021 Onc Med Follow-up/Prog Note History of Present Illness: Mr. Mcclellan is a 65-year-old gentleman who was recently diagnosed with metastatic lung cancer to brain. Mr Mcclellan reports that in August 2017, he developed side effects in that he could not speak and had trouble typing with his left hand. He had an episode of ataxia and he felt significantly dizzy, so much so that he felt like he was going to pass out. He presented to the hospital where MRI scan of brain was done on 09/01/2017. The MRI showed left cerebral mass measuring 3.6 cm and mild asymmetric prominence and enhancement at right pituitary gland. Differential included macroadenoma, craniopharyngioma, or metastatic disease. A CT chest was done and reported spiculated area of the right upper lobe measuring 2.7 cm. He underwent posterior fossa craniotomy and resection of the cerebellar mass on 09/05/2017. The final pathology reported metastatic adenocarcinoma consistent with lung primary. Molecular assay was negative for EGFR, BRAF V600E IHC, ALK, RET, HER-2, BRAF, and ROS 1. PET/CT imaging was obtained on 10/29/2017. It did report 2 x 2.3 cm right apical pulmonary nodule with an SUV of 17.7. There were no additional pulmonary nodules or masses identified. Activity in the bilateral hilum and mediastinal lymph nodes was unremarkable. There was no other evidence for local or distant metastatic disease. Follow-up CT of the head from 11/10/2017 reported postoperative changes from prior occipital craniotomy and resection of the previous metastatic lesion from the superior aspect of the left cerebellar hemisphere. There was persistent subcutaneous occipital scalp fluid that may communicate with the CSF space through meningeal defect posterior to the cervical do medullary junction. There were mild central and peripheral atrophy. No acute findings of the head and no significant change from 10/17/2017. It was noted that he had left maxillary sinusitis. Mr. Mcclellan was referred to Dr Lyle in radiation oncology for treatment of the lung mass and consideration of radiation to the brain. Mr Mcclellan had SBRT to the right lung. He had a total dose of 3600 cGy (48 GY). His start date was 11/16/2017. His completion date was 11/23/2017. Mr. Mcclellan then underwent SRS to the brain. His total dose was 2400 cGy. He started on 01/11/2018 and ended on 01/16/2018. He was given Decadron 4 mg twice a day while on treatment with instructions to taper slowly after radiation was completed. Mr. Mcclellan was evaluated and was offered chemotherapy with cisplatin Alimta every 3 weeks for 4 cycles. He has been very hesitant to proceed with chemotherapy due to concerns about side effects. Interim history: Mr Mcclellan went to [place] for further oncology care. His CT PET scan done on 05/17 showed left cerebellar consistent with known prior dissection; Right lung upper lobe consistent with persistent tumor with right bronchial lymph node involvement; Left maxillary sinus of concern for metastatic disease and A new osseous lesion in the right anterior iliac crest consistent with metastatic disease. Once again chemotherapy was recommended and he consentetd. He was given 1 cycle of carboplatin/Alimta/pembrolizumab on 06/28/2018 but he had significant side effects including nausea, vomiting- fatigue requiring hydration, subsequently chemotherapy was discontinued because of intolerance. He was switched to single agent Keytruda on 09/06/2018, tolerated immunotherapy well-except associated or diarrhea which was treated with prednisone 60 mg daily and responded well. He has had no further episodes of the significant diarrhea. He had follow-up CT PET scanOn 11/25/2018 which showed the right apical lung lesion currently measured 3.9 x 2.4 cm with SUV of 3.4 (this is a significant improvement since prior study and likely represent chronic inflammation); Status post right ventriculoperitoneal shunt placement done on 02/15/2019. CT scan of head was done on 04/03/2019 showed stable frontal ventricular shunt tube position with decreased ventriculomegaly since 02/15/2019. 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 On 04/13/2019 Mr Mcclellan presented to the local emergency room with with chief complaints of floaters in his vision off and on and this time in the right eye only. He was sent to [facility] in [place] emergency room where he was evaluated by ophthalmology and no retinal detachment was observed. Follow-up in 2 weeks was recommended but he did not go for follow-up as condition resolved on its own. He also had CT scan of head done on 04/13/2019 which showed no intracranial hemorrhage or mass effect; Unchanged ventricular configuration; Unchanged right frontal ventricular shunt catheter tip terminating in the left frontal horn; Unchanged left cerebellar hemisphere encephalomalacia and postsurgical changes; CT scan of the head done on 05/14/2019 showed right frontal shunt catheter with tip in the left frontal horn. No hydrocephalus; Postoperative changes occipital craniectomy. He remains on immunotherapy with pembrolizumab. Tolerating Keytruda well otherwise Follow-up CT PET scan done on 08/11/2019 showed there is ongoing decrease in FDG activity in the right upper lobe nodule now SUV is 2.6 down from 3.4 previously .no new lesion seen CT scan of the head done on 10/12/2019 shows right frontal shunt cath with the tip in the left frontal horn. No hydrocephalus. Prior postoperative changes occipital status post occipital craniotomy. 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 Recently underwent left arm nerve conduction study, as per patient he was told his left hand weakness and numbness is due to ulnar neuropathy, now being treated with physical therapy. He has been having vertigo Patient was seen by ENT as per patient nothing significant was observed. He states he is having problems with his hand. He states that he did have nerve conduction which reportedly was normal but the technologist that was doing the study indicated that he might need an MRI of his brain. Mr. Mcclellan would like to pursue this if at all possible. He does see Dr. Sam on December [address] Sam is leaving in January so is not sure he can get the MRI scheduled at that point. He states that he does have an MRI of the brain he will need his shunt regulated. He states in regard to Dr. Flaco clinton, he has used Dr Dinh in [place], [place]. Follow-up CT scan of head was done on January 03, 2020 which is unchanged since October 12, 2019, no enhancing masses or acute intracranial hemorrhage. Postoperative changes of occipital craniectomy with encephalomalacia left cerebellum and unchanged pseudomeningocele. HEALTH SERVICES INFORMATION SPECIALIST shunt catheter tip terminating anterior horn of left lateral ventricle. No hydrocephalus. Left maxillary sinusitis, Oral antibiotics were prescribed He has had persistent discomfort but mild puffiness in the left hand, which is improving, patient was transferred to [place] recently for nausea vomiting and there was a concern regarding malfunctioning of intracranial shunt, as per patient he was evaluated by neurosurgery in [place] and had MRI scan of head done there which showed shunt was functioning fine and no new lesions seen patient said he may have some kind of reaction to the contrast as he was feeling pain all over his body and responded well to morphine. Mr Mcclellan was referred to physical therapy. He continues the Keytruda. Mr. Mcclellan had restaging PET CT on 04/26/2020. The findings were no evidence for active recurrent or residual malignancy. The right upper lobe nodule remains unchanged in size at 2.5 x 4.6 cm, with an SUV of 2.4; this is consistent with sterilize malignancy and mild residual inflammatory uptake . There was no findings to indicate osseous metastatic disease. The impression was negative for active malignancy and inflammatory activity in the sterilized right upper lobe lung carcinoma. He continues with Keytruda. Mr Mcclellan is here today for followup and consideration of Keytruda. He has completed 28 cycles with his last cycle being 04/30/2020. At his follow-up visit with us on 05/21/2020 they had discussed his PET CT results from 04/26/2020. The findings were no evidence for active recurrent or residual malignancy. The right upper lobe nodule remains unchanged in size from 2.5 x 4.6 cm with an SUV of 2.4; this is consistent with sterilized malignancy and mild residual inflammatory uptake . There were no findings to indicate osseous metastatic disease. The impression was negative for active malignancy and inflammatory activity in the sterilized right upper lobe lung carcinoma. Given those results and was offered either the option of continuing immunotherapy or switching to observation alone as the recent PET/CT persistently shows no evidence of active active disease.Patient opted to continue with the treatment but would prefer every [address] scan of head done on July 01, 2020 showed stable occipital craniectomy and postsurgical change in the left cerebellum. No recurrent tumor. Right frontal HEALTH SERVICES INFORMATION SPECIALIST shunt catheter unchanged in position. No hydrocephalus. Sinusitis And underwent CT scan of head on July 01, 2020 which showed no evidence of recurrence of disease no hydrocephalus Patient scheduled for follow-up MRI scan of C-spine and lumbar spine to evaluate progressive left arm and leg weakness Done on August 05, 2020 which showed no significant change. Stable C5-6 disc bulge with facet degenerative changes and moderate central canal and severe bilateral foraminal narrowing. Additional degenerative changes throughout the cervical spine without significant central canal or foraminal stenosis. #2 stable appearance of the midline suboccipital craniectomy and overlying suspected pseudomeningocele. Chronic bilateral inferior cerebellar changes with volume loss and enlarged fourth ventricle. MRI scan lumbar showed no significant change or acute osseous or soft tissue abnormality seen. Mild worsening of the moderate central canal stenosis at L4-5 secondary to worsening ligamentum flavum hypertrophy and facet degenerative changes and persistent bulging disc As per patient he was offered surgical option for C-spine abnormality, which may improve his left arm weakness, patient is considering other options Follow-up CT PET scan done on August 16, 2020 showed there has been no change in the right upper lobe mass measuring 2.5 x 4.7 cm SUV of 2.7 which is consistent with sterilized malignancy and mild chronic inflammation went to [facility] on March 12, 2021 with nausea vomiting diarrhea and underwent CT scan of abdomen pelvis on March 12, 2021 which showed 3.2 cm low-attenuation lesion of right lobe of the liver which is new and suspicious for metastatic disease, 4.3 x 4.8 cm peripancreatic lipoma previously was 3.9 x 3 cm. 5 mm mildly obstructing left mid ureteral stone., Patient was treated symptomatically, patient is here to discuss about his recently done CT scan finding which shows new liver lesion and , Subsequently underwent CT PET scan on March 21, 2021 which showed no change in size of the treated right upper lobe lesion, inflammatory uptake is slightly more prominent but unlikely represent recurrence. No abnormality in the liver or upper abdomen,No significant change when compared with CT PET scan done in December 2020 As far as renal stone is concerned, patient is being evaluated and followed by urology, Follow-up CT scan of abdomen done on June 15, 2021 showed previously described left mid ureteral calculus is no longer visualized, there is a new or migrated distal left ureteral calculus just proximal to UVJ measuring 4 mm. Mild left ureterectasis. No hydronephrosis. No hydronephrosis in the right kidney. 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 Came for follow-up, denies any specific complaint except left lower abdominal/flank pain which is under control with the pain medication, patient has left renal stone for which he is being followed by urology, as per patient surgery is under consideration if no improvement. Denies any shortness of breath, denies any wheezing, denies any jaundice denies any diarrhea or constipation denies any skin rash, tolerating Keytruda well otherwise Medications: Acetaminophen 2 (325 mg) Capsule Oral PRN, Albuterol Sulfate Aerosol Powder, Breath Activated Inhalation, B Complex 1 Tablet Oral daily, buPROPion HCl 1 Tablet (of 75 mg) Oral q on Every Other Day, Cabergoline (0.5 mg) Tablet Oral Take as Directed, Calcium 1 Tablet (of 600 mg) Oral daily, Claritin 1 Tablet (of 10 mg) Oral daily, Colace 1 Capsule (of 250 mg) Oral b.i.d. PRN, Dronabinol 1 Capsule (of 5 mg) Oral b.i.d. PRN, Essiac Tea Herbs Leaves Oral PRN, Folic Acid 1 Tablet (of 400 mcg) Oral daily, Gabapentin 1 Capsule (of 100 mg) Oral daily, Hydrocodone-Acetaminophen 1 Tablet (of 10-325 mg) Tablet Oral 6x/d PRN, Hydrocortisone 1 Tablet (of 2.5 mg) Oral q 48 hours, Lactulose 2 tablespoonful(s) (of 10 g/15mL) Solution Oral b.i.d. PRN, Lasix 1 Tablet (of 40 mg) Oral daily PRN, Lisinopril 1 Tablet (of 20 mg) Oral daily, Magnesium 1 Tablet (of 250 mg) Oral daily, Multivitamin and Minerals 1 Tablet daily, Ondansetron HCl 1 Tablet (of 4 mg) Oral t.i.d. PRN, Pantoprazole Sodium 1 Tablet (of 40 mg) Tablet, enteric coated Oral every am, Promethazine HCl 1 Suppository (of 25 mg) Rectal q 6 hours PRN, Senna-S 1 (8.6-50 mg) Tablet Oral b.i.d., Stiolto Respimat 1 puff(s) (of 2.5-2.5 mcg/act) Aerosol, solution Inhalation daily, Sudafed 1 Tablet (of 30 mg) Oral daily PRN, Vitamin A Capsule Oral daily, Xyzal Allergy 24HR 1 Tablet (of 5 mg) Oral daily, ZyrTEC Allergy 1 Tablet (of 10 mg) Capsule Oral at bedtime Allergies: Cats, Dust mites, Grass Pollen, Mold and Trees and HydroCHLOROthiazide. Review of Systems: Review of Systems is not available for this patient. Vital Signs: Performed on Jun 16, 2021 11:20 Height - 73.00 in Weight - 310.2 lbs (HIGH) BSA - 2.59 sq.m BMI - 40.93 (HIGH) Temperature - 97.4 F (LOW) Pulse - 67 /min Respiration - 18 /min BP - 158/92 mm(hg) (HIGH) O2 Sat - 96 % Pain - 3 Fatigue - 4 Performance Status: 1 - No physically strenuous activity, but ambulatory and able to carry out light or sedentary work (e.g. office work, light house work). (ECOG) Physical Examination: ENMT - No mouth sores, no thrush, no jaundice, Respiratory - Lungs are clear to auscultation, Cardiovascular - Regular rate and rhythm of heart, Abdomen - Soft, bowel sounds present, Extremities - No visible edema. Lab/Imaging: Most recent lab results are not available for this patient. Impression: 1. 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 2. status post metastasectomy done on 09/05/2017, postoperative MRI disclosed complete resection. Molecular studies on brain metastases biopsy showed negative for EGFR ALK, RET, HER-2/india, ROS 1,BRAF, 3. Right upper lobe lung mass 2.7 cm. 4. Indigestion/ heartburn nausea vomiting probably due to candidal esophagitis or questionable increase intracranial pressure , also with oral thrush EGD showed H. pylori status post antibiotics FOLLOWUP IMAGIN. CT scan of head done on 10/17/2017 showed stable postoperative changes from prior left occipital craniotomy and resection of previous metastatic mass from left cerebellum hemisphere. (Repeat CT of the head from 11/2017 in [facility] reported findings consistent with the 10/17/2017 imaging with no acute findings). 6. PET/CT from 10/29/2017 showed 2 x 2.3 cm right apical pulmonary nodule with SUV of 17.7. No additional abnormality noted other than status post cranial metastasectomy site. 7. MRI of the brain with and without contrast on August 23, 2018 from [facility] in [place]. 8. CT of the head noncontrast on October 12, 2019: Right frontal shunt catheter with tip in the left frontal horn. No hydrocephalus. Ventricular size is unchanged from previous scans. Prior postoperative changes occipital craniectomy. 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 Stable cerebral tonsillar ectopia with normal fourth ventricle. 9. His last PET/CT imaging was August 11, 2019. Is reported that there was ongoing decrease in FDG activity in the right upper lobe lung nodule with an SUV of 2.6 down from 3.4 on previous exam. There were no new malignant lesions present there is no indication to suspect osseous metastatic disease. CURRENT TREATMENT SUMMARY: 7. SBRT to right lung mass completed 11/23/2017 for a total dose of 3,600 cGY (48 GGY). 8. SRS to brain completed 01/16/2018 for a total dose of 2,400 cGY. 9. Carboplatin/Alimta/pembrolizumab 06/28/2018. He had 1 dose of the carboplatin Alimta had significant side effects and was transitioned to just single agent pembrolizumab in September 2018. He remains on pembrolizumab currently. discussed with Mr Mcclellan the role of systemic chemotherapy with cisplatin/Alimta versus observation alone. He has recommended chemotherapy consisting of Cisplatin 75 mg/m2 day 1 and Alimta 500 mg/m??? on day 1 repeat every 21 days ???4 cycles along with dexamethasone, folic acid and B12 as prophylactic treatment for Alimta. Mr Mcclellan transferred his care to [facility] where getting evaluation CT PET scan was done on 05/17/2018 which showed persistent right upper lobe lung mass with right bronchial lymph node involvement; Finding in the left maxillary sinus of concern for metastatic disease; A new osseous lesion seen in the right anterior iliac crest consistent with metastatic disease. Mr Mcclellan was started on carboplatin/Alimta/pembrolizumab-he was given 1 dose of chemotherapy on 06/28/2018. He experienced significant side effects so chemotherapy was discontinued and then switched to single agent Keytruda in September 2018. Patient tolerated well except some diarrhea, responded to prednisone 60 mg by mouth daily, now resolved and his follow-up CT PET scan done on 11/25/2018 showed excellent response to single agent Keytruda. The PET/CT did show a right apical lung lesion measures 3.9 x 2.4 cm with SUV of 3.4 which is significant improvement since prior study in May 2018 and likely represent inflammatory posttreatment changes. Mr Mcclellan has continued with single agent Keytruda. He is tolerating it well and has improvement in his performance status. Mr. Mcclellan had restaging PET CT on 04/26/2020. The findings were no evidence for active recurrent or residual malignancy. The right upper lobe nodule remains unchanged in size at 2.5 x 4.6 cm, with an SUV of 2.4; this is consistent with sterilize malignancy and mild residual inflammatory uptake . There was no findings to indicate osseous metastatic disease. The impression was negative for active malignancy and inflammatory activity in the sterilized right upper lobe lung carcinoma. Mr Mcclellan opted to hold his immunotherapy through ma. He has returned today to discuss continuing treatment verses observation alone. CT scan of head done on July 01, 2020 shows no recurrence of disease MRI scan of the C-spine done on August 05, 2020 to evaluate left arm weakness shows no significant change but stable C5-C6 disc bulge with facet degenerative changes and moderate central canal and severe bilateral foraminal narrowing. As per patient surgical option was discussed but he is somewhat reluctant and considering other options MRI scan of lumbar done on August 05, 2020 showed no significant changes mild worsening of moderate central canal stenosis at L4-5 secondary to worsening ligamentum flavum hypertrophy and facet degenerative changes and persistent bulging disc Follow-up CT PET scan done on August 16, 2020 showed no change in the treated right upper lobe malignancy. Negative for active disease. Plan: Discussed with patient regarding his labs white blood count 5.3 hemoglobin 14.1 hematocrit 43 platelets 249,000 CMP is pending Clinically, patient is done reasonably well except for mild to moderate distress due to left renal stone for which he is being followed by urology. Will proceed with his next 3 weekly dose of Keytruda today then he will return to clinic in 3 weeks with CMP as CBC has been stable Signed By: Harsha Parra M.D. <<Signature on File>>
== END 2021-06-16 06:26 | disposition home or self-care (01) ==
LOC: ONCMED 06:26
PROVIDERS: PCP Emergency Medicine Emergency Medical Services; Visit Provider Internal Medicine Hematology & Oncology
DX: Z51.12 Encounter for antineoplastic immunotherapy (principal); C34.11 Malignant neoplasm of upper lobe, right bronchus or lung; C79.31 Secondary malignant neoplasm of brain; R91.8 Other nonspecific abnormal finding of lung field; R12 Heartburn; N20.0 Calculus of kidney; Z79.899 Other long term (current) drug therapy
CPT/HCPCS: 80053; 84443; 85025; 96413; 99215; J7050; J9271

== ENCOUNTER → 2021-06-17 11:38 | Outpatient (BNVA) | payer OTHER, SELFPAY | PROVIDERS: PCP Emergency Medicine Emergency Medical Services; Visit Provider Nurse Practitioner Family | DX: N20.1 Calculus of ureter (principal); Z20.822 Contact with and (suspected) exposure to COVID-19 | CPT/HCPCS: 87635 ==

== ENCOUNTER 2021-06-24 06:52 | Day surgery (SDC) | payer OTHER, SELFPAY ==
[2021-06-23 10:39] VITALS: BMI 40.2
[2021-06-24] VITALS (10 sets, daily range): BP systolic 70–139; BP diastolic 51–81; PULSE 70–85; RESP 10–21; TEMP 36.7; O2SAT 91–98
--- NOTE | 2021-06-24 | SCC_ITS ---
Procedure Done: 1. Cystoscopy, LEFT retrograde ureteropyelogram 2. LEFT ureteroscopy laser lithotripsy stent 20.7 seconds of fluoroscopic guidance, for a cumulative dose of mGy, was provided to Dr. Dyson by the radiology department. C-arm images of the abdomen were saved for the patient's permanent record. [facility]
--- NOTE | 2021-06-24 06:09 | W.PM.OPSUD ---
Surgery/Procedure H&P Update DATE OF PROCEDURE: June 24, 2021 DATE H&P PERFORMED: 06/15/21 H&P UPDATE INFORMATION: I have reviewed H&P completed within last 30 days, I have examined patient prior to procedure, No changes to prior documentation and H&P is in [facility] EMR on date indicated CHANGES TO PREVIOUS DOCUMENTATION: He reports that he has been diligently straining his urine except for one time. He is unaware of having passed a stone. No other changes. Ready to proceed. PLANNED PROCEDURE: Operation Date: 06/24/21 08:05 Proposed Procedures p Laser Lithotripsy [id number] N20.1(Left) - Rhett Dyson MD s Cystoscopy(Left) - Rhett Dyson MD s Retrograde Pyelogram(Left) - Rhett Dyson MD s Ureteroscopy(Left) - Rhett Dyson MD s Ureteral Stent Placement(Left) - Rhett Dyson MD
--- NOTE | 2021-06-24 07:01 | SC_ITS ---
WS: [id number] Exam: C-arm FL for Urology Date/Time of Exam: 06/24/2021 7:01 AM Reason For Exam: Left ureteroscopy Limited C-arm images of the left abdomen and pelvis are submitted. A limited left retrograde pyelogram shows a filling defect in the distal left ureter that apparently represents the patient's known distal left ureteral stone. The second image of the series depicts a l eft-sided retrograde catheter positioned in the expected region of the left kidney and upper ureter. A CSF shunt catheter is also partially visualized in the left abdomen. No other significant finding o n this limited series.
--- NOTE | 2021-06-24 07:01 | XR_ITS ---
WS: [id number] Exam: XR KUB [id number] Date/Time of Exam: 06/24/2021 7:04 AM Reason For Exam: Preop left ureteroscopy Comparison 06/12/2021. No bowel obstruction or free air noted. No calcifications seen in the region of the kidneys. A CSF sh unt catheter is noted in the abdomen with the tip positioned in the pelvis. No sign of organ enlargem ent. Bony structures are intact. Degenerative changes of the L-spine and hips. Nonspecific pelvic tamiko cifications. XR/XR KUB [id number] IMPRESSION: 1. No acute abdominal process.
--- NOTE | 2021-06-24 07:37 | ECG_ITS ---
[facility] Test Date: 2021-06-24 Pat Name: Alli Mcclellan Department: Room: Gender: Male Associate Project Manager: : 1955 Requested By: Arcadio Michael Order Number: [id number] Octavia MD: Gita Cardenas M.D. Measurements Intervals [place] Rate: 68 P: 29 MN: 202 QRS: -25 QRSD: 104 T: 21 QT: 409 QTc: 436 Interpretive Statements SINUS RHYTHM BORDERLINE LEFT AXIS DEVIATION [QRS AXIS < -20] Compared to ECG 12/28/2018 06:01:19 No significant changes Electronically Signed On 06-25-2021 19:26:03 MOTEL FRONT DESK ATTENDANT by Gita Cardenas M.D. [email or web address]
--- NOTE | 2021-06-24 07:46 | ANES.PREANE2 ---
Pre-Anesthetic Assessment Pre-Anesthetic Assessment: Height/Weight: Height 1.85 m Weight 138.346 kg Temp Pulse Resp BP Pulse Ox 98.1 F 70 18 139/81 93 06/24/21 07:35 06/24/21 07:35 06/24/21 07:35 06/24/21 07:35 06/24/21 07:35 Preop Diagnosis: Refractory left distal ureteral stone Proposed Procedure: Operation Date: 06/24/21 08:05 Proposed Procedures p Laser Lithotripsy [id number] N20.1(Left) - Rhett Dyson MD s Cystoscopy(Left) - Rhett Dyson MD s Retrograde Pyelogram(Left) - Rhett Dyson MD s Ureteroscopy(Left) - Rhett Dyson MD s Ureteral Stent Placement(Left) - Rhett Dyson MD Was Beta Radha taken within 24 hours: N/A Was Clonidine taken within 24 hours: N/A Social: Social History: No alcohol and No tobacco Packs per day: Smokes solange Exam: Pre-Anes Outpt Exam: alert, oriented x 3, clear to auscultation bilaterally and regular rate & rhythm Airway: Submandibular: WNL Cervical ROM: WNL MP: 2 Dentition: Chipped Additional comments: Poor dentition, missing most Pulmonary: Pulmonary: COPD and Sleep apnea CV/HEM: CV/HEM: Arrythmia and HTN GI: GI: GERD Metabolic: Metabolic: Morbid obesity Comments: Chronic steroid Neuropsych: Neuropsych: Neuropathy Comments: hydrocephalus, [employer] shunt Anesthetic Plan: ASA status: 3 Anesthesia: General Risk of > 500 ml blood loss (7ml/kg in children): No PFSH Anesthesia PFSH: Medical History Hematuria Hydrocephalus Intervertebral disc disorder of cervical region with myelopathy Left arm pain Left flank pain Metastatic lung carcinoma Primary lung adenocarcinoma Ulnar neuropathy at elbow of left upper extremity Surgical History History of craniotomy 09/05/2017 Posterior fossa craniotomy and resection of the cerebellar mass Status post ventriculoperitoneal shunt Family History Family/Other CAD (coronary artery disease) Father , at age 82 Renal failure Mother , at age 52 Rheumatoid arthritis Social History Alcohol intake: never Household members: none Marital status: Current occupational status: disabled History of recent travel: No Data Anesthesia Cardiac Studies: No Data to Display
[2021-06-24] MEDS: sodium chloride 0.9% 1,000 ML 30 ML IV (07:53)
[2021-06-24 08:26] LABS: Basophils % 0.5 %; Eosinophils # 0.4 10^3/uL (0.0-0.8); Eosinophils % 5.8 %; Hematocrit 44.9 % (42.0-52.0); Lymphocytes # 3.1 10^3/uL (0.8-4.8); Lymphocytes % 41.6 %; Mean Corpuscular HGB Conc 33.4 g/dL (30.0-36.0); Mean Corpuscular Hemoglobin 31.8 pg (28.0-34.0); Mean Corpuscular Volume 95.3 fl (80-94); Mean Platelet Volume 9.6 fL (7.4-10.4); Monocytes # 0.7 10^3/uL (0.2-0.9); Monocytes % 8.9 %; Neutrophils # 3.18 10^3/uL (1.8-7.7); Neutrophils % 43.1 %; Nucleated Red Blood Cells % 0 %; Platelet Count 246 10^3/cmm (130-400); Red Blood Count 4.71 10^6/uL (4.1-5.3); Red Cell Distribution Width 12.9 % (12.1-15.1); White Blood Count 7.4 10^3/uL (4.0-10.0)
[2021-06-24 08:35] LABS: Alanine Aminotransferase 22 U/L (0-41); Albumin Level 4.2 g/dL (3.5-5.2); Alkaline Phosphatase 73 IU/L (40-130); Aspartate Amino Transferase 15 U/L (0-40); Blood Urea Nitrogen 15 mg/dL (8-23); Calcium 8.4 mg/dL (8.5-10.5); Carbon Dioxide 25 mmol/L (22-29); Chloride 105 mmol/L (98-107); Globulin 2.7 g/dL (1.3-4.6); Glomerular Filtration Rate 85.2 mL/min (90-130); Glucose 100 mg/dL (65-115); Osmolality Calculated 295 mOsm/kg (285-295); Sodium 142 mmol/L (136-145); Total Bilirubin 0.4 mg/dL (0.15-1.2); Total Protein 6.9 g/dL (6.6-8.7)
[2021-06-24 08:39] LABS: Anion Gap 15.4 (5-19); Potassium 3.4 mmol/L (3.5-5.1)
[2021-06-24] MEDS: levofloxacin-dextrose 5 % 500 MG/100 ML PREMIX 100 MG IV (08:40)
[2021-06-24] MEDS: iohexol 300 mg/mL 50 mL Btl (OR ONLY) XX (09:12)
--- NOTE | 2021-06-24 09:51 | PM.OP ---
Operative Report Date of procedure: June 24, 2021 Pre-op Diagnosis: Refractory left distal ureteral stone Post-op diagnosis: same Procedure Done: 1. Cystoscopy, LEFT retrograde ureteropyelogram 2. LEFT ureteroscopy laser lithotripsy stent Implants: 6 Stateless by 30 cm double-pigtail stent without string Specimens removed/disposition: Stone fragments Pathology: Left ureteral stone fragments Surgeon: Kiel Anesthesia: General Estimated blood loss: <5 cc Urine output: Not measured Complications: None Findings: Very spiculated stone in the expected position. A lot of distal ureteral edema from that. Condition: stable Disposition: PACU Brief History: Mr. Degroot is a very pleasant 65-year-old white male with other multiple medical problems but recently diagnosed with a left proximal ureteral stone that migrated down into the left distal ureter but no further. He was having some intermittent symptoms related to the stone and ultimately because he had waited a couple months with no success and finally passing the stone he elected to proceed with endoscopic treatment. The stone was not readily identifiable on plain x-rays but was confirmed on CT scan. Procedure: After routine preoperative evaluation examination and obtaining of informed consent he was taken to the operating suite on 06/24/2021 where general anesthesia was administered without difficulty after appropriate timeout was performed, SCDs confirmed to be functioning, preoperative antibiotics administered, beta-ritchie protocol confirmed. Prepped and draped in usual sterile fashion in dorsolithotomy position paying careful attention to avoiding pressure points. 21 Stateless cystoscope with 30 degree lens was introduced into the urethra meatus and advanced into the bladder under videoscopy. The bladder was systematically examined and found to be within normal limits. An 8 Stateless cone-tip catheter was intubated to the left ureteral orifice for left retrograde ureteropyelogram which demonstrated a filling defect consistent with a stone previously identified in the distal ureter. The ureter proximal to that point was dilated. A flexible tip guidewire was then advanced up the left ureter easily bypassing the stone. The distal ureter was then dilated with a 15 Stateless 4 cm balloon below the stone with no waist at 4 jamie of pressure. The wire was secured to the drapes as a safety wire and a 7.5 Stateless offset semirigid ureteroscope was advanced next to the wire up the left ureter but the stone was encountered in the expected position. Attempts at removing the stone intact were unsuccessful with grasping forceps due to its highly irregular shape and then it was fragmented with a 200 ?m thulium superpulse laser fiber into small fragments that were then removed with grasping forceps. Final inspection showed a lot of edema at the stone location area but no residual fragments. It was decided to leave a stent indwelling. Cystoscope was then backloaded over the guidewire and a 6 Stateless by 30 cm double-pigtail stent without string was advanced over the guidewire through the cystoscope into appropriate position as confirmed via fluoroscopy and cystoscopy. The fragments that had been dropped into the bladder after removal from the ureter were flushed from the bladder with a cystoscope. Bladder was drained and the procedure was completed. He tolerated procedure well without complication and was awakened in the operating room and returned to the recovery room in stable condition. PLANS: 1. Anticipate discharge from outpatient surgery 2. Return to clinic next week for cystoscopy and stent removal. No film necessary.
--- NOTE | 2021-06-24 14:14 | ANE.PACU2 ---
Inpatient post-anesthesia follow up: Airway intact: Yes Vital signs: Temperature 98.0 F Pulse Rate 75 Respiratory Rate 18 Blood Pressure 120/73 Pulse Oximetry 92 Oxygen Delivery Me thod Room Air Oxygen Flow Rate Fraction of Inspir ed Oxygen Hydration adequate: Yes Nausea and vomiting: No Pain level: 2 Mental status: Baseline
[2021-06-27 20:43] LABS: Stone Source LEFT URETER
== END 2021-06-24 11:25 | disposition home or self-care (01) ==
PROVIDERS: PCP Emergency Medicine Emergency Medical Services; Visit Provider Urology
PROC: (CPT 52356; principal; 2021-06-24 08:05)
PROC: 0TJB8ZZ Inspection of Bladder, Via Natural or Artificial Opening Endoscopic (ICD-10-PCS; CPT 52000; 2021-06-24 08:05)
PROC: (CPT 74420; 2021-06-24 08:05)
PROC: 0TJ98ZZ Inspection of Ureter, Via Natural or Artificial Opening Endoscopic (ICD-10-PCS; CPT 52351; 2021-06-24 08:05)
PROC: (CPT 50605; 2021-06-24 08:05)
DX: N20.1 Calculus of ureter (principal); J44.9 Chronic obstructive pulmonary disease, unspecified; G47.30 Sleep apnea, unspecified; I10 Essential (primary) hypertension; K21.9 Gastro-esophageal reflux disease without esophagitis; E66.01 Morbid (severe) obesity due to excess calories; Z68.41 Body mass index [BMI] 40.0-44.9, adult; Z79.52 Long term (current) use of systemic steroids
CPT/HCPCS: 52356; 74018; 76000; 80053; 82365; 85025; 88300; 93005; C2625; J1956; J2704; J2710; J3010; J3490; J7030

== ENCOUNTER 2021-07-03 16:42 | Emergency (ER) | payer OTHER, SELFPAY ==
[2021-07-03 16:52] VITALS: BP 172/112; PULSE 94; RESP 16; TEMP 36.8; O2SAT 91
--- NOTE | 2021-07-03 17:02 | ED_ITS ---
Documented by User: FAY Mendes 07/03/21 18:03 HPI - Dental/Oral General: Chief complaint: Dental/Oral Stated complaint: MOUTH SURGERY AND UNCONTROLLED BLEEDING Time Seen by Provider: 07/03/21 17:02 History of Present Illness: 65-year-old male patient had a left upper molar removed today. Since then patient has had persistent oozing of the wound and increased swelling to the left side of the face. Patient is alert. Patient reports significant pain. Patient has no acute distress. Patient appears in moderate to severe pain. Review of Systems ENMT: Reports: dental pain PFSH ED PFSH: Medical History Hematuria Hydrocephalus Intervertebral disc disorder of cervical region with myelopathy Left arm pain Left flank pain Metastatic lung carcinoma Primary lung adenocarcinoma Ulnar neuropathy at elbow of left upper extremity Surgical History History of craniotomy 09/05/2017 Posterior fossa craniotomy and resection of the cerebellar mass Status post ventriculoperitoneal shunt Family History Family/Other CAD (coronary artery disease) Father , at age 82 Renal failure Mother , at age 52 Rheumatoid arthritis Social History Alcohol intake: never Household members: none Marital status: Current occupational status: disabled History of recent travel: No Physical Exam Const: COMMON NORMALS: alert HENMT: FACE & SINUS: ecchymosis on the left and edema on the left MOUTH: moist mucous membranes abnormal (Open socket to the left upper molar area oozing blood) Resp: COMMON NORMALS: normal respiratory effort and clear to auscultation bilaterally AUSCULTATION: clear to auscultation bilaterally Cardio: COMMON NORMALS: regular rate and regular rhythm RATE: regular rate RHYTHM: regular rhythm Extremity: COMMON NORMALS: normal to inspection Neuro: SENSORIUM/ORIENTATION: Yes alert Skin: COMMON NORMALS: no mottling Course Vital Signs: Vital signs: Vital Signs Temperature 98.3 F 07/03/21 16:52 Pulse Rate 94 07/03/21 16:52 Respiratory Rate 16 07/03/21 18:18 Blood Pressure 172/112 07/03/21 16:52 Pulse Oximetry 91 07/03/21 16:52 MDM - Dental/Oral Medical Decision Making Patient comes in for swelling and bleeding after dental procedure. Patient reports he had a perforation in his left upper sinus and had a tooth removed at the same time during the repair of the sinus. Patient since then has had some pain and oozing of blood. Patient appears in moderate pain. Patient is alert and oriented. On examination we note some oozing blood but no significant hemorrhaging. Patient is able to manage secretions well. Differential diagnosis includes hemorrhage after dental surgery, ecchymosis, uncontrolled pain. Patient was given 1 mg of hydromorphone and 4 mg of morphine to control pain. Wound was packed with gauze with better bleeding control. Patient was recommended to change the gauze frequently. Patient was also given 1 g of Rocephin to cover for infection and 10 mg of dexamethasone to help with swelling. Encourage plenty of fluids and follow-up with surgeon for further information and recommendations. Discharge Plan Discharge Patient Disposition: Home Clinical Impression: Surgical wound hemorrhage after dental procedure Condition: Stable Prescriptions: No Action ascorbic acid (vitamin C) 500 mg capsule, extended release 500 mg PO DAILY 0RF hydrocortisone 5 mg tablet 2.5 mg PO .QOD 0RF (DME) MARIJUANA 0 .Route .MEDSUPPLY 0RF oxycodone-acetaminophen [Percocet] 5-325 mg tablet 1 tab PO Q8H PRN (Reason: painful procedure) 2 Days Qty: 6 0RF Rx Instructions: For refractory renal colic acetaminophen 325 mg capsule 650 mg PO QID PRN (Reason: Pain) 0RF albuterol sulfate 90 mcg/actuation aerosol powdr breath activated 2 inh INHALATION Q6H PRN (Reason: Shortness Of Breath) 0RF vitamin B complex [B Complex-Vitamin B12] Tablet 1 tab PO DAILY 0RF bupropion HCl 75 mg tablet 75 mg PO DAILY 0RF folic acid 400 mcg tablet 0.4 mg PO DAILY 0RF hydrocodone-acetaminophen 10-325 mg tablet 1 tab PO Q4H PRN (Reason: Pain) 0RF Rx Instructions: PT THINKS HE TOOK THIS SOMETIME ON THE WEEKEND. furosemide [Lasix] 40 mg tablet 40 mg PO DAILY PRN (Reason: Edema) 0RF magnesium 250 mg tablet 250 mg PO DAILY 0RF multivitamin with minerals Capsule 1 cap PO DAILY 0RF pantoprazole 40 mg tablet,delayed release (DR/EC) 40 mg PO DAILY 0RF promethazine 25 mg suppository 25 mg DC Q6H PRN (Reason: N/V) 0RF Stiolto Respimat 2.5-2.5 mcg/actuation mist 2 puff INHALATION DAILY 0RF Keytruda 25 mg/mL solution 25 mg IVP .weekly 0RF Rx Instructions: PT STATES HE DOES THIS EVERY 3 WEEKS. IT WAS DUE TODAY, BUT HIS PCP TOLD HIM TO WAIT SINCE HE WAS SICK lorazepam 0.5 mg tablet 0.5 mg PO Q6H PRN (Reason: UNKNKOWN) 0RF cabergoline 0.5 mg tablet 0.5 mg PO .WEEKLY 0RF Rx Instructions: PT STATES HE TAKES THIS ON TUESDAYS and fridays lactulose 10 gram/15 mL solution 20 g PO BID PRN (Reason: Constipation) 0RF tamsulosin 0.4 mg capsule 0.4 mg PO DAILY Qty: 30 0RF gabapentin 100 mg Capsule See Rx Instructions .ROUTE .COMPLEX 0RF Rx Instructions: PT STATES HE TAKES THIS ONLY WHEN HIS SHINGLES FLARE UP. Sudafed See Rx Instructions .ROUTE .COMPLEX 0RF Rx Instructions: PT STATES HE JUST STARTED THIS MEDICATION YESTERDAY. HE DOEN'T KNKOW THE DOSAGE, BUT HE TAKES IT BID ondansetron 4 mg tablet,disintegrating 4 mg PO Q6H PRN (Reason: nausea and vomiting) Qty: 14 0RF Zyrtec 10 mg Capsule 10 mg PO DAILY 0RF loratadine [Claritin] 10 mg Tablet 10 mg PO DAILY 0RF lisinopril 20 mg Tablet 20 mg PO DAILY 0RF Discharge Orders: Discharge ED (Routine); Ordered 07/03/21 Ordered By: Luis Eduardo Clark Referrals: Blayne Clark DO [Primary Care Provider] - Discharge Diet: Usual diet Discharge Activity: Increase activity as tolerated Patient Instructions: Opioid Safety Activity Restrictions/Additional Instructions: Expect oozing of blood for the next 48 hours. Change gauze as needed. Use ice pack to the area to help with swelling and pain. Avoid smoking or using straw. Drink frequent sips of water to keep hydrated. Continue with routine medic ations and prescribed pain medication as ordered. Monitor for fever greater than 100.4. Return to the ER for new concerns. Coding Level of Care Code ED Placement Specialist for Chg Fwd Exam Detailed Medical Decision Making Low Complexity Time Spent (min) 20 Documented by User: Xander Boyd DO 07/03/21 19:35 HPI - Dental/Oral General: Chief complaint: Dental/Oral Stated complaint: MOUTH SURGERY AND UNCONTROLLED BLEEDING Time Seen by Provider: 07/03/21 17:02 PFSH ED PFSH: Medical History Hematuria Hydrocephalus Intervertebral disc disorder of cervical region with myelopathy Left arm pain Left flank pain Metastatic lung carcinoma Primary lung adenocarcinoma Ulnar neuropathy at elbow of left upper extremity Surgical History History of craniotomy 09/05/2017 Posterior fossa craniotomy and resection of the cerebellar mass Status post ventriculoperitoneal shunt Family History Family/Other CAD (coronary artery disease) Father , at age 82 Renal failure Mother , at age 52 Rheumatoid arthritis Social History Alcohol intake: never Household members: none Marital status: Current occupational status: disabled History of recent travel: No Course Vital Signs: Vital signs: Vital Signs Temperature 98.3 F 07/03/21 16:52 Pulse Rate 94 07/03/21 16:52 Respiratory Rate 16 07/03/21 18:18 Blood Pressure 172/112 07/03/21 16:52 Pulse Oximetry 91 07/03/21 16:52 MDM - Dental/Oral Medical Decision Making Patient comes in for swelling and bleeding after dental procedure. Patient reports he had a perforation in his left upper sinus and had a tooth removed at the same time during the repair of the sinus. Patient since then has had some pain and oozing of blood. Patient appears in moderate pain. Patient is alert and oriented. On examination we note some oozing blood but no significant hemorrhaging. Patient is able to manage secretions well. Differential diagnosis includes hemorrhage after dental surgery, ecchymosis, uncontrolled pain. Patient was given 1 mg of hydromorphone and 4 mg of morphine to control pain. Wound was packed with gauze with better bleeding control. Patient was recommended to change the gauze frequently. Patient was also given 1 g of Rocephin to cover for infection and 10 mg of dexamethasone to help with swelling. Encourage plenty of fluids and follow-up with surgeon for further information and recommendations. This patient was originally seen by FAY [place].? I agree with his history, evaluation, and treatment. Discharge Plan Discharge Patient Disposition: Home Clinical Impression: Surgical wound hemorrhage after dental procedure Condition: Stable Prescriptions: No Action ascorbic acid (vitamin C) 500 mg capsule, extended release 500 mg PO DAILY 0RF hydrocortisone 5 mg tablet 2.5 mg PO .QOD 0RF (DME) MARIJUANA 0 .Route .MEDSUPPLY 0RF oxycodone-acetaminophen [Percocet] 5-325 mg tablet 1 tab PO Q8H PRN (Reason: painful procedure) 2 Days Qty: 6 0RF Rx Instructions: For refractory renal colic acetaminophen 325 mg capsule 650 mg PO QID PRN (Reason: Pain) 0RF albuterol sulfate 90 mcg/actuation aerosol powdr breath activated 2 inh INHALATION Q6H PRN (Reason: Shortness Of Breath) 0RF vitamin B complex [B Complex-Vitamin B12] Tablet 1 tab PO DAILY 0RF bupropion HCl 75 mg tablet 75 mg PO DAILY 0RF folic acid 400 mcg tablet 0.4 mg PO DAILY 0RF hydrocodone-acetaminophen 10-325 mg tablet 1 tab PO Q4H PRN (Reason: Pain) 0RF Rx Instructions: PT THINKS HE TOOK THIS SOMETIME ON THE WEEKEND. furosemide [Lasix] 40 mg tablet 40 mg PO DAILY PRN (Reason: Edema) 0RF magnesium 250 mg tablet 250 mg PO DAILY 0RF multivitamin with minerals Capsule 1 cap PO DAILY 0RF pantoprazole 40 mg tablet,delayed release (DR/EC) 40 mg PO DAILY 0RF promethazine 25 mg suppository 25 mg DC Q6H PRN (Reason: N/V) 0RF Stiolto Respimat 2.5-2.5 mcg/actuation mist 2 puff INHALATION DAILY 0RF Keytruda 25 mg/mL solution 25 mg IVP .weekly 0RF Rx Instructions: PT STATES HE DOES THIS EVERY 3 WEEKS. IT WAS DUE TODAY, BUT HIS PCP TOLD HIM TO WAIT SINCE HE WAS SICK lorazepam 0.5 mg tablet 0.5 mg PO Q6H PRN (Reason: UNKNKOWN) 0RF cabergoline 0.5 mg tablet 0.5 mg PO .WEEKLY 0RF Rx Instructions: PT STATES HE TAKES THIS ON TUESDAYS and fridays lactulose 10 gram/15 mL solution 20 g PO BID PRN (Reason: Constipation) 0RF tamsulosin 0.4 mg capsule 0.4 mg PO DAILY Qty: 30 0RF gabapentin 100 mg Capsule See Rx Instructions .ROUTE .COMPLEX 0RF Rx Instructions: PT STATES HE TAKES THIS ONLY WHEN HIS SHINGLES FLARE UP. Sudafed See Rx Instructions .ROUTE .COMPLEX 0RF Rx Instructions: PT STATES HE JUST STARTED THIS MEDICATION YESTERDAY. HE DOEN'T KNKOW THE DOSAGE, BUT HE TAKES IT BID ondansetron 4 mg tablet,disintegrating 4 mg PO Q6H PRN (Reason: nausea and vomiting) Qty: 14 0RF Zyrtec 10 mg Capsule 10 mg PO DAILY 0RF loratadine [Claritin] 10 mg Tablet 10 mg PO DAILY 0RF lisinopril 20 mg Tablet 20 mg PO DAILY 0RF Discharge Orders: Discharge ED (Routine); Ordered 07/03/21 Ordered By: Luis Eduardo Clark Referrals: Blayne Clark, [Primary Care Provider] - Discharge Diet: Usual diet Discharge Activity: Increase activity as tolerated Patient Instructions: Opioid Safety Activity Restrictions/Additional Instructions: Expect oozing of blood for the next 48 hours. Change gauze as needed. Use ice pack to the area to help with swelling and pain. Avoid smoking or using straw. Drink frequent sips of water to keep hydrated. Continue with routine medications and prescribed pain medication as ordered. Monitor for fever greater than 100.4. Return to the ER for new concerns. Coding Level of Care Code ED Placement Specialist for Edwardo Fwd Exam Detailed Medical Decision Making Low Complexity Time Spent (min) 20
[2021-07-03 17:25] VITALS: RESP 20
[2021-07-03] MEDS: morphine 4 mg/mL SDV 1 mL IM (17:25)
[2021-07-03] MEDS: ondansetron 2 mg/ML SDV 2 mL 4 MG IM (17:54)
[2021-07-03] MEDS: dexamethasone 10 mg/mL INJ IM (17:54)
[2021-07-03] MEDS: cefTRIAXone 1,000 MG in lidocaine 1% 2.1 ML 1000 MG IM (17:54)
[2021-07-03 18:18] VITALS: RESP 16
[2021-07-03] MEDS: HYDROmorphone 1 mg/mL INJ 1 mL IM (18:18)
[2021-07-03 19:46] VITALS: BP 186/113; PULSE 76; RESP 16; TEMP 36.6; O2SAT 98
== END 2021-07-03 19:50 | disposition home or self-care (01) ==
PROVIDERS: Emergency Provider Nurse Practitioner Family; PCP Emergency Medicine Emergency Medical Services
DX: K91.840 Postprocedural hemorrhage of a digestive system organ or structure following a digestive system procedure (principal); Z85.118 Personal history of other malignant neoplasm of bronchus and lung
CPT/HCPCS: 96372; 99283; J0696; J1100; J1170; J2270; J2405

== ENCOUNTER 2021-07-15 08:39 | Outpatient (CLI) | payer OTHER, SELFPAY ==
[2021-07-15 09:41] LABS: Basophils % 0.3 %; Eosinophils # 0.3 10^3/uL (0.0-0.8); Eosinophils % 4.7 %; Hematocrit 41.8 % (42.0-52.0); Hemoglobin 13.3 g/dL (11.7-16.6); Lymphocytes # 1.9 10^3/uL (0.8-4.8); Lymphocytes % 27.8 %; Mean Corpuscular HGB Conc 31.8 g/dL (30.0-36.0); Mean Corpuscular Volume 97.4 fl (80-94); Mean Platelet Volume 8.8 fL (7.4-10.4); Monocytes # 0.4 10^3/uL (0.2-0.9); Monocytes % 6.5 %; Neutrophils # 4.04 10^3/uL (1.8-7.7); Neutrophils % 60.5 %; Nucleated Red Blood Cells % 0 %; Platelet Count 223 10^3/cmm (130-400); Red Blood Count 4.29 10^6/uL (4.1-5.3); White Blood Count 6.7 10^3/uL (4.0-10.0)
[2021-07-15 10:19] LABS: Alanine Aminotransferase 13 U/L (0-41); Albumin Level 3.8 g/dL (3.5-5.2); Alkaline Phosphatase 74 IU/L (40-130); Aspartate Amino Transferase 13 U/L (0-40); Blood Urea Nitrogen 12 mg/dL (8-23); Calcium 9.3 mg/dL (8.5-10.5); Carbon Dioxide 23 mmol/L (22-29); Chloride 102 mmol/L (98-107); Globulin 2.5 g/dL (1.3-4.6); Glomerular Filtration Rate 97.3 mL/min (90-130); Glucose 94 mg/dL (65-115); Osmolality Calculated 280 mOsm/kg (285-295); Sodium 135 mmol/L (136-145); Total Bilirubin 0.3 mg/dL (0.15-1.2); Total Protein 6.3 g/dL (6.6-8.7)
[2021-07-15 10:20] LABS: Anion Gap 14.5 (5-19); Potassium 4.5 mmol/L (3.5-5.1)
--- NOTE | 2021-07-16 16:51 | ONC FU_ITS ---
Dr. Parra follow up note Patient: Alli Mcclellan Unit #: [id number]: 1955 Dicatated By: Harsha Parra M.D.Date of Visit:Jul 15, 2021 Onc Med Follow-up/Prog Note History of Present Illness: Mr. Mcclellan is a 65-year-old gentleman who was recently diagnosed with metastatic lung cancer to brain. Mr Mcclellan reports that in August 2017, he developed side effects in that he could not speak and had trouble typing with his left hand. He had an episode of ataxia and he felt significantly dizzy, so much so that he felt like he was going to pass out. He presented to the hospital where MRI scan of brain was done on 09/01/2017. The MRI showed left cerebral mass measuring 3.6 cm and mild asymmetric prominence and enhancement at right pituitary gland. Differential included macroadenoma, craniopharyngioma, or metastatic disease. A CT chest was done and reported spiculated area of the right upper lobe measuring 2.7 cm. He underwent posterior fossa craniotomy and resection of the cerebellar mass on 09/05/2017. The final pathology reported metastatic adenocarcinoma consistent with lung primary. Molecular assay was negative for EGFR, BRAF V600E IHC, ALK, RET, HER-2, BRAF, and ROS 1. PET/CT imaging was obtained on 10/29/2017. It did report 2 x 2.3 cm right apical pulmonary nodule with an SUV of 17.7. There were no additional pulmonary nodules or masses identified. Activity in the bilateral hilum and mediastinal lymph nodes was unremarkable. There was no other evidence for local or distant metastatic disease. Follow-up CT of the head from 11/10/2017 reported postoperative changes from prior occipital craniotomy and resection of the previous metastatic lesion from the superior aspect of the left cerebellar hemisphere. There was persistent subcutaneous occipital scalp fluid that may communicate with the CSF space through meningeal defect posterior to the cervical do medullary junction. There were mild central and peripheral atrophy. No acute findings of the head and no significant change from 10/17/2017. It was noted that he had left maxillary sinusitis. Mr. Mcclellan was referred to Dr Lyle in radiation oncology for treatment of the lung mass and consideration of radiation to the brain. Mr Mcclellan had SBRT to the right lung. He had a total dose of 3600 cGy (48 GY). His start date was 11/16/2017. His completion date was 11/23/2017. Mr. Mcclellan then underwent SRS to the brain. His total dose was 2400 cGy. He started on 01/11/2018 and ended on 01/16/2018. He was given Decadron 4 mg twice a day while on treatment with instructions to taper slowly after radiation was completed. Mr. Mcclellan was evaluated and was offered chemotherapy with cisplatin Alimta every 3 weeks for 4 cycles. He has been very hesitant to proceed with chemotherapy due to concerns about side effects. Interim history: Mr cMclellan went to [place] for further oncology care. His CT PET scan done on 05/17 showed left cerebellar consistent with known prior dissection; Right lung upper lobe consistent with persistent tumor with right bronchial lymph node involvement; Left maxillary sinus of concern for metastatic disease and A new osseous lesion in the right anterior iliac crest consistent with metastatic disease. Once again chemotherapy was recommended and he consentetd. He was given 1 cycle of carboplatin/Alimta/pembrolizumab on 06/28/2018 but he had significant side effects including nausea, vomiting- fatigue requiring hydration, subsequently chemotherapy was discontinued because of intolerance. He was switched to single agent Keytruda on 09/06/2018, tolerated immunotherapy well-except associated or diarrhea which was treated with prednisone 60 mg daily and responded well. He has had no further episodes of the significant diarrhea. He had follow-up CT PET scanOn 11/25/2018 which showed the right apical lung lesion currently measured 3.9 x 2.4 cm with SUV of 3.4 (this is a significant improvement since prior study and likely represent chronic inflammation); Status post right ventriculoperitoneal shunt placement done on 02/15/2019. CT scan of head was done on 04/03/2019 showed stable frontal ventricular shunt tube position with decreased ventriculomegaly since 02/15/2019. 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 On 04/13/2019 Mr Mcclellan presented to the local emergency room with with chief complaints of floaters in his vision off and on and this time in the right eye only. He was sent to [facility] in [place] emergency room where he was evaluated by ophthalmology and no retinal detachment was observed. Follow-up in 2 weeks was recommended but he did not go for follow-up as condition resolved on its own. He also had CT scan of head done on 04/13/2019 which showed no intracranial hemorrhage or mass effect; Unchanged ventricular configuration; Unchanged right frontal ventricular shunt catheter tip terminating in the left frontal horn; Unchanged left cerebellar hemisphere encephalomalacia and postsurgical changes; CT scan of the head done on 05/14/2019 showed right frontal shunt catheter with tip in the left frontal horn. No hydrocephalus; Postoperative changes occipital craniectomy. He remains on immunotherapy with pembrolizumab. Tolerating Keytruda well otherwise Follow-up CT PET scan done on 08/11/2019 showed there is ongoing decrease in FDG activity in the right upper lobe nodule now SUV is 2.6 down from 3.4 previously .no new lesion seen CT scan of the head done on 10/12/2019 shows right frontal shunt cath with the tip in the left frontal horn. No hydrocephalus. Prior postoperative changes occipital status post occipital craniotomy. 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 Recently underwent left arm nerve conduction study, as per patient he was told his left hand weakness and numbness is due to ulnar neuropathy, now being treated with physical therapy. He has been having vertigo Patient was seen by ENT as per patient nothing significant was observed. He states he is having problems with his hand. He states that he did have nerve conduction which reportedly was normal but the technologist that was doing the study indicated that he might need an MRI of his brain. Mr. Mcclellan would like to pursue this if at all possible. He does see Dr. Sam on December [address] aSm is leaving in January so is not sure he can get the MRI scheduled at that point. He states that he does have an MRI of the brain he will need his shunt regulated. He states in regard to Dr. Flaco clinton, he has used Dr Dinh in [place], [place]. Follow-up CT scan of head was done on January 03, 2020 which is unchanged since October 12, 2019, no enhancing masses or acute intracranial hemorrhage. Postoperative changes of occipital craniectomy with encephalomalacia left cerebellum and unchanged pseudomeningocele. [employer]GER shunt catheter tip terminating anterior horn of left lateral ventricle. No hydrocephalus. Left maxillary sinusitis, Oral antibiotics were prescribed He has had persistent discomfort but mild puffiness in the left hand, which is improving, patient was transferred to [place] recently for nausea vomiting and there was a concern regarding malfunctioning of intracranial shunt, as per patient he was evaluated by neurosurgery in [place] and had MRI scan of head done there which showed shunt was functioning fine and no new lesions seen patient said he may have some kind of reaction to the contrast as he was feeling pain all over his body and responded well to morphine. Mr Mcclellan was referred to physical therapy. He continues the Keytruda. Mr. Mcclellan had restaging PET CT on 04/26/2020. The findings were no evidence for active recurrent or residual malignancy. The right upper lobe nodule remains unchanged in size at 2.5 x 4.6 cm, with an SUV of 2.4; this is consistent with sterilize malignancy and mild residual inflammatory uptake . There was no findings to indicate osseous metastatic disease. The impression was negative for active malignancy and inflammatory activity in the sterilized right upper lobe lung carcinoma. He continues with Keytruda. Mr Mcclellan is here today for followup and consideration of Keytruda. He has completed 28 cycles with his last cycle being 04/30/2020. At his follow-up visit with us on 05/21/2020 they had discussed his PET CT results from 04/26/2020. The findings were no evidence for active recurrent or residual malignancy. The right upper lobe nodule remains unchanged in size from 2.5 x 4.6 cm with an SUV of 2.4; this is consistent with sterilized malignancy and mild residual inflammatory uptake . There were no findings to indicate osseous metastatic disease. The impression was negative for active malignancy and inflammatory activity in the sterilized right upper lobe lung carcinoma. Given those results and was offered either the option of continuing immunotherapy or switching to observation alone as the recent PET/CT persistently shows no evidence of active active disease.Patient opted to continue with the treatment but would prefer every [address] scan of head done on July 01, 2020 showed stable occipital craniectomy and postsurgical change in the left cerebellum. No recurrent tumor. Right frontal [employer]GER shunt catheter unchanged in position. No hydrocephalus. Sinusitis And underwent CT scan of head on July 01, 2020 which showed no evidence of recurrence of disease no hydrocephalus Patient scheduled for follow-up MRI scan of C-spine and lumbar spine to evaluate progressive left arm and leg weakness Done on August 05, 2020 which showed no significant change. Stable C5-6 disc bulge with facet degenerative changes and moderate central canal and severe bilateral foraminal narrowing. Additional degenerative changes throughout the cervical spine without significant central canal or foraminal stenosis. #2 stable appearance of the midline suboccipital craniectomy and overlying suspected pseudomeningocele. Chronic bilateral inferior cerebellar changes with volume loss and enlarged fourth ventricle. MRI scan lumbar showed no significant change or acute osseous or soft tissue abnormality seen. Mild worsening of the moderate central canal stenosis at L4-5 secondary to worsening ligamentum flavum hypertrophy and facet degenerative changes and persistent bulging disc As per patient he was offered surgical option for C-spine abnormality, which may improve his left arm weakness, patient is considering other options Follow-up CT PET scan done on August 16, 2020 showed there has been no change in the right upper lobe mass measuring 2.5 x 4.7 cm SUV of 2.7 which is consistent with sterilized malignancy and mild chronic inflammation went to [facility] on March 12, 2021 with nausea vomiting diarrhea and underwent CT scan of abdomen pelvis on March 12, 2021 which showed 3.2 cm low-attenuation lesion of right lobe of the liver which is new and suspicious for metastatic disease, 4.3 x 4.8 cm peripancreatic lipoma previously was 3.9 x 3 cm. 5 mm mildly obstructing left mid ureteral stone., Patient was treated symptomatically, patient is here to discuss about his recently done CT scan finding which shows new liver lesion and , Subsequently underwent CT PET scan on March 21, 2021 which showed no change in size of the treated right upper lobe lesion, inflammatory uptake is slightly more prominent but unlikely represent recurrence. No abnormality in the liver or upper abdomen,No significant change when compared with CT PET scan done in December 2020 As far as renal stone is concerned, patient is being evaluated and followed by urology, Follow-up CT scan of abdomen done on June 15, 2021 showed previously described left mid ureteral calculus is no longer visualized, there is a new or migrated distal left ureteral calculus just proximal to UVJ measuring 4 mm. Mild left ureterectasis. No hydronephrosis. No hydronephrosis in the right kidney. 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 Came for follow-up, denies any specific complaints, no headaches, no blurred vision or double vision, no seizure-like activity, no fever chills, no shortness of breath, no wheezing, no diarrhea or constipation, no jaundice, no skin rash, tolerating maintenance therapy with Keytruda well. As per patient since his last visit he has undergone kidney stone removal and ureteral stent was removed yesterday Medications: Acetaminophen 2 (325 mg) Capsule Oral PRN, Albuterol Sulfate Aerosol Powder, Breath Activated Inhalation, B Complex 1 Tablet Oral daily, buPROPion HCl 1 Tablet (of 75 mg) Oral q on Every Other Day, Cabergoline (0.5 mg) Tablet Oral Take as Directed, Calcium 1 Tablet (of 600 mg) Oral daily, Claritin 1 Tablet (of 10 mg) Oral daily, Colace 1 Capsule (of 250 mg) Oral b.i.d. PRN, Dronabinol 1 Capsule (of 5 mg) Oral b.i.d. PRN, Essiac Tea Herbs Leaves Oral PRN, Folic Acid 1 Tablet (of 400 mcg) Oral daily, Gabapentin 1 Capsule (of 100 mg) Oral daily, Hydrocodone-Acetaminophen 1 Tablet (of 10-325 mg) Tablet Oral 6x/d PRN, Hydrocortisone 1 Tablet (of 2.5 mg) Oral q 48 hours, Lactulose 2 tablespoonful(s) (of 10 g/15mL) Solution Oral b.i.d. PRN, Lasix 1 Tablet (of 40 mg) Oral daily PRN, Lisinopril 1 Tablet (of 20 mg) Oral daily, Magnesium 1 Tablet (of 250 mg) Oral daily, Multivitamin and Minerals 1 Tablet daily, Ondansetron HCl 1 Tablet (of 4 mg) Oral t.i.d. PRN, Pantoprazole Sodium 1 Tablet (of 40 mg) Tablet, enteric coated Oral every am, Promethazine HCl 1 Suppository (of 25 mg) Rectal q 6 hours PRN, Senna-S 1 (8.6-50 mg) Tablet Oral b.i.d., Stiolto Respimat 1 puff(s) (of 2.5-2.5 mcg/act) Aerosol, solution Inhalation daily, Sudafed 1 Tablet (of 30 mg) Oral daily PRN, Vitamin A Capsule Oral daily, Xyzal Allergy 24HR 1 Tablet (of 5 mg) Oral daily, ZyrTEC Allergy 1 Tablet (of 10 mg) Capsule Oral at bedtime Allergies: Cats, Dust mites, Grass Pollen, Mold and Trees and HydroCHLOROthiazide. Review of Systems: Review of Systems is not available for this patient. Vital Signs: Performed on Jul 15, 2021 12:33 Height - 73.00 in Weight - 289.0 lbs (LOW) BSA - 2.52 sq.m BMI - 38.13 (HIGH) Temperature - 98.0 F (LOW) Pulse - 71 /min Respiration - 20 /min BP - 138/98 mm(hg) O2 Sat - 96 % Pain - 3 Fatigue - 4 Performance Status: 1 - No physically strenuous activity, but ambulatory and able to carry out light or sedentary work (e.g. office work, light house work). (ECOG) Physical Examination: ENMT - No mouth sores, no thrush, no jaundice, Respiratory - Lungs are clear to auscultation, Cardiovascular - Regular rate and rhythm of heart, Abdomen - Soft, bowel sounds present, Extremities - No visible edema. Lab/Imaging: Most recent lab results are not available for this patient. Impression: 1. 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 2. status post metastasectomy done on 09/05/2017, postoperative MRI disclosed complete resection. Molecular studies on brain metastases biopsy showed negative for EGFR ALK, RET, HER-2/ind[place], ROS 1,BRAF, 3. Right upper lobe lung mass 2.7 cm. 4. Indigestion/ heartburn nausea vomiting probably due to candidal esophagitis or questionable increase intracranial pressure , also with oral thrush EGD showed H. pylori status post antibiotics FOLLOWUP IMAGIN. CT scan of head done on 10/17/2017 showed stable postoperative changes from prior left occipital craniotomy and resection of previous metastatic mass from left cerebellum hemisphere. (Repeat CT of the head from 11/2017 in [facility] reported findings consistent with the 10/17/2017 imaging with no acute findings). 6. PET/CT from 10/29/2017 showed 2 x 2.3 cm right apical pulmonary nodule with SUV of 17.7. No additional abnormality noted other than status post cranial metastasectomy site. 7. MRI of the brain with and without contrast on August 23, 2018 from [facility] in [place]. 8. CT of the head noncontrast on October 12, 2019: Right frontal shunt catheter with tip in the left frontal horn. No hydrocephalus. Ventricular size is unchanged from previous scans. Prior postoperative changes occipital craniectomy. 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 Stable cerebral tonsillar ectopia with normal fourth ventricle. 9. His last PET/CT imaging was August 11, 2019. Is reported that there was ongoing decrease in FDG activity in the right upper lobe lung nodule with an SUV of 2.6 down from 3.4 on previous exam. There were no new malignant lesions present there is no indication to suspect osseous metastatic disease. CURRENT TREATMENT SUMMARY: 7. SBRT to right lung mass completed 11/23/2017 for a total dose of 3,600 cGY (48 GGY). 8. SRS to brain completed 01/16/2018 for a total dose of 2,400 cGY. 9. Carboplatin/Alimta/pembrolizumab 06/28/2018. He had 1 dose of the carboplatin Alimta had significant side effects and was transitioned to just single agent pembrolizumab in September 2018. He remains on pembrolizumab currently. discussed with Mr Mcclellan the role of systemic chemotherapy with cisplatin/Alimta versus observation alone. He has recommended chemotherapy consisting of Cisplatin 75 mg/m2 day 1 and Alimta 500 mg/m??? on day 1 repeat every 21 days ???4 cycles along with dexamethasone, folic acid and B12 as prophylactic treatment for Alimta. Mr Mcclellan transferred his care to [facility] where getting evaluation CT PET scan was done on 05/17/2018 which showed persistent right upper lobe lung mass with right bronchial lymph node involvement; Finding in the left maxillary sinus of concern for metastatic disease; A new osseous lesion seen in the right anterior iliac crest consistent with metastatic disease. Mr Mcclellan was started on carboplatin/Alimta/pembrolizumab-he was given 1 dose of chemotherapy on 06/28/2018. He experienced significant side effects so chemotherapy was discontinued and then switched to single agent Keytruda in September 2018. Patient tolerated well except some diarrhea, responded to prednisone 60 mg by mouth daily, now resolved and his follow-up CT PET scan done on 11/25/2018 showed excellent response to single agent Keytruda. The PET/CT did show a right apical lung lesion measures 3.9 x 2.4 cm with SUV of 3.4 which is significant improvement since prior study in May 2018 and likely represent inflammatory posttreatment changes. Mr Mcclellan has continued with single agent Keytruda. He is tolerating it well and has improvement in his performance status. Mr. Mcclellan had restaging PET CT on 04/26/2020. The findings were no evidence for active recurrent or residual malignancy. The right upper lobe nodule remains unchanged in size at 2.5 x 4.6 cm, with an SUV of 2.4; this is consistent with sterilize malignancy and mild residual inflammatory uptake . There was no findings to indicate osseous metastatic disease. The impression was negative for active malignancy and inflammatory activity in the sterilized right upper lobe lung carcinoma. Mr Mcclellan opted to hold his immunotherapy through [place] holiday. He has returned today to discuss continuing treatment verses observation alone. CT scan of head done on July 01, 2020 shows no recurrence of disease MRI scan of the C-spine done on August 05, 2020 to evaluate left arm weakness shows no significant change but stable C5-C6 disc bulge with facet degenerative changes and moderate central canal and severe bilateral foraminal narrowing. As per patient surgical option was discussed but he is somewhat reluctant and considering other options MRI scan of lumbar done on August 05, 2020 showed no significant changes mild worsening of moderate central canal stenosis at L4-5 secondary to worsening ligamentum flavum hypertrophy and facet degenerative changes and persistent bulging disc Follow-up CT PET scan done on August 16, 2020 showed no change in the treated right upper lobe malignancy. Negative for active disease. Plan: Discussed with patient regarding his labs white blood count 6.7 hemoglobin 13.3 hematocrit 41.8 platelets 223,000 CMP within normal limits Clinically, patient doing well with no new signs suggestive of disease progression, tolerating maintenance therapy with Keytruda well, will proceed with next dose today and then he will return to clinic in 3 weeks with CMP and TSH Signed By: Barjinder Parra, M.D. <<Signature on File>>
== END 2021-07-15 08:40 | disposition home or self-care (01) ==
PROVIDERS: PCP Emergency Medicine Emergency Medical Services; Visit Provider Internal Medicine Hematology & Oncology
DX: Z51.12 Encounter for antineoplastic immunotherapy (principal); C78.01 Secondary malignant neoplasm of right lung; C79.31 Secondary malignant neoplasm of brain; Z90.89 Acquired absence of other organs; R91.8 Other nonspecific abnormal finding of lung field; R12 Heartburn
CPT/HCPCS: 80053; 85025; 96413; 99215; J7050; J9271

== ENCOUNTER 2021-07-28 15:19 | Outpatient (CLI) | payer OTHER, SELFPAY ==
[2021-07-28 15:44] LABS: Basophils % 0.6 %; Eosinophils # 0.3 10^3/uL (0.0-0.8); Eosinophils % 3.8 %; Hematocrit 43.2 % (42.0-52.0); Hemoglobin 13.6 g/dL (11.7-16.6); Lymphocytes # 2.4 10^3/uL (0.8-4.8); Lymphocytes % 34.1 %; Mean Corpuscular HGB Conc 31.5 g/dL (30.0-36.0); Mean Corpuscular Hemoglobin 30.4 pg (28.0-34.0); Mean Corpuscular Volume 96.6 fl (80-94); Mean Platelet Volume 8.7 fL (7.4-10.4); Monocytes # 0.5 10^3/uL (0.2-0.9); Monocytes % 7.2 %; Neutrophils # 3.75 10^3/uL (1.8-7.7); Neutrophils % 54.2 %; Nucleated Red Blood Cells % 0 %; Platelet Count 243 10^3/cmm (130-400); Red Blood Count 4.47 10^6/uL (4.1-5.3); White Blood Count 6.9 10^3/uL (4.0-10.0)
[2021-07-28 16:28] LABS: Alanine Aminotransferase 15 U/L (0-41); Albumin Level 4.1 g/dL (3.5-5.2); Alkaline Phosphatase 77 IU/L (40-130); Anion Gap 13.1 (5-19); Aspartate Amino Transferase 10 U/L (0-40); Blood Urea Nitrogen 13 mg/dL (8-23); Calcium 9.2 mg/dL (8.5-10.5); Carbon Dioxide 28 mmol/L (22-29); Chloride 107 mmol/L (98-107); Glomerular Filtration Rate 97.3 mL/min (90-130); Glucose 97 mg/dL (65-115); Osmolality Calculated 298 mOsm/kg (285-295); Potassium 4.1 mmol/L (3.5-5.1); Sodium 144 mmol/L (136-145); Thyroid Stimulating Hormone 0.71 uIU/mL (0.27-4.20); Total Bilirubin 0.3 mg/dL (0.15-1.2); Total Protein 7.1 g/dL (6.6-8.7)
== END 2021-07-28 15:20 | disposition home or self-care (01) ==
PROVIDERS: PCP Emergency Medicine Emergency Medical Services; Visit Provider Internal Medicine Hematology & Oncology
DX: C34.11 Malignant neoplasm of upper lobe, right bronchus or lung (principal); C79.51 Secondary malignant neoplasm of bone; C79.31 Secondary malignant neoplasm of brain; Z79.899 Other long term (current) drug therapy
CPT/HCPCS: 36415; 80053; 84443; 85025

== ENCOUNTER 2021-08-06 09:24 | Outpatient (CLI) | payer OTHER, SELFPAY | END 2021-08-06 09:25 | disposition home or self-care (01) | PROVIDERS: PCP Emergency Medicine Emergency Medical Services; Visit Provider Nurse Practitioner Family | DX: Z51.12 Encounter for antineoplastic immunotherapy (principal); C34.11 Malignant neoplasm of upper lobe, right bronchus or lung; C79.31 Secondary malignant neoplasm of brain | CPT/HCPCS: 96413; J7050; J9271 ==

== ENCOUNTER 2021-08-26 12:19 | Outpatient (CLI) | payer OTHER, SELFPAY ==
[2021-08-26 12:46] LABS: Basophils % 0.3 %; Eosinophils # 0.3 10^3/uL (0.0-0.8); Eosinophils % 2.8 %; Hematocrit 43.6 % (42.0-52.0); Hemoglobin 14.1 g/dL (11.7-16.6); Lymphocytes # 2.6 10^3/uL (0.8-4.8); Lymphocytes % 26.3 %; Mean Corpuscular HGB Conc 32.3 g/dL (30.0-36.0); Mean Corpuscular Hemoglobin 31.2 pg (28.0-34.0); Mean Corpuscular Volume 96.5 fl (80-94); Monocytes # 0.7 10^3/uL (0.2-0.9); Neutrophils # 6.15 10^3/uL (1.8-7.7); Neutrophils % 63.4 %; Nucleated Red Blood Cells % 0 %; Platelet Count 210 10^3/cmm (130-400); Red Blood Count 4.52 10^6/uL (4.1-5.3); Red Cell Distribution Width 13.2 % (12.1-15.1); White Blood Count 9.7 10^3/uL (4.0-10.0)
[2021-08-26 13:10] LABS: Alanine Aminotransferase 16 U/L (0-41); Albumin Level 4.2 g/dL (3.5-5.2); Alkaline Phosphatase 70 IU/L (40-130); Anion Gap 12.3 (5-19); Aspartate Amino Transferase 15 U/L (0-40); Blood Urea Nitrogen 10 mg/dL (8-23); Calcium 9.6 mg/dL (8.5-10.5); Carbon Dioxide 27 mmol/L (22-29); Chloride 105 mmol/L (98-107); Globulin 2.5 g/dL (1.3-4.6); Glomerular Filtration Rate 97.3 mL/min (90-130); Glucose 110 mg/dL (65-115); Osmolality Calculated 290 mOsm/kg (285-295); Potassium 4.3 mmol/L (3.5-5.1); Sodium 140 mmol/L (136-145); Thyroid Stimulating Hormone 0.88 uIU/mL (0.27-4.20); Total Bilirubin 0.5 mg/dL (0.15-1.2); Total Protein 6.7 g/dL (6.6-8.7)
== END 2021-08-26 12:20 | disposition home or self-care (01) ==
PROVIDERS: PCP Emergency Medicine Emergency Medical Services; Visit Provider Internal Medicine Hematology & Oncology
DX: C34.11 Malignant neoplasm of upper lobe, right bronchus or lung (principal); C79.31 Secondary malignant neoplasm of brain; C79.51 Secondary malignant neoplasm of bone; Z79.899 Other long term (current) drug therapy
CPT/HCPCS: 36415; 80053; 84443; 85025

== ENCOUNTER 2021-08-27 10:13 | Outpatient (CLI) | payer OTHER, SELFPAY ==
[2021-08-27] MEDS: sodium chloride 0.9% 250 ML 125 ML IV (11:17)
--- NOTE | 2021-08-27 13:27 | ONC FU_ITS ---
Jennifer Cordon Progress Note Patient: Alli Mcclellan Unit #: [id number]: 1955 Dicatated By: Jennifer Cordon N.P.Date of Visit:Aug 27, 2021 Onc MED Follow-up/Prog Note Chief Complaint: Lung cancer with brain metastases History of Present Illness: Mr. Mcclellan is a 65-year-old gentleman who was recently diagnosed with metastatic lung cancer to brain. Mr Mcclellan reports that in August 2017, he developed side effects in that he could not speak and had trouble typing with his left hand. He had an episode of ataxia and he felt significantly dizzy, so much so that he felt like he was going to pass out. He presented to the hospital where MRI scan of brain was done on 09/01/2017. The MRI showed left cerebral mass measuring 3.6 cm and mild asymmetric prominence and enhancement at right pituitary gland. Differential included macroadenoma, craniopharyngioma, or metastatic disease. A CT chest was done and reported spiculated area of the right upper lobe measuring 2.7 cm. He underwent posterior fossa craniotomy and resection of the cerebellar mass on 09/05/2017. The final pathology reported metastatic adenocarcinoma consistent with lung primary. Molecular assay was negative for EGFR, BRAF V600E IHC, ALK, RET, HER-2, BRAF, and ROS 1. PET/CT imaging was obtained on 10/29/2017. It did report 2 x 2.3 cm right apical pulmonary nodule with an SUV of 17.7. There were no additional pulmonary nodules or masses identified. Activity in the bilateral hilum and mediastinal lymph nodes was unremarkable. There was no other evidence for local or distant metastatic disease. Follow-up CT of the head from 11/10/2017 reported postoperative changes from prior occipital craniotomy and resection of the previous metastatic lesion from the superior aspect of the left cerebellar hemisphere. There was persistent subcutaneous occipital scalp fluid that may communicate with the CSF space through meningeal defect posterior to the cervical do medullary junction. There were mild central and peripheral atrophy. No acute findings of the head and no significant change from 10/17/2017. It was noted that he had left maxillary sinusitis. Mr. Mcclellan was referred to Dr Lyle in radiation oncology for treatment of the lung mass and consideration of radiation to the brain. Mr Mcclellan had SBRT to the right lung. He had a total dose of 3600 cGy (48 GY). His start date was 11/16/2017. His completion date was 11/23/2017. Mr. Mcclellan then underwent SRS to the brain. His total dose was 2400 cGy. He started on 01/11/2018 and ended on 01/16/2018. He was given Decadron 4 mg twice a day while on treatment with instructions to taper slowly after radiation was completed. Mr. Mcclellan was evaluated and was offered chemotherapy with cisplatin Alimta every 3 weeks for 4 cycles. He has been very hesitant to proceed with chemotherapy due to concerns about side effects. Interim history: Mr Mcclellan went to [place] for further oncology care. His CT PET scan done on 05/17 showed left cerebellar consistent with known prior dissection; Right lung upper lobe consistent with persistent tumor with right bronchial lymph node involvement; Left maxillary sinus of concern for metastatic disease and A new osseous lesion in the right anterior iliac crest consistent with metastatic disease. Once again chemotherapy was recommended and he consentetd. He was given 1 cycle of carboplatin/Alimta/pembrolizumab on 06/28/2018 but he had significant side effects including nausea, vomiting- fatigue requiring hydration, subsequently chemotherapy was discontinued because of intolerance. He was switched to single agent Keytruda on 09/06/2018, tolerated immunotherapy well-except associated or diarrhea which was treated with prednisone 60 mg daily and responded well. He has had no further episodes of the significant diarrhea. He had follow-up CT PET scanOn 11/25/2018 which showed the right apical lung lesion currently measured 3.9 x 2.4 cm with SUV of 3.4 (this is a significant improvement since prior study and likely represent chronic inflammation); Status post right ventriculoperitoneal shunt placement done on 02/15/2019. CT scan of head was done on 04/03/2019 showed stable frontal ventricular shunt tube position with decreased ventriculomegaly since 02/15/2019. 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 On 04/13/2019 Mr Mcclellan presented to the local emergency room with with chief complaints of floaters in his vision off and on and this time in the right eye only. He was sent to [facility] in [place] emergency room where he was evaluated by ophthalmology and no retinal detachment was observed. Follow-up in 2 weeks was recommended but he did not go for follow-up as condition resolved on its own. He also had CT scan of head done on 04/13/2019 which showed no intracranial hemorrhage or mass effect; Unchanged ventricular configuration; Unchanged right frontal ventricular shunt catheter tip terminating in the left frontal horn; Unchanged left cerebellar hemisphere encephalomalacia and postsurgical changes; CT scan of the head done on 05/14/2019 showed right frontal shunt catheter with tip in the left frontal horn. No hydrocephalus; Postoperative changes occipital craniectomy. He remains on immunotherapy with pembrolizumab. Tolerating Keytruda well otherwise Follow-up CT PET scan done on 08/11/2019 showed there is ongoing decrease in FDG activity in the right upper lobe nodule now SUV is 2.6 down from 3.4 previously .no new lesion seen CT scan of the head done on 10/12/2019 shows right frontal shunt cath with the tip in the left frontal horn. No hydrocephalus. Prior postoperative changes occipital status post occipital craniotomy. 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 Recently underwent left arm nerve conduction study, as per patient he was told his left hand weakness and numbness is due to ulnar neuropathy, now being treated with physical therapy. He has been having vertigo Patient was seen by ENT as per patient nothing significant was observed. He states he is having problems with his hand. He states that he did have nerve conduction which reportedly was normal but the technologist that was doing the study indicated that he might need an MRI of his brain. Mr. Mcclellan would like to pursue this if at all possible. He does see Dr. Sam on December [address] Sam is leaving in January so is not sure he can get the MRI scheduled at that point. He states that he does have an MRI of the brain he will need his shunt regulated. He states in regard to Dr. Flaco clinton, he has used Dr Dinh in [place], [place]. Follow-up CT scan of head was done on January 03, 2020 which is unchanged since October 12, 2019, no enhancing masses or acute intracranial hemorrhage. Postoperative changes of occipital craniectomy with encephalomalacia left cerebellum and unchanged pseudomeningocele. 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 No hydrocephalus. Left maxillary sinusitis, Oral antibiotics were prescribed He has had persistent discomfort but mild puffiness in the left hand, which is improving, patient was transferred to [place] recently for nausea vomiting and there was a concern regarding malfunctioning of intracranial shunt, as per patient he was evaluated by neurosurgery in [place] and had MRI scan of head done there which showed shunt was functioning fine and no new lesions seen patient said he may have some kind of reaction to the contrast as he was feeling pain all over his body and responded well to morphine. Mr Mcclellan was referred to physical therapy. He continues the Keytruda. Mr. Mcclellan had restaging PET CT on 04/26/2020. The findings were no evidence for active recurrent or residual malignancy. The right upper lobe nodule remains unchanged in size at 2.5 x 4.6 cm, with an SUV of 2.4; this is consistent with sterilize malignancy and mild residual inflammatory uptake . There was no findings to indicate osseous metastatic disease. The impression was negative for active malignancy and inflammatory activity in the sterilized right upper lobe lung carcinoma. He continues with Keytruda. Mr Mcclellan is here today for followup and consideration of Keytruda. He has completed 28 cycles with his last cycle being 04/30/2020. At his follow-up visit with us on 05/21/2020 they had discussed his PET CT results from 04/26/2020. The findings were no evidence for active recurrent or residual malignancy. The right upper lobe nodule remains unchanged in size from 2.5 x 4.6 cm with an SUV of 2.4; this is consistent with sterilized malignancy and mild residual inflammatory uptake . There were no findings to indicate osseous metastatic disease. The impression was negative for active malignancy and inflammatory activity in the sterilized right upper lobe lung carcinoma. Given those results and was offered either the option of continuing immunotherapy or switching to observation alone as the recent PET/CT persistently shows no evidence of active active disease.Patient opted to continue with the treatment but would prefer every [address] scan of head done on July 01, 2020 showed stable occipital craniectomy and postsurgical change in the left cerebellum. No recurrent tumor. Right frontal JUMP ROLL OPERATOR shunt catheter unchanged in position. No hydrocephalus. Sinusitis And underwent CT scan of head on July 01, 2020 which showed no evidence of recurrence of disease no hydrocephalus Patient scheduled for follow-up MRI scan of C-spine and lumbar spine to evaluate progressive left arm and leg weakness Done on August 05, 2020 which showed no significant change. Stable C5-6 disc bulge with facet degenerative changes and moderate central canal and severe bilateral foraminal narrowing. Additional degenerative changes throughout the cervical spine without significant central canal or foraminal stenosis. #2 stable appearance of the midline suboccipital craniectomy and overlying suspected pseudomeningocele. Chronic bilateral inferior cerebellar changes with volume loss and enlarged fourth ventricle. MRI scan lumbar showed no significant change or acute osseous or soft tissue abnormality seen. Mild worsening of the moderate central canal stenosis at L4-5 secondary to worsening ligamentum flavum hypertrophy and facet degenerative changes and persistent bulging disc As per patient he was offered surgical option for C-spine abnormality, which may improve his left arm weakness, patient is considering other options Follow-up CT PET scan done on August 16, 2020 showed there has been no change in the right upper lobe mass measuring 2.5 x 4.7 cm SUV of 2.7 which is consistent with sterilized malignancy and mild chronic inflammation went to [facility] on March 12, 2021 with nausea vomiting diarrhea and underwent CT scan of abdomen pelvis on March 12, 2021 which showed 3.2 cm low-attenuation lesion of right lobe of the liver which is new and suspicious for metastatic disease, 4.3 x 4.8 cm peripancreatic lipoma previously was 3.9 x 3 cm. 5 mm mildly obstructing left mid ureteral stone., Patient was treated symptomatically, patient is here to discuss about his recently done CT scan finding which shows new liver lesion and , Subsequently underwent CT PET scan on March 21, 2021 which showed no change in size of the treated right upper lobe lesion, inflammatory uptake is slightly more prominent but unlikely represent recurrence. No abnormality in the liver or upper abdomen,No significant change when compared with CT PET scan done in December 2020 As far as renal stone is concerned, patient is being evaluated and followed by urology, Follow-up CT scan of abdomen done on June 15, 2021 showed previously described left mid ureteral calculus is no longer visualized, there is a new or migrated distal left ureteral calculus just proximal to UVJ measuring 4 mm. Mild left ureterectasis. No hydronephrosis. No hydronephrosis in the right kidney. 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 Patient presents today for follow-up. He denies weakness or fatigue. His appetite has been good. No fever, chills, night sweats. No shortness of breath or cough. No nausea or vomiting. No diarrhea or constipation. No urinary symptoms. He has chronic back pain. He has been having some itching on his bilateral forearms but there is no apparent rash there. He states he has been changing up some of his medications he has not been taking his Lasix as he normally does. He is also on hydrocortisone and he has decreased the amount of those that he takes. Review Of Symptoms: See above. Past Medical History: Chronic back pain Hypertension Past Surgical History: Appendectomy Craniotomy Covid vaccine #2 moderna in 2020 Covid vaccine #1 moderna in 2020 Allergies: Cats, Dust mites, Grass Pollen, Mold and Trees and HydroCHLOROthiazide. Medications: Acetaminophen 2 (325 mg) Capsule Oral PRN Albuterol Sulfate Aerosol Powder, Breath Activated Inhalation B Complex 1 Tablet Oral daily buPROPion HCl 1 Tablet (of 75 mg) Oral q on Every Other Day Cabergoline (0.5 mg) Tablet Oral Take as Directed Calcium 1 Tablet (of 600 mg) Oral daily PRN Claritin 1 Tablet (of 10 mg) Oral daily Colace 1 Capsule (of 250 mg) Oral b.i.d. PRN Essiac Tea Herbs Leaves Oral PRN Folic Acid 1 Tablet (of 400 mcg) Oral daily Gabapentin 1 Capsule (of 100 mg) Oral daily Hydrocodone-Acetaminophen 1 Tablet (of 10-325 mg) Tablet Oral 6x/d PRN Hydrocortisone 1 Tablet (of 2.5 mg) Oral q 48 hours Lactulose 2 tablespoonful(s) (of 10 g/15mL) Solution Oral b.i.d. PRN Lasix 1 Tablet (of 40 mg) Oral daily PRN Lisinopril 1 Tablet (of 20 mg) Oral daily Magnesium 1 Tablet (of 250 mg) Oral daily Multivitamin and Minerals 1 Tablet daily Ondansetron HCl 1 Tablet (of 4 mg) Oral t.i.d. PRN Pantoprazole Sodium 1 Tablet (of 40 mg) Tablet, enteric coated Oral every am Promethazine HCl 1 Suppository (of 25 mg) Rectal q 6 hours PRN Senna-S 1 (8.6-50 mg) Tablet Oral b.i.d. Stiolto Respimat 1 puff(s) (of 2.5-2.5 mcg/act) Aerosol, solution Inhalation daily Vitamin A Capsule Oral daily ZyrTEC Allergy 1 Tablet (of 10 mg) Capsule Oral at bedtime Family History: Mr. Mcclellan's mother at age 52: congestive heart failure. Mr. Mcclellan's father at age 82: kidney failure. Mr. Mcclellan has 1 sister who is : type ii diabetes. Sister - cancer antiplastic thyroid Grandmother and great grandmother with hx of thyroid and colon cancer. Social History: Mr. Mcclellan is . Mr. Mcclellan no longer smokes but had smoked 1.0 pack/day for 48 years. He has no history of drinking. Stopped smoking 08/2017 Pt reports marijuana usage. Physical Examination: Performed on Aug 27, 2021 10:31: Height - 73.00 in, BP - 141/88 mm(hg) (HIGH), Performed on Aug 27, 2021 10:31: Height - 73.00 in, Weight - 308.4 lbs (HIGH), BSA - 2.59 sq.m, BMI - 40.69 (HIGH), Temperature - 98.5 F, Pulse - 72 /min, Respiration - 18 /min, BP - 157/116 mm(hg) (HIGH), O2 Sat - 95 % (LOW), Pain - 0, and Fatigue - 4. Performance Status: 1 - No physically strenuous activity, but ambulatory and able to carry out light or sedentary work (e.g. office work, light house work). (ECOG) Constitutional Alert, cooperative, oriented. Mood and affect appropriate. Appears close to chronological age. Well nourished. Well developed. Head Normocephalic; no scars. Respiratory Lungs are clear to auscultation without rhonchi or wheezing. Cardiovascular Regular rate and rhythm of heart without murmurs, gallops or rubs. Abdomen Non-tender, non-distended, no masses, ascites or hepatosplenomegaly. Good bowel sounds. No guarding or rebound tenderness. Extremities 2+ lower extremity edema bilaterally Integumentary macular rash to bilateral forearms Laboratory: Most recent lab results are not available for this patient. Impression: 1. 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 2. status post metastasectomy done on 09/05/2017, postoperative MRI disclosed complete resection. Molecular studies on brain metastases biopsy showed negative for EGFR ALK, RET, HER-2/india, ROS 1,BRAF, 3. Right upper lobe lung mass 2.7 cm. 4. Indigestion/ heartburn nausea vomiting probably due to candidal esophagitis or questionable increase intracranial pressure , also with oral thrush EGD showed H. pylori status post antibiotics FOLLOWUP IMAGIN. CT scan of head done on 10/17/2017 showed stable postoperative changes from prior left occipital craniotomy and resection of previous metastatic mass from left cerebellum hemisphere. (Repeat CT of the head from 11/2017 in [facility] reported findings consistent with the 10/17/2017 imaging with no acute findings). 6. PET/CT from 10/29/2017 showed 2 x 2.3 cm right apical pulmonary nodule with SUV of 17.7. No additional abnormality noted other than status post cranial metastasectomy site. 7. MRI of the brain with and without contrast on August 23, 2018 from [facility] in [place]. 8. CT of the head noncontrast on October 12, 2019: Right frontal shunt catheter with tip in the left frontal horn. No hydrocephalus. Ventricular size is unchanged from previous scans. Prior postoperative changes occipital craniectomy. 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 Stable cerebral tonsillar ectopia with normal fourth ventricle. 9. His last PET/CT imaging was August 11, 2019. Is reported that there was ongoing decrease in FDG activity in the right upper lobe lung nodule with an SUV of 2.6 down from 3.4 on previous exam. There were no new malignant lesions present there is no indication to suspect osseous metastatic disease. CURRENT TREATMENT SUMMARY: 7. SBRT to right lung mass completed 11/23/2017 for a total dose of 3,600 cGY (48 GGY). 8. SRS to brain completed 01/16/2018 for a total dose of 2,400 cGY. 9. Carboplatin/Alimta/pembrolizumab 06/28/2018. He had 1 dose of the carboplatin Alimta had significant side effects and was transitioned to just single agent pembrolizumab in September 2018. He remains on pembrolizumab currently. discussed with Mr Mcclellan the role of systemic chemotherapy with cisplatin/Alimta versus observation alone. He has recommended chemotherapy consisting of Cisplatin 75 mg/m2 day 1 and Alimta 500 mg/m??? on day 1 repeat every 21 days ???4 cycles along with dexamethasone, folic acid and B12 as prophylactic treatment for Alimta. Mr Mcclellan transferred his care to [facility] where getting evaluation CT PET scan was done on 05/17/2018 which showed persistent right upper lobe lung mass with right bronchial lymph node involvement; Finding in the left maxillary sinus of concern for metastatic disease; A new osseous lesion seen in the right anterior iliac crest consistent with metastatic disease. Mr Mcclellan was started on carboplatin/Alimta/pembrolizumab-he was given 1 dose of chemotherapy on 06/28/2018. He experienced significant side effects so chemotherapy was discontinued and then switched to single agent Keytruda in September 2018. Patient tolerated well except some diarrhea, responded to prednisone 60 mg by mouth daily, now resolved and his follow-up CT PET scan done on 11/25/2018 showed excellent response to single agent Keytruda. The PET/CT did show a right apical lung lesion measures 3.9 x 2.4 cm with SUV of 3.4 which is significant improvement since prior study in May 2018 and likely represent inflammatory posttreatment changes. Mr Mcclellan has continued with single agent Keytruda. He is tolerating it well and has improvement in his performance status. Mr. Mcclellan had restaging PET CT on 04/26/2020. The findings were no evidence for active recurrent or residual malignancy. The right upper lobe nodule remains unchanged in size at 2.5 x 4.6 cm, with an SUV of 2.4; this is consistent with sterilize malignancy and mild residual inflammatory uptake . There was no findings to indicate osseous metastatic disease. The impression was negative for active malignancy and inflammatory activity in the sterilized right upper lobe lung carcinoma. Mr Mcclellan opted to hold his immunotherapy through . He has returned today to discuss continuing treatment verses observation alone. CT scan of head done on July 01, 2020 shows no recurrence of disease MRI scan of the C-spine done on August 05, 2020 to evaluate left arm weakness shows no significant change but stable C5-C6 disc bulge with facet degenerative changes and moderate central canal and severe bilateral foraminal narrowing. As per patient surgical option was discussed but he is somewhat reluctant and considering other options MRI scan of lumbar done on August 05, 2020 showed no significant changes mild worsening of moderate central canal stenosis at L4-5 secondary to worsening ligamentum flavum hypertrophy and facet degenerative changes and persistent bulging disc Follow-up CT PET scan done on August 16, 2020 showed no change in the treated right upper lobe malignancy. Negative for active disease. Plan: Labs were reviewed with patient with WBC at 9.7, hemoglobin 14.1, hematocrit 43.6, platelet count 210,000. His CMP is within normal limits. Clinically patient seems to be doing well. He is tolerating his maintenance therapy with Keytruda. He will receive his next dose today. He does have a mild rash to his bilateral forearms. Recommended he use hydrocortisone cream but inform us if condition worsens. It was recommended that he discuss with his primary physician about adjusting his medication prior to making the adjustments. He has bilateral lower extremity edema that could be contributed to the fact that he has discontinued his Lasix. Patient states that he will follow-up with his primary care physician. Patient to follow-up in 3 weeks with CBC, CMP. Continue Keytruda maintenance therapy every 3 weeks. Signed By: Jennifer Cordon NJoão <<Signature on File>>
== END 2021-08-27 10:14 | disposition home or self-care (01) ==
PROVIDERS: PCP Emergency Medicine Emergency Medical Services; Visit Provider Nurse Practitioner Family
DX: Z51.12 Encounter for antineoplastic immunotherapy (principal); C79.31 Secondary malignant neoplasm of brain; C34.11 Malignant neoplasm of upper lobe, right bronchus or lung; I10 Essential (primary) hypertension; Z79.899 Other long term (current) drug therapy
CPT/HCPCS: 96413; 99215; J7050; J9271

== ENCOUNTER 2021-09-16 14:26 | Outpatient (CLI) | payer OTHER, SELFPAY ==
[2021-09-16 15:26] LABS: Basophils % 0.3 %; Eosinophils # 0.2 10^3/uL (0.0-0.8); Eosinophils % 3.6 %; Hematocrit 41.3 % (42.0-52.0); Hemoglobin 13.2 g/dL (11.7-16.6); Lymphocytes # 2.1 10^3/uL (0.8-4.8); Lymphocytes % 35.7 %; Mean Corpuscular Hemoglobin 31.7 pg (28.0-34.0); Mean Platelet Volume 9.1 fL (7.4-10.4); Monocytes # 0.5 10^3/uL (0.2-0.9); Neutrophils # 3.08 10^3/uL (1.8-7.7); Neutrophils % 52.2 %; Nucleated Red Blood Cells % 0 %; Platelet Count 193 10^3/cmm (130-400); Red Blood Count 4.17 10^6/uL (4.1-5.3); Red Cell Distribution Width 13.2 % (12.1-15.1); White Blood Count 5.9 10^3/uL (4.0-10.0)
[2021-09-16 15:42] LABS: Alanine Aminotransferase 13 U/L (0-41); Albumin Level 3.9 g/dL (3.5-5.2); Alkaline Phosphatase 74 IU/L (40-130); Aspartate Amino Transferase 12 U/L (0-40); Blood Urea Nitrogen 14 mg/dL (8-23); Calcium 8.9 mg/dL (8.5-10.5); Carbon Dioxide 26 mmol/L (22-29); Chloride 106 mmol/L (98-107); Globulin 2.4 g/dL (1.3-4.6); Glucose 108 mg/dL (65-115); Osmolality Calculated 291 mOsm/kg (285-295); Sodium 140 mmol/L (136-145); Total Bilirubin 0.3 mg/dL (0.15-1.2); Total Protein 6.3 g/dL (6.6-8.7)
== END 2021-09-16 14:27 | disposition home or self-care (01) ==
PROVIDERS: PCP Emergency Medicine Emergency Medical Services; Visit Provider Internal Medicine Hematology & Oncology
DX: C34.90 Malignant neoplasm of unspecified part of unspecified bronchus or lung (principal)
CPT/HCPCS: 36415; 80053; 85025

== ENCOUNTER 2021-09-17 10:18 | Outpatient (CLI) | payer OTHER, SELFPAY ==
--- NOTE | 2021-09-21 08:55 | ONC FU_ITS ---
Dr. Parra follow up note Patient: Alli Mcclellan Unit #: [id number]: 1955 Dicatated By: Harsha Parra M.D.Date of Visit:Sep 17, 2021 Onc Med Follow-up/Prog Note History of Present Illness: Mr. Mcclellan is a 66-year-old gentleman who was recently diagnosed with metastatic lung cancer to brain. Mr Mcclellan reports that in August 2017, he developed side effects in that he could not speak and had trouble typing with his left hand. He had an episode of ataxia and he felt significantly dizzy, so much so that he felt like he was going to pass out. He presented to the hospital where MRI scan of brain was done on 09/01/2017. The MRI showed left cerebral mass measuring 3.6 cm and mild asymmetric prominence and enhancement at right pituitary gland. Differential included macroadenoma, craniopharyngioma, or metastatic disease. A CT chest was done and reported spiculated area of the right upper lobe measuring 2.7 cm. He underwent posterior fossa craniotomy and resection of the cerebellar mass on 09/05/2017. The final pathology reported metastatic adenocarcinoma consistent with lung primary. Molecular assay was negative for EGFR, BRAF V600E IHC, ALK, RET, HER-2, BRAF, and ROS 1. PET/CT imaging was obtained on 10/29/2017. It did report 2 x 2.3 cm right apical pulmonary nodule with an SUV of 17.7. There were no additional pulmonary nodules or masses identified. Activity in the bilateral hilum and mediastinal lymph nodes was unremarkable. There was no other evidence for local or distant metastatic disease. Follow-up CT of the head from 11/10/2017 reported postoperative changes from prior occipital craniotomy and resection of the previous metastatic lesion from the superior aspect of the left cerebellar hemisphere. There was persistent subcutaneous occipital scalp fluid that may communicate with the CSF space through meningeal defect posterior to the cervical do medullary junction. There were mild central and peripheral atrophy. No acute findings of the head and no significant change from 10/17/2017. It was noted that he had left maxillary sinusitis. Mr. Mcclellan was referred to Dr Lyle in radiation oncology for treatment of the lung mass and consideration of radiation to the brain. Mr Mcclellan had SBRT to the right lung. He had a total dose of 3600 cGy (48 GY). His start date was 11/16/2017. His completion date was 11/23/2017. Mr. Mcclellan then underwent SRS to the brain. His total dose was 2400 cGy. He started on 01/11/2018 and ended on 01/16/2018. He was given Decadron 4 mg twice a day while on treatment with instructions to taper slowly after radiation was completed. Mr. Mcclellan was evaluated and was offered chemotherapy with cisplatin Alimta every 3 weeks for 4 cycles. He has been very hesitant to proceed with chemotherapy due to concerns about side effects. Interim history: Mr Mcclellan went to [place] for further oncology care. His CT PET scan done on 05/17 showed left cerebellar consistent with known prior dissection; Right lung upper lobe consistent with persistent tumor with right bronchial lymph node involvement; Left maxillary sinus of concern for metastatic disease and A new osseous lesion in the right anterior iliac crest consistent with metastatic disease. Once again chemotherapy was recommended and he consentetd. He was given 1 cycle of carboplatin/Alimta/pembrolizumab on 06/28/2018 but he had significant side effects including nausea, vomiting- fatigue requiring hydration, subsequently chemotherapy was discontinued because of intolerance. He was switched to single agent Keytruda on 09/06/2018, tolerated immunotherapy well-except associated or diarrhea which was treated with prednisone 60 mg daily and responded well. He has had no further episodes of the significant diarrhea. He had follow-up CT PET scanOn 11/25/2018 which showed the right apical lung lesion currently measured 3.9 x 2.4 cm with SUV of 3.4 (this is a significant improvement since prior study and likely represent chronic inflammation); Status post right ventriculoperitoneal shunt placement done on 02/15/2019. CT scan of head was done on 04/03/2019 showed stable frontal ventricular shunt tube position with decreased ventriculomegaly since 02/15/2019. 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 On 04/13/2019 Mr Mcclellan presented to the local emergency room with with chief complaints of floaters in his vision off and on and this time in the right eye only. He was sent to [facility] in [place] emergency room where he was evaluated by ophthalmology and no retinal detachment was observed. Follow-up in 2 weeks was recommended but he did not go for follow-up as condition resolved on its own. He also had CT scan of head done on 04/13/2019 which showed no intracranial hemorrhage or mass effect; Unchanged ventricular configuration; Unchanged right frontal ventricular shunt catheter tip terminating in the left frontal horn; Unchanged left cerebellar hemisphere encephalomalacia and postsurgical changes; CT scan of the head done on 05/14/2019 showed right frontal shunt catheter with tip in the left frontal horn. No hydrocephalus; Postoperative changes occipital craniectomy. He remains on immunotherapy with pembrolizumab. Tolerating Keytruda well otherwise Follow-up CT PET scan done on 08/11/2019 showed there is ongoing decrease in FDG activity in the right upper lobe nodule now SUV is 2.6 down from 3.4 previously .no new lesion seen CT scan of the head done on 10/12/2019 shows right frontal shunt cath with the tip in the left frontal horn. No hydrocephalus. Prior postoperative changes occipital status post occipital craniotomy. 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 Recently underwent left arm nerve conduction study, as per patient he was told his left hand weakness and numbness is due to ulnar neuropathy, now being treated with physical therapy. He has been having vertigo Patient was seen by ENT as per patient nothing significant was observed. He states he is having problems with his hand. He states that he did have nerve conduction which reportedly was normal but the technologist that was doing the study indicated that he might need an MRI of his brain. Mr. Mcclellan would like to pursue this if at all possible. He does see Dr. Sam on December [address] Sam is leaving in January so is not sure he can get the MRI scheduled at that point. He states that he does have an MRI of the brain he will need his shunt regulated. He states in regard to Dr. Flaco clinton, he has used Dr Dinh in [place], [place]. Follow-up CT scan of head was done on January 03, 2020 which is unchanged since October 12, 2019, no enhancing masses or acute intracranial hemorrhage. Postoperative changes of occipital craniectomy with encephalomalacia left cerebellum and unchanged pseudomeningocele. DRUM STENCILER shunt catheter tip terminating anterior horn of left lateral ventricle. No hydrocephalus. Left maxillary sinusitis, Oral antibiotics were prescribed He has had persistent discomfort but mild puffiness in the left hand, which is improving, patient was transferred to [place] recently for nausea vomiting and there was a concern regarding malfunctioning of intracranial shunt, as per patient he was evaluated by neurosurgery in [place] and had MRI scan of head done there which showed shunt was functioning fine and no new lesions seen patient said he may have some kind of reaction to the contrast as he was feeling pain all over his body and responded well to morphine. Mr Mcclellan was referred to physical therapy. He continues the Keytruda. Mr. Mcclellan had restaging PET CT on 04/26/2020. The findings were no evidence for active recurrent or residual malignancy. The right upper lobe nodule remains unchanged in size at 2.5 x 4.6 cm, with an SUV of 2.4; this is consistent with sterilize malignancy and mild residual inflammatory uptake . There was no findings to indicate osseous metastatic disease. The impression was negative for active malignancy and inflammatory activity in the sterilized right upper lobe lung carcinoma. He continues with Keytruda. Mr Mcclellan is here today for followup and consideration of Keytruda. He has completed 28 cycles with his last cycle being 04/30/2020. At his follow-up visit with us on 05/21/2020 they had discussed his PET CT results from 04/26/2020. The findings were no evidence for active recurrent or residual malignancy. The right upper lobe nodule remains unchanged in size from 2.5 x 4.6 cm with an SUV of 2.4; this is consistent with sterilized malignancy and mild residual inflammatory uptake . There were no findings to indicate osseous metastatic disease. The impression was negative for active malignancy and inflammatory activity in the sterilized right upper lobe lung carcinoma. Given those results and was offered either the option of continuing immunotherapy or switching to observation alone as the recent PET/CT persistently shows no evidence of active active disease.Patient opted to continue with the treatment but would prefer every [address] scan of head done on July 01, 2020 showed stable occipital craniectomy and postsurgical change in the left cerebellum. No recurrent tumor. Right frontal DRUM STENCILER shunt catheter unchanged in position. No hydrocephalus. Sinusitis And underwent CT scan of head on July 01, 2020 which showed no evidence of recurrence of disease no hydrocephalus Patient scheduled for follow-up MRI scan of C-spine and lumbar spine to evaluate progressive left arm and leg weakness Done on August 05, 2020 which showed no significant change. Stable C5-6 disc bulge with facet degenerative changes and moderate central canal and severe bilateral foraminal narrowing. Additional degenerative changes throughout the cervical spine without significant central canal or foraminal stenosis. #2 stable appearance of the midline suboccipital craniectomy and overlying suspected pseudomeningocele. Chronic bilateral inferior cerebellar changes with volume loss and enlarged fourth ventricle. MRI scan lumbar showed no significant change or acute osseous or soft tissue abnormality seen. Mild worsening of the moderate central canal stenosis at L4-5 secondary to worsening ligamentum flavum hypertrophy and facet degenerative changes and persistent bulging disc As per patient he was offered surgical option for C-spine abnormality, which may improve his left arm weakness, patient is considering other options Follow-up CT PET scan done on August 16, 2020 showed there has been no change in the right upper lobe mass measuring 2.5 x 4.7 cm SUV of 2.7 which is consistent with sterilized malignancy and mild chronic inflammation went [place] [facility] [place] 12, 2021 with nausea vomiting diarrhea and underwent CT scan of abdomen pelvis on March 12, 2021 which showed 3.2 cm low-attenuation lesion of right lobe of the liver which is new and suspicious for metastatic disease, 4.3 x 4.8 cm peripancreatic lipoma previously was 3.9 x 3 cm. 5 mm mildly obstructing left mid ureteral stone., Patient was treated symptomatically, patient is here to discuss about his recently done CT scan finding which shows new liver lesion and , Subsequently underwent CT PET scan on March 21, 2021 which showed no change in size of the treated right upper lobe lesion, inflammatory uptake is slightly more prominent but unlikely represent recurrence. No abnormality in the liver or upper abdomen,No significant change when compared with CT PET scan done in December 2020 As far as renal stone is concerned, patient is being evaluated and followed by urology, Follow-up CT scan of abdomen done on June 15, 2021 showed previously described left mid ureteral calculus is no longer visualized, there is a new or migrated distal left ureteral calculus just proximal to UVJ measuring 4 mm. Mild left ureterectasis. No hydronephrosis. No hydronephrosis in the right kidney. 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 Follow-up CT PET scan done on September 06, 2019 showed there is ongoing resolution of inflammatory uptake in the right upper lobe mass now SUV 2.8 compared to three-point previously no findings suggestive of recurrence or distant metastatic disease Came for follow-up, denies any specific complaints, except generalized weakness and fatigue, no fever or chills, no nausea or vomiting, no diarrhea or constipation. No skin rash, no jaundice, no wheezing, no mucus in stool, tolerating immunotherapy with Keytruda well, recently underwent CT PET scan which showed excellent response, Also exploring oral surgery for dental surgery and implants both nationally and internationally as insurance will not provide coverage Medications: Acetaminophen 2 (325 mg) Capsule Oral PRN, Albuterol Sulfate Aerosol Powder, Breath Activated Inhalation, B Complex 1 Tablet Oral daily, buPROPion HCl 1 Tablet (of 75 mg) Oral q on Every Other Day, Cabergoline (0.5 mg) Tablet Oral Take as Directed, Calcium 1 Tablet (of 600 mg) Oral daily PRN, Claritin 1 Tablet (of 10 mg) Oral daily, Colace 1 Capsule (of 250 mg) Oral b.i.d. PRN, Essiac Tea Herbs Leaves Oral PRN, Folic Acid 1 Tablet (of 400 mcg) Oral daily, Gabapentin 1 Capsule (of 100 mg) Oral daily, Hydrocodone-Acetaminophen 1 Tablet (of 10-325 mg) Tablet Oral 6x/d PRN, Hydrocortisone 1 Tablet (of 2.5 mg) Oral q 48 hours, Lactulose 2 tablespoonful(s) (of 10 g/15mL) Solution Oral b.i.d. PRN, Lasix 1 Tablet (of 40 mg) Oral daily PRN, Lisinopril 1 Tablet (of 20 mg) Oral daily, Magnesium 1 Tablet (of 250 mg) Oral daily, Multivitamin and Minerals 1 Tablet daily, Ondansetron HCl 1 Tablet (of 4 mg) Oral t.i.d. PRN, Pantoprazole Sodium 1 Tablet (of 40 mg) Tablet, enteric coated Oral every am, Promethazine HCl 1 Suppository (of 25 mg) Rectal q 6 hours PRN, Senna-S 1 (8.6-50 mg) Tablet Oral b.i.d., Stiolto Respimat 1 puff(s) (of 2.5-2.5 mcg/act) Aerosol, solution Inhalation daily, Vitamin A Capsule Oral daily, ZyrTEC Allergy 1 Tablet (of 10 mg) Capsule Oral at bedtime Allergies: Cats, Dust mites, Grass Pollen, Mold and Trees and HydroCHLOROthiazide. Review of Systems: Review of Systems is not available for this patient. Vital Signs: Performed on Sep 17, 2021 10:49 Height - 73.00 in Weight - 308.8 lbs (HIGH) BSA - 2.59 sq.m BMI - 40.74 (HIGH) Temperature - 98.0 F (LOW) Pulse - 65 /min Respiration - 20 /min BP - 121/75 mm(hg) O2 Sat - 95 % (LOW) Pain - 3 Fatigue - 6 Performance Status: 1 - No physically strenuous activity, but ambulatory and able to carry out light or sedentary work (e.g. office work, light house work). (ECOG) Physical Examination: ENMT - No mouth sores, no thrush, no jaundice, no cervical lymphadenopathy, Respiratory - Poor air entry otherwise clear, Cardiovascular - Regular rate and rhythm of heart, Abdomen - Soft, bowel sounds present, Extremities - Trace edema. Lab/Imaging: Most recent lab results are not available for this patient. Impression: 1. 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 2. status post metastasectomy done on 09/05/2017, postoperative MRI disclosed complete resection. Molecular studies on brain metastases biopsy showed negative for EGFR ALK, RET, HER-2/ind[place], ROS 1,BRAF, 3. Right upper lobe lung mass 2.7 cm. 4. Indigestion/ heartburn nausea vomiting probably due to candidal esophagitis or questionable increase intracranial pressure , also with oral thrush EGD showed H. pylori status post antibiotics FOLLOWUP IMAGIN. CT scan of head done on 10/17/2017 showed stable postoperative changes from prior left occipital craniotomy and resection of previous metastatic mass from left cerebellum hemisphere. (Repeat CT of the head from 11/2017 [place] [facility] reported findings consistent with the 10/17/2017 imaging with no acute findings). 6. PET/CT from 10/29/2017 showed 2 x 2.3 cm right apical pulmonary nodule with SUV of 17.7. No additional abnormality noted other than status post cranial metastasectomy site. 7. MRI of the brain with and without contrast on August 23, 2018 from [facility] in [place]. 8. CT of the head noncontrast on October 12, 2019: Right frontal shunt catheter with tip in the left frontal horn. No hydrocephalus. Ventricular size is unchanged from previous scans. Prior postoperative changes occipital craniectomy. 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 Stable cerebral tonsillar ectopia with normal fourth ventricle. 9. His last PET/CT imaging was August 11, 2019. Is reported that there was ongoing decrease in FDG activity in the right upper lobe lung nodule with an SUV of 2.6 down from 3.4 on previous exam. There were no new malignant lesions present there is no indication to suspect osseous metastatic disease. CURRENT TREATMENT SUMMARY: 7. SBRT to right lung mass completed 11/23/2017 for a total dose of 3,600 cGY (48 GGY). 8. SRS to brain completed 01/16/2018 for a total dose of 2,400 cGY. 9. Carboplatin/Alimta/pembrolizumab 06/28/2018. He had 1 dose of the carboplatin Alimta had significant side effects and was transitioned to just single agent pembrolizumab in September 2018. He remains on pembrolizumab currently. discussed with Mr Mcclellan the role of systemic chemotherapy with cisplatin/Alimta versus observation alone. He has recommended chemotherapy consisting of Cisplatin 75 mg/m2 day 1 and Alimta 500 mg/m??? on day 1 repeat every 21 days ???4 cycles along with dexamethasone, folic acid and B12 as prophylactic treatment for Alimta. Mr Mcclellan transferred his care to [facility] where getting evaluation CT PET scan was done on 05/17/2018 which showed persistent right upper lobe lung mass with right bronchial lymph node involvement; Finding in the left maxillary sinus of concern for metastatic disease; A new osseous lesion seen in the right anterior iliac crest consistent with metastatic disease. Mr Mcclellan was started on carboplatin/Alimta/pembrolizumab-he was given 1 dose of chemotherapy on 06/28/2018. He experienced significant side effects so chemotherapy was discontinued and then switched to single agent Keytruda in September 2018. Patient tolerated well except some diarrhea, responded to prednisone 60 mg by mouth daily, now resolved and his follow-up CT PET scan done on 11/25/2018 showed excellent response to single agent Keytruda. The PET/CT did show a right apical lung lesion measures 3.9 x 2.4 cm with SUV of 3.4 which is significant improvement since prior study in May 2018 and likely represent inflammatory posttreatment changes. Mr Mcclellan has continued with single agent Keytruda. He is tolerating it well and has improvement in his performance status. Mr. Mcclellan had restaging PET CT on 04/26/2020. The findings were no evidence for active recurrent or residual malignancy. The right upper lobe nodule remains unchanged in size at 2.5 x 4.6 cm, with an SUV of 2.4; this is consistent with sterilize malignancy and mild residual inflammatory uptake . There was no findings to indicate osseous metastatic disease. The impression was negative for active malignancy and inflammatory activity in the sterilized right upper lobe lung carcinoma. Mr Mcclellan opted to hold his immunotherapy through [facility]. He has returned today to discuss continuing treatment verses observation alone. CT scan of head done on July 01, 2020 shows no recurrence of disease MRI scan of the C-spine done on August 05, 2020 to evaluate left arm weakness shows no significant change but stable C5-C6 disc bulge with facet degenerative changes and moderate central canal and severe bilateral foraminal narrowing. As per patient surgical option was discussed but he is somewhat reluctant and considering other options MRI scan of lumbar done on August 05, 2020 showed no significant changes mild worsening of moderate central canal stenosis at L4-5 secondary to worsening ligamentum flavum hypertrophy and facet degenerative changes and persistent bulging disc Follow-up CT PET scan done on August 16, 2020 showed no change in the treated right upper lobe malignancy. Negative for active disease. follow-up CT PET scan done on September 05, 2021 showed ongoing resolution of inflammatory activity in the right upper lobe, negative for active malignancy. Plan: Discussed with patient regarding his labs White blood count 5.9 hemoglobin 13.2, hematocrit 41.3, platelets 193,000 CMP within normal limits and follow-up CT PET scan done on September 05, 2021 showed ongoing resolution of inflammatory activity in the right upper lobe, negative for active malignancy. Clinically, patient doing well with no new signs symptoms history of recurrence of disease his follow-up CT PET scan confirmed excellent response to the treatment and tolerating maintenance therapy with immunotherapy, Keytruda well, will proceed with next dose today and then he will return to clinic in 3 weeks with CBC CMP Signed By: Harsha Parra M.D. <<Signature on File>>
== END 2021-09-17 10:19 | disposition home or self-care (01) ==
PROVIDERS: PCP Emergency Medicine Emergency Medical Services; Visit Provider Internal Medicine Hematology & Oncology
DX: C34.11 Malignant neoplasm of upper lobe, right bronchus or lung (principal); C79.81 Secondary malignant neoplasm of breast
CPT/HCPCS: 96413; 99215; J7050; J9271

== ENCOUNTER 2021-10-29 13:00 | Oncology outpatient (recurring) (ONCR) | payer OTHER, SELFPAY ==
[2021-10-07 11:01] LABS: Basophils % 0.4 %; Eosinophils # 0.2 10^3/uL (0.0-0.8); Eosinophils % 4.7 %; Hematocrit 44.4 % (42.0-52.0); Hemoglobin 14.1 g/dL (11.7-16.6); Lymphocytes # 1.9 10^3/uL (0.8-4.8); Lymphocytes % 37.8 %; Mean Corpuscular HGB Conc 31.8 g/dL (30.0-36.0); Mean Corpuscular Hemoglobin 30.9 pg (28.0-34.0); Mean Corpuscular Volume 97.2 fl (80-94); Monocytes # 0.5 10^3/uL (0.2-0.9); Monocytes % 9.4 %; Neutrophils # 2.41 10^3/uL (1.8-7.7); Neutrophils % 47.5 %; Nucleated Red Blood Cells % 0 %; Platelet Count 193 10^3/cmm (130-400); Red Blood Count 4.57 10^6/uL (4.1-5.3); Red Cell Distribution Width 12.9 % (12.1-15.1); White Blood Count 5.1 10^3/uL (4.0-10.0)
[2021-10-07 11:16] VITALS: BMI 39.8
[2021-10-07 11:20] LABS: Alanine Aminotransferase 20 U/L (0-41); Alkaline Phosphatase 74 IU/L (40-130); Aspartate Amino Transferase 16 U/L (0-40); Blood Urea Nitrogen 13 mg/dL (8-23); Calcium 9.3 mg/dL (8.5-10.5); Carbon Dioxide 23 mmol/L (22-29); Chloride 106 mmol/L (98-107); Globulin 2.6 g/dL (1.3-4.6); Glomerular Filtration Rate 97.3 mL/min (90-130); Glucose 98 mg/dL (65-115); Osmolality Calculated 290 mOsm/kg (285-295); Sodium 140 mmol/L (136-145); Total Bilirubin 0.3 mg/dL (0.15-1.2); Total Protein 6.6 g/dL (6.6-8.7)
[2021-10-07] MEDS: sodium chloride 0.9% 250 ML 100 ML IV (12:06)
[2021-10-07] MEDS: pembrolizumab 200 MG in sodium chloride 0.9% 250 ML 516 MG IV (12:18)
[2021-10-07 13:15] VITALS: BP 149/80; PULSE 60; RESP 16; TEMP 36.4; O2SAT 95
[2021-10-28 15:39] LABS: Basophils % 0.3 %; Eosinophils # 0.2 10^3/uL (0.0-0.8); Eosinophils % 3.4 %; Hematocrit 43.4 % (42.0-52.0); Lymphocytes # 2.1 10^3/uL (0.8-4.8); Lymphocytes % 32.7 %; Mean Corpuscular HGB Conc 32.3 g/dL (30.0-36.0); Mean Corpuscular Hemoglobin 31.3 pg (28.0-34.0); Mean Corpuscular Volume 97.1 fl (80-94); Mean Platelet Volume 9.3 fL (7.4-10.4); Monocytes # 0.5 10^3/uL (0.2-0.9); Monocytes % 7.9 %; Neutrophils # 3.61 10^3/uL (1.8-7.7); Neutrophils % 55.5 %; Nucleated Red Blood Cells % 0 %; Platelet Count 205 10^3/cmm (130-400); Red Blood Count 4.47 10^6/uL (4.1-5.3); Red Cell Distribution Width 13.3 % (12.1-15.1); White Blood Count 6.5 10^3/uL (4.0-10.0)
[2021-10-28 16:39] LABS: Alanine Aminotransferase 15 U/L (0-41); Albumin Level 3.9 g/dL (3.5-5.2); Alkaline Phosphatase 75 IU/L (40-130); Aspartate Amino Transferase 15 U/L (0-40); Blood Urea Nitrogen 12 mg/dL (8-23); Carbon Dioxide 25 mmol/L (22-29); Chloride 105 mmol/L (98-107); Globulin 2.4 g/dL (1.3-4.6); Glomerular Filtration Rate 97.3 mL/min (90-130); Glucose 115 mg/dL (65-115); Osmolality Calculated 295 mOsm/kg (285-295); Sodium 142 mmol/L (136-145); Thyroid Stimulating Hormone 0.51 uIU/mL (0.27-4.20); Total Bilirubin 0.4 mg/dL (0.15-1.2); Total Protein 6.3 g/dL (6.6-8.7)
[2021-10-29] MEDS: pembrolizumab 200 MG in sodium chloride 0.9% 250 ML 516 MG IV (14:20)
[2021-10-29 15:05] VITALS: BP 123/75; PULSE 59; RESP 18; TEMP 36.2; O2SAT 95
== END 2021-11-03 23:59 | disposition home or self-care (01) ==
PROVIDERS: Nurse Practitioner Family; PCP Emergency Medicine Emergency Medical Services; Visit Provider Internal Medicine Hematology & Oncology
DX: Z51.12 Encounter for antineoplastic immunotherapy (principal); C34.11 Malignant neoplasm of upper lobe, right bronchus or lung; C79.31 Secondary malignant neoplasm of brain; R12 Heartburn; K52.1 Toxic gastroenteritis and colitis; T45.1X5A Adverse effect of antineoplastic and immunosuppressive drugs, initial encounter; M25.511 Pain in right shoulder; Z79.899 Other long term (current) drug therapy; Z92.21 Personal history of antineoplastic chemotherapy; Z92.3 Personal history of irradiation
CPT/HCPCS: 80053; 84443; 85025; 96413; 99215; 99999; J7050; J9271

== ENCOUNTER 2021-11-18 11:30 | Oncology outpatient (recurring) (ONCR) | payer OTHER, SELFPAY ==
[2021-11-17 13:44] LABS: Basophils % 0.3 %; Eosinophils # 0.4 10^3/uL (0.0-0.8); Eosinophils % 3.9 %; Hematocrit 43.8 % (42.0-52.0); Hemoglobin 14.4 g/dL (11.7-16.6); Lymphocytes % 29.4 %; Mean Corpuscular HGB Conc 32.9 g/dL (30.0-36.0); Mean Corpuscular Hemoglobin 31.6 pg (28.0-34.0); Mean Corpuscular Volume 96.3 fl (80-94); Mean Platelet Volume 9.3 fL (7.4-10.4); Monocytes # 0.7 10^3/uL (0.2-0.9); Monocytes % 6.6 %; Neutrophils # 6.08 10^3/uL (1.8-7.7); Neutrophils % 59.6 %; Nucleated Red Blood Cells % 0 %; Platelet Count 215 10^3/cmm (130-400); Red Blood Count 4.55 10^6/uL (4.1-5.3); Red Cell Distribution Width 13.4 % (12.1-15.1); White Blood Count 10.2 10^3/uL (4.0-10.0)
[2021-11-17 14:09] LABS: Alanine Aminotransferase 18 U/L (0-41); Albumin Level 4.1 g/dL (3.5-5.2); Alkaline Phosphatase 82 IU/L (40-130); Anion Gap 13.1 (5-19); Aspartate Amino Transferase 17 U/L (0-40); Blood Urea Nitrogen 15 mg/dL (8-23); Calcium 8.8 mg/dL (8.5-10.5); Carbon Dioxide 28 mmol/L (22-29); Chloride 105 mmol/L (98-107); Globulin 2.9 g/dL (1.3-4.6); Glomerular Filtration Rate 67.4 mL/min (90-130); Glucose 112 mg/dL (65-115); Osmolality Calculated 296 mOsm/kg (285-295); Potassium 4.1 mmol/L (3.5-5.1); Sodium 142 mmol/L (136-145); Thyroid Stimulating Hormone 0.98 uIU/mL (0.27-4.20); Total Bilirubin 0.5 mg/dL (0.15-1.2)
[2021-11-18] MEDS: pembrolizumab 200 MG in sodium chloride 0.9% 250 ML 516 MG IV (11:55)
[2021-11-18 12:35] VITALS: BP 121/81; PULSE 61; RESP 18
== END 2021-12-03 23:59 | disposition home or self-care (01) ==
PROVIDERS: Internal Medicine Hematology & Oncology; PCP Emergency Medicine Emergency Medical Services; Visit Provider Nurse Practitioner Family
DX: Z51.11 Encounter for antineoplastic chemotherapy (principal); C34.11 Malignant neoplasm of upper lobe, right bronchus or lung; C79.31 Secondary malignant neoplasm of brain; Z87.891 Personal history of nicotine dependence
CPT/HCPCS: 36415; 80053; 84443; 85025; 96413; 99214; J7050; J9271

== ENCOUNTER 2021-12-29 13:00 | Oncology outpatient (recurring) (ONCR) | payer OTHER, SELFPAY ==
[2021-12-08 14:39] LABS: Basophils % 0.4 %; Eosinophils # 0.3 10^3/uL (0.0-0.8); Eosinophils % 4.9 %; Hematocrit 42.8 % (42.0-52.0); Lymphocytes # 2.6 10^3/uL (0.8-4.8); Mean Corpuscular HGB Conc 32.7 g/dL (30.0-36.0); Mean Corpuscular Hemoglobin 31.6 pg (28.0-34.0); Mean Corpuscular Volume 96.6 fl (80-94); Mean Platelet Volume 9.1 fL (7.4-10.4); Monocytes # 0.6 10^3/uL (0.2-0.9); Monocytes % 8.1 %; Neutrophils # 3.36 10^3/uL (1.8-7.7); Neutrophils % 48.3 %; Nucleated Red Blood Cells % 0 %; Platelet Count 194 10^3/cmm (130-400); Red Blood Count 4.43 10^6/uL (4.1-5.3); Red Cell Distribution Width 13.2 % (12.1-15.1)
[2021-12-08 15:11] LABS: Alanine Aminotransferase 15 U/L (0-41); Alkaline Phosphatase 82 IU/L (40-130); Anion Gap 13.1 (5-19); Aspartate Amino Transferase 13 U/L (0-40); Blood Urea Nitrogen 13 mg/dL (8-23); Calcium 8.4 mg/dL (8.5-10.5); Carbon Dioxide 27 mmol/L (22-29); Chloride 104 mmol/L (98-107); Globulin 2.8 g/dL (1.3-4.6); Glomerular Filtration Rate 75.2 mL/min (90-130); Glucose 93 mg/dL (65-115); Osmolality Calculated 290 mOsm/kg (285-295); Potassium 4.1 mmol/L (3.5-5.1); Sodium 140 mmol/L (136-145); Thyroid Stimulating Hormone 0.79 uIU/mL (0.27-4.20); Total Bilirubin 0.4 mg/dL (0.15-1.2); Total Protein 6.8 g/dL (6.6-8.7)
[2021-12-09] MEDS: pembrolizumab 200 MG in sodium chloride 0.9% 250 ML 516 MG IV (11:46)
[2021-12-09 12:20] VITALS: BP 138/88; PULSE 55; RESP 16; TEMP 36.6; O2SAT 93
[2021-12-29 13:14] LABS: Basophils % 0.5 %; Eosinophils # 0.4 10^3/uL (0.0-0.8); Eosinophils % 5.4 %; Hematocrit 43.8 % (42.0-52.0); Hemoglobin 14.5 g/dL (11.7-16.6); Lymphocytes % 39.1 %; Mean Corpuscular HGB Conc 33.1 g/dL (30.0-36.0); Mean Corpuscular Hemoglobin 31.3 pg (28.0-34.0); Mean Corpuscular Volume 94.6 fl (80-94); Mean Platelet Volume 9.4 fL (7.4-10.4); Monocytes # 0.6 10^3/uL (0.2-0.9); Monocytes % 7.8 %; Neutrophils # 3.54 10^3/uL (1.8-7.7); Neutrophils % 47.1 %; Nucleated Red Blood Cells % 0 %; Platelet Count 197 10^3/cmm (130-400); Red Blood Count 4.63 10^6/uL (4.1-5.3); Red Cell Distribution Width 13.1 % (12.1-15.1); White Blood Count 7.5 10^3/uL (4.0-10.0)
[2021-12-29 13:44] LABS: Alanine Aminotransferase 15 U/L (0-41); Albumin Level 4.3 g/dL (3.5-5.2); Alkaline Phosphatase 80 IU/L (40-130); Aspartate Amino Transferase 12 U/L (0-40); Blood Urea Nitrogen 11 mg/dL (8-23); Calcium 9.2 mg/dL (8.5-10.5); Carbon Dioxide 27 mmol/L (22-29); Chloride 105 mmol/L (98-107); Globulin 2.7 g/dL (1.3-4.6); Glomerular Filtration Rate 97.3 mL/min (90-130); Glucose 102 mg/dL (65-115); Thyroid Stimulating Hormone 1.04 uIU/mL (0.27-4.20); Total Bilirubin 0.4 mg/dL (0.15-1.2)
[2021-12-29 14:25] LABS: Potassium 3.9 mmol/L (3.5-5.1)
[2021-12-29 14:26] LABS: Anion Gap 12.9 (5-19); Osmolality Calculated 292 mOsm/kg (285-295); Sodium 141 mmol/L (136-145)
== END 2022-01-03 23:59 | disposition home or self-care (01) ==
PROVIDERS: Nurse Practitioner Family; PCP Emergency Medicine Emergency Medical Services; Visit Provider Internal Medicine Hematology & Oncology
DX: C34.11 Malignant neoplasm of upper lobe, right bronchus or lung (principal)
CPT/HCPCS: 36415; 80053; 84443; 85025; 96413; 99214; J7050; J9271

== ENCOUNTER 2022-01-25 08:30 | Oncology outpatient (recurring) (ONCR) | payer OTHER, SELFPAY ==
[2022-01-04] MEDS: pembrolizumab 200 MG in sodium chloride 0.9% 250 ML 516 MG IV (12:02)
[2022-01-04 13:28] VITALS: BP 115/74; PULSE 64; RESP 16; TEMP 36.3; O2SAT 92
[2022-01-25 09:03] LABS: Basophils % 0.5 %; Eosinophils # 0.3 10^3/uL (0.0-0.8); Eosinophils % 4.2 %; Hematocrit 44.2 % (42.0-52.0); Hemoglobin 14.3 g/dL (11.7-16.6); Lymphocytes # 2.2 10^3/uL (0.8-4.8); Lymphocytes % 37.5 %; Mean Corpuscular HGB Conc 32.4 g/dL (30.0-36.0); Mean Corpuscular Hemoglobin 31.3 pg (28.0-34.0); Mean Corpuscular Volume 96.7 fl (80-94); Mean Platelet Volume 8.9 fL (7.4-10.4); Monocytes # 0.4 10^3/uL (0.2-0.9); Monocytes % 7.1 %; Neutrophils % 50.5 %; Nucleated Red Blood Cells % 0 %; Platelet Count 181 10^3/cmm (130-400); Red Blood Count 4.57 10^6/uL (4.1-5.3); Red Cell Distribution Width 13.2 % (12.1-15.1); White Blood Count 5.9 10^3/uL (4.0-10.0)
[2022-01-25 09:45] LABS: Alanine Aminotransferase 22 U/L (0-41); Albumin Level 3.9 g/dL (3.5-5.2); Alkaline Phosphatase 77 U/L (40-130); Anion Gap 12.1 (5-19); Aspartate Amino Transferase 19 U/L (0-40); Blood Urea Nitrogen 16 mg/dL (8-23); Calcium 8.6 mg/dL (8.5-10.5); Carbon Dioxide 26 mmol/L (22-29); Chloride 106 mmol/L (98-107); Globulin 2.9 g/dL (1.3-4.6); Glomerular Filtration Rate 97.3 mL/min (90-130); Glucose 89 mg/dL (65-115); Osmolality Calculated 291 mOsm/kg (285-295); Potassium 4.1 mmol/L (3.5-5.1); Sodium 140 mmol/L (136-145); Thyroid Stimulating Hormone 1.53 uIU/mL (0.27-4.20); Total Bilirubin 0.4 mg/dL (0.15-1.2); Total Protein 6.8 g/dL (6.6-8.7)
[2022-01-25] MEDS: pembrolizumab 200 MG in sodium chloride 0.9% 250 ML 516 MG IV (11:06)
== END 2022-01-26 10:12 | disposition home or self-care (01) ==
PROVIDERS: Nurse Practitioner Family; PCP Emergency Medicine Emergency Medical Services; Visit Provider Internal Medicine Hematology & Oncology
DX: Z51.12 Encounter for antineoplastic immunotherapy (principal); C34.11 Malignant neoplasm of upper lobe, right bronchus or lung; C78.02 Secondary malignant neoplasm of left lung; C79.31 Secondary malignant neoplasm of brain; K30 Functional dyspepsia; R53.1 Weakness; R53.83 Other fatigue; Z87.891 Personal history of nicotine dependence; Z79.899 Other long term (current) drug therapy
CPT/HCPCS: 80053; 84443; 85025; 96413; 99214; 99215; J7050; J9271

== ENCOUNTER 2022-02-15 08:08 | Oncology outpatient (recurring) (ONCR) | payer OTHER, SELFPAY ==
[2022-02-15 08:40] LABS: Basophils % 0.5 %; Eosinophils # 0.2 10^3/uL (0.0-0.8); Eosinophils % 4.2 %; Hematocrit 45.4 % (42.0-52.0); Hemoglobin 14.8 g/dL (11.7-16.6); Lymphocytes # 2.2 10^3/uL (0.8-4.8); Lymphocytes % 38.1 %; Mean Corpuscular HGB Conc 32.6 g/dL (30.0-36.0); Mean Corpuscular Hemoglobin 31.6 pg (28.0-34.0); Mean Corpuscular Volume 96.8 fl (80-94); Mean Platelet Volume 9.4 fL (7.4-10.4); Monocytes # 0.5 10^3/uL (0.2-0.9); Neutrophils # 2.83 10^3/uL (1.8-7.7); Nucleated Red Blood Cells % 0 %; Platelet Count 200 10^3/cmm (130-400); Red Blood Count 4.69 10^6/uL (4.1-5.3); Red Cell Distribution Width 13.1 % (12.1-15.1); White Blood Count 5.8 10^3/uL (4.0-10.0)
[2022-02-15 09:12] LABS: Alanine Aminotransferase 21 U/L (0-41); Albumin Level 3.9 g/dL (3.5-5.2); Alkaline Phosphatase 82 U/L (40-130); Anion Gap 12.9 (5-19); Aspartate Amino Transferase 17 U/L (0-40); Blood Urea Nitrogen 13 mg/dL (8-23); Carbon Dioxide 26 mmol/L (22-29); Chloride 106 mmol/L (98-107); Globulin 3.2 g/dL (1.3-4.6); Glomerular Filtration Rate 75.2 mL/min (90-130); Glucose 100 mg/dL (65-115); Osmolality Calculated 292 mOsm/kg (285-295); Potassium 3.9 mmol/L (3.5-5.1); Sodium 141 mmol/L (136-145); Thyroid Stimulating Hormone 0.86 uIU/mL (0.27-4.20); Total Bilirubin 0.5 mg/dL (0.15-1.2); Total Protein 7.1 g/dL (6.6-8.7)
[2022-02-15] MEDS: pembrolizumab 200 MG in sodium chloride 0.9% 250 ML 516 MG IV (11:58)
[2022-02-15 12:32] VITALS: BP 143/86; PULSE 58; RESP 16; TEMP 35.9; O2SAT 95
== END 2022-03-05 23:59 | disposition home or self-care (01) ==
PROVIDERS: PCP Emergency Medicine Emergency Medical Services; Visit Provider Internal Medicine Hematology & Oncology
DX: C34.11 Malignant neoplasm of upper lobe, right bronchus or lung; Z51.12 Encounter for antineoplastic immunotherapy; C79.31 Secondary malignant neoplasm of brain; C77.8 Secondary and unspecified malignant neoplasm of lymph nodes of multiple regions; C79.51 Secondary malignant neoplasm of bone; M50.322 Other cervical disc degeneration at C5-C6 level; M51.36 Other intervertebral disc degeneration, lumbar region; M48.061 Spinal stenosis, lumbar region without neurogenic claudication; R11.2 Nausea with vomiting, unspecified; Z79.899 Other long term (current) drug therapy
CPT/HCPCS: 80053; 84443; 85025; 96413; 99214; J7050; J9271

== ENCOUNTER → 2022-03-10 15:02 | Outpatient (BNVA) | payer OTHER, SELFPAY | PROVIDERS: PCP Emergency Medicine Emergency Medical Services; Visit Provider Surgery | DX: R11.10 Vomiting, unspecified (principal) | CPT/HCPCS: 99203 ==

== ENCOUNTER 2022-03-18 09:10 | Day surgery (SDC) | payer OTHER, SELFPAY ==
[2022-03-16 11:31] VITALS: BMI 40.6
[2022-03-18 09:32] VITALS: BP 175/102; PULSE 64; RESP 18; TEMP 36.1; O2SAT 96
--- NOTE | 2022-03-18 09:34 | W.PM.OPSUD ---
Surgery/Procedure H&P Update DATE OF PROCEDURE: March 18, 2022 DATE H&P PERFORMED: 03/10/22 H&P UPDATE INFORMATION: I have reviewed H&P completed within last 30 days, I have examined patient prior to procedure and No changes to prior documentation PREOP DIAGNOSIS: Vomiting PRIMARY INDICATION FOR PROCEDURE: The same PLANNED PROCEDURE: Operation Date: 03/18/22 10:45 Proposed Procedures p EGD 13218,R11.2(Not Applicable) - Luis Herrmann MD
[2022-03-18] MEDS: sodium chloride 0.9% 1,000 ML 30 ML IV (09:41)
--- NOTE | 2022-03-18 10:07 | P.ANESASSM_ITS ---
Pre-Anesthetic Assessment Height/Weight: Height 1.83 m Weight 136.078 kg Temp Pulse Resp BP Pulse Ox O2 Del Method 96.9 F L 64 18 175/102 96 03/18/22 09:32 03/18/22 09:32 03/18/22 09:32 03/18/22 09:32 03/18/22 09:32 03/18/22 09:32 Preop Diagnosis: Vomiting Operation Date: 03/18/22 10:45 Proposed Procedures p EGD 18091,R11.2(Not Applicable) - Luis Herrmann MD Familial anesthetic complications: None Was Beta Radha taken within 24 hours: N/A Was Clonidine taken within 24 hours: N/A Last intake: Intake Last Liquid Date 03/17/22 Last Liquid Time 23:00 Last Solid Date 03/17/22 Last Solid Time 23:00 Social No alcohol and No tobacco Exam alert, oriented x 3, clear to auscultation bilaterally and regular rate & rhythm Airway Mallampati: Class III Dentition: other (missing) Pulmonary Lung cancer Neuropsych Metastatic brain cancer s/p resection X 2 w/ [employer] shunt Anesthetic Plan ASA status: 4 Anesthesia: MAC Risk of > 500 ml blood loss (7ml/kg in children): No Other Pertinent Information Discussed increased risk of Intracranial pressure with HTN or retching during procedure. Patient states he is willing to proceed. Informed surgeon to stop in setting of excess retching and allow deeper anesthesia. Medications/Allergies Home Medications Medication Instructions Recorded Confirmed Last Taken Type albuterol sulfate 90 mcg/actuation 2 inh inhalation Q6H PRN Shortness 10/02/19 03/18/22 Unknown History breath activated powder inhaler Of Breath folic acid 400 mcg tablet 0.4 mg PO DAILY 10/02/19 03/18/22 03/17/22 History hydrocodone 10 mg-acetaminophen 1 tab PO Q4H PRN Pain 10/02/19 03/18/22 03/14/22 History 325 mg tablet multivitamin with minerals 1 cap PO DAILY 10/02/19 03/18/22 03/17/22 History pantoprazole 40 mg tablet,delayed 40 mg PO DAILY 10/02/19 03/18/22 03/17/22 History release promethazine 25 mg rectal 25 mg KS Q6H PRN N/V 10/02/19 03/18/22 Unknown History suppository tiotropium 2.5 mcg-olodaterol 2.5 2 puff inhalation DAILY 10/02/19 03/18/22 01/29/20 History mcg/actuation mist for inhalation (Stiolto Respimat) ondansetron 4 mg disintegrating 4 mg PO Q6H PRN nausea and 03/13/21 03/18/22 03/17/22 Rx tablet vomiting #14 tabs MARIJUANA 03/25/21 03/13/22 Unknown History lactulose 10 gram/15 mL oral 20 g PO BID PRN Constipation 03/25/21 03/18/22 Unknown History solution cetirizine 10 mg capsule (Zyrtec) 10 mg PO DAILY 06/23/21 03/18/22 03/17/22 History lisinopril 20 mg tablet 20 mg PO DAILY 06/24/21 03/18/22 03/17/22 History calcium carbonate 600 mg calcium 600 mg PO DAILY 10/07/21 03/18/22 03/16/22 History (1,500 mg) tablet (Calcium) docusate sodium 100 mg capsule 100 mg PO BID PRN Constipation 10/07/21 03/18/22 Unknown History (Colace) loratadine 10 mg tablet (Claritin) 10 mg PO DAILY 10/07/21 03/18/22 03/17/22 History hydrocortisone 5 mg tablet 2.5 mg PO DAILY 11/18/21 03/18/22 03/16/22 History vitamin B complex (B 1 tab PO DAILY 11/18/21 03/18/22 03/17/22 History Complex-Vitamin B12 tablet) cabergoline 0.5 mg tablet 0.5 mg PO .COMPLEX 12/09/21 03/18/22 03/16/22 History acetaminophen 500 mg capsule 500 mg PO Q6H PRN Pain 01/04/22 03/18/22 03/17/22 History ascorbic acid (vitamin C) 500 mg 500 mg PO DAILY 02/15/22 03/18/22 03/17/22 History capsule,extended release gabapentin 100 mg capsule 100 mg PO DAILY PRN nerve pain 02/15/22 03/18/22 03/17/22 History amoxicillin 500 mg capsule 500 mg PO BID 03/08/22 03/18/22 03/17/22 History prednisone 5 mg tablet 5 mg PO BID #60 tabs 03/08/22 03/18/22 03/17/22 Rx Allergies Allergy/AdvReac Type Severity Reaction Status Date / Time hydrochlorothiazide AdvReac Mild Fatigue Verified 03/13/22 10:52 and drops BP Current Medications Generic Name Dose Route Start Last Admin Trade Name Genevieve PRN Reason Stop Dose Admin Sodium Chloride 1,000 mls @ 30 mls/hr 03/18/22 09:15 03/18/22 09:41 Sodium Chloride 0.9% IV 30 mls/hr .Q24H JORGE LUIS Administration PFSH Anesthesia Medical History Hematuria Hydrocephalus Intervertebral disc disorder of cervical region with myelopathy Left arm pain Left flank pain Metastatic lung carcinoma Primary lung adenocarcinoma Ulnar neuropathy at elbow of left upper extremity Surgical History History of craniotomy 09/05/2017 Posterior fossa craniotomy and resection of the cerebellar mass S/P appendectomy Status post laser lithotripsy of ureteral calculus Status post ventriculoperitoneal shunt Family History Family/Other CAD (coronary artery disease) Father , at age 82 Renal failure Mother , at age 52 Rheumatoid arthritis Other Cancer Chronic kidney disease (CKD) Dementia Diabetes Hyperlipidemia Hypertension Psychiatric illness Suicide Denies family history of Clotting disorder Anesthesia complication Bleeding disorder Lung disease Stroke Social History Smoking and tobacco status: former smoker (smoked x 35 years) Alcohol intake: never Household members: none Marital status: Current occupational status: disabled History of recent travel: No Data Anesthesia Cardiac Studies: No Data to Display
[2022-03-18 11:30] VITALS: BP 139/86; PULSE 55; RESP 18; TEMP 36.3; O2SAT 95
[2022-03-18 11:35] VITALS: BP 138/77; PULSE 52; RESP 18; O2SAT 93
--- NOTE | 2022-03-18 14:04 | ANE.PACU2 ---
Inpatient post-anesthesia follow up: Airway intact: Yes Vital signs: Temperature 97.3 F Pulse Rate 52 Respiratory Rate 18 Blood Pressure 138/77 Pulse Oximetry 93 Oxygen Delivery Me thod Room Air Oxygen Flow Rate Fraction of Inspir ed Oxygen Hydration adequate: Yes Nausea and vomiting: No Pain level: 1 Mental status: Baseline
== END 2022-03-18 12:00 | disposition home or self-care (01) ==
PROVIDERS: PCP Emergency Medicine Emergency Medical Services; Visit Provider Surgery
PROC: 0DJ08ZZ Inspection of Upper Intestinal Tract, Via Natural or Artificial Opening Endoscopic (ICD-10-PCS; CPT 43235; principal; 2022-03-18 10:45)
DX: R11.2 Nausea with vomiting, unspecified (principal); K29.80 Duodenitis without bleeding; K29.70 Gastritis, unspecified, without bleeding; Z85.118 Personal history of other malignant neoplasm of bronchus and lung; C34.90 Malignant neoplasm of unspecified part of unspecified bronchus or lung; C79.31 Secondary malignant neoplasm of brain; Z87.891 Personal history of nicotine dependence
CPT/HCPCS: 43239; 88305; J2704; J3010; J7030

== ENCOUNTER 2022-03-29 10:30 | Oncology outpatient (recurring) (ONCR) | payer OTHER, SELFPAY ==
[2022-03-08 09:25] LABS: Basophils % 0.4 %; Eosinophils # 0.3 10^3/uL (0.0-0.8); Eosinophils % 4.2 %; Hematocrit 45.1 % (42.0-52.0); Hemoglobin 14.2 g/dL (11.7-16.6); Lymphocytes # 2.3 10^3/uL (0.8-4.8); Mean Corpuscular HGB Conc 31.5 g/dL (30.0-36.0); Mean Corpuscular Hemoglobin 31.3 pg (28.0-34.0); Mean Corpuscular Volume 99.6 fl (80-94); Mean Platelet Volume 9.1 fL (7.4-10.4); Monocytes # 0.5 10^3/uL (0.2-0.9); Monocytes % 6.9 %; Neutrophils # 4.54 10^3/uL (1.8-7.7); Neutrophils % 58.2 %; Nucleated Red Blood Cells % 0 %; Platelet Count 203 10^3/cmm (130-400); Red Blood Count 4.53 10^6/uL (4.1-5.3); Red Cell Distribution Width 13.2 % (12.1-15.1); White Blood Count 7.8 10^3/uL (4.0-10.0)
[2022-03-08 10:47] LABS: Alanine Aminotransferase 21 U/L (0-41); Albumin Level 3.6 g/dL (3.5-5.2); Alkaline Phosphatase 69 U/L (40-130); Aspartate Amino Transferase 13 U/L (0-40); Blood Urea Nitrogen 15 mg/dL (8-23); Calcium 8.7 mg/dL (8.5-10.5); Carbon Dioxide 25 mmol/L (22-29); Chloride 104 mmol/L (98-107); Globulin 2.4 g/dL (1.3-4.6); Glucose 96 mg/dL (65-115); Osmolality Calculated 289 mOsm/kg (285-295); Sodium 139 mmol/L (136-145); Total Bilirubin 0.4 mg/dL (0.15-1.2)
[2022-03-08] MEDS: sodium chloride 0.9% 250 ML 100 ML IV (11:02)
[2022-03-08] MEDS: pembrolizumab 200 MG in sodium chloride 0.9% 250 ML 516 MG IV (11:15)
[2022-03-29 10:45] VITALS: BMI 40.7
[2022-03-29 10:56] LABS: Basophils % 0.3 %; Eosinophils # 0.2 10^3/uL (0.0-0.8); Eosinophils % 2.3 %; Hematocrit 44.2 % (42.0-52.0); Hemoglobin 14.4 g/dL (11.7-16.6); Lymphocytes # 1.7 10^3/uL (0.8-4.8); Lymphocytes % 18.2 %; Mean Corpuscular HGB Conc 32.6 g/dL (30.0-36.0); Mean Corpuscular Hemoglobin 31.9 pg (28.0-34.0); Mean Platelet Volume 9.2 fL (7.4-10.4); Monocytes # 0.6 10^3/uL (0.2-0.9); Monocytes % 5.9 %; Neutrophils # 6.87 10^3/uL (1.8-7.7); Neutrophils % 72.9 %; Nucleated Red Blood Cells % 0 %; Platelet Count 196 10^3/cmm (130-400); Red Blood Count 4.51 10^6/uL (4.1-5.3); Red Cell Distribution Width 13.1 % (12.1-15.1); White Blood Count 9.4 10^3/uL (4.0-10.0)
[2022-03-29 11:59] LABS: Alanine Aminotransferase 20 U/L (0-41); Albumin Level 3.9 g/dL (3.5-5.2); Alkaline Phosphatase 72 U/L (40-130); Aspartate Amino Transferase 16 U/L (0-40); Blood Urea Nitrogen 14 mg/dL (8-23); Calcium 9.2 mg/dL (8.5-10.5); Carbon Dioxide 26 mmol/L (22-29); Chloride 104 mmol/L (98-107); Globulin 2.9 g/dL (1.3-4.6); Glomerular Filtration Rate 97.3 mL/min (90-130); Glucose 131 mg/dL (65-115); Osmolality Calculated 294 mOsm/kg (285-295); Sodium 141 mmol/L (136-145); Thyroid Stimulating Hormone 0.84 uIU/mL (0.27-4.20); Total Bilirubin 0.4 mg/dL (0.15-1.2); Total Protein 6.8 g/dL (6.6-8.7)
[2022-03-29] MEDS: pembrolizumab 200 MG in sodium chloride 0.9% 250 ML 516 MG IV (13:57)
[2022-03-29 15:43] VITALS: BP 134/74; PULSE 88; RESP 20; TEMP 36.4; O2SAT 98
== END 2022-03-30 09:10 | disposition home or self-care (01) ==
PROVIDERS: PCP Emergency Medicine Emergency Medical Services; Visit Provider Internal Medicine Hematology & Oncology
DX: Z51.12 Encounter for antineoplastic immunotherapy (principal); C34.11 Malignant neoplasm of upper lobe, right bronchus or lung; C79.31 Secondary malignant neoplasm of brain; C79.51 Secondary malignant neoplasm of bone; M50.322 Other cervical disc degeneration at C5-C6 level; M48.02 Spinal stenosis, cervical region; M51.36 Other intervertebral disc degeneration, lumbar region; M48.061 Spinal stenosis, lumbar region without neurogenic claudication; Z79.52 Long term (current) use of systemic steroids; Z79.899 Other long term (current) drug therapy; Z87.891 Personal history of nicotine dependence
CPT/HCPCS: 80053; 84443; 85025; 96413; 99214; J7050; J9271

== ENCOUNTER → 2022-04-08 16:40 | Outpatient (BNVA) | payer OTHER, SELFPAY | PROVIDERS: PCP Emergency Medicine Emergency Medical Services; Visit Provider Surgery | DX: Z09 Encounter for follow-up examination after completed treatment for conditions other than malignant neoplasm (principal); K29.90 Gastroduodenitis, unspecified, without bleeding; A04.8 Other specified bacterial intestinal infections | CPT/HCPCS: 99212 ==

== ENCOUNTER 2022-04-19 08:04 | Oncology outpatient (recurring) (ONCR) | payer OTHER, SELFPAY ==
[2022-04-19 08:38] LABS: Basophils % 0.2 %; Eosinophils # 0.2 10^3/uL (0.0-0.8); Eosinophils % 3.7 %; Hematocrit 45.9 % (42.0-52.0); Hemoglobin 14.9 g/dL (11.7-16.6); Lymphocytes # 2.6 10^3/uL (0.8-4.8); Lymphocytes % 40.4 %; Mean Corpuscular HGB Conc 32.5 g/dL (30.0-36.0); Mean Corpuscular Hemoglobin 31.9 pg (28.0-34.0); Mean Corpuscular Volume 98.3 fl (80-94); Mean Platelet Volume 9.1 fL (7.4-10.4); Monocytes # 0.4 10^3/uL (0.2-0.9); Monocytes % 6.7 %; Neutrophils # 3.14 10^3/uL (1.8-7.7); Neutrophils % 48.8 %; Nucleated Red Blood Cells % 0 %; Platelet Count 191 10^3/cmm (130-400); Red Blood Count 4.67 10^6/uL (4.1-5.3); Red Cell Distribution Width 13.2 % (12.1-15.1); White Blood Count 6.4 10^3/uL (4.0-10.0)
[2022-04-19 08:40] VITALS: BMI 40.6
[2022-04-19 09:08] LABS: Alanine Aminotransferase 19 U/L (0-41); Alkaline Phosphatase 73 U/L (40-130); Aspartate Amino Transferase 16 U/L (0-40); Blood Urea Nitrogen 16 mg/dL (8-23); Carbon Dioxide 26 mmol/L (22-29); Chloride 100 mmol/L (98-107); Globulin 2.9 g/dL (1.3-4.6); Glucose 102 mg/dL (65-115); Osmolality Calculated 277 mOsm/kg (285-295); Sodium 133 mmol/L (136-145); Thyroid Stimulating Hormone 1.06 uIU/mL (0.27-4.20); Total Bilirubin 0.3 mg/dL (0.15-1.2); Total Protein 6.9 g/dL (6.6-8.7)
[2022-04-19 09:30] LABS: Anion Gap 10.6 (5-19); Potassium 3.6 mmol/L (3.5-5.1)
[2022-04-19] MEDS: sodium chloride 0.9% 250 ML 75 ML IV (10:47)
[2022-04-19] MEDS: pembrolizumab 200 MG in sodium chloride 0.9% 250 ML 516 MG IV (10:55)
[2022-04-19 11:45] VITALS: BP 145/83; PULSE 58; RESP 18; TEMP 35.8; O2SAT 96
== END 2022-05-05 23:59 | disposition home or self-care (01) ==
PROVIDERS: Nurse Practitioner; PCP Emergency Medicine Emergency Medical Services; Visit Provider Internal Medicine Hematology & Oncology
DX: Z51.12 Encounter for antineoplastic immunotherapy (principal); C34.11 Malignant neoplasm of upper lobe, right bronchus or lung; C79.31 Secondary malignant neoplasm of brain; C77.8 Secondary and unspecified malignant neoplasm of lymph nodes of multiple regions; C79.51 Secondary malignant neoplasm of bone; Z79.899 Other long term (current) drug therapy; Z79.52 Long term (current) use of systemic steroids; Z90.2 Acquired absence of lung [part of]; Z87.891 Personal history of nicotine dependence
CPT/HCPCS: 80053; 84443; 85025; 96413; 99214; J7050; J9271

== ENCOUNTER 2022-05-17 07:37 | Outpatient (CLI) | payer OTHER, SELFPAY ==
--- NOTE | 2022-05-17 07:30 | CT_ITS ---
WS: [id number] CT HEAD WITH AND WITHOUT CONTRAST HISTORY: headaches, follow-up shunt, nausea and vomiting. TECHNIQUE: Noncontrast 2.5 mm axial images obtained from the vertex to the skull base. Additional eduardo ging performed at 2.5 mm axial images status post IV contrast. Bone and soft tissue windows are revie wed. All CT scans at [facility] use at least one of these dose optimization techniques: autom ated exposure control; mA and/or kV adjustment per patient size (includes targeted exams where dose i s matched to clinical indication); or iterative reconstruction. CONTRAST: Omnipaque 350; 95 mL IV. DLP: 2215.58 mGy.cm COMPARISON: 01/30/2020 CT head, MRI 09/23/2020 No acute intracranial hemorrhage, edema or midline shift. Mild cerebral atrophy. Postsurgical gliosis and encephalomalacia in the LEFT cerebellum at the site o f prior resection. No obvious progression of the volume loss or encephalomalacia. There is no mass ef fect upon the fourth ventricle. Contiguous fluid collection along the occipital craniotomy site. No i nterval change. RIGHT frontal BAGGAGE PORTER shunt catheter crosses the midline with the tip terminating in the anterior LEFT fro ntal horn similar to the prior study. No enlargement of the ventricles as compared to the prior exami [employer] [facility]. No enhancing masses within the parenchyma. Dural venous sinuses are normally enhancing. Visualized [place] is unremarkable. Paranasal sinuses as visualized: Moderate mucoperiosteal thickening throughout the ethmoid air cells bilaterally. Mild mucoperiosteal thickening RIGHT maxillary sinus. There is a small amount of mucoper iosteal thickening extending into the LEFT frontal ethmoid recess. Mastoid air cells: Clear. Calvarium and scalp: Large craniectomy site involving the posterior occipital bone at the site of keyla angelika. No interval change. CT/CT head wo/w con [id number] IMPRESSION: 1. No enhancing masses or focal edema. 2. BAGGAGE PORTER shunt catheter remains unchanged in position. No ventriculomegaly or inc rease in size of the ventricles to suggest obstruction. 3. Stable LEFT cerebellar postsurgical changes and occipital craniectomy. 4. Mild sinus disease.
[2022-05-17] MEDS: iohexol 350 mg/mL 500 mL Btl (per mL) IV (07:58)
== END 2022-05-17 07:38 | disposition home or self-care (01) ==
LOC: RAD 07:37
PROVIDERS: PCP Emergency Medicine Emergency Medical Services; Visit Provider Internal Medicine Hematology & Oncology
DX: R51.9 Headache, unspecified (principal); R11.2 Nausea with vomiting, unspecified; Z98.2 Presence of cerebrospinal fluid drainage device
CPT/HCPCS: 70470; Q9967

== ENCOUNTER 2022-06-03 11:00 | Oncology outpatient (recurring) (ONCR) | payer OTHER, SELFPAY ==
[2022-05-10 09:05] LABS: Basophils % 0.4 %; Eosinophils # 0.3 10^3/uL (0.0-0.8); Eosinophils % 4.1 %; Hematocrit 45.9 % (42.0-52.0); Hemoglobin 14.7 g/dL (11.7-16.6); Lymphocytes # 2.7 10^3/uL (0.8-4.8); Lymphocytes % 38.2 %; Mean Corpuscular Hemoglobin 31.9 pg (28.0-34.0); Mean Corpuscular Volume 99.6 fl (80-94); Mean Platelet Volume 9.1 fL (7.4-10.4); Monocytes # 0.5 10^3/uL (0.2-0.9); Monocytes % 6.6 %; Neutrophils % 50.4 %; Nucleated Red Blood Cells % 0 %; Platelet Count 207 10^3/cmm (130-400); Red Blood Count 4.61 10^6/uL (4.1-5.3); Red Cell Distribution Width 13.1 % (12.1-15.1); White Blood Count 7.1 10^3/uL (4.0-10.0)
[2022-05-10 09:35] LABS: Alanine Aminotransferase 20 U/L (0-41); Albumin Level 3.9 g/dL (3.5-5.2); Alkaline Phosphatase 70 U/L (40-130); Anion Gap 13.7 (5-19); Aspartate Amino Transferase 13 U/L (0-40); Blood Urea Nitrogen 12 mg/dL (8-23); Calcium 9.1 mg/dL (8.5-10.5); Carbon Dioxide 25 mmol/L (22-29); Chloride 106 mmol/L (98-107); Globulin 2.8 g/dL (1.3-4.6); Glomerular Filtration Rate 97.3 mL/min (90-130); Glucose 130 mg/dL (65-115); Osmolality Calculated 294 mOsm/kg (285-295); Potassium 3.7 mmol/L (3.5-5.1); Sodium 141 mmol/L (136-145); Thyroid Stimulating Hormone 1.09 uIU/mL (0.27-4.20); Total Bilirubin 0.5 mg/dL (0.15-1.2); Total Protein 6.7 g/dL (6.6-8.7)
[2022-05-10] MEDS: pembrolizumab 200 MG in sodium chloride 0.9% 250 ML 516 MG IV (11:40)
[2022-05-10 12:20] VITALS: BP 136/78; PULSE 60; RESP 16; TEMP 36.3; O2SAT 95
[2022-06-01 09:41] LABS: Basophils % 0.3 %; Eosinophils # 0.4 10^3/uL (0.0-0.8); Eosinophils % 6.3 %; Hematocrit 46.2 % (42.0-52.0); Hemoglobin 14.9 g/dL (11.7-16.6); Lymphocytes # 2.2 10^3/uL (0.8-4.8); Lymphocytes % 34.7 %; Mean Corpuscular HGB Conc 32.3 g/dL (30.0-36.0); Mean Corpuscular Volume 99.4 fl (80-94); Mean Platelet Volume 8.6 fL (7.4-10.4); Monocytes # 0.4 10^3/uL (0.2-0.9); Neutrophils # 3.26 10^3/uL (1.8-7.7); Neutrophils % 51.5 %; Nucleated Red Blood Cells % 0 %; Platelet Count 180 10^3/cmm (130-400); Red Blood Count 4.65 10^6/uL (4.1-5.3); Red Cell Distribution Width 13.4 % (12.1-15.1); White Blood Count 6.3 10^3/uL (4.0-10.0)
[2022-06-01 10:11] LABS: Alanine Aminotransferase 26 U/L (0-41); Albumin Level 3.8 g/dL (3.5-5.2); Alkaline Phosphatase 76 U/L (40-130); Anion Gap 10.6 (5-19); Aspartate Amino Transferase 19 U/L (0-40); Blood Urea Nitrogen 15 mg/dL (8-23); Calcium 9.1 mg/dL (8.5-10.5); Carbon Dioxide 27 mmol/L (22-29); Chloride 105 mmol/L (98-107); Globulin 3.1 g/dL (1.3-4.6); Glucose 120 mg/dL (65-115); Osmolality Calculated 290 mOsm/kg (285-295); Potassium 3.6 mmol/L (3.5-5.1); Sodium 139 mmol/L (136-145); Thyroid Stimulating Hormone 1.52 uIU/mL (0.27-4.20); Total Bilirubin 0.4 mg/dL (0.15-1.2); Total Protein 6.9 g/dL (6.6-8.7)
[2022-06-01 12:31] LABS: SARS Covid-2 Antigen negative (Negative)
[2022-06-03] MEDS: pembrolizumab 200 MG in sodium chloride 0.9% 250 ML 516 MG IV (11:51)
[2022-06-03 12:34] VITALS: BP 124/73; PULSE 78; RESP 18; TEMP 36.6; O2SAT 96
== END 2022-06-05 23:59 | disposition home or self-care (01) ==
PROVIDERS: PCP Emergency Medicine Emergency Medical Services; Visit Provider Internal Medicine Hematology & Oncology
DX: Z51.12 Encounter for antineoplastic immunotherapy (principal); C34.11 Malignant neoplasm of upper lobe, right bronchus or lung; C78.02 Secondary malignant neoplasm of left lung; C79.31 Secondary malignant neoplasm of brain; Z87.891 Personal history of nicotine dependence; Z79.899 Other long term (current) drug therapy
CPT/HCPCS: 36591; 80053; 84443; 85025; 87426; 96413; 99214; J7050; J9271

== ENCOUNTER 2022-06-23 12:01 | Oncology outpatient (recurring) (ONCR) | payer OTHER, SELFPAY ==
[2022-06-23 12:48] LABS: Basophils % 0.2 %; Eosinophils # 0.2 10^3/uL (0.0-0.8); Eosinophils % 2.3 %; Hematocrit 45.6 % (42.0-52.0); Hemoglobin 14.9 g/dL (11.7-16.6); Lymphocytes # 2.1 10^3/uL (0.8-4.8); Lymphocytes % 22.4 %; Mean Corpuscular HGB Conc 32.7 g/dL (30.0-36.0); Mean Corpuscular Hemoglobin 31.3 pg (28.0-34.0); Mean Corpuscular Volume 95.8 fl (80-94); Monocytes # 0.5 10^3/uL (0.2-0.9); Monocytes % 5.6 %; Neutrophils # 6.61 10^3/uL (1.8-7.7); Neutrophils % 69.3 %; Nucleated Red Blood Cells % 0 %; Platelet Count 205 10^3/cmm (130-400); Red Blood Count 4.76 10^6/uL (4.1-5.3); Red Cell Distribution Width 12.9 % (12.1-15.1); White Blood Count 9.5 10^3/uL (4.0-10.0)
[2022-06-23 13:22] LABS: Alanine Aminotransferase 21 U/L (0-41); Albumin Level 3.7 g/dL (3.5-5.2); Alkaline Phosphatase 70 U/L (40-130); Aspartate Amino Transferase 17 U/L (0-40); Blood Urea Nitrogen 15 mg/dL (8-23); Calcium 9.4 mg/dL (8.5-10.5); Carbon Dioxide 23 mmol/L (22-29); Chloride 105 mmol/L (98-107); Globulin 3.3 g/dL (1.3-4.6); Glomerular Filtration Rate 97.3 mL/min (90-130); Glucose 133 mg/dL (65-115); Osmolality Calculated 289 mOsm/kg (285-295); Sodium 138 mmol/L (136-145); Thyroid Stimulating Hormone 0.78 uIU/mL (0.27-4.20); Total Bilirubin 0.5 mg/dL (0.15-1.2)
[2022-06-23] MEDS: pembrolizumab 200 MG in sodium chloride 0.9% 250 ML 516 MG IV (14:55)
[2022-06-23 15:34] VITALS: BP 129/79; PULSE 53; RESP 16; TEMP 36.2; O2SAT 94
== END 2022-07-06 23:59 | disposition home or self-care (01) ==
PROVIDERS: PCP Emergency Medicine Emergency Medical Services; Visit Provider Internal Medicine Hematology & Oncology
DX: Z51.12 Encounter for antineoplastic immunotherapy (principal); C34.11 Malignant neoplasm of upper lobe, right bronchus or lung; C79.31 Secondary malignant neoplasm of brain; C79.51 Secondary malignant neoplasm of bone; C78.02 Secondary malignant neoplasm of left lung; M89.721 Major osseous defect, right humerus; M50.322 Other cervical disc degeneration at C5-C6 level; M48.02 Spinal stenosis, cervical region; M51.36 Other intervertebral disc degeneration, lumbar region; M48.061 Spinal stenosis, lumbar region without neurogenic claudication; Z79.899 Other long term (current) drug therapy; Z87.891 Personal history of nicotine dependence
CPT/HCPCS: 80053; 84443; 85025; 96413; 99214; J7050; J9271

== ENCOUNTER 2022-07-14 09:51 | Oncology outpatient (recurring) (ONCR) | payer OTHER, SELFPAY ==
[2022-07-14 10:32] LABS: Basophils % 0.4 %; Eosinophils # 0.2 10^3/uL (0.0-0.8); Eosinophils % 2.8 %; Hematocrit 44.9 % (42.0-52.0); Hemoglobin 14.4 g/dL (11.7-16.6); Lymphocytes # 2.3 10^3/uL (0.8-4.8); Lymphocytes % 33.4 %; Mean Corpuscular HGB Conc 32.1 g/dL (30.0-36.0); Mean Corpuscular Volume 96.6 fl (80-94); Mean Platelet Volume 9.2 fL (7.4-10.4); Monocytes # 0.5 10^3/uL (0.2-0.9); Monocytes % 7.2 %; Neutrophils # 3.82 10^3/uL (1.8-7.7); Neutrophils % 56.1 %; Nucleated Red Blood Cells % 0 %; Platelet Count 191 10^3/cmm (130-400); Red Blood Count 4.65 10^6/uL (4.1-5.3); Red Cell Distribution Width 12.7 % (12.1-15.1); White Blood Count 6.8 10^3/uL (4.0-10.0)
[2022-07-14 11:01] LABS: Alanine Aminotransferase 19 U/L (0-41); Alkaline Phosphatase 68 U/L (40-130); Anion Gap 13.9 (5-19); Aspartate Amino Transferase 17 U/L (0-40); Blood Urea Nitrogen 14 mg/dL (8-23); Calcium 8.6 mg/dL (8.5-10.5); Carbon Dioxide 24 mmol/L (22-29); Chloride 104 mmol/L (98-107); Globulin 2.7 g/dL (1.3-4.6); Glucose 103 mg/dL (65-115); Osmolality Calculated 287 mOsm/kg (285-295); Potassium 3.9 mmol/L (3.5-5.1); Sodium 138 mmol/L (136-145); Thyroid Stimulating Hormone 0.89 uIU/mL (0.27-4.20); Total Bilirubin 0.5 mg/dL (0.15-1.2); Total Protein 6.7 g/dL (6.6-8.7)
[2022-07-14] MEDS: pembrolizumab 200 MG in sodium chloride 0.9% 250 ML 516 MG IV (12:06)
[2022-07-14 12:50] VITALS: BP 135/83; PULSE 66; RESP 16; TEMP 36.1; O2SAT 97
== END 2022-08-03 23:59 | disposition home or self-care (01) ==
PROVIDERS: PCP Emergency Medicine Emergency Medical Services; Visit Provider Internal Medicine Hematology & Oncology
DX: Z51.12 Encounter for antineoplastic immunotherapy (principal); C34.11 Malignant neoplasm of upper lobe, right bronchus or lung; C79.31 Secondary malignant neoplasm of brain; C77.8 Secondary and unspecified malignant neoplasm of lymph nodes of multiple regions; C79.51 Secondary malignant neoplasm of bone; Z79.899 Other long term (current) drug therapy; Z90.2 Acquired absence of lung [part of]; Z87.891 Personal history of nicotine dependence
CPT/HCPCS: 80053; 84443; 85025; 99214; J7050; J9271

== ENCOUNTER 2022-08-18 11:09 | Oncology outpatient (recurring) (ONCR) | payer OTHER, SELFPAY ==
[2022-08-04 09:27] LABS: Basophils % 0.5 %; Eosinophils # 0.3 10^3/uL (0.0-0.8); Eosinophils % 5.3 %; Hematocrit 46.4 % (42.0-52.0); Hemoglobin 15.2 g/dL (11.7-16.6); Lymphocytes # 2.6 10^3/uL (0.8-4.8); Lymphocytes % 42.2 %; Mean Corpuscular HGB Conc 32.8 g/dL (30.0-36.0); Mean Corpuscular Hemoglobin 31.1 pg (28.0-34.0); Mean Corpuscular Volume 94.9 fl (80-94); Mean Platelet Volume 9.1 fL (7.4-10.4); Monocytes # 0.4 10^3/uL (0.2-0.9); Monocytes % 6.4 %; Neutrophils # 2.77 10^3/uL (1.8-7.7); Neutrophils % 45.4 %; Nucleated Red Blood Cells % 0 %; Platelet Count 195 10^3/cmm (130-400); Red Blood Count 4.89 10^6/uL (4.1-5.3); Red Cell Distribution Width 12.5 % (12.1-15.1); White Blood Count 6.1 10^3/uL (4.0-10.0)
[2022-08-04 09:45] LABS: Alanine Aminotransferase 16 U/L (0-41); Albumin Level 3.8 g/dL (3.5-5.2); Alkaline Phosphatase 75 U/L (40-130); Anion Gap 15.9 (5-19); Aspartate Amino Transferase 15 U/L (0-40); Blood Urea Nitrogen 15 mg/dL (8-23); Calcium 8.7 mg/dL (8.5-10.5); Carbon Dioxide 23 mmol/L (22-29); Chloride 105 mmol/L (98-107); Globulin 2.9 g/dL (1.3-4.6); Glomerular Filtration Rate 84.7 mL/min (90-130); Glucose 100 mg/dL (65-115); Osmolality Calculated 291 mOsm/kg (285-295); Potassium 3.9 mmol/L (3.5-5.1); Sodium 140 mmol/L (136-145); Total Bilirubin 0.4 mg/dL (0.15-1.2); Total Protein 6.7 g/dL (6.6-8.7)
== END 2022-09-03 23:59 | disposition home or self-care (01) ==
PROVIDERS: PCP Emergency Medicine Emergency Medical Services; Visit Provider Internal Medicine Hematology & Oncology
DX: C34.11 Malignant neoplasm of upper lobe, right bronchus or lung (principal); Z90.2 Acquired absence of lung [part of]; C79.31 Secondary malignant neoplasm of brain; C79.51 Secondary malignant neoplasm of bone; Z79.899 Other long term (current) drug therapy; Z87.891 Personal history of nicotine dependence; Z92.21 Personal history of antineoplastic chemotherapy; Z92.3 Personal history of irradiation
CPT/HCPCS: 36415; 80053; 85025; 99214

== ENCOUNTER 2022-09-16 13:38 | Outpatient (RCR) | payer OTHER, SELFPAY | END 2022-10-03 23:59 | disposition home or self-care (01) | LOC: SPT 13:38 | PROVIDERS: Visit Provider Emergency Medicine Emergency Medical Services | DX: R53.83 Other fatigue (principal); Z85.9 Personal history of malignant neoplasm, unspecified | CPT/HCPCS: 97110; 97162 ==

== ENCOUNTER 2022-10-04 06:00 | Outpatient (RCR) | payer OTHER, SELFPAY | END 2022-11-03 23:59 | disposition home or self-care (01) | LOC: SPT 06:00 | PROVIDERS: Visit Provider Emergency Medicine Emergency Medical Services | DX: Z85.9 Personal history of malignant neoplasm, unspecified (principal) | CPT/HCPCS: 97110 ==

== ENCOUNTER 2022-12-15 13:43 | Oncology outpatient (recurring) (ONCR) | payer OTHER, SELFPAY ==
[2022-12-15 13:49] VITALS: BP 136/87; PULSE 67; RESP 18; O2SAT 94
[2022-12-15 14:24] LABS: Basophils % 0.3 %; Eosinophils # 0.3 10^3/uL (0.0-0.8); Eosinophils % 4.7 %; Hematocrit 45.9 % (42.0-52.0); Hemoglobin 15.1 g/dL (11.7-16.6); Lymphocytes # 2.7 10^3/uL (0.8-4.8); Lymphocytes % 41.5 %; Mean Corpuscular HGB Conc 32.9 g/dL (30.0-36.0); Mean Corpuscular Hemoglobin 31.5 pg (28.0-34.0); Mean Corpuscular Volume 95.8 fl (80-94); Mean Platelet Volume 9.1 fL (7.4-10.4); Monocytes # 0.5 10^3/uL (0.2-0.9); Monocytes % 8.2 %; Neutrophils # 2.99 10^3/uL (1.8-7.7); Neutrophils % 45.1 %; Nucleated Red Blood Cells % 0 %; Platelet Count 207 10^3/cmm (130-400); Red Blood Count 4.79 10^6/uL (4.1-5.3); Red Cell Distribution Width 12.9 % (12.1-15.1); White Blood Count 6.6 10^3/uL (4.0-10.0)
[2022-12-15 14:54] LABS: Alanine Aminotransferase 17 U/L (0-41); Albumin Level 3.9 g/dL (3.5-5.2); Alkaline Phosphatase 74 U/L (40-130); Anion Gap 13.8 (5-19); Aspartate Amino Transferase 12 U/L (0-40); Blood Urea Nitrogen 13 mg/dL (8-23); Calcium 9.3 mg/dL (8.5-10.5); Carbon Dioxide 25 mmol/L (22-29); Chloride 106 mmol/L (98-107); Globulin 3.2 g/dL (1.3-4.6); Glucose 94 mg/dL (65-115); Osmolality Calculated 292 mOsm/kg (285-295); Potassium 3.8 mmol/L (3.5-5.1); Sodium 141 mmol/L (136-145); Thyroid Stimulating Hormone 0.79 uIU/mL (0.27-4.20); Total Bilirubin 0.4 mg/dL (0.15-1.2); Total Protein 7.1 g/dL (6.6-8.7)
== END 2023-01-03 23:59 | disposition home or self-care (01) ==
PROVIDERS: Visit Provider Internal Medicine Hematology & Oncology
DX: C34.11 Malignant neoplasm of upper lobe, right bronchus or lung; C78.02 Secondary malignant neoplasm of left lung; C79.31 Secondary malignant neoplasm of brain; C79.51 Secondary malignant neoplasm of bone; M50.322 Other cervical disc degeneration at C5-C6 level; M51.36 Other intervertebral disc degeneration, lumbar region; M48.061 Spinal stenosis, lumbar region without neurogenic claudication; Z87.891 Personal history of nicotine dependence; Z92.3 Personal history of irradiation; R20.2 Paresthesia of skin
CPT/HCPCS: 36415; 80053; 84443; 85025; 99214

== ENCOUNTER 2023-03-08 14:08 | Outpatient (CLI) | payer OTHER, SELFPAY ==
--- NOTE | 2023-03-08 08:30 | PETR_ITS ---
PROCEDURE INFORMATION: Exam: PET/CT Vertex to Mid-thigh Exam date and time: 03/08/2023 9:08 AM Age: 67 years old Clinical indication: Condition or disease; Follow-up oncological assessment; Condition/disease: Malignant neoplasm of lung, hal secondary malignant neoplasm of bone and brain; Additional info: Compare to previous, . LABS AND CLINICAL REPORTS: Glucose: 94 mg/dl Treatment strategy for malignancy (PET staging): Restaging (PS) TECHNIQUE: Imaging protocol: Following at least four-hour fasting and following the injection of radiopharmaceutical, low dose CT images were obtained. Then, PET images were obtained. Attenuation corrected images were constructed using the CT scan. Fused images of PET and CT were reviewed. The standardized uptake values (SUV) reported below are maximum values within a region of interest, expressed in gm/ml. Exam includes vertex to mid-thigh. Radiopharmaceutical: 14.01 mCi F-18 FDG (Fluorodeoxyglucose), IV. Time of imaging post radiopharmaceutical administration: 57.0 minutes. Injection site: Right antecubital vein. COMPARISON: PT PET Scan 09/05/2021 7:46 AM FINDINGS: Tubes, catheters and devices: Stable right ventriculoperitoneal shunt catheter. No hydrocephalus. Brain: Postoperative defect in the left cerebellar hemisphere. Pharynx: No abnormal uptake. Larynx: No abnormal uptake. Lungs, pleura and trachea: No abnormal uptake. Resolution of inflammatory uptake in the right upper lobe mass. Discoid scarring in the posterior aspect of the right upper lobe is unchanged in size and less FDG avid. Its maximum SUV is only 1.9 (previously 2.8). Heart: Normal physiologic uptake. Mediastinal space: No abnormal uptake. Liver: No abnormal uptake. Gallbladder and bile ducts: No abnormal uptake. Pancreas: No abnormal uptake. Spleen: No abnormal uptake. Adrenal glands: No abnormal uptake. Kidneys and ureters: Normal physiologic uptake. Stomach and bowel: No abnormal uptake. Mild prostate enlargement. Vasculature: No abnormal uptake. There is mild calcific atherosclerosis of the abdominal aorta and iliac arteries. There is no aneurysm. Lymph nodes: No abnormal uptake. No lymphadenopathy in the head, neck, chest, abdomen, pelvis or extremities. Bones/joints: Left suboccipital craniectomy. No FDG avid bone lesions. Soft tissues: No metabolically active areas. PET/PET skulltothi SUBSEQ [id number] IMPRESSION: 1. No evidence of residual/recurrent or metastatic lung cancer. 2. Resolution of inflammatory uptake in the right upper lobe mass. Residual scarring has a maximum SUV of 1.9, previously 2.8 on 09/05/2021.
== END 2023-03-08 14:09 | disposition home or self-care (01) ==
LOC: RAD 14:09
PROVIDERS: PCP Emergency Medicine Emergency Medical Services; Visit Provider Internal Medicine Medical Oncology
DX: C34.11 Malignant neoplasm of upper lobe, right bronchus or lung (principal); C79.31 Secondary malignant neoplasm of brain; C79.51 Secondary malignant neoplasm of bone
CPT/HCPCS: 78815; A9552

== ENCOUNTER 2023-03-15 20:00 | Outpatient (CLI) | payer OTHER, SELFPAY | END 2023-03-15 20:01 | disposition home or self-care (01) | LOC: SLEEP 03-16 04:54 | PROVIDERS: PCP Emergency Medicine Emergency Medical Services; Visit Provider Emergency Medicine Emergency Medical Services | DX: G47.33 Obstructive sleep apnea (adult) (pediatric) (principal) | CPT/HCPCS: 95810 ==

== ENCOUNTER 2023-04-07 09:53 | Oncology outpatient (recurring) (ONCR) | payer OTHER, SELFPAY ==
[2023-04-07 09:58] VITALS: BP 145/85; PULSE 72; TEMP 36.6; O2SAT 94
[2023-04-07 10:21] LABS: Basophils % 0.4 %; Eosinophils # 0.2 10^3/uL (0.0-0.8); Eosinophils % 3.8 %; Hematocrit 45.2 % (37-53); Lymphocytes # 2.4 10^3/uL (0.8-4.8); Lymphocytes % 45.2 %; Mean Corpuscular HGB Conc 32.7 g/dL (30-55); Mean Corpuscular Hemoglobin 31.2 pg (27-33); Mean Corpuscular Volume 95.2 fl (82-101); Mean Platelet Volume 8.9 fL (7.4-10.4); Monocytes # 0.4 10^3/uL (0.2-0.9); Monocytes % 7.1 %; Neutrophils # 2.27 10^3/uL (1.8-7.7); Neutrophils % 43.3 %; Nucleated Red Blood Cells % 0 %; Platelet Count 193 10^3/cmm (157-399); Red Blood Count 4.75 10^6/uL (3.85-5.65); Red Cell Distribution Width 12.7 % (12.1-15.1); White Blood Count 5.24 10^3/uL (3.29-11.43)
[2023-04-07 10:47] LABS: Alanine Aminotransferase 18 U/L (0-41); Albumin Level 4.2 g/dL (3.5-5.2); Alkaline Phosphatase 80 U/L (40-130); Anion Gap 12.1 (5-19); Aspartate Amino Transferase 15 U/L (0-40); Blood Urea Nitrogen 12 mg/dL (8-23); Calcium 8.3 mg/dL (8.5-10.5); Carbon Dioxide 26 mmol/L (22-29); Chloride 105 mmol/L (98-107); Globulin 2.5 g/dL (1.3-4.6); Glucose 98 mg/dL (65-115); Osmolality Calculated 288 mOsm/kg (285-295); Potassium 4.1 mmol/L (3.5-5.1); Sodium 139 mmol/L (136-145); Total Bilirubin 0.5 mg/dL (0.15-1.2); Total Protein 6.7 g/dL (6.6-8.7)
== END 2023-05-05 23:59 | disposition home or self-care (01) ==
PROVIDERS: Internal Medicine Medical Oncology; PCP Emergency Medicine Emergency Medical Services; Visit Provider Internal Medicine Medical Oncology
DX: R20.2 Paresthesia of skin (principal); C34.11 Malignant neoplasm of upper lobe, right bronchus or lung; C79.51 Secondary malignant neoplasm of bone; C79.31 Secondary malignant neoplasm of brain; Z90.2 Acquired absence of lung [part of]; Z79.899 Other long term (current) drug therapy; Z87.891 Personal history of nicotine dependence; Z92.21 Personal history of antineoplastic chemotherapy; Z92.3 Personal history of irradiation
CPT/HCPCS: 36415; 80053; 85025; 99215